=== PATIENT | male | born 1975 | race Caucasian/White ===

== ENCOUNTER 2016-09-03 19:23 | Emergency (ER) | payer BC, OTHER ==
[2016-09-03 19:58] VITALS: BP 158/82; PULSE 87; RESP 18; TEMP 99.7
[2016-09-03] MEDS ORDERED: ORPHENADRINE 30 MG/ML 2 ML VIAL IM STA (20:18)
[2016-09-03] MEDS ORDERED: HYDROmorphone 1 MG/ML 1 ML SYRINGE IM STA (20:18)
--- NOTE | 2016-09-03 20:20 | ED ---
Lower Extremity Injury HPI - General Chief Complaint: Extremity Injury, Lower Stated Complaint: leg pain Time Seen by Provider: 09/03/16 20:02 Source: patient, RN notes reviewed Mode of arrival: ambulatory Limitations: no limitations - History of Present Illness Initial Comments: 41-year-old male present emergency Department chief complaint bilateral leg pain. Patient states she's been doing more work than he usually would. Patient states he has a long history of bilateral knee pain, back problems. Patient states his films pain in the hamstring region, knees. Patient states been getting [facility]. Patient denies any trauma. 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 Patient states that he's felt that exacerbated his pain. Patient states his pain medication is not helping at this time. Patient denies any bowel bladder incontinence or retention. - Related Data Home Medications Medication Instructions Recorded Confirmed Beclomethasone Dipropionate [Qvar 2 puff INHALATION BID 07/15/14 09/03/16 80 mcg/puff] amLODIPine BESYLATE [Norvasc] 5 mg PO QAM 07/15/14 09/03/16 HYDROcodone/APAP 7.5-325MG [[place] 1 tab PO Q4H PRN 07/15/15 09/03/16 7.5-325] Ibuprofen [Motrin] 800 mg PO BID 09/03/16 09/03/16 Previous Rx's Medication Instructions Recorded Cyclobenzaprine [Flexeril] 10 mg PO TID PRN #15 tab 09/03/16 methylPREDNISolone [Medrol Dose 4 mg PO DIRECTED #1 pack 09/03/16 Pack] Allergies Allergy/AdvReac Type Severity Reaction Status Date / Time No Known Allergies Allergy Verified 01/07/16 20:29 Review of Systems ROS Statement: Those systems with pertinent positive or pertinent negative responses have been documented in the HPI. ROS Other: All systems not noted in ROS Statement are negative. Past Medical History Past Medical History: Asthma, Hypertension, Sleep Apnea/CPAP/BIPAP Additional Past Medical History / Comment(s): "Spirocytosis", chronic back pain, History of Any Multi-Drug Resistant Organisms: None Reported Additional Past Surgical History / Comment(s): Splenectomy AT AGE 2, SX R/T ABSCESS ON LT THIGH Past Anesthesia/Blood Transfusion Reactions: No Reported Reaction Past Psychological History: No Psychological Hx Reported Smoking Status: Current every day smoker Past Alcohol Use History: None Reported Additional Past Alcohol Use History / Comment(s): TRYING TO QUIT SMOKING Past Drug Use History: Marijuana Additional Drug Use History / Comment(s): USES 3-4 TIMES WEEKLY, INSTRUCTED NOT TO USE 24 HRS PRIOR TO SURGERY General Exam Limitations: no limitations General appearance: alert, in no apparent distress, obese Neck exam: Present: normal inspection, full ROM. Absent: tenderness, meningismus, lymphadenopathy Respiratory exam: Present: normal lung sounds bilaterally. Absent: respiratory distress, wheezes, rales, rhonchi, stridor Cardiovascular Exam: Present: regular rate, normal rhythm, normal heart sounds. Absent: systolic murmur, diastolic murmur, rubs, gallop, clicks GI/Abdominal exam: Present: soft, normal bowel sounds. Absent: distended, tenderness, guarding, rebound, rigid Extremities exam: Present: normal inspection, full ROM, normal capillary refill , other (Full strength of lower extremities neurovascular intact there is no Tenderness). Absent: tenderness, pedal edema, joint swelling, calf tenderness Back exam: Present: full ROM. Absent: tenderness, paraspinal tenderness, vertebral tenderness Neurological exam: Present: alert, oriented X3, CN II-XII intact Course Vital Signs 09/03/16 19:54 Temperature 99.7 F H Pulse Rate 87 Respiratory 18 Rate Blood Pressure 158/82 O2 Sat by Pulse 96 Oximetry Medical Decision Making - Medical Decision Making 41-year-old male presented for leg pain. Patient has chronic leg pain, knee pain. Patient also has symptoms symptoms of lumbar radiculopathy. Patient has chronic back problems. Patient placed on steroids, muscle relaxers at this time. Return parameters were discussed. Disposition Clinical Impression: Lumbar radicular pain, Leg pain Disposition: HOME SELF-CARE Condition: Stable Instructions: Lumbar Radiculopathy (ED), Leg Pain (ED) Additional Instructions: Please return to the Emergency Department if symptoms worsen or any other concerns. Prescriptions: Cyclobenzaprine [Flexeril] 10 mg PO TID PRN #15 tab PRN Reason: Muscle Spasm methylPREDNISolone [Medrol Dose Pack] 4 mg PO DIRECTED #1 pack Referrals: David Paniagua MD [Primary Care Provider] - 1-2 days Time of Disposition: 20:20
== END 2016-09-03 20:55 | disposition home or self-care (01) ==
LOC: EC 19:23
DX: M54.16 Radiculopathy, lumbar region (principal); M79.604 Pain in right leg; M79.605 Pain in left leg; J45.909 Unspecified asthma, uncomplicated; I10 Essential (primary) hypertension; F17.200 Nicotine dependence, unspecified, uncomplicated; Z79.51 Long term (current) use of inhaled steroids; Z79.1 Long term (current) use of non-steroidal anti-inflammatories (NSAID); Z79.899 Other long term (current) drug therapy
CPT/HCPCS: 99282; 96372 ×2; J2360; J1170

== ENCOUNTER → 2016-11-24 | Outpatient (CLI) | payer BC ==
[2016-11-24 09:31] LABS: Basophils # (A) 0.1 k/uL (0-0.2); Basophils % (A) 1 %; CH 32.7; CHCM 36.8; Eosinophils # (A) 0.4 k/uL (0-0.7); Eosinophils % (A) 4 %; HCT 46.6 % (39.0-53.0); HGB 16.4 gm/dL (13.0-17.5); Hyperchromasia Slight; Luc # (Auto) 0.24; Luc % (Auto) 2; Lymphocytes # (A) 2.4 k/uL (1.0-4.8); Lymphocytes % (A) 21 %; MCH 31.6 pg (25.0-35.0); MCHC 35.3 g/dL (31.0-37.0); MCV 89.5 fL (80.0-100.0); Mean Platelet Volume 8.2; Monocytes % (A) 8 %; Neutrophils # (A) 7.5 k/uL (1.3-7.7); Neutrophils % (A) 64 %; Poikilocytosis Slight; RBC 5.21 m/uL (4.30-5.90); RDW 14.1 % (11.5-15.5); WBC 11.7 k/uL (3.8-10.6); WBC (Perox) 11.62
[2016-11-24 09:35] LABS: ALT 67 U/L (21-72); AST 40 U/L (17-59); Alkaline Phosphatase 79 U/L (38-126); Anion Gap 7 mmol/L; Blood Urea Nitrogen 17 mg/dL (9-20); Calcium 9.7 mg/dL (8.4-10.2); Carbon Dioxide 29 mmol/L (22-30); Chloride 102 mmol/L (98-107); Cholesterol 143 mg/dL (<200); Glucose 94 mg/dL (74-99); HDL Cholesterol 45 mg/dL (40-60); Non-African American GFR(MDRD) >60 (>60 ml/min/1.73 sqM); Potassium 5.2 mmol/L (3.5-5.1); Sodium 138 mmol/L (137-145); Total Bilirubin 0.6 mg/dL (0.2-1.3); Total Protein 7.6 g/dL (6.3-8.2)
== END ==
LOC: LABWHC1 08:38
PROVIDERS: ATTEND Internal Medicine
DX: I10 Essential (primary) hypertension (principal); J45.909 Unspecified asthma, uncomplicated; R53.83 Other fatigue; Z13.6 Encounter for screening for cardiovascular disorders
CPT/HCPCS: 36415; 80053; 80061; 84443; 85025

== ENCOUNTER → 2017-05-07 | Outpatient (CLI) | payer BC ==
[2017-05-07 14:50] LABS: HCT 45.3 % (39.0-53.0); MCH 31.6 pg (25.0-35.0); MCHC 35.3 g/dL (31.0-37.0); MCV 89.5 fL (80.0-100.0); Mean Platelet Volume 8.2; Platelet Count 362 k/uL (150-450); RBC 5.06 m/uL (4.30-5.90); RDW 14.7 % (11.5-15.5); WBC 12.5 k/uL (3.8-10.6)
== END | disposition home or self-care (01) ==
LOC: LABPAT 14:10
PROVIDERS: ATTEND Otolaryngology
DX: Z01.818 Encounter for other preprocedural examination (principal); Z01.812 Encounter for preprocedural laboratory examination
CPT/HCPCS: 36415; 84132; 85027; 93005

== ENCOUNTER → 2017-05-10 | Day surgery (SDC) | payer BC ==
[2017-05-06 10:02] VITALS: BMI 51.7
[~2017-05-10] MED LIST: ACETAMINOPHEN IV (For NPO) 1,000 MG in EMPTY BAG 1 BAG IVPB ONE; DEXAMETHASONE SOD PHOSPHATE 10 MG/ML 1 ML VIAL IV ONE; HYDROmorphone (PF) 1 MG/ML ONE; HYDROmorphone 0.5 MG/0.5 ML SYRINGE IVP PRN; LACTATED RINGERS 1,000 ML IV SCH; LIDOCAINE 1% 20 ML VIAL (10MG/ML) FOR IV START INTRADERMA ONE; LIDOCAINE 1% INJ 10MG/ML (20 ML MDV) ONE; MIDAZOLAM 2 MG/2 ML VIAL IV ONE; MIDAZOLAM 2 MG/2 ML VIAL ONE; MORPHINE SULFATE 4 MG/ML SYRINGE IV PRN; ONDANSETRON 4 MG/2 ML VIAL IVP ONE; PHENYLEPHRINE-0.9% NACL SYG 1 MG/10 ML SYRINGE ONE; PROPOFOL 10 MG/ML 20 ML VIAL IV ONE; Pre Op ABX Message 1 EACH MISC MISCELLANE ONE; SUCCINYLCHOLINE CHLORIDE VIAL 200 MG/10 ML VIAL IV ONE; fentaNYL (PF) 50 MCG/ML 2 ML AMP ONE
--- NOTE | 2017-05-10 04:26 | HP ---
HISTORY AND PHYSICAL CHIEF COMPLAINT: Chronic laryngitis. HISTORY OF PRESENT ILLNESS: The patient is a 42-year-old male who was seen in my office complaining of having an intermittent raspy hoarse voice which has been going on for anywhere from 2 months to as long as a year. The patient denies any difficulty swallowing or any pain with swallowing. He also denies any referred otalgia or pain in either ear. He smokes approximately 1-1/2 to 2 packs of cigarettes per day and was advised to quit for obvious health reasons. At the time that the patient was seen in my office, clinical examination, which included an indirect laryngoscopy and eventually a videostroboscopy was performed and this revealed evidence of bilateral lesions on the true vocal cords. Because of this, patient's history of heavy smoking and concern about possible malignancy, it was recommended that he undergo a suspension microlaryngoscopy with biopsy and possible CO2 laser of these lesions under general anesthesia. PAST MEDICAL HISTORY: Past medical history reveals he has no allergies to medications. He uses a CPAP machine because he has been diagnosed with sleep apnea. MEDICATIONS: Current medications include: 1. Lisinopril. 2. Lasix. 3. Phentermine. 4. Maurepas. REVIEW OF SYSTEMS: Review of systems reveals cardiovascular system is positive for hypertension. The respiratory system is positive for sleep apnea. Musculoskeletal system is positive for osteoarthritis. The remainder of the review of systems is essentially unremarkable. PHYSICAL EXAMINATION: This patient is a 42-year-old male who is alert and cooperative. HEENT EXAMINATION: Patient is normocephalic. Tympanic membranes are normal. Middle ear spaces are free of any fluid or infection. Pupils are equal, round, and reactive to light and accommodation. Extraocular movements are within normal limits. Intranasal examination reveals moderate to severe septal deviation with compensatory hypertrophy of the inferior turbinates bilaterally. Examination of oropharynx and larynx are as described above in the history of present illness and will not be repeated here. Palpation of the neck, cranial nerves 2 through 12 and the remainder of the head and neck exam are within normal limits. CHEST/CARDIOVASCULAR: Both lung weber are clear to percussion and auscultation. The patient is in regular sinus rhythm. S1, S2 are present without any murmurs, S3s or S4s. Peripheral pulses are bilaterally symmetrical and within normal limits. ABDOMEN: There is no evidence of any masses, megaly, or tenderness. The abdomen is soft. Skin is unremarkable. Musculoskeletal and neurological are all within normal limits. RECTAL EXAM: The rectal exam is deferred at this time because the patient has this done on a regular basis at his family physician's office. The remainder of the physical exam is essentially unremarkable. 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 PLAN: The patient is scheduled to undergo a suspension microlaryngoscopy with biopsy of bilateral true vocal cord lesions and possible CO2 laser of the larynx under general anesthesia in a.m. ATTENTION RNS IN THE PRE-SURGICAL AREA: I have not ordered any pre-surgical prophylactic antibiotics for this patient. If the pharmacy department sends any pre- surgical prophylactic antibiotics to the pre-surgical area for this patient, that order should be cancelled and the medication should be returned to the pharmacy department. Please make sure that the patient's account is credited appropriately. The only medication that I have ordered for this patient to receive is 1000 mg of Ofirmev IV to be given once an intravenous line has been established. I have discussed the risks, benefits and alternative therapies for the above-mentioned procedure and for both sedation/analgesia as well as necessary blood product administration, if indicated, as they pertain to this patient. The patient has indicated his or her understanding and acceptance of the risks and procedures discussed. MMODL / IJN: [id number] /
--- NOTE | 2017-05-10 04:29 | HP ---
HISTORY AND PHYSICAL ADDENDUM: Patient's previous surgeries include a splenectomy and left hamstring surgery. LUCILA / KIN: [id number] /
[2017-05-10 15:22] VITALS: TEMP 97.2
[2017-05-10 16:13] VITALS: PULSE 76; RESP 16
[2017-05-10 16:36] VITALS: BP 133/77
--- NOTE | 2017-05-13 22:24 | OP ---
OPERATIVE REPORT DATE OF SURGERY: 05/10/2017 PREOPERATIVE DIAGNOSES: Chronic laryngitis with bilateral laryngeal lesions. POSTOPERATIVE DIAGNOSES: Chronic laryngitis with bilateral laryngeal lesions. Pathology pending. ANESTHESIA: General. OPERATIVE PROCEDURE: Suspension microlaryngoscopy with biopsy of bilateral laryngeal lesions and CO2 laser of the right true vocal cord lesion. SURGEON: Dr. Qureshi. COMPLICATIONS: None. DESCRIPTION OF THE PROCEDURE: The patient was placed on operating table in supine position and after uneventful induction and endotracheal intubation, satisfactory general anesthesia was obtained. Next the patient was draped in usual customary fashion. Following this, the laryngoscope was introduced into the patient's oropharynx and the entire hypopharynx including the right and left piriform sinuses, base of tongue and vallecular were inspected as well as the tip of the epiglottis. Next, the tip of the laryngoscope was positioned at the laryngeal introitus. The Lewy apparatus was attached to the handle of the laryngoscope and the laryngoscope was suspended on the patient's chest. Next, using the Zeiss operating microscope and under magnified visualization, once the 2 lesions on the anterior portion of the right and left true vocal cord. Both of these lesions were biopsied and were sent to Pathology in formalin marked right and left respectively. Next, using the CO2 laser in the appropriate setting, approximately 5-7 cortez, the remaining portions of the right lesion was vaporized using the CO2 laser. The patient was given 10 mg of Decadron intraoperatively to reduce any laryngeal edema. At this point, the procedure was terminated. There were no intraoperative complications. Patient tolerated procedure well and was returned to the recovery room in satisfactory condition. MMODL / IJN: [id number] /
== END | disposition home or self-care (01) ==
LOC: OR 11:27
PROVIDERS: ATTEND Otolaryngology
DX: J38.1 Polyp of vocal cord and larynx (principal); J37.0 Chronic laryngitis; F17.210 Nicotine dependence, cigarettes, uncomplicated; I10 Essential (primary) hypertension; M19.90 Unspecified osteoarthritis, unspecified site; J44.9 Chronic obstructive pulmonary disease, unspecified; G47.33 Obstructive sleep apnea (adult) (pediatric); Z99.89 Dependence on other enabling machines and devices; E66.01 Morbid (severe) obesity due to excess calories; Z68.43 Body mass index [BMI] 50.0-59.9, adult; D58.0 Hereditary spherocytosis; Z79.891 Long term (current) use of opiate analgesic; Z79.899 Other long term (current) drug therapy
CPT/HCPCS: 88305; 31536; J2250; J0330; J1100; J2405; J2001; J3010; J1170; J0131; J2370; J2704

== ENCOUNTER 2017-06-11 10:51 | Emergency (ER) | payer BC ==
[2017-06-11] MEDS ORDERED: RX INFO: IV CONTRAST WAS GIVEN 1 EACH MISC MISCELLANE PRN (11:26)
[2017-06-11] MEDS ORDERED: MORPHINE SULFATE 4 MG/ML SYRINGE IVP ONE (11:28)
[2017-06-11] MEDS ORDERED: ONDANSETRON 4 MG/2 ML VIAL IVP STA (11:28)
[2017-06-11] MEDS ORDERED: KETOROLAC 30 MG/ML 1 ML VIAL IVP STA (11:28)
--- NOTE | 2017-06-11 11:31 | ED ---
Abdominal Pain HPI - General Chief Complaint: Abdominal Pain Stated Complaint: Stomach pain Time Seen by Provider: 06/11/17 10:59 Source: patient, RN notes reviewed, old records reviewed Mode of arrival: ambulatory Limitations: no limitations - History of Present Illness Initial Comments: This patient is a 42-year-old male presents emergency Department chief complaint of left lower quadrant abdominal pain for the past few days. He reports he has history of constipation using MiraLAX. He reports his bowel movement past 2 days. Patient states he's had a history of splenectomy. He reports he's had no fever or chills. He reports that he has bilateral lower quadrant pains. Patient states that he's had no urinary symptoms. Patient reports that he is on Baggs for chronic pain. He reports that he was at this contributed to his constipation symptoms.Patient denies any recent fever, chills , shortness of breath, chest pain, back pain, abdominal pain, nausea vomiting, numbness or tingling, dysuria or hematuria, diarrhea, headaches or visual changes, or any other current symptoms - Related Data Home Medications Medication Instructions Recorded Confirmed Albuterol Nebulized [Ventolin 2.5 mg INHALATION RT-QID PRN 05/06/17 06/11/17 Nebulized] Furosemide [Lasix] 40 mg PO DAILY 05/06/17 06/11/17 HYDROcodone/APAP 10-325MG [[place] 1 tab PO Q6HR PRN 05/06/17 06/11/17 10-325] Lisinopril [Zestril] 20 mg PO BID 05/06/17 06/11/17 Phentermine HCl [Adipex-P] 37.5 mg PO QAM 05/06/17 06/11/17 Polyethylene Glycol 3350 [Miralax] 17 gm PO DAILY 06/11/17 06/11/17 Previous Rx's Medication Instructions Recorded Bisacodyl [Dulcolax] 10 mg PO ONCE #30 tablet. 06/11/17 Ciprofloxacin HCl [Cipro] 500 mg PO Q12HR 10 Days tab 06/11/17 metroNIDAZOLE [Flagyl] 500 mg PO TID #30 tab 06/11/17 Allergies Allergy/AdvReac Type Severity Reaction Status Date / Time No Known Allergies Allergy Verified 06/11/17 11:28 Review of Systems ROS Statement: Those systems with pertinent positive or pertinent negative responses have been documented in the HPI. ROS Other: All systems not noted in ROS Statement are negative. Past Medical History Past Medical History: Asthma, Hypertension, Sleep Apnea/CPAP/BIPAP Additional Past Medical History / Comment(s): SPHEROCYTOSIS BLOOD DISORDER ( SPLEEN REMOVED AGE 2.).,BACK AND KNEE PAIN. , C-PAP MACHINE., CONSTIPATION., RASPY VOICE-VOCAL CORD LESIONS. History of Any Multi-Drug Resistant Organisms: None Reported Additional Past Surgical History / Comment(s): Spleenectomy AGE 2, Injury left thigh with surgery and another surgery d/t abscess . Past Anesthesia/Blood Transfusion Reactions: No Reported Reaction Past Psychological History: No Psychological Hx Reported Smoking Status: Heavy tobacco smoker Past Alcohol Use History: None Reported Past Drug Use History: Marijuana - Past Family History Mother Family Medical History: No Reported History General Exam - General Exam Comments Initial Comments: This is a 42-year-old male. No distress. Limitations: no limitations General appearance: alert, in no apparent distress Head exam: Present: atraumatic, normocephalic, normal inspection Eye exam: Present: normal appearance, PERRL, EOMI. Absent: scleral icterus, conjunctival injection, periorbital swelling ENT exam: Present: normal exam, mucous membranes moist Neck exam: Present: normal inspection. Absent: tenderness, meningismus, lymphadenopathy Respiratory exam: Present: normal lung sounds bilaterally. Absent: respiratory distress, wheezes, rales, rhonchi, stridor Cardiovascular Exam: Present: regular rate, normal rhythm, normal heart sounds. Absent: systolic murmur, diastolic murmur, rubs, gallop, clicks GI/Abdominal exam: Present: soft, tenderness (Left lower quadrant tenderness.), normal bowel sounds, other (Evidence of scar from splenectomy.). Absent: distended, guarding, rebound, rigid Extremities exam: Present: normal inspection, full ROM, normal capillary refill. Absent: tenderness, pedal edema, joint swelling, calf tenderness Back exam: Present: normal inspection Neurological exam: Present: alert, oriented X3, CN II-XII intact Psychiatric exam: Present: normal affect, normal mood Course Vital Signs 06/11/17 06/11/17 06/11/17 10:56 12:00 13:45 Temperature 97.9 F Pulse Rate 85 80 88 Respiratory 18 16 18 Rate Blood Pressure 127/62 131/75 125/69 O2 Sat by Pulse 97 96 96 Oximetry Medical Decision Making - Medical Decision Making This patient is a 42-year-old male with chief complaint of left lower quadrant abdominal pain for the past 2 days. He has history of chronic constipation. On chronic pain medicine. He has been taking MiraLAX to help with producing a stools. At this time patient does have severe tenderness over the left lower quadrant. He does have mildly elevated blood cell count 13,000. CT on pelvis with contrast was ordered. Patient has evidence of diverticulitis. He'll be discharged with Cipro and Flagyl and stool softeners. Sent home with a magnesium citrate. Discussed follow-up with primary care provider. Discussed return parameters. All questions were answered and return parameters were discussed. - Lab Data Result diagrams: 06/11/17 11:39 06/11/17 11:39 Lab Results 06/11/17 06/11/17 06/11/17 Range/Units 11:39 11:39 12:45 WBC 13.8 H (3.8-10.6) k/uL RBC 4.84 (4.30-5.90) m/uL Hgb 15.3 (13.0-17.5) gm/dL Hct 42.3 (39.0-53.0) % MCV 87.3 (80.0-100.0) fL MCH 31.6 (25.0-35.0) pg MCHC 36.2 (31.0-37.0) g/dL RDW 14.0 (11.5-15.5) % Plt Count 419 (150-450) k/uL Neutrophils % 71 % Lymphocytes % 16 % Monocytes % 6 % Eosinophils % 5 % Basophils % 1 % Neutrophils # 9.8 H (1.3-7.7) k/uL Lymphocytes # 2.2 (1.0-4.8) k/uL Monocytes # 0.9 (0-1.0) k/uL Eosinophils # 0.7 (0-0.7) k/uL Basophils # 0.1 (0-0.2) k/uL Hyperchromasia Moderate Poikilocytosis Slight Sodium 138 (137-145) mmol/L Potassium 4.4 (3.5-5.1) mmol/L Chloride 100 (98-107) mmol/L Carbon Dioxide 29 (22-30) mmol/L Anion Gap 9 mmol/L BUN 13 (9-20) mg/dL Creatinine 0.60 L (0.66-1.25) mg/dL Est GFR (MDRD) Af Amer >60 (>60 ml/min/1.73 sqM) Est GFR (MDRD) Non-Af >60 (>60 ml/min/1.73 sqM) Glucose 87 (74-99) mg/dL Calcium 9.8 (8.4-10.2) mg/dL Total Bilirubin 0.8 (0.2-1.3) mg/dL AST 32 (17-59) U/L ALT 38 (21-72) U/L Alkaline Phosphatase 77 (38-126) U/L Total Protein 7.1 (6.3-8.2) g/dL Albumin 4.1 (3.5-5.0) g/dL Amylase 40 (30-110) U/L Lipase 67 (23-300) U/L Urine Color Yellow Urine Appearance Clear (Clear) Urine pH 7.5 (5.0-8.0) Ur Specific Hope 1.016 (1.001-1.035) Urine Protein Negative (Negative) Urine Glucose (UA) Negative (Negative) Urine Ketones Negative (Negative) Urine Blood Negative (Negative) Urine Nitrite Negative (Negative) Urine Bilirubin Negative (Negative) Urine Urobilinogen <2.0 (<2.0) mg/dL Ur Leukocyte Esterase Negative (Negative) - Radiology Data Radiology results: report reviewed Acute uncomplicated sigmoid diverticulitis. No evidence of pericolonic abscess. Hepatomegaly and 6 mm headache lesion is too small to accurately characterize. Simple renal cysts. Disposition Clinical Impression: Diverticulitis Disposition: HOME SELF-CARE Condition: Good Instructions: Diverticulitis (ED), Diverticulitis Diet (ED) Additional Instructions: Patient advised to take the antibiotics and stool softeners as prescribed. Follow-up with primary care provider. Return to the emergency department if any alarming signs or symptoms occur. Prescriptions: Bisacodyl [Dulcolax] 10 mg PO ONCE #30 tablet. Ciprofloxacin HCl [Cipro] 500 mg PO Q12HR 10 Days tab metroNIDAZOLE [Flagyl] 500 mg PO TID #30 tab Referrals: David Paniagua MD [Primary Care Provider] - 1-2 days Time of Disposition: 13:56
[2017-06-11 11:58] LABS: Basophils # (A) 0.1 k/uL (0-0.2); Basophils % (A) 1 %; Eosinophils # (A) 0.7 k/uL (0-0.7); Eosinophils % (A) 5 %; HCT 42.3 % (39.0-53.0); HGB 15.3 gm/dL (13.0-17.5); Hyperchromasia Moderate; Lymphocytes # (A) 2.2 k/uL (1.0-4.8); Lymphocytes % (A) 16 %; MCH 31.6 pg (25.0-35.0); MCHC 36.2 g/dL (31.0-37.0); MCV 87.3 fL (80.0-100.0); Monocytes # (A) 0.9 k/uL (0-1.0); Monocytes % (A) 6 %; Neutrophils # (A) 9.8 k/uL (1.3-7.7); Neutrophils % (A) 71 %; Platelet Count 419 k/uL (150-450); Poikilocytosis Slight; RBC 4.84 m/uL (4.30-5.90); WBC 13.8 k/uL (3.8-10.6)
[2017-06-11 12:04] LABS: ALT 38 U/L (21-72); AST 32 U/L (17-59); Albumin 4.1 g/dL (3.5-5.0); Alkaline Phosphatase 77 U/L (38-126); Amylase 40 U/L (30-110); Anion Gap 9 mmol/L; Blood Urea Nitrogen 13 mg/dL (9-20); Calcium 9.8 mg/dL (8.4-10.2); Carbon Dioxide 29 mmol/L (22-30); Chloride 100 mmol/L (98-107); Glucose 87 mg/dL (74-99); Lipase 67 U/L (23-300); Potassium 4.4 mmol/L (3.5-5.1); Sodium 138 mmol/L (137-145); Total Bilirubin 0.8 mg/dL (0.2-1.3); Total Protein 7.1 g/dL (6.3-8.2)
[2017-06-11] MEDS ORDERED: MORPHINE SULFATE 4 MG/ML SYRINGE IVP STA (13:11)
[2017-06-11 13:28] LABS: Appearance,Urine Clear (Clear); Bilirubin,Urine Negative (Negative); Blood,Urine Negative (Negative); Color,Urine Yellow; Glucose,Urine (UA) Negative (Negative); Ketones,Urine Negative (Negative); Leukocyte Esterase,Urine Negative (Negative); Nitrite,Urine Negative (Negative); PH, Urine 7.5 (5.0-8.0); Protein,Urine Negative (Negative); Specific Gravity,Urine 1.016 (1.001-1.035); Urobilinogen,Urine <2.0 mg/dL (<2.0)
--- NOTE | 2017-06-11 13:31 | CT ---
EXAMINATION TYPE: CT abdomen pelvis w con DATE OF EXAM: 06/11/2017 COMPARISON: NONE HISTORY: Stomach pains CT DLP: 4313 mGycm Automated exposure control for dose reduction was used. TECHNIQUE: Helical acquisition of images was performed from the lung bases through the pelvis. CONTRAST: Performed without Oral Contrast and with IV Contrast, patient injected with 100 mL of Omnipaque 300. FINDINGS: LUNG BASES: No significant abnormality is appreciated. LIVER/GB: There is mild hepatomegaly with enlargement of the left hepatic lobe. 6 mm nonspecific righ t hepatic lobe lesion is seen within segment 8 on series 3 image 16 that is too small to accurately c haracterize. No evidence of radiopaque ovoid or cartilage. PANCREAS: No significant abnormality is seen. SPLEEN: Spleen is surgically absent. ADRENALS: No significant abnormality is seen. KIDNEYS: 1.2 cm right midpole renal cyst and 1.9 cm right lower pole renal cyst are present. No evide nce of hydronephrosis or nephrolithiasis bilaterally. FREE AIR: No free air is visualized. RETROPERITONEAL ADENOPATHY: None visualized REPRODUCTIVE ORGANS: Prostate gland is heterogenous containing central zone calcifications. Small fat filled inguinal hernias are noted. URINARY BLADDER: Urinary bladder is decompressed and incompletely evaluated PELVIC ADENOPATHY: None visualized. OSSEOUS STRUCTURES: No significant abnormality is seen. BOWEL: Mild pericolonic fat stranding is seen surrounding sigmoid diverticula with adjacent fascial plane thickening. No evidence of focal fluid collection or free air. No proximal obstruction. Other d escending colonic diverticula are seen without pericolonic fat stranding. OTHER: Abdominal aorta is of normal course and caliber. IMPRESSION: 1. ACUTE UNCOMPLICATED SIGMOID DIVERTICULITIS. NO EVIDENCE OF PERICOLONIC ABSCESS. 2. HEPATOMEGALY AND 6 MM HEPATIC LESION THAT IS TOO SMALL TO ACCURATELY CHARACTERIZE. 3. SIMPLE RENAL CYSTS.
[2017-06-11 13:46] VITALS: RESP 18
[2017-06-11] MEDS ORDERED: MAGNESIUM CITRATE 296 ML BOTTLE PO ONE (13:53)
[2017-06-11 14:17] VITALS: BP 124/58; PULSE 77; TEMP 97.6
[2017-06-11] MEDS ORDERED: metroNIDAZOLE 500 MG TAB PO STA (14:22)
[2017-06-11] MEDS ORDERED: CIPROFLOXACIN HCL 500 MG TAB PO STA (14:22)
== END 2017-06-11 14:34 | disposition home or self-care (01) ==
LOC: EC 10:51
DX: K57.92 Diverticulitis of intestine, part unspecified, without perforation or abscess without bleeding (principal); I10 Essential (primary) hypertension; G47.30 Sleep apnea, unspecified; F17.200 Nicotine dependence, unspecified, uncomplicated; Z87.19 Personal history of other diseases of the digestive system; Z90.81 Acquired absence of spleen; Z99.89 Dependence on other enabling machines and devices; Z79.899 Other long term (current) drug therapy
CPT/HCPCS: 36415; 80053; 82150; 83690; 85025; 81003; 74177; 99285; 96374; 96375 ×3; J2270; J2405; J1885; Q9967

== ENCOUNTER → 2017-06-14 | Day surgery (SDC) | payer BC ==
[2017-06-12 09:50] VITALS: BMI 51.0
[~2017-06-14] MED LIST changes: +ALBUTEROL INHALER 60 PUFF/8 GM INHALER INHALATION ONE; +DEXAMETHASONE SOD PHOS (MDV) 100 MG/10 ML VIAL ONE; -HYDROmorphone (PF) 1 MG/ML ONE; -HYDROmorphone 0.5 MG/0.5 ML SYRINGE IVP PRN; -MIDAZOLAM 2 MG/2 ML VIAL IV ONE; +MIDAZOLAM 2 MG/2 ML VIAL IV PRN; -PHENYLEPHRINE-0.9% NACL SYG 1 MG/10 ML SYRINGE ONE; +SCOPOLAMINE 1.5MG/72HR PATCH TRANSDERM ONE; +SUCCINYLCHOLINE CHLORIDE 100 MG/5 ML SYR IV ONE; -SUCCINYLCHOLINE CHLORIDE VIAL 200 MG/10 ML VIAL IV ONE
--- NOTE | 2017-06-14 02:50 | HP ---
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 HISTORY OF PRESENT ILLNESS: This patient is a 42-year-old male who recently underwent a suspension microlaryngoscopy with bilateral biopsy of true vocal cord lesions under general anesthesia. Both biopsies were returned as negative and consistent with vocal cord polyps/nodules. Initially, the lesion on the right core was removed and it was decided to wait at least 1 month to remove the 2nd lesion because of concern of the possible formation of a laryngeal web. The patient is scheduled for a suspension microlaryngoscopy with CO2 laser vaporization of the remaining laryngeal polyp/nodule on the left true vocal cord under general anesthesia. PAST MEDICAL HISTORY: Reveals the patient has no known allergies to medications. He was recently diagnosed with diverticulitis and is currently on oral antibiotics for this disorder. MEDICATIONS: His normal medications include: Lisinopril, Lasix, phentermine. [place], albuterol. REVIEW OF SYSTEMS: Cardiovascular is positive for hypertension. RESPIRATORY: Positive for sleep apnea. Gastrointestinal is negative. MUSCULOSKELETAL: Positive for osteoarthritis. Gastrointestinal is positive for possible diverticulitis. The remainder review of systems unremarkable. PREVIOUS SURGERIES: Include a suspension microlaryngoscopy with biopsy of the right and left true vocal cord and CO2 laser of the right true vocal cord. SOCIAL HISTORY: The patient smokes between 1/2 to 1 pack of cigarettes per day and has been advised to quit for obvious health reasons. Additional previous surgeries include a splenectomy and left hamstring surgery. Remainder of the review of systems unremarkable. PHYSICAL EXAMINATION: The patient is a 42-year-old male who was alert and cooperative. HEENT examination patient is normocephalic. Tympanic membranes are normal. Middle ear spaces are free of any fluid or infection. Pupils equal, round, and reactive to light and accommodation. Extraocular movements are within normal limits. Intranasal examination reveals moderate to severe septal deviation with compensatory hypertrophy of the inferior turbinates and a moderate amount of mucus on the mucous membranes and draining down the posterior pharynx. Examination of the oropharynx is unremarkable. Examination of larynx is as noted above with the presence of a polyp/nodule on the left true vocal cord. Palpation of the neck, cranial nerves 2 through 12 and the remainder of the head and neck exam are within normal limits. Chest/cardiovascular: Both lung weber are clear to percussion and auscultation. The patient is in regular sinus rhythm. S1, S2 are present without evidence of any murmurs. Peripheral pulses are bilaterally symmetrical and within normal limits. ABDOMEN: There is no evidence of any masses, megaly, or tenderness. ABDOMEN: Soft. Skin is unremarkable. Musculoskeletal and neurological within normal limits. Rectal examination is deferred at this time because the patient has this done on a regular basis at his family physician's office. The remainder of physical exam is unremarkable. ASSESSMENT: Chronic laryngitis with lesion of the left true vocal cord. PLAN: The patient is scheduled to undergo a suspension microlaryngoscopy with CO2 laser of lesion of the left true vocal cord under general anesthesia in the a.m. Attention RNs in the pre-surgical area: I have not ordered any pre-surgical prophylactic antibiotics for this patient. If the Pharmacy Department sends any pre- surgical prophylactic antibiotics to the pre-surgical area for this patient, that medication should be cancelled and returned to the pharmacy department and please make sure that the patient's account is credited appropriately. The only medications that I have ordered for this patient to receive is 1000 mg of Ofirmev IV which is to be given once an intravenous line has been established. I have discussed the risks, benefits and alternative therapies for the above-mentioned procedure and for both sedation/analgesia as well as necessary blood product administration, if indicated, as they pertain to this patient. The patient has indicated his or her understanding and acceptance of the risks and procedures discussed. MMODL / IJN: [id number] /
[2017-06-14 11:41] VITALS: TEMP 98.5
[2017-06-14 12:44] VITALS: RESP 18
[2017-06-14 13:13] VITALS: BP 122/62
[2017-06-14 13:15] VITALS: PULSE 75
--- NOTE | 2017-06-16 16:39 | OP ---
OPERATIVE REPORT DATE OF SURGERY: 06/14/2017 PREOPERATIVE DIAGNOSIS: Left true vocal cord polyp. POSTOPERATIVE DIAGNOSIS: Left true vocal cord polyp. ANESTHESIA: General. OPERATIVE PROCEDURE: Suspension microlaryngoscopy with CO2 laser of a left true vocal cord polyp. SURGEON: Dr. Qureshi. COMPLICATIONS: None. ESTIMATED BLOOD LOSS: Zero. PROCEDURE: The patient is placed operating table supine position and after uneventful induction and endotracheal intubation, satisfactory general anesthesia was obtained. Next the patient was draped in usual customary fashion. Following which, the laryngoscope was introduced into the patient's oropharynx and the entire hypopharynx including the left and right piriform sinus, base of tongue, vallecular, and the tip of the epiglottis were inspected and found to be free of any suspicious lesions. Next, the tip of the laryngoscope was introduced into the laryngeal introitus. Following this, the Lewy apparatus was attached to the handle of the laryngoscope and the laryngoscope was suspended on the patient's chest. Next, using the Zeiss operating microscope and under direct visualization, the larynx and true vocal cords were visualized with the polyp on the left true vocal cord visualized. Next, using the CO2 laser on approximately a 7 watt setting and using a laser wand, the vocal cord polyp was completely vaporize in the usual and customary fashion. Further inspection of the larynx did not reveal any other laryngeal lesions. The patient was given 10 mg of Decadron intravenously during the surgery to reduce any postoperative edema. At this point, the procedure was terminated. There were no intraoperative complications. The patient tolerated procedure well and was returned to recovery room in satisfactory condition. MMODL / IJN: [id number] /
== END | disposition home or self-care (01) ==
LOC: OR 08:23
PROVIDERS: ATTEND Otolaryngology
DX: J38.2 Nodules of vocal cords (principal); F17.210 Nicotine dependence, cigarettes, uncomplicated; I10 Essential (primary) hypertension; K57.92 Diverticulitis of intestine, part unspecified, without perforation or abscess without bleeding; Z79.2 Long term (current) use of antibiotics; G47.30 Sleep apnea, unspecified; M19.90 Unspecified osteoarthritis, unspecified site; Z79.891 Long term (current) use of opiate analgesic; Z79.899 Other long term (current) drug therapy
CPT/HCPCS: 31599; J2250; J1100 ×2; J2405; J2001; J3010; J0131; J0330; J2704

== ENCOUNTER 2017-09-02 12:31 | Day surgery (SDC) | payer BC ==
[2017-08-29 09:53] VITALS: BMI 52.0
[~2017-09-02 12:31] MED LIST changes: -ACETAMINOPHEN IV (For NPO) 1,000 MG in EMPTY BAG 1 BAG IVPB ONE; -ALBUTEROL INHALER 60 PUFF/8 GM INHALER INHALATION ONE; -DEXAMETHASONE SOD PHOS (MDV) 100 MG/10 ML VIAL ONE; -DEXAMETHASONE SOD PHOSPHATE 10 MG/ML 1 ML VIAL IV ONE; -LIDOCAINE 1% 20 ML VIAL (10MG/ML) FOR IV START INTRADERMA ONE; -LIDOCAINE 1% INJ 10MG/ML (20 ML MDV) ONE; -MIDAZOLAM 2 MG/2 ML VIAL IV PRN; -MIDAZOLAM 2 MG/2 ML VIAL ONE; -MORPHINE SULFATE 4 MG/ML SYRINGE IV PRN; -ONDANSETRON 4 MG/2 ML VIAL IVP ONE; -PROPOFOL 10 MG/ML 20 ML VIAL IV ONE; -Pre Op ABX Message 1 EACH MISC MISCELLANE ONE; -SCOPOLAMINE 1.5MG/72HR PATCH TRANSDERM ONE; -SUCCINYLCHOLINE CHLORIDE 100 MG/5 ML SYR IV ONE; -fentaNYL (PF) 50 MCG/ML 2 ML AMP ONE
[2017-09-02 13:32] VITALS: RESP 16; TEMP 98.5
[2017-09-02] MEDS ORDERED: LIDOCAINE 1% 20 ML VIAL (10MG/ML) FOR IV START INTRADERMA ONE (13:48)
[2017-09-02] MEDS ORDERED: MIDAZOLAM 2 MG/2 ML VIAL IV ONE (13:53)
[2017-09-02] MEDS ORDERED: PROPOFOL 10 MG/ML 20 ML VIAL IV ONE (15:36)
[2017-09-02] MEDS ORDERED: MIDAZOLAM 2 MG/2 ML VIAL ONE (15:36)
[2017-09-02 16:34] VITALS: BP 135/84; PULSE 73
--- NOTE | 2017-09-03 00:05 | P.PCN ---
Date of Procedure: 09/02/17 Procedure(s) Performed: Procedure: 1. Esophagogastroduodenoscopy and biopsy. 2. Total colonoscopy. Preoperative diagnosis: Epigastric pain and change in bowel habits. Postoperative diagnosis: 1. Small sliding hiatal hernia with no obvious esophagitis or complicated reflux disease. 2. Mild antral gastritis. 3. Sigmoid diverticulosis with no evidence of acute diverticulitis or strictures. 4. Low-grade internal hemorrhoids not bleeding at the time of this exam. Preparation: HalfLytely prep. Sedation: Was provided by anesthesia. Brief clinical history: The patient is a 42-year-old male who is scheduled for this evaluation because of epigastric abdominal pain and nausea of around 1 year duration and chronic reflux symptoms as well as issues with constipation. This evaluation is to assess for peptic ulcer disease, complicated reflux disease and rule out colonic pathology. Procedure: With the patient on his left lateral decubitus position and after informed consent and adequate sedation, I passed the Olympus-GIF 160 video upper endoscope through the cricopharyngeus down the esophagus. GE junction was around 42-43 cm from the incisors and there was a small sliding hiatal hernia but no obvious esophagitis or complicated flex disease. The endoscope was then passed into the stomach which was insufflated with air and inspected in detail including the retroflex view of the cardia. There was some mottling and erythema in the antrum but no ulcers or erosions pyloric channel, duodenal bulb, post bulbar area and descending duodenum appeared within normal limits. Because of his symptoms, I obtained biopsies from the duodenum, antrum and esophagus then the endoscope was withdrawn and I proceeded to do colonoscopy. Perianal area did not show any fissures or fistulas. There were no masses felt on digital rectal examination. The Olympus CFQ 160L video colonoscope was then inserted in the rectum in the usual fashion and advanced to the cecum. There were several diverticular orifices seen scattered in the sigmoid but I saw no evidence of acute diverticulitis or strictures. No polyps or tumors were seen or any other obvious pathology. I retroflexed the endoscope in the rectum before the endoscope was withdrawn. The patient tolerated the procedure well. Plan: The patient was reassured. Discussed dietary measures and local care for hemorrhoids. Will await biopsy results. He will follow up with you as planned and I will see him in follow-up in few weeks and make additional recommendations based on his course and biopsy results. I will keep you updated on his progress.
== END 2017-09-02 16:44 | disposition home or self-care (01) ==
LOC: ORWHC2ENDO 12:31
DX: K59.00 Constipation, unspecified (principal); K44.9 Diaphragmatic hernia without obstruction or gangrene; K57.30 Diverticulosis of large intestine without perforation or abscess without bleeding; K64.8 Other hemorrhoids; K29.50 Unspecified chronic gastritis without bleeding; K20.9 Esophagitis, unspecified; I10 Essential (primary) hypertension; G47.33 Obstructive sleep apnea (adult) (pediatric); Z99.89 Dependence on other enabling machines and devices; R16.1 Splenomegaly, not elsewhere classified; F17.210 Nicotine dependence, cigarettes, uncomplicated; J45.909 Unspecified asthma, uncomplicated; Z79.891 Long term (current) use of opiate analgesic; Z79.899 Other long term (current) drug therapy
CPT/HCPCS: 88305; 45378; 43239; J2250; J2704

== ENCOUNTER → 2018-02-11 | Outpatient (CLI) | payer BC ==
[2018-02-11 18:44] LABS: T4, Free (Free Thyroxine) 1.2 ng/dL (0.80-1.80)
[2018-02-11 20:35] LABS: Iron Saturation 20.87 (15.00-50.00)
[2018-02-11 21:19] LABS: Folate, Serum 10.7 ng/mL
[2018-02-13 07:11] LABS: Vitamin B1 74 ug/L (38-122)
== END ==
LOC: LABWHC1 13:21
PROVIDERS: ATTEND Psychiatry & Neurology Pain Medicine
DX: R53.83 Other fatigue (principal)
CPT/HCPCS: 36415; 82607; 82728; 82746; 83540; 83550; 84207; 84425; 84439; 84443; 84466; 84481; 84591

== ENCOUNTER → 2018-05-17 | Outpatient (CLI) | payer BC ==
[2018-05-17 09:44] LABS: Basophils # (A) 0.1 k/uL (0-0.2); Basophils % (A) 1 %; Eosinophils # (A) 0.4 k/uL (0-0.7); Eosinophils % (A) 4 %; HCT 49.3 % (39.0-53.0); HGB 16.8 gm/dL (13.0-17.5); Lymphocytes # (A) 2.3 k/uL (1.0-4.8); Lymphocytes % (A) 23 %; MCH 31.6 pg (25.0-35.0); MCHC 34.1 g/dL (31.0-37.0); MCV 92.5 fL (80.0-100.0); Mean Platelet Volume 8.1; Monocytes # (A) 0.6 k/uL (0-1.0); Monocytes % (A) 6 %; Neutrophils # (A) 6.3 k/uL (1.3-7.7); Neutrophils % (A) 63 %; Platelet Count 326 k/uL (150-450); RBC 5.33 m/uL (4.30-5.90); RDW 14.7 % (11.5-15.5)
[2018-05-19 09:45] LABS: Albumin 4.3 g/dL (3.80-4.90); Albumin/Globulin Ratio 1.59 (1.20-2.10); Anion Gap 5.7 mmol/L (4.00-12.00); Calcium 9.4 mg/dL (8.7-10.3); Carbon Dioxide 26.3 mmol/L (21.6-31.8); Globulin 2.7 g/dL (1.6-3.3); LDL Cholesterol,Calculated 86.8 mg/dL (0.0-131.0); Potassium 5.1 mmol/L (3.5-5.5); Total Bilirubin 0.7 mg/dL (0.3-1.2); VLDL Calculation 11.2 mg/dL (5.00-40.00)
== END | disposition home or self-care (01) ==
LOC: LABWHC1 08:58
PROVIDERS: ATTEND Internal Medicine
DX: I10 Essential (primary) hypertension (principal); J45.909 Unspecified asthma, uncomplicated
CPT/HCPCS: 36415; 80053; 80061; 84443; 85025

== ENCOUNTER 2018-06-09 11:35 | Emergency (ER) | payer BC ==
[2018-06-09 11:45] VITALS: RESP 18
[2018-06-09] MEDS ORDERED: LIDOCAINE 1% INJ 10MG/ML (20 ML MDV) SQ ONE (12:04)
[2018-06-09] MEDS ORDERED: DIPH,PERTUS(ACELL)TETVAC-LF 0.5 ML VIAL IM ONE (12:34)
--- NOTE | 2018-06-09 12:37 | ED ---
Wound/Laceration HPI - General Chief Complaint: Wound/Laceration Stated Complaint: LEFT THUMB LAC Time Seen by Provider: 06/09/18 11:59 Source: patient, RN notes reviewed Mode of arrival: ambulatory Limitations: no limitations - History of Present Illness Initial Comments: 43-year-old male presents emergency Department with chief complaint of laceration to his left thumb patient is unsure when his last tetanus was. Patient states he had a clean knife states that he went to cardiac that or states he slipped stabbing his thumb. He has full range of motion. He states it does feel slightly numb. Patient offers no other complaints. - Related Data Home Medications Medication Instructions Recorded Confirmed Albuterol Nebulized [Ventolin 2.5 mg INHALATION RT-QID PRN 05/06/17 08/29/17 Nebulized] Furosemide [Lasix] 40 mg PO DAILY 05/06/17 08/29/17 HYDROcodone/APAP 10-325MG [[place] 1 tab PO Q6HR PRN 05/06/17 08/29/17 10-325] Lisinopril [Zestril] 20 mg PO BID 05/06/17 08/29/17 Phentermine HCl [Adipex-P] 37.5 mg PO QAM 05/06/17 08/29/17 Polyethylene Glycol 3350 [Miralax] 17 gm PO DAILY 06/11/17 08/29/17 Allergies Allergy/AdvReac Type Severity Reaction Status Date / Time No Known Allergies Allergy Verified 06/09/18 12:34 Review of Systems ROS Statement: Those systems with pertinent positive or pertinent negative responses have been documented in the HPI. ROS Other: All systems not noted in ROS Statement are negative. Past Medical History Past Medical History: Asthma, Blood Disorder, Hypertension, Sleep Apnea/CPAP/ BIPAP Additional Past Medical History / Comment(s): hx of diverticulitis, SPHEROCYTOSIS BLOOD DISORDER (SPLEEN REMOVED AGE 2.), BACK AND KNEE PAIN. DDD, hx of vocal chord lesions History of Any Multi-Drug Resistant Organisms: None Reported Additional Past Surgical History / Comment(s): Spleenectomy AGE 2, Injury left thigh with surgery and another surgery d/t abscess. VOCAL CHORD LESIONS REMOVED Past Anesthesia/Blood Transfusion Reactions: Previous Problems w/ Anesthesia Additional Past Anesthesia/Blood Transfusion Reaction / Comment(s): MOM STATES "HE GETS VERY MEAN" POST OP Past Psychological History: No Psychological Hx Reported Smoking Status: Heavy tobacco smoker - Past Family History Mother Family Medical History: No Reported History General Exam Limitations: no limitations General appearance: alert, in no apparent distress Head exam: Present: atraumatic, normocephalic, normal inspection Respiratory exam: Present: normal lung sounds bilaterally. Absent: respiratory distress, wheezes, rales, rhonchi, stridor Cardiovascular Exam: Present: regular rate, normal rhythm, normal heart sounds. Absent: systolic murmur, diastolic murmur, rubs, gallop, clicks Extremities exam: Present: other (Left thumb there V-shaped laceration 2 cm full range of motion neurovascular intact no active bleeding) Course Vital Signs 06/09/18 11:43 Temperature 97.4 F L Pulse Rate 65 Respiratory 18 Rate Blood Pressure 107/72 O2 Sat by Pulse 99 Oximetry Procedures - Laceration Laceration #1 Consent Obtained: verbal consent Indication: laceration Site: hand (Left hand first digit) Size (cm): 2 Description: flap Anesthetic Used: lidocaine 1%, without epi Anesthesia Technique: local infiltration Amount (mls): 3 Pre-repair: wound explored, irrigated extensively, deep structures intact Type of Sutures: nylon Size of Sutures: 4-0 Number of Sutures: 3 Patient Tolerated Procedure: well, no complications Medical Decision Making - Medical Decision Making 43-year-old male presented for left thumb laceration. This was thoroughly cleaned, sutured. Patient will return in 7 days for suture removal recheck in 2 days and return parameters were discussed. Disposition Clinical Impression: Laceration of left thumb Disposition: HOME SELF-CARE Condition: Stable Instructions (If sedation given, give patient instructions): Finger Laceration (ED), Care For Your Stitches (ED) Additional Instructions: Please return to the Emergency Department if symptoms worsen or any other concerns. Have sutures removed in 10 days. Is patient prescribed a controlled substance at d/c from ED?: No Referrals: David Paniagua MD [Primary Care Provider] - 1-2 days Time of Disposition: 12:37
[2018-06-09 13:26] VITALS: BP 138/69; PULSE 61; TEMP 98
== END 2018-06-09 13:24 | disposition home or self-care (01) ==
LOC: EC 11:35
DX: S61.012A Laceration without foreign body of left thumb without damage to nail, initial encounter (principal); J45.909 Unspecified asthma, uncomplicated; I10 Essential (primary) hypertension; G47.30 Sleep apnea, unspecified; F17.200 Nicotine dependence, unspecified, uncomplicated; Z79.899 Other long term (current) drug therapy; Z99.89 Dependence on other enabling machines and devices; Z86.2 Personal history of diseases of the blood and blood-forming organs and certain disorders involving the immune mechanism; Z90.81 Acquired absence of spleen; Z23 Encounter for immunization; W26.0XXA Contact with knife, initial encounter; Y93.G1 Activity, food preparation and clean up
CPT/HCPCS: 12001; 90471; 90715; 99282

== ENCOUNTER → 2018-07-07 | Outpatient (CLI) | payer BC ==
--- NOTE | 2018-07-08 04:00 | US ---
EXAMINATION TYPE: US kidneys/renal and bladder DATE OF EXAM: 07/07/2018 COMPARISON: Ultrasound 08/10/2014 CLINICAL HISTORY: 43-year-old male N28.1 Cyst of right kidney. Difficult and limited exam due to dieudonne ent body habitus TECHNIQUE: Multiple sonographic images of the kidneys and bladder are obtained. FINDINGS: EXAM MEASUREMENTS: Right Kidney: 11.6 x 7.7 x 6.2 cm Left Kidney: 12.3 x 6.9 x 6.7 cm Right Kidney: No hydronephrosis or masses seen. Cystic area visualized mid/lower pole measuring 2.0 x 1.9 x 1.6 cm as seen on 2014 ultrasound Left Kidney: Limited exam due to patient body habitus and overlying bowel gas. No hydronephrosis visu alized. No cystic or solid areas seen on visualized portions Bladder: wnl Bilateral Jets seen: yes IMPRESSION: 1. No hydronephrosis. 2. 2.0 cm simple cyst lower pole right kidney. 3. Limited detailed evaluation of the left kidney as stated above.
== END ==
LOC: RADUSWWP 15:21
PROVIDERS: ATTEND Internal Medicine
DX: N28.1 Cyst of kidney, acquired (principal)
CPT/HCPCS: 76770

== ENCOUNTER 2018-07-12 19:00 | Inpatient (IN) | payer BC ==
[2018-07-12] MEDS ORDERED: SODIUM CHLORIDE 0.9% 1,000 ML IV STA (19:23)
[2018-07-12] MEDS ORDERED: CLINDAMYCIN 600 MG in DEXTROSE 5% IN WATER 50 ML IVPB STA ×2 (19:23)
[2018-07-12 20:07] LABS: Basophils # (A) 0.1 k/uL (0-0.2); Basophils % (A) 1 %; Eosinophils # (A) 0.7 k/uL (0-0.7); Eosinophils % (A) 5 %; HCT 50.3 % (39.0-53.0); HGB 16.9 gm/dL (13.0-17.5); Lymphocytes # (A) 2.8 k/uL (1.0-4.8); Lymphocytes % (A) 21 %; MCH 30.4 pg (25.0-35.0); MCHC 33.6 g/dL (31.0-37.0); MCV 90.6 fL (80.0-100.0); Mean Platelet Volume 7.6; Monocytes # (A) 0.7 k/uL (0-1.0); Monocytes % (A) 5 %; Neutrophils # (A) 8.9 k/uL (1.3-7.7); Neutrophils % (A) 67 %; Platelet Count 346 k/uL (150-450); RBC 5.55 m/uL (4.30-5.90); RDW 14.6 % (11.5-15.5); WBC 13.4 k/uL (3.8-10.6)
--- NOTE | 2018-07-12 20:21 | CT ---
EXAMINATION TYPE: CT abdomen pelvis w con DATE OF EXAM: 07/12/2018 COMPARISON: CT abdomen and pelvis June 11, 2017. HISTORY: Boil to umbilicus. Abdominal pain not further specified per order. CT DLP: 2497.3 mGycm, Automated Exposure Control for Dose Reduction was Utilized. CONTRAST: CT scan of the abdomen and pelvis is performed without oral but with with IV Contrast, patient inject ed with 100 mL of Isovue 300. FINDINGS: LUNG BASES: Redemonstration of elevated right hemidiaphragm.. LIVER/GB: Persistent heterogeneous hypodense liver suggesting diffuse fatty infiltration. Prominent l eft hepatic lobe redemonstrated.. PANCREAS: No significant abnormality is seen. SPLEEN: Spleen not visualized presumed Surgically absent. ADRENALS: No significant abnormality is seen. KIDNEYS: Simple appearing 2.6 cm cyst medially right kidney mid to lower pole level series 301 image 37. Additional simple appearing small cyst suspected scattered throughout the right kidney. BOWEL: Evaluation of bowel suboptimal due to lack of enteric contrast. No suspicious small or large b owel dilatation is seen. Some distal colonic diverticula redemonstrated without CT evidence for acute diverticulitis. PROSTATE/SEMINAL VESICLES: Central calcifications are present. LYMPH NODES: No greater than 1cm abdominal or pelvic lymph nodes are appreciated. OSSEOUS STRUCTURES: Some multilevel facet arthropathy in the lower lumbar spine is present. OTHER: Small fat-containing left inguinal hernia. IMPRESSION: No significant new or acute finding is seen to account for patient's clinical symptoms. Interval resolution of left sided acute sigmoid diverticulitis.
[2018-07-12 20:22] LABS: ALT 49 U/L (21-72); AST 33 U/L (17-59); Albumin 4.2 g/dL (3.5-5.0); Alkaline Phosphatase 76 U/L (38-126); Anion Gap 8 mmol/L; Blood Urea Nitrogen 17 mg/dL (9-20); Calcium 10.1 mg/dL (8.4-10.2); Carbon Dioxide 29 mmol/L (22-30); Chloride 102 mmol/L (98-107); Glucose 100 mg/dL (74-99); Lipase 163 U/L (23-300); Potassium 4.5 mmol/L (3.5-5.1); Sodium 139 mmol/L (137-145); Total Bilirubin 0.8 mg/dL (0.2-1.3); Total Protein 7.4 g/dL (6.3-8.2)
--- NOTE | 2018-07-12 20:41 | ED ---
General Adult HPI - General Chief complaint: Skin/Abscess/Foreign Body Stated complaint: abscess in navel Time Seen by Provider: 07/12/18 19:08 Source: patient, RN notes reviewed, old records reviewed Mode of arrival: ambulatory Limitations: no limitations - History of Present Illness Initial comments: 43-year-old male patient past medical history of severe cytosis, asplenic, COPD presents to ED for evaluation of reported umbilical abscess. Patient reports that he has been followed by his primary care physician Dr. Paniagua for approximately 3 this problem. Patient was that he had a boil in his umbilicus, states that he is treated with Keflex. Patient reports that it has decreased in size and has improved. Patient presents to ER today because he has had increased drainage. Patient denies any fevers or chills at home. Patient denies any nausea vomiting diarrhea, abdominal pain. Systemic: Pt denies fatigue, myalgia, fever/chills, rash. Pt denies weakness, night sweats, weight loss. Neuro: Pt denies headache, visual disturbances, syncope or pre-syncope. HEENT: Pt denies ocular discharge or irritation, otalgia, rhinorrhea, pharyngitis or notable lymphadenopathy. Cardiopulmonary: Pt denies chest pain, SOB, heart palpitations, dyspnea on exertion. Abdominal/GI: Pt denies abdominal pain, n/v/d. : Pt denies dysuria, burning w/ urination, frequency/urgency. Denies new onset urinary or bowel incontinence. MSK: Pt denies myalgia, loss of strength or function in extremities. Neuro: Pt denies new onset weakness, paresthesias. - Related Data Home Medications Medication Instructions Recorded Confirmed Albuterol Nebulized [Ventolin 2.5 mg INHALATION RT-QID PRN 05/06/17 06/09/18 Nebulized] Furosemide [Lasix] 40 mg PO DAILY 05/06/17 06/09/18 HYDROcodone/APAP 10-325MG [Wever 1 tab PO Q6HR PRN 05/06/17 06/09/18 10-325] Lisinopril [Zestril] 20 mg PO BID 05/06/17 06/09/18 Phentermine HCl [Adipex-P] 37.5 mg PO QAM 05/06/17 06/09/18 Cephalexin [Keflex] 500 mg PO TID 06/09/18 06/09/18 Topiramate [Topamax] 50 mg PO BID 06/09/18 06/09/18 Allergies Allergy/AdvReac Type Severity Reaction Status Date / Time No Known Allergies Allergy Verified 07/12/18 19:07 Review of Systems ROS Statement: Those systems with pertinent positive or pertinent negative responses have been documented in the HPI. ROS Other: All systems not noted in ROS Statement are negative. 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 DDD, hx of vocal chord lesions History of Any Multi-Drug Resistant Organisms: None Reported Additional Past Surgical History / Comment(s): Spleenectomy AGE 2, Injury left thigh with surgery and another surgery d/t abscess. VOCAL CHORD LESIONS REMOVED Past Anesthesia/Blood Transfusion Reactions: Previous Problems w/ Anesthesia Additional Past Anesthesia/Blood Transfusion Reaction / Comment(s): MOM STATES "HE GETS VERY MEAN" POST OP Past Psychological History: No Psychological Hx Reported Smoking Status: Current every day smoker Past Alcohol Use History: None Reported Past Drug Use History: Marijuana - Past Family History Mother Family Medical History: No Reported History General Exam - General Exam Comments Initial Comments: Constitutional: NAD, AOX3, Pt has pleasant affect. HEENT: NC/AT, trachea midline, neck supple, no lymphadenopathy. Posterior pharynx non erythematous, without exudates. External ears appear normal, without discharge. Mucous membranes moist. Eyes PERRLA, EOM intact. There is no scleral icterus. No pallor noted. Cardiopulmonary: RRR, no murmurs, rubs or gallops, no JVD noted. Lungs CTAB in anterior and posterior weber. No peripheral edema. Abdominal exam: Abdomen soft and non-distended. Abdomen non-tender to palpation in all 4 quadrants. Bowel sounds active in LLQ. No hepatosplenomegaly. No ecchymosis. Mild amount of erythema and drainage noted within the umbilicus, no areas of fluctuance. Neuro: CN II-XII grossly intact. No nuchal rigidity. MSK: No posterior calf tenderness bilaterally, homans sign negative bilaterally. Posterior tibialis and radial pulse +2 bilaterally. Sensation intact in upper and lower extremities. Full active ROM in upper and lower extremities, 5/5 stregnth. Limitations: no limitations Course Vital Signs 07/12/18 07/12/18 19:06 20:48 Temperature 98.8 F 98.8 F Pulse Rate 62 78 Respiratory 18 18 Rate Blood Pressure 121/61 118/68 O2 Sat by Pulse 99 99 Oximetry Medical Decision Making - Medical Decision Making 43-year-old male patient past medical history of severe cytosis, asplenic, COPD presents to ED for evaluation of reported umbilical abscess. Patient reports that he has been followed by his primary care physician Dr. Paniagua for approximately 3 this problem. Patient was that he had a boil in his umbilicus, states that he is treated with Keflex. Patient reports that it has decreased in size and has improved. Patient presents to ER today because he has had increased drainage. Patient denies any fevers or chills at home. Patient denies any nausea vomiting diarrhea, abdominal pain. Patient doesn't stable, afebrile. Physical exam displayed: Mild amount of erythema and drainage noted within the umbilicus, no areas of fluctuance. Laboratory investigations revealed mildly leukocytosis of 13.4. CMP non-impressive. CMP does not display any acute process. He to be admitted for failed outpatient treatment of abscess. Patient started on clindamycin. Patient to be admitted to Dr. Paniagua. case discussed with Dr. Edwards. - Lab Data Result diagrams: 07/12/18 19:46 07/12/18 19:46 Lab Results 07/12/18 07/12/18 07/12/18 Range/Units 19:46 19:46 19:46 WBC 13.4 H (3.8-10.6) k/uL RBC 5.55 (4.30-5.90) m/uL Hgb 16.9 (13.0-17.5) gm/dL Hct 50.3 (39.0-53.0) % MCV 90.6 (80.0-100.0) fL MCH 30.4 (25.0-35.0) pg MCHC 33.6 (31.0-37.0) g/dL RDW 14.6 (11.5-15.5) % Plt Count 346 (150-450) k/uL Neutrophils % 67 % Lymphocytes % 21 % Monocytes % 5 % Eosinophils % 5 % Basophils % 1 % Neutrophils # 8.9 H (1.3-7.7) k/uL Lymphocytes # 2.8 (1.0-4.8) k/uL Monocytes # 0.7 (0-1.0) k/uL Eosinophils # 0.7 (0-0.7) k/uL Basophils # 0.1 (0-0.2) k/uL Sodium 139 (137-145) mmol/L Potassium 4.5 (3.5-5.1) mmol/L Chloride 102 (98-107) mmol/L Carbon Dioxide 29 (22-30) mmol/L Anion Gap 8 mmol/L BUN 17 (9-20) mg/dL Creatinine 0.72 (0.66-1.25) mg/dL Est GFR (CKD-EPI)AfAm >90 (>60 ml/min/1.73 sqM) Est GFR (CKD-EPI)NonAf >90 (>60 ml/min/1.73 sqM) Glucose 100 H (74-99) mg/dL Plasma Lactic Acid Raymond 1.0 (0.7-2.0) mmol/L Calcium 10.1 (8.4-10.2) mg/dL Total Bilirubin 0.8 (0.2-1.3) mg/dL AST 33 (17-59) U/L ALT 49 (21-72) U/L Alkaline Phosphatase 76 (38-126) U/L Total Protein 7.4 (6.3-8.2) g/dL Albumin 4.2 (3.5-5.0) g/dL Lipase 163 (23-300) U/L Disposition Clinical Impression: Abscess Disposition: ADMITTED IP TO THIS HOSP Condition: Fair Is patient prescribed a controlled substance at d/c from ED?: No Referrals: David Paniagua MD [Primary Care Provider] - 1-2 days
[2018-07-12] MEDS ORDERED: NALOXONE 0.4 MG/ML 1 ML VIAL IV PRN (21:24)
[2018-07-12] MEDS ORDERED: ACETAMINOPHEN TAB 325 MG TAB PO PRN (21:24)
[2018-07-12] MEDS: SODIUM CHLORIDE 0.9% 1,000 ML IV SCH (21:38)
[2018-07-12 22:14] VITALS: BMI 50.7
[2018-07-12] MEDS ORDERED: ALBUTEROL NEBULIZED 2.5 MG/3 ML INHALATION PRN (22:54)
[2018-07-12] MEDS ORDERED: ZOLPIDEM 5 MG TAB PO PRN (22:56)
[2018-07-13] MEDS: CLINDAMYCIN 600 MG in DEXTROSE 5% IN WATER 50 ML IVPB SCH ×4 (04:34→12:04)
[2018-07-13 06:29] LABS: Anion Gap 6 mmol/L; Blood Urea Nitrogen 17 mg/dL (9-20); Calcium 9.3 mg/dL (8.4-10.2); Carbon Dioxide 31 mmol/L (22-30); Chloride 103 mmol/L (98-107); Glucose 93 mg/dL (74-99); Potassium 4.6 mmol/L (3.5-5.1); Sodium 140 mmol/L (137-145)
[2018-07-13 06:33] LABS: Basophils # (A) 0.1 k/uL (0-0.2); Basophils % (A) 1 %; Eosinophils # (A) 0.6 k/uL (0-0.7); Eosinophils % (A) 4 %; HCT 48.3 % (39.0-53.0); HGB 16.2 gm/dL (13.0-17.5); Lymphocytes # (A) 2.7 k/uL (1.0-4.8); Lymphocytes % (A) 21 %; MCH 30.3 pg (25.0-35.0); MCHC 33.5 g/dL (31.0-37.0); MCV 90.4 fL (80.0-100.0); Monocytes % (A) 8 %; Neutrophils # (A) 8.3 k/uL (1.3-7.7); Neutrophils % (A) 64 %; Platelet Count 329 k/uL (150-450); RBC 5.34 m/uL (4.30-5.90); RDW 14.6 % (11.5-15.5); WBC 12.9 k/uL (3.8-10.6)
[2018-07-13] MEDS: NON-FORMULARY DRUG (Phentermine Hcl [Adipex-P] 37.5 MG) PO SCH (10:26)
[2018-07-13] MEDS: NICOTINE 21MG/24HR PATCH TRANSDERM SCH (10:27)
[2018-07-13] MEDS: LISINOPRIL 20 MG TAB PO SCH ×2 (10:27→21:00)
[2018-07-13] MEDS: FUROSEMIDE 40 MG TAB PO SCH (10:27)
[2018-07-13] MEDS: HYDROcodone/APAP 10-325MG 1 EACH TAB PO PRN ×2 (10:28→21:00)
--- NOTE | 2018-07-13 10:32 | P.HPIM ---
History of Present Illness H&P Date: 07/13/18 This is a 43-year-old male patient who presented to the ER with complaints of nonhealing umbilical abscess. Patient reports that he is had 2 rounds of antibiotic Keflex and reports that the site did improve within 3 days ago state became increasingly red painful and draining. Patient reports that over the past 3 days there has been increased drainage. Patient has known past medical history of asthma, hypertension, sleep apnea, diverticulitis, splenectomy and nicotine dependence. Abdomen and pelvis CT completed showing no significant new or acute findings seen to account for patient's clinical symptoms. Interval resolution of left-sided acute sigmoid diverticulitis. Patient's white blood cell count elevated at 13.4 and admission. Lactic acid normal at 1.0. Patient has been afebrile. At this time patient started on clindamycin. Wound and blood cultures have been ordered. This time patient denies chest pain or shortness of breath. Patient denies nausea vomiting or diarrhea. Patient denies any urinary burning or frequency Review of Systems please refer to HPI otherwise unremarkable Past Medical History Past Medical History: Asthma, Blood Disorder, Hypertension, Sleep Apnea/CPAP/BIPAP Additional Past Medical History / Comment(s): hx of diverticulitis, SPHEROCYTOSIS BLOOD DISORDER (SPLEEN REMOVED AGE 2.), BACK AND KNEE PAIN. DDD, History of Any Multi-Drug Resistant Organisms: None Reported Additional Past Surgical History / Comment(s): Spleenectomy AGE 2, Injury left thigh with surgery and another surgery d/t abscess. VOCAL CHORD LESIONS REMOVED Past Anesthesia/Blood Transfusion Reactions: Previous Problems w/ Anesthesia Additional Past Anesthesia/Blood Transfusion Reaction / Comment(s): MOM STATES "HE GETS VERY MEAN" POST OP Past Psychological History: No Psychological Hx Reported Smoking Status: Current every day smoker Past Alcohol Use History: None Reported Additional Past Alcohol Use History / Comment(s): SMOKES 1-2 PPD, SMOKING SINCE 18 YRS OLD Past Drug Use History: Marijuana Additional Drug Use History / Comment(s): INSTRUCTED NOT TO USE 24 HRS PRIOR TO SURGERY - Past Family History Mother Family Medical History: No Reported History Medications and Allergies Home Medications Medication Instructions Recorded Confirmed Type Albuterol Nebulized [Ventolin 2.5 mg INHALATION RT-QID PRN 05/06/17 07/12/18 History Nebulized] Furosemide [Lasix] 40 mg PO DAILY 05/06/17 07/12/18 History HYDROcodone/APAP 10-325MG [[place] 1 tab PO TID PRN 05/06/17 07/12/18 History 10-325] Lisinopril [Zestril] 20 mg PO BID 05/06/17 07/12/18 History Phentermine HCl [Adipex-P] 37.5 mg PO QAM 05/06/17 07/12/18 History Nicotine 21Mg/24Hr Patch [Habitrol 1 patch TRANSDERM DAILY 07/12/18 07/12/18 History 21Mg/24Hr Patch] Allergies Allergy/AdvReac Type Severity Reaction Status Date / Time No Known Allergies Allergy Verified 07/12/18 21:45 Physical Exam Vitals: Vital Signs Temp Pulse Pulse Resp BP BP Pulse Ox 07/13/18 04:26 97.7 F 56 L 19 107/68 92 L 07/12/18 22:30 98.0 F 95 18 129/88 94 L 07/12/18 20:48 98.8 F 78 18 118/68 99 07/12/18 19:06 98.8 F 62 18 121/61 99 Intake and Output 07/12/18 07/13/18 07/13/18 22:59 06:59 14:59 Intake Total 60 Balance 60 Intake: Intake, IV Titration 60 Amount Sodium Chloride 0.9% 1, 60 000 ml @ 60 mls/hr IV . [id number] [facility] Rx#:[id number] Other: Voiding Method Toilet # Voids 1 Weight 146.964 kg Head normocephalic Neck supple Lungs clear to auscultation bilaterally no wheezing or crackles Heart regular rate and rhythm S1-S2, no rub or gallop Abdomen is soft nontender nondistended positive bowel sounds no hepatosplenomegaly. Slight redness noted to umbilicus area Extremities no edema Neuro alert and orientated to 3 Results CBC & Chem 7: 07/13/18 05:40 07/13/18 05:40 Labs: Abnormal Lab Results - Last 24 Hours (Table) 07/12/18 07/12/18 07/13/18 Range/Units 19:46 19:46 05:40 WBC 13.4 H 12.9 H (3.8-10.6) k/uL Neutrophils # 8.9 H 8.3 H (1.3-7.7) k/uL Carbon Dioxide (22-30) mmol/L Glucose 100 H (74-99) mg/dL 07/13/18 Range/Units 05:40 WBC (3.8-10.6) k/uL Neutrophils # (1.3-7.7) k/uL Carbon Dioxide 31 H (22-30) mmol/L Glucose (74-99) mg/dL Thrombosis Risk Factor Assmnt - Choose All That Apply Any of the Below Risk Factors Present?: Yes Each Factor Represents 1 point: Age 41-60 years, Obesity (BMI >25) Other Risk Factors: No Other congenital or acquired thrombophilia - If yes, enter type in comment: No Thrombosis Risk Factor Assessment Total Risk Factor Score: 2 Thrombosis Risk Factor Assessment Level: Low Risk Assessment and Plan Assessment: 1. Umbilicus abscess. Abdominal and pelvis CT completed showing no significant new or acute finding seen to account for patient's clinical symptoms. Interval resolution of left-sided acute sigmoid diverticulitis. Patient's white blood cell count elevated at 13.2 on admit. Patient started on clindamycin. Blood and wound cultures ordered 2. History of asthma. No exacerbation at this time 3. History of essential hypertension 4. History of nicotine dependence. Patient educated greater than 3 minutes on smoking cessation. Nicotine patch ordered 5. Marijuana use 6. Splenectomy at age 2 7. History of previous abscesses 8. History of diverticulitis DVT prophylaxis Lovenox. GI prophylaxis Protonix Time with Patient: Greater than 30 (Greater than 60% of the total time spent in counseling and coordination of care. I performed an examination of the patient and discussed their management with the Nurse Practitioner. I have reviewed the Nurse Practitioner's notes and agree with the documented findings and plan of care)
[2018-07-13] MEDS: SODIUM CHLORIDE 0.9% 1,000 ML IV SCH ×2 (16:15→21:52)
[2018-07-13] MEDS ORDERED: VANCOMYCIN IV PER PHARMACY 1 EACH MISC MISCELLANE PRN (17:08)
[2018-07-13] MEDS: VANCOMYCIN 2,000 MG in SODIUM CHLORIDE 0.9% 500 ML 500 ML IVPB SCH (18:24)
--- NOTE | 2018-07-13 20:46 | CONS ---
CONSULTATION DATE OF SERVICE: 07/13/2018. REASON FOR CONSULTATION: Recurrent abdominal/periumbilical abscess. HISTORY OF PRESENT ILLNESS: The patient is a 43-year-old male who apparently has recurrent abscesses to the periumbilical area for the last few weeks. The patient has been treated in outpatient setting with oral Keflex. Did have some initial improvement but not complete resolution. Over the last 3 days the patient noted the periumbilical area becoming more swollen, red and painful painful. Pain described to more of a dull aching, 2 to 3 out of 10 with no radiation. The patient did have some chills but denies high-grade fever. With concern for worsening redness that was spreading around his abdominal area, the patient did present to the [facility] ER where the patient was evaluated by the ER physician. The patient did have a CT of the abdomen and pelvis which did not show any acute changes. The patient has been started on clindamycin and admitted to the hospital. Infectious Disease was consulted for further recommendation regarding antibiotic therapy. REVIEW OF SYSTEMS: Positive points have been mentioned in HPI. Rest of systems are negative. PAST MEDICAL HISTORY: Asthma, hypertension, sleep apnea, history of diverticulitis, chronic back pain. PAST SURGICAL HISTORY: Splenectomy at age of 2, left thigh and abscess drainage and local cord drainage. SOCIAL HISTORY: The patient currently is an everyday smoker. Denies any drinking or drug use. FAMILY HISTORY: No pertinent findings noticed. ALLERGIES: No known drug allergies. MEDICATIONS: The patient is currently on Tylenol, [place], Ventolin, clindamycin, Lovenox, Lasix, Zestril, Narcan, nicotine patch, Protonix, and Ambien. PHYSICAL EXAMINATION: Blood pressure is 120/75 with a pulse of 83, temperature 98.1, he is 93% on room air. GENERAL DESCRIPTION: A middle-aged male lying in bed in no distress. No tachypnea or accessory muscle of respiration use. HEENT: Shows no pallor or scleral icterus. Oral mucosa is dry. No pharyngeal erythema or thrush. NECK: Trachea central. No thyromegaly. LUNGS: Unlabored breathing. Clear to auscultation anteriorly. No wheeze or crackle. HEART: S1, S2. Regular rate and rhythm. ABDOMEN: Soft. Minimal tenderness in the paraumbilical area. No fluctuation, induration or any foul-smelling drainage. EXTREMITIES: No edema of feet. SKIN: No rash or mass palpable. NEUROLOGIC: The patient is awake, alert, oriented. Mood and affect normal. LABS: Hemoglobin 16.2, white count 12.9 with a BUN of 17, creatinine 0.78. Abdominal cultures currently pending. DIAGNOSTIC IMPRESSION AND PLAN: Patient with recurrent periumbilical abscess and has been treated outpatient setting with course of oral Keflex with now complete resolution. Question of possible community- associated MRSA. He did have a CT abdomen and pelvis that has been reported negative for any abscess that may need to be drained. PLAN: 1. Discontinue the clindamycin. 2. Start the patient on vancomycin, pharmacy to dose, target of 15 while watching his kidney function and monitor closely. 3. We will review the CT with the radiologist tomorrow. 4. We will follow up on his clinical condition as well as culture and adjust the medication further if needed. Thank you for this consultation. Will follow this patient along with you. MMODL / IJN: [id number] /
[2018-07-14] MEDS: VANCOMYCIN 2,000 MG in SODIUM CHLORIDE 0.9% 500 ML 500 ML IVPB SCH ×3 (02:30→17:19)
[2018-07-14] MEDS ORDERED: ONDANSETRON 4 MG/2 ML VIAL IVP PRN (08:14)
[2018-07-14 08:24] LABS: Basophils # (A) 0.1 k/uL (0-0.2); Basophils % (A) 1 %; Eosinophils # (A) 0.6 k/uL (0-0.7); Eosinophils % (A) 6 %; HCT 47.9 % (39.0-53.0); HGB 16.3 gm/dL (13.0-17.5); Lymphocytes # (A) 2.7 k/uL (1.0-4.8); Lymphocytes % (A) 27 %; MCHC 34.1 g/dL (31.0-37.0); MCV 90.7 fL (80.0-100.0); Mean Platelet Volume 8.5; Monocytes # (A) 0.7 k/uL (0-1.0); Monocytes % (A) 6 %; Neutrophils # (A) 5.9 k/uL (1.3-7.7); Neutrophils % (A) 58 %; Platelet Count 348 k/uL (150-450); Poikilocytosis Slight; RBC 5.28 m/uL (4.30-5.90); RDW 15.1 % (11.5-15.5); WBC 10.2 k/uL (3.8-10.6)
[2018-07-14 08:43] LABS: ALT 35 U/L (21-72); AST 23 U/L (17-59); Albumin 3.6 g/dL (3.5-5.0); Alkaline Phosphatase 61 U/L (38-126); Anion Gap 7 mmol/L; Blood Urea Nitrogen 17 mg/dL (9-20); Calcium 9.3 mg/dL (8.4-10.2); Carbon Dioxide 30 mmol/L (22-30); Chloride 103 mmol/L (98-107); Glucose 109 mg/dL (74-99); Sodium 140 mmol/L (137-145); Total Bilirubin 0.6 mg/dL (0.2-1.3); Total Protein 6.5 g/dL (6.3-8.2)
[2018-07-14] MEDS: ENOXAPARIN 40 MG/0.4 ML SYRINGE SQ SCH (08:45)
[2018-07-14] MEDS: PANTOPRAZOLE 40 MG TABLET PO SCH (08:45)
[2018-07-14] MEDS: FUROSEMIDE 40 MG TAB PO SCH (08:45)
[2018-07-14] MEDS: LISINOPRIL 20 MG TAB PO SCH ×2 (08:45→21:29)
[2018-07-14] MEDS: NON-FORMULARY DRUG (Phentermine Hcl [Adipex-P] 37.5 MG) PO SCH (08:46)
[2018-07-14] MEDS: NICOTINE 21MG/24HR PATCH TRANSDERM SCH (08:46)
--- NOTE | 2018-07-14 11:14 | P.PN ---
Subjective Progress Note Date: 07/14/18 This is a 43-year-old male patient who presented to the ER with complaints of nonhealing umbilical abscess. Patient reports that he is had 2 rounds of antibiotic Keflex and reports that the site did improve within 3 days ago state became increasingly red painful and draining. Patient reports that over the past 3 days there has been increased drainage. Patient has known past medical history of asthma, hypertension, sleep apnea, diverticulitis, splenectomy and nicotine dependence. Abdomen and pelvis CT completed showing no significant new or acute findings seen to account for patient's clinical symptoms. Interval resolution of left-sided acute sigmoid diverticulitis. Patient's white blood cell count elevated at 13.4 and admission. Lactic acid normal at 1.0. Patient has been afebrile. At this time patient started on clindamycin. Wound and blood cultures have been ordered. This time patient denies chest pain or shortness of breath. Patient denies nausea vomiting or diarrhea. Patient denies any urinary burning or frequency On 07/14/2018 patient is alert and oriented 3. Patient was evaluated by infectious disease. Due to possible MRSA infection and packs have been switched to vancomycin. At this time patient denies chest pain or shortness breath. Patient denies nausea vomiting or diarrhea. Denies any urinary burning or frequency. Objective - Vital Signs Vital signs: Vital Signs Temp 97.5 F L 07/14/18 05:59 Pulse 64 07/14/18 05:59 Resp 18 07/14/18 05:59 BP 113/78 07/14/18 05:59 Pulse Ox 96 07/14/18 05:59 Intake & Output 07/13/18 07/14/18 07/14/18 18:59 06:59 18:59 Intake Total 360 1540 Balance 360 1540 Intake: Intake, IV Titration 1040 Amount Sodium Chloride 0.9% 1, 540 000 ml @ 60 mls/hr IV . [id number] [facility] Rx#:[id number] Vancomycin 2,000 mg In 500 Sodium Chloride 0.9% 500 ml 500 ml @ 167 mls/hr IVPB Q8H [facility] Rx#: [id number] Oral 360 500 Other: Voiding Method Toilet Toilet Toilet # Voids 4 1 # Bowel Movements 1 - Exam Head normocephalic Neck supple Lungs clear to auscultation bilaterally no wheezing or crackles Heart regular rate and rhythm S1-S2, no rub or gallop Abdomen is soft nontender nondistended positive bowel sounds no hepatosplenomegaly. Slight redness noted to umbilicus area. Redness noted to abdomen around the umbilicus Extremities no edema Neuro alert and orientated to 3 Results - Labs CBC & Chem 7: 07/14/18 07:43 07/14/18 07:43 Labs: Abnormal Lab Results - Last 24 Hours (Table) 07/14/18 Range/Units 07:43 Glucose 109 H (74-99) mg/dL Microbiology - Last 24 Hours (Table) 07/12/18 19:46 Blood Culture - Preliminary Blood No Growth after 24 hours 07/12/18 19:46 Gram Stain - Preliminary Abdomen Wound Culture - Preliminary Assessment and Plan Assessment: 1. Umbilicus abscess with failed outpatient treatment. Abdominal and pelvis CT completed showing no significant new or acute finding seen to account for patient's clinical symptoms. Interval resolution of left-sided acute sigmoid diverticulitis. Patient's white blood cell count elevated at 13.2 on admit. Infectious disease antibiotics have been switched to vancomycin 2. History of asthma. No exacerbation at this time 3. History of essential hypertension 4. History of nicotine dependence. Patient educated greater than 3 minutes on smoking cessation. Nicotine patch ordered 5. Marijuana use 6. Splenectomy at age 2 7. History of previous abscesses 8. History of diverticulitis DVT prophylaxis Lovenox. GI prophylaxis Protonix I performed an examination of the patient and discussed their management with the Nurse Practitioner. I have reviewed the Nurse Practitioner's notes and agree with the documented findings and plan of care
[2018-07-14] MEDS: SODIUM CHLORIDE 0.9% 1,000 ML IV SCH (23:18)
--- NOTE | 2018-07-15 00:28 | PN ---
PROGRESS NOTE DATE OF SERVICE: 07/14/2018. REASON FOR FOLLOWUP: Abdominal wall cellulitis. INTERVAL HISTORY: The patient is currently afebrile. The abdominal wall swelling and redness has improved. The patient denies having any chest pain, shortness of breath or cough. No abdominal pain or diarrhea. PHYSICAL EXAMINATION: Blood pressure 133/71 with a pulse of 94, temperature 98.3. He is 96% on room air. General description is a middle-aged male lying in bed in no distress. Respiratory system: Unlabored breathing. Clear to auscultation anteriorly. Heart S1, S2. Regular rate and rhythm. Abdomen soft, no tenderness. The upper abdomen periumbilical area swelling and redness decreased. No drainage. LABS: Hemoglobin 16.8, white count 10.2 with a BUN of 17, creatinine 0.74. Cultures currently pending. DIAGNOSTIC IMPRESSION AND PLAN: Patient with recurrent drainage cellulitis. Unfortunately, has cut off that portion to see if there was evidence of cellulitis and abscess. Cultures are currently pending. The patient responded to vancomycin as white count normalized. We are waiting for the culture to finalize to determine his discharge antibiotics. Continue supportive care. MMODL / IJN: [id number] /
[2018-07-15] MEDS: VANCOMYCIN 2,000 MG in SODIUM CHLORIDE 0.9% 500 ML 500 ML IVPB SCH (02:25)
[2018-07-15] MEDS: ENOXAPARIN 40 MG/0.4 ML SYRINGE SQ SCH (08:11)
[2018-07-15] MEDS: FUROSEMIDE 40 MG TAB PO SCH (08:12)
[2018-07-15] MEDS: LISINOPRIL 20 MG TAB PO SCH (08:12)
[2018-07-15] MEDS: PANTOPRAZOLE 40 MG TABLET PO SCH (08:12)
[2018-07-15] MEDS: NICOTINE 21MG/24HR PATCH TRANSDERM SCH (08:12)
[2018-07-15] MEDS: NON-FORMULARY DRUG (Phentermine Hcl [Adipex-P] 37.5 MG) PO SCH (08:12)
[2018-07-15] MEDS ORDERED: VANCOMYCIN TROUGH DUE 1 EACH MISC MISCELLANE ONE (09:00)
[2018-07-15 09:10] LABS: Basophils # (A) 0.1 k/uL (0-0.2); Basophils % (A) 1 %; Eosinophils # (A) 0.6 k/uL (0-0.7); Eosinophils % (A) 5 %; HCT 46.6 % (39.0-53.0); HGB 15.3 gm/dL (13.0-17.5); Lymphocytes # (A) 2.5 k/uL (1.0-4.8); Lymphocytes % (A) 23 %; MCH 29.4 pg (25.0-35.0); MCHC 32.8 g/dL (31.0-37.0); MCV 89.7 fL (80.0-100.0); Mean Platelet Volume 8.3; Monocytes # (A) 0.9 k/uL (0-1.0); Monocytes % (A) 9 %; Neutrophils # (A) 6.4 k/uL (1.3-7.7); Neutrophils % (A) 61 %; Platelet Count 318 k/uL (150-450); RBC 5.19 m/uL (4.30-5.90); RDW 14.5 % (11.5-15.5); WBC 10.6 k/uL (3.8-10.6)
[2018-07-15 09:17] LABS: ALT 34 U/L (21-72); AST 28 U/L (17-59); Albumin 3.6 g/dL (3.5-5.0); Alkaline Phosphatase 61 U/L (38-126); Anion Gap 5 mmol/L; Blood Urea Nitrogen 16 mg/dL (9-20); Calcium 9.2 mg/dL (8.4-10.2); Carbon Dioxide 29 mmol/L (22-30); Chloride 105 mmol/L (98-107); Glucose 87 mg/dL (74-99); Potassium 5.1 mmol/L (3.5-5.1); Sodium 139 mmol/L (137-145); Total Bilirubin 0.6 mg/dL (0.2-1.3); Total Protein 6.4 g/dL (6.3-8.2)
[2018-07-15 12:38] VITALS: BP 132/67; PULSE 83; RESP 20; TEMP 97.3
--- NOTE | 2018-07-15 13:12 | P.DS ---
Providers Date of admission: 07/12/18 21:14 Expected date of discharge: 07/15/18 Attending physician: David Paniagua Consults: 07/13/18 12:24 Consult Physician Routine Consulting Provider: Rai Carcamo Consult Reason/Comments: abdominal cellulits Do you want consulting provider notified?: Yes Primary care physician: David Paniagua [facility] Course: discharge diagnosis 1. Umbilicus abscess. Abdominal and pelvis CT completed showing no significant new or acute finding seen to account for patient's clinical symptoms. Interval resolution of left-sided acute sigmoid diverticulitis. Patient's white blood cell count elevated at 13.2 on admit. . Blood culture negative. Wound culture reviewed by Dr. Carcamo. Patient will be discharged home on doxycycline for 10 more days. Patient will follow-up with infectious disease in one week 2. History of asthma. No exacerbation at this time 3. History of essential hypertension 4. History of nicotine dependence. Patient educated greater than 3 minutes on smoking cessation. Nicotine patch ordered 5. Marijuana use 6. Splenectomy at age 2 7. History of previous abscesses 8. History of diverticulitis Hospital course This is a 43-year-old male patient who presented to the ER with complaints of nonhealing umbilical abscess. Patient reports that he is had 2 rounds of antibiotic Keflex and reports that the site did improve within 3 days ago state became increasingly red painful and draining. Patient reports that over the past 3 days there has been increased drainage. Patient has known past medical history of asthma, hypertension, sleep apnea, diverticulitis, splenectomy and nicotine dependence. Abdomen and pelvis CT completed showing no significant new or acute findings seen to account for patient's clinical symptoms. Interval resolution of left-sided acute sigmoid diverticulitis. Patient's white blood cell count elevated at 13.4 and admission. Lactic acid normal at 1.0. Patient has been afebrile. At this time patient started on clindamycin. Wound and blood cultures have been ordered. This time patient denies chest pain or shortness of breath. Patient denies nausea vomiting or diarrhea. Patient denies any urinary burning or frequency On 07/14/2018 patient is alert and oriented 3. Patient was evaluated by infectious disease. Due to possible MRSA infection and packs have been switched to vancomycin. At this time patient denies chest pain or shortness breath. Patient denies nausea vomiting or diarrhea. Denies any urinary burning or frequency. 07/15/2018 patient is alert and oriented 3. Patient feels ready and very eager to go home. Did discuss case with infectious disease Dr. Carcamo. Patient has been cleared for discharge. Patient will be discharged on doxycycline for 10 more days. Patient to follow-up with Dr. Looney 1 week. At this time patient denies chest pain or shortness breath. Patient denies nausea vomiting or diarrhea. Patient denies any urinary burning or frequency I performed an examination of the patient and discussed their management with the Nurse Practitioner. I have reviewed the Nurse Practitioner's notes and agree with the documented findings and plan of care Patient Condition at Discharge: Stable Plan - Discharge Summary Discharge Rx Participant: No New Discharge Prescriptions: New Doxycycline Hyclate 100 mg PO BID #20 tab Continue Phentermine HCl [Adipex-P] 37.5 mg PO QAM Lisinopril [Zestril] 20 mg PO BID HYDROcodone/APAP 10-325MG [[place] 10-325] 1 tab PO TID PRN PRN Reason: Pain Furosemide [Lasix] 40 mg PO DAILY Albuterol Nebulized [Ventolin Nebulized] 2.5 mg INHALATION RT-QID PRN PRN Reason: Shortness Of Breath Nicotine 21Mg/24Hr Patch [Habitrol] 1 patch TRANSDERM DAILY Discharge Medication List Albuterol Nebulized [Ventolin Nebulized] 2.5 mg INHALATION RT-QID PRN 05/06/17 [History] Furosemide [Lasix] 40 mg PO DAILY 05/06/17 [History] HYDROcodone/APAP 10-325MG [[place] 10-325] 1 tab PO TID PRN 05/06/17 [History] Lisinopril [Zestril] 20 mg PO BID 05/06/17 [History] Phentermine HCl [Adipex-P] 37.5 mg PO QAM 05/06/17 [History] Nicotine 21Mg/24Hr Patch [Habitrol] 1 patch TRANSDERM DAILY 07/12/18 [History] Doxycycline Hyclate 100 mg PO BID #20 tab 07/15/18 [Rx] Follow up Appointment(s)/Referral(s): David Paniagua MD [Primary Care Provider] - 07/22/18 4:00 pm Rai Carcamo MD [STAFF PHYSICIAN] - 07/22/18 2:15 pm Activity/Diet/Wound Care/Special Instructions: Activity as tolerated. Diet regular Discharge Disposition: HOME SELF-CARE
[2018-07-15] MEDS ORDERED: VANCOMYCIN 2,000 MG in SODIUM CHLORIDE 0.9% 500 ML 500 ML IVPB SCH (15:00)
--- NOTE | 2018-07-15 15:17 | PN ---
PROGRESS NOTE DATE OF SERVICE: 07/15/2018 REASON FOR FOLLOWUP: Abdominal wall cellulitis. INTERVAL HISTORY: The patient is currently afebrile. Patient is breathing comfortably. Abdominal wall pain, tenderness is improved, with no further drainage. Denies having any chest pain, shortness of breath or cough. No diarrhea, insisting on going home. PHYSICAL EXAMINATION: Blood pressure is 132/67 with a pulse of 83, temperature 97.3, he is 98% on room air. General description is a middle-aged male, lying in bed in no distress. RESPIRATORY SYSTEM: Unlabored breathing, clear to auscultation anteriorly. HEART S1, S2. Regular rate and rhythm. ABDOMEN: Soft, no tenderness. Abdominal wall swelling has improved. LABS: Hemoglobin is 15.8, white count of 10.3, BUN of 16, creatinine 0.68. The abdominal culture has been negative so far. DIAGNOSTIC IMPRESSION AND PLAN: Patient with abdominal wall cellulitis, failing outpatient with oral Keflex and Cipro. Patient did show overall clinical improvement. The culture remains to be negative. Will switch antibiotic therapy to doxycycline b.i.d. for about 10 days and close outpatient followup. Prescription sent to the pharmacy. MMODL / IJN: [id number] /
== END 2018-07-15 13:30 | disposition home or self-care (01) | DRG 603 ==
LOC: EC 19:00 → 3NMEDONC 21:14
PROVIDERS: ADMIT Internal Medicine; ATTEND Internal Medicine
DX: L02.216 Cutaneous abscess of umbilicus (principal); L03.311 Cellulitis of abdominal wall; Z71.6 Tobacco abuse counseling; F17.210 Nicotine dependence, cigarettes, uncomplicated; G47.30 Sleep apnea, unspecified; Z99.89 Dependence on other enabling machines and devices; I10 Essential (primary) hypertension; J44.9 Chronic obstructive pulmonary disease, unspecified; Z79.899 Other long term (current) drug therapy; Z90.81 Acquired absence of spleen; M54.9 Dorsalgia, unspecified; G89.29 Other chronic pain
CPT/HCPCS: 36415; 74177; 80048; 80053; 80202; 83605; 83690; 85025; 87040; 87070; 87205; 96365; 99285

== ENCOUNTER 2018-08-28 17:40 | Inpatient (IN) | payer BC ==
[2018-08-28] MEDS ORDERED: LIDOCAINE 1% INJ 10MG/ML (20 ML MDV) SQ ONE (18:08)
--- NOTE | 2018-08-28 18:12 | ED ---
General Adult HPI <Kendrick Irizarry - Last Filed: 08/28/18 19:52> - General Source: patient, RN notes reviewed Mode of arrival: wheelchair Limitations: no limitations <Neftali Reveles - Last Filed: 08/28/18 20:02> - General Chief complaint: Extremity Injury, Lower Stated complaint: Poss DVT Time Seen by Provider: 08/28/18 18:02 - History of Present Illness Initial comments: 43-year-old male with a past medical history of asthma, spherocytosis, hypertension, splenectomy presents to the emergency department for a chief complaint of redness of the left leg 3 days. Patient states he had a bump in the distal medial left thigh and now it is red and swollen. Patient states that he saw his neurologist today who was concerned about a blood clot and wanted him to present to the emergency department. Patient denies having blood clots in the past. Patient denies fevers or chills. Patient states he stopped antibiotics about 1 week ago for a complication due to abscess of the umbilicus. States this bump and redness started about 3 days ago Patient has no other complaints at this time including shortness of breath, chest pain, abdominal pain, nausea or vomiting, headache, or visual changes. (Neftali Reveles) - Related Data Home Medications Medication Instructions Recorded Confirmed Albuterol Nebulized [Ventolin 2.5 mg INHALATION RT-BID 05/06/17 08/28/18 Nebulized] Furosemide [Lasix] 40 mg PO DAILY 05/06/17 08/28/18 HYDROcodone/APAP 10-325MG [[place] 1 tab PO TID PRN 05/06/17 08/28/18 10-325] Lisinopril [Zestril] 20 mg PO BID 05/06/17 08/28/18 Phentermine HCl [Adipex-P] 37.5 mg PO ONCE 05/06/17 08/28/18 Dextroamphetamine/Amphetamine 20 mg PO DAILY 08/28/18 08/28/18 [Adderall Xr] Allergies Allergy/AdvReac Type Severity Reaction Status Date / Time No Known Allergies Allergy Verified 08/28/18 18:05 Review of Systems ROS Other: All systems not noted in ROS Statement are negative. <Kendrick Irizarry - Last Filed: 08/28/18 19:52> ROS Other: All systems not noted in ROS Statement are negative. <Neftali Reveles P - Last Filed: 08/28/18 20:02> ROS Statement: Those systems with pertinent positive or pertinent negative responses have been documented in the HPI. 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 DDD, History of Any Multi-Drug Resistant Organisms: None Reported Additional Past Surgical History / Comment(s): Spleenectomy AGE 2, Injury left thigh with surgery and another surgery d/t abscess. VOCAL CHORD LESIONS REMOVED Past Anesthesia/Blood Transfusion Reactions: Previous Problems w/ Anesthesia Additional Past Anesthesia/Blood Transfusion Reaction / Comment(s): MOM STATES "HE GETS VERY MEAN" POST OP Past Psychological History: No Psychological Hx Reported Smoking Status: Current every day smoker Past Alcohol Use History: None Reported Past Drug Use History: Marijuana - Past Family History Mother Family Medical History: No Reported History <Neftali Reveles P - Last Filed: 08/28/18 20:02> General Exam Limitations: no limitations General appearance: alert, in no apparent distress Head exam: Present: atraumatic, normocephalic, normal inspection Eye exam: Present: normal appearance, PERRL, EOMI. Absent: scleral icterus, conjunctival injection, periorbital swelling ENT exam: Present: normal exam, mucous membranes moist Neck exam: Present: normal inspection, full ROM. Absent: tenderness, meningismus, lymphadenopathy Respiratory exam: Present: normal lung sounds bilaterally. Absent: respiratory distress, wheezes, rales, rhonchi, stridor Cardiovascular Exam: Present: regular rate, normal rhythm, normal heart sounds. Absent: systolic murmur, diastolic murmur, rubs, gallop, clicks Extremities exam: Present: full ROM (Full range of motion of the left lower extremity), normal capillary refill (Capillary refill less than 2 seconds in the left lower extremity), other (Patient has 10 cm x 10 cm area of erythema noted of the distal medial left thigh with a 3 cm x 2 cm induration, no fluctuance. ) Neurological exam: Present: alert, oriented X3, CN II-XII intact Psychiatric exam: Present: normal affect, normal mood <Neftali Reveles - Last Filed: 08/28/18 20:02> Course Vital Signs 08/28/18 17:49 Temperature 98.6 F Pulse Rate 64 Respiratory 20 Rate Blood Pressure 143/77 O2 Sat by Pulse 96 Oximetry Medical Decision Making - Lab Data Result diagrams: 08/28/18 18:38 08/28/18 18:38 <Kendrick Irizarry - Last Filed: 08/28/18 19:52> - Lab Data Result diagrams: 08/28/18 18:38 08/28/18 18:38 <Neftali Reveles - Last Filed: 08/28/18 20:02> - Medical Decision Making Case was discussed with practitioner Abdirizak. Case was also discussed with Dr. Paniagua, who will admit his patient. Secondary to history of splenectomy patient will be covered with IV antibiotics, Zinacef and vancomycin. (Kendrick Irizarry) 43-year-old male presents to the emergency department for left lower extremity erythema and pain. This has been ongoing for about 3 days. Patient is asplenic. CBC does show a white count of 14.6. CMP unremarkable. Doppler of the left lower extremity shows no evidence of DVT. Ultrasound shows no discrete solid or cystic mass identified. No fluid visualized in the area of concern. This is likely a cellulitis. Patient was recently admitted for an abscess of the umbilicus that failed treatment. Patient will be started on Zinacef and vancomycin for current about 10 cm x 10cm cellulitis of the left lower medial thigh. Patient will be admitted for further management and ID consult. (Neftali Reveles) - Lab Data Lab Results 08/28/18 08/28/18 08/28/18 Range/Units 18:38 18:38 18:38 WBC 14.6 H (3.8-10.6) k/uL RBC 5.14 (4.30-5.90) m/uL Hgb 16.2 (13.0-17.5) gm/dL Hct 46.2 (39.0-53.0) % MCV 90.0 (80.0-100.0) fL MCH 31.5 (25.0-35.0) pg MCHC 35.0 (31.0-37.0) g/dL RDW 14.5 (11.5-15.5) % Plt Count 338 (150-450) k/uL Neutrophils % 67 % Lymphocytes % 20 % Monocytes % 7 % Eosinophils % 3 % Basophils % 1 % Neutrophils # 9.8 H (1.3-7.7) k/uL Lymphocytes # 2.9 (1.0-4.8) k/uL Monocytes # 1.0 (0-1.0) k/uL Eosinophils # 0.5 (0-0.7) k/uL Basophils # 0.1 (0-0.2) k/uL PT (9.0-12.0) sec INR (<1.2) APTT (22.0-30.0) sec Sodium 138 (137-145) mmol/L Potassium 4.7 (3.5-5.1) mmol/L Chloride 101 (98-107) mmol/L Carbon Dioxide 29 (22-30) mmol/L Anion Gap 8 mmol/L BUN 20 (9-20) mg/dL Creatinine 0.74 (0.66-1.25) mg/dL Est GFR (CKD-EPI)AfAm >90 (>60 ml/min/1.73 sqM) Est GFR (CKD-EPI)NonAf >90 (>60 ml/min/1.73 sqM) Glucose 88 (74-99) mg/dL Plasma Lactic Acid Raymond 0.9 (0.7-2.0) mmol/L Calcium 10.0 (8.4-10.2) mg/dL Total Bilirubin 0.6 (0.2-1.3) mg/dL AST 37 (17-59) U/L ALT 43 (21-72) U/L Alkaline Phosphatase 69 (38-126) U/L Total Protein 7.7 (6.3-8.2) g/dL Albumin 4.5 (3.5-5.0) g/dL 08/28/18 Range/Units 18:38 WBC (3.8-10.6) k/uL RBC (4.30-5.90) m/uL Hgb (13.0-17.5) gm/dL Hct (39.0-53.0) % MCV (80.0-100.0) fL MCH (25.0-35.0) pg MCHC (31.0-37.0) g/dL RDW (11.5-15.5) % Plt Count (150-450) k/uL Neutrophils % % Lymphocytes % % Monocytes % % Eosinophils % % Basophils % % Neutrophils # (1.3-7.7) k/uL Lymphocytes # (1.0-4.8) k/uL Monocytes # (0-1.0) k/uL Eosinophils # (0-0.7) k/uL Basophils # (0-0.2) k/uL PT 10.5 (9.0-12.0) sec INR 1.0 (<1.2) APTT 24.9 (22.0-30.0) sec Sodium (137-145) mmol/L Potassium (3.5-5.1) mmol/L Chloride (98-107) mmol/L Carbon Dioxide (22-30) mmol/L Anion Gap mmol/L BUN (9-20) mg/dL Creatinine (0.66-1.25) mg/dL Est GFR (CKD-EPI)AfAm (>60 ml/min/1.73 sqM) Est GFR (CKD-EPI)NonAf (>60 ml/min/1.73 sqM) Glucose (74-99) mg/dL Plasma Lactic Acid Raymond (0.7-2.0) mmol/L Calcium (8.4-10.2) mg/dL Total Bilirubin (0.2-1.3) mg/dL AST (17-59) U/L ALT (21-72) U/L Alkaline Phosphatase (38-126) U/L Total Protein (6.3-8.2) g/dL Albumin (3.5-5.0) g/dL Disposition <Kendrick Irizarry - Last Filed: 08/28/18 19:52> Is patient prescribed a controlled substance at d/c from ED?: No Time of Disposition: 20:02 <Neftali Reveles - Last Filed: 08/28/18 20:02> Clinical Impression: Cellulitis, H/O splenectomy Disposition: ADMITTED IP TO THIS HOSP Condition: Fair Referrals: David Paniagua MD [Primary Care Provider] - 1-2 days
[2018-08-28 18:49] LABS: Basophils # (A) 0.1 k/uL (0-0.2); Basophils % (A) 1 %; Eosinophils # (A) 0.5 k/uL (0-0.7); Eosinophils % (A) 3 %; HCT 46.2 % (39.0-53.0); HGB 16.2 gm/dL (13.0-17.5); Lymphocytes # (A) 2.9 k/uL (1.0-4.8); Lymphocytes % (A) 20 %; MCH 31.5 pg (25.0-35.0); Mean Platelet Volume 7.9; Monocytes % (A) 7 %; Neutrophils # (A) 9.8 k/uL (1.3-7.7); Neutrophils % (A) 67 %; Platelet Count 338 k/uL (150-450); RBC 5.14 m/uL (4.30-5.90); RDW 14.5 % (11.5-15.5); WBC 14.6 k/uL (3.8-10.6)
[2018-08-28 18:58] LABS: ALT 43 U/L (21-72); AST 37 U/L (17-59); Albumin 4.5 g/dL (3.5-5.0); Alkaline Phosphatase 69 U/L (38-126); Anion Gap 8 mmol/L; Blood Urea Nitrogen 20 mg/dL (9-20); Carbon Dioxide 29 mmol/L (22-30); Chloride 101 mmol/L (98-107); Glucose 88 mg/dL (74-99); Potassium 4.7 mmol/L (3.5-5.1); Sodium 138 mmol/L (137-145); Total Bilirubin 0.6 mg/dL (0.2-1.3); Total Protein 7.7 g/dL (6.3-8.2)
[2018-08-28 19:00] LABS: Partial Thromboplastin Time 24.9 sec (22.0-30.0); Prothrombin Time 10.5 sec (9.0-12.0)
--- NOTE | 2018-08-28 19:21 | US ---
EXAMINATION TYPE: US venous doppler duplex LE LT DATE OF EXAM: 08/28/2018 7:07 PM COMPARISON: NONE CLINICAL HISTORY: Pain. Left leg edema and redness thigh area. SIDE PERFORMED: Left TECHNIQUE: The lower extremity deep venous system is examined utilizing real time linear array sonog barry with graded compression, doppler sonography and color-flow sonography. VESSELS IMAGED: External Iliac Vein (EIV) Common Femoral Vein Deep Femoral Vein Greater Saphenous Vein * Femoral Vein Popliteal Vein Small Saphenous Vein * Proximal Calf Veins (* superficial vessels) Left Leg: Negative for DVT No evidence of DVT left leg. IMPRESSION: No evidence of deep venous thrombosis in the left leg.
--- NOTE | 2018-08-28 19:22 | US ---
EXAMINATION TYPE: US extremity nonvasc mass LT DATE OF EXAM: 08/28/2018 COMPARISON: NONE CLINICAL HISTORY: pain, erythema, inuration. Left thigh redness and edema. No fluid visualized in area of concern. IMPRESSION: No discrete solid or cystic mass identified.
[2018-08-28] MEDS: SODIUM CHLORIDE 0.9% 500 ML 500 ML IV SCH ×2 (19:41→19:46)
[2018-08-28] MEDS ORDERED: MORPHINE SULFATE 4 MG/ML SYRINGE IVP STA (19:59)
[2018-08-28] MEDS ORDERED: ONDANSETRON 4 MG/2 ML VIAL IVP PRN (20:03)
[2018-08-28] MEDS ORDERED: ACETAMINOPHEN TAB 325 MG TAB PO PRN (20:03)
[2018-08-28] MEDS ORDERED: NALOXONE 0.4 MG/ML 1 ML VIAL IV PRN (20:03)
[2018-08-28] MEDS ORDERED: VANCOMYCIN IV PER PHARMACY 1 EACH MISC MISCELLANE PRN (20:05)
[2018-08-28] MEDS ORDERED: VANCOMYCIN 2,250 MG in SODIUM CHLORIDE 0.9% 500 ML 500 ML IVPB STA (20:18)
[2018-08-28] MEDS: SODIUM CHLORIDE 0.9% 1,000 ML IV SCH (20:27)
[2018-08-28] MEDS: CEFUROXIME 750 MG in SODIUM CHLORIDE 0.9% 50 ML IVPB SCH (22:23)
[2018-08-28 22:53] VITALS: BMI 52.0
[2018-08-29] MEDS: MORPHINE SULFATE 4 MG/ML SYRINGE IV PRN ×5 (00:06→21:01)
[2018-08-29] MEDS: CEFUROXIME 750 MG in SODIUM CHLORIDE 0.9% 50 ML IVPB SCH ×2 (04:59→12:43)
[2018-08-29] MEDS: SODIUM CHLORIDE 0.9% 1,000 ML IV SCH ×2 (05:44→16:04)
[2018-08-29] MEDS: VANCOMYCIN 2,250 MG in SODIUM CHLORIDE 0.9% 500 ML 500 ML IVPB SCH ×2 (08:14→21:59)
[2018-08-29] MEDS: FUROSEMIDE 40 MG TAB PO SCH (09:27)
[2018-08-29 09:53] LABS: Basophils # (A) 0.1 k/uL (0-0.2); Basophils % (A) 1 %; Eosinophils # (A) 0.5 k/uL (0-0.7); Eosinophils % (A) 4 %; Lymphocytes # (A) 2.8 k/uL (1.0-4.8); Lymphocytes % (A) 24 %; MCH 31.2 pg (25.0-35.0); MCHC 34.1 g/dL (31.0-37.0); MCV 91.5 fL (80.0-100.0); Mean Platelet Volume 8.3; Monocytes # (A) 0.7 k/uL (0-1.0); Monocytes % (A) 6 %; Neutrophils # (A) 7.7 k/uL (1.3-7.7); Neutrophils % (A) 64 %; Platelet Count 361 k/uL (150-450); RBC 5.14 m/uL (4.30-5.90); RDW 14.6 % (11.5-15.5)
[2018-08-29 09:58] LABS: ALT 40 U/L (21-72); AST 39 U/L (17-59); Albumin 4.1 g/dL (3.5-5.0); Alkaline Phosphatase 62 U/L (38-126); Anion Gap 6 mmol/L; Blood Urea Nitrogen 17 mg/dL (9-20); Calcium 9.4 mg/dL (8.4-10.2); Carbon Dioxide 32 mmol/L (22-30); Chloride 101 mmol/L (98-107); Glucose 103 mg/dL (74-99); Potassium 5.2 mmol/L (3.5-5.1); Sodium 139 mmol/L (137-145); Total Bilirubin 0.9 mg/dL (0.2-1.3); Total Protein 7.3 g/dL (6.3-8.2)
--- NOTE | 2018-08-29 11:11 | P.HPIM ---
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 Patient presents to the emergency room with complaints of a 3 day history of redness on the medial aspect of the right knee at that goes into the upper leg. There is a firm hard area. Is warm and tender to touch. No drainage. The patient denies any injury to the leg. 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 He d enies any feveror chills or sweats. Denies any nausea or vomiting. Denies any chest pain or shortnessof breath. Denies any burning with urination. White count 14.6. Venous Doppler of the left leg negative for DVT. Ultrasound the leg was negative for mass. Started on vancomycin and Zinacef in the ER. Blood cultures are pending. Consult for infectious disease placed. Review of Systems please refer to HPI otherwise unremarkable Past Medical History Past Medical History: Asthma, Blood Disorder, Hypertension, Sleep Apnea/CP AP/BIPAP Additional Past Medical History / Comment(s): hx of diverticulitis, SPHEROCYTOSIS BLOOD DISORDER (SPLEEN REMOVED AGE 2.), BACK AND KNEE PAIN. DDD History of Any Multi-Drug Resistant Organisms: None Reported Additional Past Surgical History / Comment(s): Spleenectomy AGE 2, Injury left thigh with surgery and another surgery d/t abscess with I&D appox 2000. VOCAL CHORD LESIONS REMOVED Past Anesthesia/Blood Transfusion Reactions: Previous Problems w/ Anesthesia Additional Past Anesthesia/Blood Transfusion Reaction / Comment(s): MOM STATES "HE GETS VERY MEAN" POST OP Past Psychological History: No Psychological Hx Reported Smoking Status: Current every day smoker Past Alcohol Use History: None Reported Additional Past Alcohol Use History / Comment(s): SMOKES 1-2 PPD, SMOKING SINCE 18 YRS OLD Past Drug Use History: Marijuana - Past Family History Mother Family Medical History: Hypertension, Seizure Disorder Medications and Allergies Home Medications Medication Instructions Recorded Confirmed Type Albuterol Nebulized [Ventolin 2.5 mg INHALATION RT-BID 05/06/17 08/28/18 History Nebulized] Furosemide [Lasix] 40 mg PO DAILY 05/06/17 08/28/18 History HYDROcodone/APAP 10-325MG [[place] 1 tab PO TID PRN 05/06/17 08/28/18 History 10-325] Lisinopril [Zestril] 20 mg PO BID 05/06/17 08/28/18 History Phentermine HCl [Adipex-P] 37.5 mg PO ONCE 05/06/17 08/28/18 History Dextroamphetamine/Amphetamine 20 mg PO DAILY 08/28/18 08/28/18 History [Adderall Xr] Allergies Allergy/AdvReac Type Severity Reaction Status Date / Time No Known Allergies Allergy Verified 08/28/18 18:05 Physical Exam Vitals: Vital Signs Temp Pulse Pulse Resp BP BP Pulse Ox 08/29/18 08:00 20 08/29/18 05:15 97.8 F 67 20 115/83 95 08/29/18 00:00 68 20 08/28/18 21:45 97.8 F 68 20 117/68 95 08/28/18 20:39 98.3 F 66 18 135/70 97 08/28/18 17:49 98.6 F 64 20 143/77 96 Intake and Output 08/28/18 08/29/18 08/29/18 22:59 06:59 14:59 Intake Total 100 Balance 100 Intake: Oral 100 Other: Voiding Method Toilet Toilet # Voids 2 # Bowel Movements 0 Weight 150.593 kg Head normocephalic Neck supple Lungs clear to auscultation bilaterally no wheezing or crackles Heart regular rate and rhythm S1-S2, no rub or gallop Abdomen is soft nontender nondistended positive bowel sounds no hepatosplenomeg babar Extremities no edema. Medial aspect of the left knee redness firm area warm and tender to touch. No drainage Neuro alert and orientated to 3 Results CBC & Chem 7: 08/29/18 08:44 08/29/18 08:44 Labs: Abnormal Lab Results - Last 24 Hours (Table) 08/28/18 08/29/18 08/29/18 Range/Units 18:38 08:44 08:44 WBC 14.6 H 12.0 H (3.8-10.6) k/uL Neutrophils # 9.8 H (1.3-7.7) k/uL Potassium 5.2 H (3.5-5.1) mmol/L Carbon Dioxide 32 H (22-30) mmol/L Glucose 103 H (74-99) mg/dL Thrombosis Risk Factor Assmnt - Choose All That Apply Any of the Below Risk Factors Present?: Yes Each Factor Represents 1 point: Age 41-60 years, Obesity (BMI >25), Swollen legs (current) Other Risk Factors: No Thrombosis Risk Factor Assessment Total Risk Factor Score: 3 Thrombosis Risk Factor Assessment Level: Moderate Risk Assessment and Plan Assessment: 1. Left lower leg cellulitis: Ultrasound was negative for mass.Dopplers are negative for DVT. Patient currently on Zinacef and vancomycin. Consult placed for infectious disease. Blood cultures are pending.continue IV fluid hydration 2.hyperkalemia: Potassium 5.2 should be corrected with patient's Lasix.repeat potassium level in a.m. 3. essential hypertension: Blood pressures are stable. We'll resume his lisinopril this afternoon. Hold for systolic blood pressure less than 120. May need to discontinue lisinopril if potassium continues to increase 4. Asthma stable continue with nebulizer treatments 5. ADHD resume Adderall 6. Spherocytosis blood disorders status post splenectomy at age 2 7. Nicotine dependence: Discussed smoking cessation for greater than 3 minutes. Patient refusing nicotine patch at this time. GI prophylaxis Pepcid and DVT prophylaxis Lovenox Time with Patient: Greater than 30 (Greater than 50% of the total time spent in counseling and coordination of care.I performed an examination of the patient and discussed their management with the physician Supervisor [employer]. I have reviewed the Physician Supervisor [employer]'s notes and agree with the documented findings and plan of care)
[2018-08-29] MEDS: HYDROcodone/APAP 10-325MG 1 EACH TAB PO PRN (13:41)
[2018-08-29] MEDS: ALBUTEROL NEBULIZED 2.5 MG/3 ML INHALATION SCH (20:39)
[2018-08-29] MEDS: LISINOPRIL 20 MG TAB PO SCH (21:01)
--- NOTE | 2018-08-29 22:07 | P.CONS ---
History of Present Illness - Reason for Consult Consult date: 08/29/18 Left leg cellulitis Requesting physician: David Paniagua - Chief Complaint Left leg pain swelling redness for 3 days - History of Present Illness Patient is a 43 year male with a past medical history significant for recurrent abdominal wall swelling redness for the patient was recently admitted to this facility, patient did okay however started having a problem with the left medial leg and some of the knee area with the patient started having swelling and redness subsequently did increased in size and become more swollen and red and painful pain described to be throbbing almost 7-8 out of 10 and no radiation patient denies any skin breakdown or any drainage and denies having any high-grade fever or chills. The patient was seen by his neurologist yesterday and it was up to go to the ER to rule out DVT the patient did have lower extremity Dopplers were negative for DVT the patient did not have any fever on presentation however did have elevated white count of 14,000 subsequently did have ultrasound of the area which was negative for any solid or cystic lesion patient had been treated with vancomycin and cefuroxime infectious disease was consulted for further recommendation regarding antibiotic therapy Review of Systems CONSTITUTIONAL: Positive for weakness. Denies high-grade Fever EYES: No complaint. ENT:No complaint. RESPIRATORY: No complaint. CARDIOVASCULAR: No complaint. GENITOURINARY: No complaint. GASTROINTESTINAL: No complaint. MUSCULOSKELETAL: As per history of present illness. INTEGUMENTARY: As per history of present illness. PSYCHOLOGICAL: No complaint. ENDOCRINE: No complaint. NEUROLOGIC: No complaint. 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 DDD History of Any Multi-Drug Resistant Organisms: None Reported Additional Past Surgical History / Comment(s): Spleenectomy AGE 2, Injury left thigh with surgery and another surgery d/t abscess with I&D appox 2000. VOCAL CHORD LESIONS REMOVED Past Anesthesia/Blood Transfusion Reactions: Previous Problems w/ Anesthesia Additional Past Anesthesia/Blood Transfusion Reaction / Comm: MOM STATES "HE GETS VERY MEAN" POST OP Past Psychological History: No Psychological Hx Reported Smoking Status: Current every day smoker Past Alcohol Use History: None Reported Additional Past Alcohol Use History / Comment(s): SMOKES 1-2 PPD, SMOKING SINCE 18 YRS OLD Past Drug Use History: Marijuana - Past Family History Mother Family Medical History: Hypertension, Seizure Disorder Medications and Allergies Home Medications Medication Instructions Recorded Confirmed Type Albuterol Nebulized [Ventolin 2.5 mg INHALATION RT-BID 05/06/17 08/28/18 History Nebulized] Furosemide [Lasix] 40 mg PO DAILY 05/06/17 08/28/18 History HYDROcodone/APAP 10-325MG [[place] 1 tab PO TID PRN 05/06/17 08/28/18 History 10-325] Lisinopril [Zestril] 20 mg PO BID 05/06/17 08/28/18 History Phentermine HCl [Adipex-P] 37.5 mg PO ONCE 05/06/17 08/28/18 History Dextroamphetamine/Amphetamine 20 mg PO DAILY 08/28/18 08/28/18 History [Adderall Xr] Allergies Allergy/AdvReac Type Severity Reaction Status Date / Time No Known Allergies Allergy Verified 08/28/18 18:05 Physical Exam Vitals: Vital Signs Temp Pulse Pulse Resp BP BP Pulse Ox 08/29/18 08:00 20 08/29/18 05:15 97.8 F 67 20 115/83 95 08/29/18 00:00 68 20 08/28/18 21:45 97.8 F 68 20 117/68 95 08/28/18 20:39 98.3 F 66 18 135/70 97 08/28/18 17:49 98.6 F 64 20 143/77 96 Intake and Output 08/28/18 08/29/18 08/29/18 22:59 06:59 14:59 Intake Total 100 Balance 100 Intake: Oral 100 Other: Voiding Method Toilet Toilet # Voids 2 # Bowel Movements 0 Weight 150.593 kg GENERAL DESCRIPTION: Middle-aged male lying in bed, no distress. No tachypnea or accessory muscle of respiration use. HEENT: Shows Pallor , no scleral icterus. Oral mucous membrane is dry. No pharyngeal erythema or thrush NECK: Trachea central, no thyromegaly. LUNGS: Unlabored breathing. Clear to auscultation anteriorly. No wheeze or crackle. HEART: S1, S2, regular rate and rhythm. No loud murmur ABDOMEN: Soft, no tenderness , guarding or rigidity, no organomegaly EXTREMITIES: Left medial lower thigh just above the knee area with swelling and redness some induration but no fluctuation or drainage. SKIN: No rash, no masses palpable. NEUROLOGICAL: The patient is awake, alert, oriented x3, mood and affect normal. Results CBC & Chem 7: 08/29/18 08:44 08/29/18 08:44 Labs: Abnormal Lab Results - Last 24 Hours (Table) 08/28/18 08/29/18 08/29/18 Range/Units 18:38 08:44 08:44 WBC 14.6 H 12.0 H (3.8-10.6) k/uL Neutrophils # 9.8 H (1.3-7.7) k/uL Potassium 5.2 H (3.5-5.1) mmol/L Carbon Dioxide 32 H (22-30) mmol/L Glucose 103 H (74-99) mg/dL Assessment and Plan Assessment: 1-patient presented to hospital with acute pain swelling redness of the left lower medial thigh area and this patient did have elevated white count and the area is indurated however ultrasound was negative for any fluid collection likely representing cellulitis and possibly secondary to staphylococcal infection (1) Cellulitis Current Visit: Yes Status: Acute Code(s): L03.90 - CELLULITIS, UNSPECIFIED SNOMED Code(s): 350159187 Plan: 1-vancomycin pharmacy to dose target trough of 15 or worsening his Vanco trough and the clinical course closely 2-discontinue the cefuroxime 3-warm compression to the left lower medial thigh area and if the area opened up to send Fluid for the Culture We will follow-up on clinical condition and cultures to further adjust medication if needed Thank you for this consultation will follow this patient along with you Time with Patient: Greater than 30
[2018-08-30] MEDS: MORPHINE SULFATE 4 MG/ML SYRINGE IV PRN ×4 (02:23→21:43)
[2018-08-30 07:43] LABS: Basophils # (A) 0.1 k/uL (0-0.2); Basophils % (A) 1 %; Eosinophils # (A) 0.7 k/uL (0-0.7); Eosinophils % (A) 6 %; HCT 46.4 % (39.0-53.0); HGB 16.1 gm/dL (13.0-17.5); Lymphocytes # (A) 3.1 k/uL (1.0-4.8); Lymphocytes % (A) 28 %; MCH 31.4 pg (25.0-35.0); MCHC 34.6 g/dL (31.0-37.0); MCV 90.7 fL (80.0-100.0); Mean Platelet Volume 8.5; Monocytes # (A) 0.8 k/uL (0-1.0); Monocytes % (A) 7 %; Neutrophils # (A) 6.3 k/uL (1.3-7.7); Neutrophils % (A) 56 %; Platelet Count 354 k/uL (150-450); RBC 5.12 m/uL (4.30-5.90); RDW 14.6 % (11.5-15.5); WBC 11.2 k/uL (3.8-10.6)
[2018-08-30] MEDS: FAMOTIDINE 20 MG TAB PO SCH (07:44)
[2018-08-30] MEDS: VANCOMYCIN 2,250 MG in SODIUM CHLORIDE 0.9% 500 ML 500 ML IVPB SCH ×2 (07:44→21:29)
[2018-08-30] MEDS: LISINOPRIL 20 MG TAB PO SCH ×2 (07:44→21:29)
[2018-08-30] MEDS: ENOXAPARIN 40 MG/0.4 ML SYRINGE SQ SCH (07:44)
[2018-08-30] MEDS: FUROSEMIDE 40 MG TAB PO SCH (07:44)
[2018-08-30] MEDS: ALBUTEROL NEBULIZED 2.5 MG/3 ML INHALATION SCH ×2 (07:46→21:00)
[2018-08-30 07:49] LABS: ALT 47 U/L (21-72); AST 37 U/L (17-59); Alkaline Phosphatase 68 U/L (38-126); Anion Gap 4 mmol/L; Blood Urea Nitrogen 17 mg/dL (9-20); Calcium 9.4 mg/dL (8.4-10.2); Carbon Dioxide 34 mmol/L (22-30); Chloride 100 mmol/L (98-107); Glucose 98 mg/dL (74-99); Potassium 4.8 mmol/L (3.5-5.1); Sodium 138 mmol/L (137-145); Total Bilirubin 0.6 mg/dL (0.2-1.3); Total Protein 6.9 g/dL (6.3-8.2)
[2018-08-30] MEDS: HYDROcodone/APAP 10-325MG 1 EACH TAB PO PRN (11:53)
[2018-08-30] MEDS: SODIUM CHLORIDE 0.9% 1,000 ML IV SCH (11:54)
--- NOTE | 2018-08-30 17:01 | P.PN ---
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 Patient presents to the emergency room with complaints of a 3 day history of redness on the medial aspect of the right knee at that goes into the upper leg. There is a firm hard area. Is warm and tender to touch. No drainage. The patient denies any injury to the leg. 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 He denies any feveror chills or sweats. Denies any nausea or vomiting. Denies any chest pain or shortnessof breath. Denies any burning with urination. White count 14.6. Venous Doppler of the left leg negative for DVT. Ultrasound the leg was negative for mass. Started on vancomycin and Zinacef in the ER. Blood cultures are pending. Consult for infectious disease placed. On 08/30/2018 patient was seen and examined on the medical floor he is alert and oriented 3 in no apparent distress, he is complaining of left side pain and tenderness erythema and swelling with induration, otherwise he denies any complaints there is no fever or chills no headache or dizziness no chest pain no shortness of breath no cough no nausea or vomiting no abdominal pain no diarrhea and no urinary symptoms Objective - Vital Signs Vital signs: Vital Signs Temp 98.3 F 08/30/18 13:58 Pulse 81 08/30/18 13:58 Resp 18 08/30/18 13:58 BP 116/71 08/30/18 13:58 Pulse Ox 94 L 08/30/18 13:58 Intake & Output 08/29/18 08/30/18 08/30/18 18:59 06:59 18:59 Intake Total 1100 540 Balance 1100 540 Intake: Oral 1100 540 Other: Voiding Method Toilet # Voids 2 1 2 - Exam In general patient is alert and oriented 3 in no apparent distressHead normocephalic Head normocephalic and atraumatic Neck supple no JVD no goiter Lungs clear to auscultation bilaterally no wheezing or crackles Heart regular rate and rhythm S1-S2, no rub or gallop Abdomen is soft nontender nondistended positive bowel sounds no he patosplenomegaly Extremities no edema. Medial aspect of the left knee redness firm area warm and tender to touch. No drainage, erythema is worsening with significant erythema outside the lines drawn yesterday Neuro no gross focal neurological deficit - Labs CBC & Chem 7: 08/30/18 06:49 08/30/18 06:49 Labs: Abnormal Lab Results - Last 24 Hours (Table) 08/30/18 08/30/18 Range/Units 06:49 06:49 WBC 11.2 H (3.8-10.6) k/uL Carbon Dioxide 34 H (22-30) mmol/L Microbiology - Last 24 Hours (Table) 08/28/18 18:38 Blood Culture - Preliminary Blood No Growth after 24 hours Assessment and Plan Plan: 1. Left lower leg cellulitis: Ultrasound was negative for mass.Dopplers are negative for DVT. Patient currently on Zinacef and vancomycin. Consult placed for infectious disease. Blood cultures are pending.continue IV fluid hydration 2.hyperkalemia: Potassium 5.2 should be corrected with patient's Lasix.repeat potassium level in a.m. 3. essential hypertension: Blood pressures are stable. We'll resume his lisinopril this afternoon. Hold for systolic blood pressure less than 120. May need to discontinue lisinopril if potassium continues to increase 4. Asthma stable continue with nebulizer treatments 5. ADHD resume Adderall 6. Spherocytosis blood disorders status post splenectomy at age 2 7. Nicotine dependence: Discussed smoking cessation for greater than 3 minutes. Patient refusing nicotine patch at this time. GI prophylaxis Pepcid and DVT prophylaxis Lovenox Condition is still worsening despite aggressive antibiotic management Infectious disease following Will continue was current care at this time Blood culture so far negative May consider surgical consultation and drainage for culture if not improving
--- NOTE | 2018-08-30 20:49 | PN ---
PROGRESS NOTE DATE OF SERVICE: 08/30/2018. REASON FOR FOLLOWUP: Left medial thigh cellulitis. INTERVAL HISTORY: The patient is currently afebrile. The left medial thigh area of redness has decreased. Still having complaining of pain today almost 8 to 9/10. Denies any chest pain, shortness of breath, cough, abdominal pain and no diarrhea. PHYSICAL EXAMINATION: Blood pressure 116/71 with a pulse of 81, temperature 98.3. He is 94% on room air. General description is a middle aged male up in the chair in no distress. Respiratory system: Unlabored breathing. Clear to auscultation anteriorly. Heart S1, S2. Regular rate and rhythm. Abdomen soft. No tenderness. Left medial thigh area of redness has decreased, still has an area of induration. No open wound drainage. LABS: Hemoglobin 16.8, white count 11.2 with a BUN of 17, creatinine 0.71. Blood culture has been negative. DIAGNOSTIC IMPRESSION AND PLAN: Patient with left lower medial thigh area of cellulitis with the area of induration. Patient advised to apply warm compression and continue the patient on vancomycin, which she has responded. If the area opens up and starts to drain, we will obtain cultures to narrow down antibiotics. Follow his clinical course closely. Continue supportive care. MMODL / IJN: [id number] /
[2018-08-31] MEDS: MORPHINE SULFATE 4 MG/ML SYRINGE IV PRN ×6 (02:25→20:58)
[2018-08-31] MEDS: FAMOTIDINE 20 MG TAB PO SCH (07:39)
[2018-08-31] MEDS: HYDROcodone/APAP 10-325MG 1 EACH TAB PO PRN (07:39)
[2018-08-31] MEDS: FUROSEMIDE 40 MG TAB PO SCH (07:39)
[2018-08-31] MEDS: ENOXAPARIN 40 MG/0.4 ML SYRINGE SQ SCH (07:39)
[2018-08-31] MEDS: LISINOPRIL 20 MG TAB PO SCH ×2 (07:42→21:00)
[2018-08-31] MEDS: ALBUTEROL NEBULIZED 2.5 MG/3 ML INHALATION SCH ×2 (07:44→21:27)
[2018-08-31] MEDS: SODIUM CHLORIDE 0.9% 1,000 ML IV SCH (07:44)
[2018-08-31 07:52] LABS: Basophils # (A) 0.2 k/uL (0-0.2); Basophils % (A) 1 %; Eosinophils # (A) 0.8 k/uL (0-0.7); Eosinophils % (A) 7 %; HCT 49.7 % (39.0-53.0); Lymphocytes # (A) 2.8 k/uL (1.0-4.8); Lymphocytes % (A) 25 %; MCH 31.3 pg (25.0-35.0); MCHC 34.2 g/dL (31.0-37.0); MCV 91.3 fL (80.0-100.0); Mean Platelet Volume 8.1; Monocytes # (A) 0.7 k/uL (0-1.0); Monocytes % (A) 7 %; Neutrophils # (A) 6.5 k/uL (1.3-7.7); Neutrophils % (A) 58 %; Platelet Count 340 k/uL (150-450); Poikilocytosis Slight; RBC 5.44 m/uL (4.30-5.90); RDW 15.4 % (11.5-15.5); WBC 11.2 k/uL (3.8-10.6)
[2018-08-31] MEDS ORDERED: VANCOMYCIN TROUGH DUE 1 EACH MISC MISCELLANE ONE (08:00)
[2018-08-31 08:04] LABS: ALT 46 U/L (21-72); AST 40 U/L (17-59); Albumin 4.2 g/dL (3.5-5.0); Alkaline Phosphatase 70 U/L (38-126); Anion Gap 7 mmol/L; Blood Urea Nitrogen 18 mg/dL (9-20); Calcium 9.7 mg/dL (8.4-10.2); Carbon Dioxide 33 mmol/L (22-30); Chloride 99 mmol/L (98-107); Glucose 120 mg/dL (74-99); Sodium 139 mmol/L (137-145); Total Bilirubin 0.7 mg/dL (0.2-1.3); Total Protein 7.5 g/dL (6.3-8.2)
[2018-08-31] MEDS: VANCOMYCIN 2,250 MG in SODIUM CHLORIDE 0.9% 500 ML 500 ML IVPB SCH ×2 (09:17→21:02)
--- NOTE | 2018-08-31 22:29 | P.PN ---
Subjective Progress Note Date: 08/31/18 (Patient is seen for Dr. 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 Patient presents to the emergency room with complaints of a 3 day history of redness on the medial aspect of the right knee at that goes into the upper leg. There is a firm hard area. Is warm and tender to touch. No drainage. The patient denies any injury to the leg. 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 Venous Doppler of the left leg negative for DVT. Ultrasound the leg was negative for mass. Patient is currently being treated with IV vancomycin On today's evaluation that is 08/31/2018 the patient denies having any fever or chills the left lower medial thigh area redness is slightly decreased area of induration is about the same no drainage patient pain has slightly decreased intensity of about 7 out of 10, the patient currently denies having any chest pain shortness of breath or cough no abdominal pain no diarrhea, patient nils athing is baseline and blood pressure is controlled Objective - Vital Signs Vital signs: Vital Signs Temp 97.6 F 08/31/18 07:06 Pulse 72 08/31/18 07:56 Resp 18 08/31/18 07:06 BP 113/66 08/31/18 07:06 Pulse Ox 96 08/31/18 07:06 Intake & Output 08/30/18 08/31/18 08/31/18 18:59 06:59 18:59 Intake Total 540 1320 Balance 540 1320 Intake: Intake, IV Titration 1320 Amount Sodium Chloride 0.9% 1, 320 000 ml @ 50 mls/hr IV . Q20H ALEKSANDRA Rx#:[id number] Vancomycin 2,250 mg In 1000 Sodium Chloride 0.9% 500 ml 500 ml @ 167 mls/hr IVPB Q12HR ALEKSANDRA Rx#: [id number] Oral 540 Other: Voiding Method Toilet Toilet # Voids 2 1 1 - Exam GENERAL DESCRIPTION:[ Patient is awake and alert in no distress] HEENT: [Oral mucosa is dry and no pharyngeal erythema] EYES : [No pallor or scleral icterus] RESPIRATORY SYSTEM: [Unlabored breathing clear to auscultation] CARDIA VASCULAR SYSTEM: [S1-S2 regular rate and rhythm no murmur] GI: [Abdominal soft there's no tenderness no organomegaly] EXTREMITIES: [Left lower medial thigh area and redness is slightly decreased still area is indurated no fluctuation was noticed] - Labs CBC & Chem 7: 08/31/18 07:20 08/31/18 07:20 Labs: Abnormal Lab Results - Last 24 Hours (Table) 08/31/18 08/31/18 Range/Units 07:20 07:20 WBC 11.2 H (3.8-10.6) k/uL Eosinophils # 0.8 H (0-0.7) k/uL Carbon Dioxide 33 H (22-30) mmol/L Creatinine 0.64 L (0.66-1.25) mg/dL Glucose 120 H (74-99) mg/dL Microbiology - Last 24 Hours (Table) 08/28/18 18:38 Blood Culture - Preliminary Blood No Growth after 48 hours Assessment and Plan Plan: 1. Left lower leg cellulitis: Ultrasound was negative for mass.Dopplers are negative for DVT. Patient currently on IV vancomycin. White count trough is slightly on the low side at 13 the culture has been negative as well the redness has slightly decreased however the area still indurated advised to continue with warm compression, 2.hyperkalemia: Resolved the patient potassium is normal 3. essential hypertension: Blood pressures are stable. We'll continue with lisinopril 4. Asthma stable continue with nebulizer treatments 5. ADHD resume Adderall 6. Spherocytosis blood disorders status post splenectomy at age 2 7. Nicotine dependence: smoking cessation has been discussed with the patient. Patient refusing nicotine patch at this time. GI prophylaxis Pepcid and DVT prophylaxis Lovenox Time with Patient: Less than 30
[2018-09-01] MEDS: MORPHINE SULFATE 4 MG/ML SYRINGE IV PRN ×4 (00:25→13:23)
[2018-09-01] MEDS: HYDROcodone/APAP 10-325MG 1 EACH TAB PO PRN ×2 (03:27→11:01)
[2018-09-01] MEDS: SODIUM CHLORIDE 0.9% 1,000 ML IV SCH (03:29)
[2018-09-01 08:46] VITALS: RESP 16
[2018-09-01] MEDS: VANCOMYCIN 2,250 MG in SODIUM CHLORIDE 0.9% 500 ML 500 ML IVPB SCH (08:46)
[2018-09-01] MEDS: FAMOTIDINE 20 MG TAB PO SCH (08:46)
[2018-09-01] MEDS: LISINOPRIL 20 MG TAB PO SCH (08:46)
[2018-09-01] MEDS: FUROSEMIDE 40 MG TAB PO SCH (08:46)
[2018-09-01] MEDS: ENOXAPARIN 40 MG/0.4 ML SYRINGE SQ SCH (08:46)
[2018-09-01] MEDS: ALBUTEROL NEBULIZED 2.5 MG/3 ML INHALATION SCH (09:37)
[2018-09-01 10:43] LABS: Basophils # (A) 0.2 k/uL (0-0.2); Basophils % (A) 1 %; Eosinophils # (A) 0.9 k/uL (0-0.7); Eosinophils % (A) 8 %; HCT 48.6 % (39.0-53.0); HGB 16.6 gm/dL (13.0-17.5); Lymphocytes # (A) 2.9 k/uL (1.0-4.8); Lymphocytes % (A) 25 %; MCHC 34.1 g/dL (31.0-37.0); MCV 91.1 fL (80.0-100.0); Mean Platelet Volume 9.1; Monocytes % (A) 8 %; Neutrophils # (A) 6.7 k/uL (1.3-7.7); Neutrophils % (A) 56 %; Platelet Count 351 k/uL (150-450); Poikilocytosis Slight; RBC 5.33 m/uL (4.30-5.90); RDW 15.3 % (11.5-15.5)
[2018-09-01 10:56] LABS: ALT 51 U/L (21-72); AST 39 U/L (17-59); Albumin 4.2 g/dL (3.5-5.0); Alkaline Phosphatase 69 U/L (38-126); Anion Gap 6 mmol/L; Blood Urea Nitrogen 16 mg/dL (9-20); Calcium 9.5 mg/dL (8.4-10.2); Carbon Dioxide 33 mmol/L (22-30); Chloride 100 mmol/L (98-107); Glucose 74 mg/dL (74-99); Potassium 5.1 mmol/L (3.5-5.1); Sodium 139 mmol/L (137-145); Total Bilirubin 0.6 mg/dL (0.2-1.3); Total Protein 7.3 g/dL (6.3-8.2)
--- NOTE | 2018-09-01 10:56 | P.PN ---
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 Patient presents to the emergency room with complaints of a 3 day history of redness on the medial aspect of the right knee at that goes into the upper leg. There is a firm hard area. Is warm and tender to touch. No drainage. The patient denies any injury to the leg. 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 He denies any feveror chills or sweats. Denies any nausea or vomiting. Denies any chest pain or shortnessof breath. Denies any burning with urination. White count 14.6. Venous Doppler of the left leg negative for DVT. Ultrasound the leg was negative for mass. Started on vancomycin and Zinacef in the ER. Blood cultures are pending. Consult for infectious disease placed. On 08/30/2018 patient was seen and examined on the medical floor he is alert and oriented 3 in no apparent distress, he is complaining of left side pain and tenderness erythema and swelling with induration, otherwise he denies any complaints there is no fever or chills no headache or dizziness no chest pain no shortness of breath no cough no nausea or vomiting no abdominal pain no diarrhea and no urinary symptoms On today's evaluation that is 08/31/2018 the patient denies having any fever or chills the left lower medial thigh area redness is slightly decreased area of induration is about the same no drainage patient pain has slightly decreased intensity of about 7 out of 10, the patient currently denies having any chest pain shortness of breath or cough no abdominal pain no diarrhea, patient breathing is baseline and blood pressure is controlled 09/01/2018 patient was seen by Dr. Carcamo for coverage yesterday. Patient remains on IV vancomycin. Still complaining of some pain on that left knee and evidence of cellulitis. There is still a firm area that it has become slightly softer. White count is elevated at 12. Blood cultures remain negative. No other new complaints. Objective - Vital Signs Vital signs: Vital Signs Temp 97.8 F 09/01/18 07:00 Pulse 84 05/13/19 09:50 Resp 16 09/01/18 07:00 BP 116/73 09/01/18 07:00 Pulse Ox 95 09/01/18 07:00 Intake & Output 08/31/18 09/01/18 09/01/18 18:59 06:59 18:59 Intake Total 540 Balance 540 Intake: Oral 540 Other: Voiding Method Toilet Toilet # Voids 2 3 - Exam Head normocephalic Neck supple Lungs clear to auscultation bilaterally no wheezing or crackles Heart regular rate and rhythm S1-S2, no rub or gallop Abdomen is soft nontender nondistended positive bowel sounds no hepatosplenomegaly Extremities no edema. Medial aspect of the left knee redness firm area warm and tender to touch. Some decrease in the redness and decrease in the indurated area. No drainage Neuro alert and orientated to 3 - Labs CBC & Chem 7: 09/01/18 07:23 08/31/18 07:20 Labs: Abnormal Lab Results - Last 24 Hours (Table) 09/01/18 Range/Units 07:23 WBC 12.0 H (3.8-10.6) k/uL Eosinophils # 0.9 H (0-0.7) k/uL Microbiology - Last 24 Hours (Table) 08/28/18 18:38 Blood Culture - Preliminary Blood No Growth after 72 hours Assessment and Plan Assessment: 1. Left lower leg cellulitis: Ultrasound was negative for mass.Dopplers are negative for DVT. Currently on IV vancomycin. Followed closely by infectious disease. White count elevated at 12. Awaiting further recommendations per infectious disease. Keep warm compress to the area. Redness is slightly decreased decreased however there is still indurated area 2.hyperkalemia: Resolved 3. essential hypertension: Blood pressures are stable. We'll resume his lisinopril this afternoon. Hold for systolic blood pressure less than 120. May need to discontinue lisinopril if potassium continues to increase 4. Asthma stable continue with nebulizer treatments 5. ADHD resume Adderall 6. Spherocytosis blood disorders status post splenectomy at age 2 7. Nicotine dependence: Discussed smoking cessation for greater than 3 minutes. Patient refusing nicotine patch at this time. GI prophylaxis Pepcid and DVT prophylaxis Lovenox I performed an examination of the patient and discussed their management with the physician Ground Surveillance Systems Operator. I have reviewed the Physician Ground Surveillance Systems Operator's notes and agree with the documented findings and plan of care
--- NOTE | 2018-09-01 14:28 | PN ---
PROGRESS NOTE DATE OF SERVICE: 09/01/2018 REASON FOR FOLLOWUP: Left medial lower thigh cellulitis. INTERVAL HISTORY: The patient is currently afebrile, has been breathing comfortably. The left medial thigh swelling, redness slightly decreased. The area of induration but no fluctuation or drainage. Overall, feeling slightly better. Denies having any chest pain, shortness of breath or cough. No abdominal pain, no diarrhea. PHYSICAL EXAMINATION: Blood pressure 116/73 with a pulse of 80, temperature is 97.8, he is 95% on room air. General description is a middle aged male up in the room in no distress. RESPIRATORY system: Unlabored breathing clear to auscultation anteriorly heart S1, S2. Regular rate and rhythm left lower medial thigh area and slightly decreased small area of induration or fluctuation. LABS: Hemoglobin was 15.3 white a white count of 12, with a BUN of 16, creatinine 0.64. Blood culture has been negative. DIAGNOSTIC IMPRESSION AND PLAN: Patient with acute left mid thigh cellulitis and a question of possible abscess culture has been negative ultrasound was negative for any fluid collection. Overall improvement on vancomycin, transition to a short course of oral Bactrim DS and a close outpatient followup. Clinical discussed with the nurse practitioner for the primary team. MMODL / IJN: [id number] /
--- NOTE | 2018-09-01 15:12 | P.DS ---
Providers Date of admission: 08/28/18 19:52 Expected date of discharge: 09/01/18 Attending physician: David Paniagua Consults: 08/28/18 20:03 Consult Physician Stat Consulting Provider: Rai Carcamo Consult Reason/Comments: cellulitis, h/o splenectomy Do you want consulting provider notified?: Yes Primary care physician: David Paniagua Hospital Course: Discharge diagnosis 1. Left lower leg cellulitis: Treated with IV vancomycin will be switched to Bactrim at discharge. Patient will be discharged on oral Bactrim for 7 days per infectious disease. And follow-up with infectious disease and the wound care center Ultrasound was negative for mass.Dopplers are negative for DVT. Followed closely by infectious disease. White count elevated at 12. Awaiting further recommendations per infectious disease. Keep warm compress to the area. Redness is slightly decreased decreased however there is still indurated area 2.hyperkalemia: Resolved 3. essential hypertension: Blood pressures are stable. We'll resume his lisinopril this afternoon. Hold for systolic blood pressure less than 120. May need to discontinue lisinopril if potassium continues to increase 4. Asthma stable continue with nebulizer treatments 5. ADHD resume Adderall 6. Spherocytosis blood disorders status post splenectomy at age 2 7. Nicotine dependence: Discussed smoking cessation for greater than 3 minutes. Patient refusing nicotine patch at this time. 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 Patient presents to the emergency room with complaints of a 3 day history of redness on the medial aspect of the right knee at that goes into the upper leg. There is a firm hard area. Is warm and tender to touch. No drainage. The patient denies any injury to the leg. 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 He denies any feveror chills or sweats. Denies any nausea or vomiting. Denies any chest pain or shortnessof breath. Denies any burning with urination. White count 14.6. Venous Doppler of the left leg negative for DVT. Ultrasound the leg was negative for mass. Started on vancomycin and Zinacef in the ER. Blood cultures are pending. Consult for infectious disease placed. On 08/30/2018 patient was seen and examined on the medical floor he is alert and oriented 3 in no apparent distress, he is complaining of left side pain and tenderness erythema and swelling with induration, otherwise he denies any complaints there is no fever or chills no headache or dizziness no chest pain no shortness of breath no cough no nausea or vomiting no abdominal pain no diarrhea and no urinary symptoms On today's evaluation that is 08/31/2018 the patient denies having any fever or chills the left lower medial thigh area redness is slightly decreased area of induration is about the same no drainage patient pain has slightly decreased intensity of about 7 out of 10, the patient currently denies having any chest pain shortness of breath or cough no abdominal pain no diarrhea, patient breathing is baseline and blood pressure is controlled 09/01/2018 patient was seen by Dr. Carcamo for coverage yesterday. Patient remains on IV vancomycin. Still complaining of some pain on that left knee and evidence of cellulitis. There is still a firm area that it has become slightly softer. White count is elevated at 12. Blood cultures remain negative. No other new complaints. Patient was seen evaluated by infectious disease. They have recommended Bactrim for discharge. Patient will continue Bactrim for 7 days and follow-up with Dr. Carcamo wound care clinic. Patient is medical stable for discharge. And his been cleared by infectious disease for discharge. Check BMP in 3 days to monitor potassium level closely due to him being on both Bactrim and lisinopril. Potassium at discharge is 5.1. Patient has been educated on a low potassium diet. I performed an examination of the patient and discussed their management with the physician Tube Filler. I have reviewed the Physician Tube Filler's notes and agree with the documented findings and plan of care Patient Condition at Discharge: Stable Plan - Discharge Summary New Discharge Prescriptions: New Sulfamethox-Tmp 800-160Mg [Bactrim DS 800-160 mg] 1 tab PO Q12HR #14 tab Continue Phentermine HCl [Adipex-P] 37.5 mg PO ONCE Lisinopril [Zestril] 20 mg PO BID HYDROcodone/APAP 10-325MG [Blackburn 10-325] 1 tab PO TID PRN PRN Reason: Pain Furosemide [Lasix] 40 mg PO DAILY Albuterol Nebulized [Ventolin Nebulized] 2.5 mg INHALATION RT-BID Dextroamphetamine/Amphetamine [Adderall Xr] 20 mg PO DAILY Discharge Medication List Albuterol Nebulized [Ventolin Nebulized] 2.5 mg INHALATION RT-BID 05/06/17 [History] Furosemide [Lasix] 40 mg PO DAILY 05/06/17 [History] HYDROcodone/APAP 10-325MG [Blackburn 10-325] 1 tab PO TID PRN 05/06/17 [History] Lisinopril [Zestril] 20 mg PO BID 05/06/17 [History] Phentermine HCl [Adipex-P] 37.5 mg PO ONCE 05/06/17 [History] Dextroamphetamine/Amphetamine [Adderall Xr] 20 mg PO DAILY 08/28/18 [History] Sulfamethox-Tmp 800-160Mg [Bactrim DS 800-160 mg] 1 tab PO Q12HR #14 tab 09/01/18 [Rx] Follow up Appointment(s)/Referral(s): Rai Carcamo MD [STAFF PHYSICIAN] - 1 Week David Paniagua MD [Primary Care Provider] - 3 Days Ambulatory/Diagnostic Orders: Basic Metabolic Panel [LAB.AMB] Time Frame: 3 Days, Location: None Selected Activity/Diet/Wound Care/Special Instructions: Diet: cardiac, low potassium Activity: as tolerated Discharge Disposition: HOME SELF-CARE
[2018-09-01 15:19] VITALS: BP 119/78; PULSE 75; TEMP 97.9
[2018-09-02] MEDS ORDERED: VANCOMYCIN TROUGH DUE 1 EACH MISC MISCELLANE ONE (08:00)
== END 2018-09-01 16:20 | disposition home or self-care (01) | DRG 603 ==
LOC: EC 17:40 → 4MS4W 19:52 → 4SSUR 08-29 18:16
PROVIDERS: ADMIT Internal Medicine; ATTEND Internal Medicine
DX: L03.116 Cellulitis of left lower limb (principal); Z71.6 Tobacco abuse counseling; F17.210 Nicotine dependence, cigarettes, uncomplicated; E87.5 Hyperkalemia; F90.9 Attention-deficit hyperactivity disorder, unspecified type; G47.30 Sleep apnea, unspecified; Z99.89 Dependence on other enabling machines and devices; I10 Essential (primary) hypertension; J45.909 Unspecified asthma, uncomplicated; Z79.899 Other long term (current) drug therapy; Z82.0 Family history of epilepsy and other diseases of the nervous system; Z82.49 Family history of ischemic heart disease and other diseases of the circulatory system; Z90.81 Acquired absence of spleen; D58.0 Hereditary spherocytosis
CPT/HCPCS: 36415; 80053; 80202; 83605; 85025; 85610; 85730; 87040; 94640; 94760; 96365; 96375; 99284

== ENCOUNTER 2018-09-02 06:19 | Inpatient (IN) | payer BC ==
[2018-09-02] MEDS ORDERED: ACETAMINOPHEN TAB 500 MG TAB PO STA (07:18)
[2018-09-02] MEDS ORDERED: IBUPROFEN IV 600 MG in SODIUM CHLORIDE 0.9% 250 ML IV STA (07:18)
[2018-09-02] MEDS ORDERED: HYDROmorphone 1 MG/ML 1 ML SYRINGE IVP STA (07:19)
[2018-09-02] MEDS ORDERED: ONDANSETRON 4 MG/2 ML VIAL IVP STA (07:19)
[2018-09-02 07:24] LABS: ALT 57 U/L (21-72); AST 50 U/L (17-59); Albumin 4.2 g/dL (3.5-5.0); Alkaline Phosphatase 77 U/L (38-126); Anion Gap 7 mmol/L; Blood Urea Nitrogen 19 mg/dL (9-20); Calcium 9.7 mg/dL (8.4-10.2); Carbon Dioxide 30 mmol/L (22-30); Chloride 98 mmol/L (98-107); Glucose 107 mg/dL (74-99); Potassium 5.1 mmol/L (3.5-5.1); Sodium 135 mmol/L (137-145); Total Protein 7.2 g/dL (6.3-8.2)
[2018-09-02 07:25] LABS: Partial Thromboplastin Time 22.3 sec (22.0-30.0); Prothrombin Time 10.4 sec (9.0-12.0)
--- NOTE | 2018-09-02 07:29 | ED ---
General Adult HPI - General Chief complaint: Skin/Abscess/Foreign Body Stated complaint: cellulitis, revisit Time Seen by Provider: 09/02/18 06:50 Source: patient, family, RN notes reviewed Mode of arrival: ambulatory Limitations: no limitations - History of Present Illness Initial comments: This 43-year-old male who presents emergency Department complaining of his cellulitis getting worse per patient states she was discharged from the hospital yesterday. Patient states the redness that was outlined while he was in the hospital has gotten worse and now is extending to be on the line. Patient also states his whole body has an erythematous rash since yesterday. Patient states he feels very warm but not itchy. Patient states he also feels achy particularly in his lower back. Patient states he hasn't been out of bed much he thinks it just is achiness from lying around. Patient denies any abdominal pain. Patient denies any known fever. Patient denies any chest pain difficulty breathing shortness breath per patient denies lightheadedness dizziness or near syncopal episode. - Related Data Home Medications Medication Instructions Recorded Confirmed Albuterol Nebulized [Ventolin 2.5 mg INHALATION RT-BID 05/06/17 09/02/18 Nebulized] Furosemide [Lasix] 40 mg PO DAILY 05/06/17 09/02/18 HYDROcodone/APAP 10-325MG [[place] 1 tab PO TID PRN 05/06/17 09/02/18 10-325] Lisinopril [Zestril] 20 mg PO BID 05/06/17 09/02/18 Dextroamphetamine/Amphetamine 20 mg PO DAILY 08/28/18 09/02/18 [Adderall Xr] Previous Rx's Medication Instructions Recorded Sulfamethox-Tmp 800-160Mg [Bactrim 1 tab PO Q12HR #14 tab 09/01/18 DS 800-160 mg] Allergies Allergy/AdvReac Type Severity Reaction Status Date / Time No Known Allergies Allergy Verified 09/02/18 07:06 Review of Systems ROS Statement: Those systems with pertinent positive or pertinent negative responses have been documented in the HPI. ROS Other: All systems not noted in ROS Statement are negative. 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 DDD History of Any Multi-Drug Resistant Organisms: None Reported Additional Past Surgical History / Comment(s): Spleenectomy AGE 2, Injury left thigh with surgery and another surgery d/t abscess with I&D appox 2000. VOCAL CHORD LESIONS REMOVED Past Anesthesia/Blood Transfusion Reactions: Previous Problems w/ Anesthesia Additional Past Anesthesia/Blood Transfusion Reaction / Comment(s): MOM STATES "HE GETS VERY MEAN" POST OP Past Psychological History: No Psychological Hx Reported Smoking Status: Current every day smoker Past Alcohol Use History: None Reported Past Drug Use History: Marijuana - Past Family History Mother Family Medical History: Hypertension, Seizure Disorder General Exam - General Exam Comments Initial Comments: GENERAL: Patient is well-developed and well-nourished. Patient is nontoxic and well- hydrated and is in no acute distress. ENT: Neck is soft and supple. No significant lymphadenopathy is noted. Oropharynx is clear. Moist mucous membranes. Neck has full range of motion without eliciting any pain. There is no thyroid enlargement and no masses were felt. EYES: The sclera were anicteric and conjunctiva were pink and moist. Extraocular movements were intact and pupils were equal round and reactive to light. Eyelid s were unremarkable. PULMONARY: Unlabored respirations. Good breath sounds bilaterally. No audible rales rhonchi or wheezing was noted. CARDIOVASCULAR: There is a regular rate and rhythm without any murmurs gallops or rubs. Femoral pulses are equal bilaterally ABDOMEN: Soft and nontender with normal bowel sounds. No palpable organomegaly was noted. There is no palpable pulsatile mass. SKIN: She has a diffuse erythematous confluent rash on his face arms and legs and chest and back. Patient also has an area of cellulitis on the inner left thigh with a fluctuant area in the middle that is consistent with an abscess NEUROLOGICAL: Patient is alert and oriented x3. Cranial nerves II through XII are grossly intact. Motor and sensory are also intact. Normal speech, volume and content. Symmetrical smile. Cerebellar exam grossly intact. MUSCULOSKELETAL: Normal extremities with adequate strength and full range of motion. No lower extremity swelling or edema. No calf tenderness. LYMPHATICS: No significant lymphadenopathy is noted PSYCHIATRIC: Normal psychiatric evaluation. Normal interpersonal interactions appears functionally intact in deals appropriately with others. No signs of depression. No signs of anxiety. No delusions. No hallucinations. Limitations: no limitations Course Vital Signs 09/02/18 09/02/18 09/02/18 06:27 07:46 08:00 Temperature 98.8 F 99.4 F Pulse Rate 71 146 H 146 H Respiratory 20 20 18 Rate Blood Pressure 102/52 98/81 98/81 O2 Sat by Pulse 98 89 L 95 Oximetry 09/02/18 09/02/18 09/02/18 08:30 08:38 08:53 Temperature Pulse Rate 146 H 132 H Respiratory 18 Rate Blood Pressure 99/57 O2 Sat by Pulse 95 95 98 Oximetry 09/02/18 09/02/18 09/02/18 09:00 09:30 10:00 Temperature Pulse Rate 142 H 144 H 130 H Respiratory 20 Rate Blood Pressure 102/36 92/70 94/67 O2 Sat by Pulse 96 97 100 Oximetry Medical Decision Making - Medical Decision Making EKG shows a supraventricular tachycardia 146 bpm QRS is 92 QT interval 340 QTC is 529. Patient's EKG shows no ST segment elevation. Patient EKG could be atrial flutter. Second EKG was done showed a rate of 127 bpm did show atrial flutter with a variable AV block QRS is 86 QT interval 334 QTC is 485. I started the patient a Cardizem drip. I did not give many bolus because of his low blood pressure [address] Paniagua he agreed to admit the patient admitted the patient wrote admitting orders. I started the patient on heparin. - Lab Data Result diagrams: 09/02/18 07:02 09/02/18 07:02 Lab Results 09/02/18 09/02/18 09/02/18 Range/Units 07:02 07:02 07:02 WBC 15.2 H (3.8-10.6) k/uL RBC 5.42 (4.30-5.90) m/uL Hgb 16.4 (13.0-17.5) gm/dL Hct 48.8 (39.0-53.0) % MCV 90.0 (80.0-100.0) fL MCH 30.3 (25.0-35.0) pg MCHC 33.7 (31.0-37.0) g/dL RDW 14.1 (11.5-15.5) % Plt Count 349 (150-450) k/uL Neutrophils % 88 % Lymphocytes % 4 % Monocytes % 4 % Eosinophils % 4 % Basophils % 0 % Neutrophils # 13.4 H (1.3-7.7) k/uL Lymphocytes # 0.5 L (1.0-4.8) k/uL Monocytes # 0.6 (0-1.0) k/uL Eosinophils # 0.6 (0-0.7) k/uL Basophils # 0.0 (0-0.2) k/uL Manual Slide Review Performed Large Platelets Present RBC Morphology Normal PT (9.0-12.0) sec INR (<1.2) APTT (22.0-30.0) sec Sodium 135 L (137-145) mmol/L Potassium 5.1 (3.5-5.1) mmol/L Chloride 98 (98-107) mmol/L Carbon Dioxide 30 (22-30) mmol/L Anion Gap 7 mmol/L BUN 19 (9-20) mg/dL Creatinine 0.70 (0.66-1.25) mg/dL Est GFR (CKD-EPI)AfAm >90 (>60 ml/min/1.73 sqM) Est GFR (CKD-EPI)NonAf >90 (>60 ml/min/1.73 sqM) Glucose 107 H (74-99) mg/dL Plasma Lactic Acid Raymond 1.5 (0.7-2.0) mmol/L Calcium 9.7 (8.4-10.2) mg/dL Total Bilirubin 1.0 (0.2-1.3) mg/dL AST 50 (17-59) U/L ALT 57 (21-72) U/L Alkaline Phosphatase 77 (38-126) U/L Total Protein 7.2 (6.3-8.2) g/dL Albumin 4.2 (3.5-5.0) g/dL 09/02/18 Range/Units 07:02 WBC (3.8-10.6) k/uL RBC (4.30-5.90) m/uL Hgb (13.0-17.5) gm/dL Hct (39.0-53.0) % MCV (80.0-100.0) fL MCH (25.0-35.0) pg MCHC (31.0-37.0) g/dL RDW (11.5-15.5) % Plt Count (150-450) k/uL Neutrophils % % Lymphocytes % % Monocytes % % Eosinophils % % Basophils % % Neutrophils # (1.3-7.7) k/uL Lymphocytes # (1.0-4.8) k/uL Monocytes # (0-1.0) k/uL Eosinophils # (0-0.7) k/uL Basophils # (0-0.2) k/uL Manual Slide Review Large Platelets RBC Morphology PT 10.4 (9.0-12.0) sec INR 1.0 (<1.2) APTT 22.3 (22.0-30.0) sec Sodium (137-145) mmol/L Potassium (3.5-5.1) mmol/L Chloride (98-107) mmol/L Carbon Dioxide (22-30) mmol/L Anion Gap mmol/L BUN (9-20) mg/dL Creatinine (0.66-1.25) mg/dL Est GFR (CKD-EPI)AfAm (>60 ml/min/1.73 sqM) Est GFR (CKD-EPI)NonAf (>60 ml/min/1.73 sqM) Glucose (74-99) mg/dL Plasma Lactic Acid Raymond (0.7-2.0) mmol/L Calcium (8.4-10.2) mg/dL Total Bilirubin (0.2-1.3) mg/dL AST (17-59) U/L ALT (21-72) U/L Alkaline Phosphatase (38-126) U/L Total Protein (6.3-8.2) g/dL Albumin (3.5-5.0) g/dL Critical Care Time Critical Care Time: Yes Total Critical Care Time: 35 Disposition Clinical Impression: New onset atrial flutter, Allergic reaction, Abscess or cellulitis of thigh Disposition: ADMITTED IP TO THIS HOSP Referrals: David Paniagua MD [Primary Care Provider] - 1-2 days Time of Disposition: 10:30
[2018-09-02 07:30] LABS: Basophils % (A) 0 %; Eosinophils # (A) 0.6 k/uL (0-0.7); Eosinophils % (A) 4 %; HCT 48.8 % (39.0-53.0); HGB 16.4 gm/dL (13.0-17.5); Lymphocytes # (A) 0.5 k/uL (1.0-4.8); Lymphocytes % (A) 4 %; MCH 30.3 pg (25.0-35.0); MCHC 33.7 g/dL (31.0-37.0); Mean Platelet Volume 8.2; Monocytes # (A) 0.6 k/uL (0-1.0); Monocytes % (A) 4 %; Neutrophils # (A) 13.4 k/uL (1.3-7.7); Neutrophils % (A) 88 %; Platelet Count 349 k/uL (150-450); RBC 5.42 m/uL (4.30-5.90); RDW 14.1 % (11.5-15.5); WBC 15.2 k/uL (3.8-10.6)
[2018-09-02] MEDS: SODIUM CHLORIDE 0.9% 500 ML 500 ML IV SCH (07:33)
[2018-09-02] MEDS ORDERED: CEFUROXIME 1,500 MG in SODIUM CHLORIDE 0.9% 100 ML IVPB STA (07:34)
[2018-09-02] MEDS ORDERED: SODIUM CHLORIDE 0.9% 1,000 ML IV ONE ×2 (07:56→09:21)
[2018-09-02 08:15] LABS: Large Platelets Present
[2018-09-02] MEDS ORDERED: VANCOMYCIN IV PER PHARMACY 1 EACH MISC MISCELLANE PRN (08:23)
[2018-09-02] MEDS ORDERED: VANCOMYCIN 2,250 MG in SODIUM CHLORIDE 0.9% 500 ML 500 ML IVPB STA (08:31)
[2018-09-02] MEDS ORDERED: diphenhydrAMINE 50 MG/ML 1 ML VIAL IVP STA (09:42)
[2018-09-02] MEDS ORDERED: methylPREDNISolone SOD SUCCI 125 MG/2 ML VIAL IV STA (09:43)
[2018-09-02] MEDS ORDERED: HEPARIN SODIUM,PORCINE 5,000 UNIT/ML 1 ML VIAL IV ONE (10:30)
[2018-09-02] MEDS ORDERED: NITROGLYCERIN SL TABS 0.4 MG TAB SUBLINGUAL PRN (10:34)
[2018-09-02] MEDS: HEPARIN SOD,PORK IN 0.45% NACL 25,000 UNIT in 0.45% NACL 1 250ML.BAG IV SCH (10:55)
[2018-09-02] MEDS: DILTIAZEM 125 MG in SODIUM CHLORIDE 0.9% 100 ML IV SCH (10:59)
[2018-09-02] MEDS ORDERED: HYDROmorphone 0.5 MG/0.5 ML SYRINGE IVP STA (11:08)
[2018-09-02 11:53] VITALS: BMI 52.4
[2018-09-02] MEDS ORDERED: INFLUENZA VACCINE (6 MOS+) 60 MCG/0.5 ML SYRINGE IM ONE (11:55)
[2018-09-02] MEDS ORDERED: PNEUMOCOCCAL VACC-PNEUMOVAX 23 25 MCG/0.5 ML VIAL IM ONE (11:55)
[2018-09-02] MEDS ORDERED: methylPREDNISolone SOD SUCCI 125 MG/2 ML VIAL IV SCH (12:00)
[2018-09-02] MEDS ORDERED: ALBUTEROL NEBULIZED 2.5 MG/3 ML INHALATION PRN (13:16)
--- NOTE | 2018-09-02 13:22 | P.HPIM ---
History of Present Illness H&P Date: 09/02/18 Chief Complaint: Not feeling right This is a 43-year-old male who was discharged yesterday from [facility] after being treated for left thigh cellulitis. He was discharged home with Bactrim. Patient took one couple last night. Patient then developed a red blotchy rash throughout his body. The rash is itchy. He also reported just not feeling right. He was having some nausea, shortness of breath and dizziness. He came into the ER for further evaluation and treatment. He was found to have been new onset of atrial flutter heart rate 127 noted on EKG. The initial EKG had also shown SVT. He was started on a Cardizem drip and IV heparin in the ER. Cardiology has been placed on consults. Patient's white count has increased to 15.2 he remains afebrile. The left thigh cellulitis still present and did go past the blacked marked area little higher on the medial aspect of the upper thigh. Patient denies any chest pain, heart palpitations, vomiting, Bowel movement changes or urinary symptoms. Denies fever, chills or sweats. Denies any previous history history of cardiac arrhythmias. And no significant family history of cardiac arrhythmias. Patient started on IV Solu-Medrol and IV Benadryl for the ALLERGIC reaction to the Bactrim. Started on IV antibiotics for cellulitis of the left thigh. ID on consult Review of Systems Please refer to HPI otherwise unremarkable Past Medical History Past Medical History: Asthma, Blood Disorder, COPD, Hypertension, Pneumonia, Sle ep Apnea/CPAP/BIPAP Additional Past Medical History / Comment(s): Pt recently admitted to [facility] on 08/28/18 with L lower leg cellulitis and hyperkalemia. 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 History of Any Multi-Drug Resistant Organisms: None Reported Additional Past Surgical History / Comment(s): Splenectomy AGE 2, ;eft thigh injury with surgery and another surgery d/t abscess with I&D appox 2000, vocal cord lesions removed, 2014 BMA/Bx, Past Anesthesia/Blood Transfusion Reactions: Previous Problems w/ Anesthesia Additional Past Anesthesia/Blood Transfusion Reaction / Comment(s): Pt states he woke up aggressive one time. Smoking Status: Current every day smoker - Past Family History Mother Family Medical History: Hypertension, Seizure Disorder Father Additional Family Medical History / Comment(s): Father from a heroin overdose. Medications and Allergies Home Medications Medication Instructions Recorded Confirmed Type Albuterol Nebulized [Ventolin 2.5 mg INHALATION RT-BID 05/06/17 09/02/18 History Nebulized] Furosemide [Lasix] 40 mg PO DAILY 05/06/17 09/02/18 History HYDROcodone/APAP 10-325MG [[place] 1 tab PO TID PRN 05/06/17 09/02/18 History 10-325] Lisinopril [Zestril] 20 mg PO BID 05/06/17 09/02/18 History Dextroamphetamine/Amphetamine 20 mg PO DAILY 08/28/18 09/02/18 History [Adderall Xr] Sulfamethox-Tmp 800-160Mg [Bactrim 1 tab PO Q12HR #14 tab 09/01/18 09/02/18 Rx DS 800-160 mg] Allergies Allergy/AdvReac Type Severity Reaction Status Date / Time No Known Allergies Allergy Verified 09/02/18 07:06 Physical Exam Vitals: Vital Signs Temp Pulse Resp BP Pulse Ox 09/02/18 12:00 118 H 94/63 96 09/02/18 11:40 121 H 94/69 95 09/02/18 11:20 120 H 106/64 09/02/18 11:00 126 H 17 102/56 98 09/02/18 10:30 125 H 17 105/74 99 09/02/18 10:00 130 H 20 94/67 100 09/02/18 09:30 144 H 92/70 97 09/02/18 09:00 142 H 102/36 96 09/02/18 08:53 132 H 18 98 09/02/18 08:38 95 09/02/18 08:30 146 H 99/57 95 09/02/18 08:00 146 H 18 98/81 95 09/02/18 07:46 99.4 F 146 H 20 98/81 89 L 09/02/18 06:27 98.8 F 71 20 102/52 98 Intake and Output 09/01/18 09/02/18 09/02/18 22:59 06:59 14:59 Other: Weight 151.953 kg Head normocephalic Neck supple Lungs clear to auscultation bilaterally no wheezing or crackles Heart regular rate and rhythm S1-S2, no rub or gallop Abdomen is soft nontender nondistended positive bowel sounds no hepatosplen omegaly Extremities no edema. Left medial thigh near the knee cellulitis. Red and warm to touch. The indurated area is softer. There are cellulitis changes that have passed the black marking. In the upper area of the thigh Neuro alert and orientated to 3 Skin: Macular rash throughout the body Results CBC & Chem 7: 09/02/18 07:02 09/02/18 07:02 Labs: Abnormal Lab Results - Last 24 Hours (Table) 09/02/18 09/02/18 Range/Units 07:02 07:02 WBC 15.2 H (3.8-10.6) k/uL Neutrophils # 13.4 H (1.3-7.7) k/uL Lymphocytes # 0.5 L (1.0-4.8) k/uL Sodium 135 L (137-145) mmol/L Glucose 107 H (74-99) mg/dL Thrombosis Risk Factor Assmnt - Choose All That Apply Any of the Below Risk Factors Present?: Yes Each Factor Represents 1 point: Abnormal pulmonary function (COPD), Age 41-60 years, Obesity (BMI >25) Other Risk Factors: No Other congenital or acquired thrombophilia - If yes, enter type in comment: No Thrombosis Risk Factor Assessment Total Risk Factor Score: 3 Thrombosis Risk Factor Assessment Level: Moderate Risk Assessment and Plan Assessment: 1. New onset of atrial flutter with rapid ventricular response: Patient started on Cardizem drip and IV heparin. cardiology on consult. Check TSH 2. Supraventricular tachycardia noted on EKG. Cardiology consulted. Patient started on Cardizem drip 3. ALLERGIC reaction to Bactrim: Patient has a macular rash that covers his whole body. Started on IV Solu-Medrol and IV Benadryl. Consult infectious disease 4. Left thigh cellulitis: Patient ALLERGIC reaction to Bactrim. Bactrim d iscontinued. Patient currently on Zinacef and vancomycin. Consult infectious disease 5. Intermittent hyperkalemia previous admission. Continue to monitor potassium level 6. History of Essential hypertension 7. Hypotension: Possibly related to the Cardizem. We'll hold lisinopril. Continue to monitor. 8. History of asthma: Stable. We'll change nebulizer treatments to as needed for shortness of breath 9. Spherocytosis blood disorder status post splenectomy at age 2 10. Nicotine dependence: Discussed smoking cessation for greater than 3 minutes. Patient declines nicotine patch at this time GI prophylaxis Pepcid and DVT prophylaxis IV heparin Time with Patient: Greater than 30 (Greater than 50% of the total time spent in counseling and coordination of care.I performed an examination of the patient and discussed their management with the physician Log Loader Helper. I have reviewed the Physician Log Loader Helper's notes and agree with the documented findings and plan of care)
--- NOTE | 2018-09-02 14:25 | CONS ---
CONSULTATION Mr. Diallo is a 43-year-old male who presented to the emergency room with symptoms of discomfort in the left leg, related to the cellulitis. He was just discharged from the hospital with the same symptoms, went home, came back, not feeling well. In the emergency room, was noted to be in atrial flutter with variable block. The patient does not feel the palpitation and denies any prior history of cardiac disease. He has a history of chronic dyspnea on exertion related to his chronic tobacco use. He has no clear PND, orthopnea, or peripheral edema. He was started on Bactrim and after he took the medication, he had rash all over his body and that is why he came back to the hospital. The atrial flutter was not documented in the past. I do not have any EKG from his prior admission. Patient has no prior cardiac history. Has no history of chest discomfort. He has not had any syncopal episode. His coronary risk factors are remarkable for smoking about 1-1/2 pack a day, hypertension. He is nondiabetic. MEDICATION: Her medications at home include Zestril 20 mg twice a day, Lasix 40 mg daily, Adderall, Ventolin and Bactrim and hydrocodone. REVIEW OF SYSTEMS: RESPIRATORY SYSTEM: He had dyspnea on exertion, history of chronic obstructive lung disease. GI SYSTEM: No recent GI bleeding. No peptic ulcer disease/ SYSTEM: No dysuria or hematuria. NERVOUS SYSTEM: No history of stroke or seizure. PHYSICAL EXAMINATION: [id number]-kals-old male, alert, oriented, in no apparent distress. Blood pressure 126/90 with a heart rate of 104 on admission, he was in the 150s. HEAD: Normocephalic. EYES: Sclerae nonicteric. NECK: Good upstroke, no bruit. LUNGS: With decreased air exchange bilaterally, no wheezes. HEART: Irregular, regular. S1, S2. No S3 with systolic murmur no diastolic murmur. No rub. ABDOMEN: Soft, obese, nontender. Positive bowel sounds. EXTREMITIES: Erythema noted on the left leg at the knee area, indurated with erythema. He had his skin. He has redness that generalized. LAB DATA: Revealed the white blood cell of 15.2, BUN and creatinine 19 and 0.7. His EKG revealed atrial flutter with variable AV block. Initial EKG was rate 146 and appears 2-[address]-T wave changes. IMPRESSION: 1. Atrial flutter of unknown duration. Appears to be recent. 2. Cellulitis in the left leg. 3. History of chronic tobacco use and chronic obstructive lung disease. 4. allergic reaction to SULFA. RECOMMENDATION: From the cardiac standpoint, the patient has been started on IV heparin and IV Cardizem. I will add to his regimen a beta cora. An echocardiogram with Doppler will be obtained. I will check her thyroid function test. If he remains in atrial flutter after anticoagulation, he may require cardioversion. The patient has a CHADS- VASC score of 1 in regard to his hypertension. Thank you for this consult. Will follow with you. LUCILA / KIN: [id number] / LIOR
[2018-09-02] MEDS: METOPROLOL TARTRATE 25 MG TAB PO SCH ×2 (14:52→20:12)
[2018-09-02] MEDS: HYDROcodone/APAP 10-325MG 1 EACH TAB PO PRN (14:52)
[2018-09-02] MEDS ORDERED: CEFUROXIME 1,500 MG in SODIUM CHLORIDE 0.9% 100 ML IVPB SCH (16:00)
[2018-09-02] MEDS: methylPREDNISolone SOD SUCCI 125 MG/2 ML VIAL IV SCH ×2 (16:23→20:12)
[2018-09-02] MEDS: MORPHINE SULFATE 2 MG/ML SYRINGE IVP PRN (19:08)
[2018-09-02] MEDS ORDERED: ALBUTEROL NEBULIZED 2.5 MG/3 ML INHALATION SCH (20:00)
[2018-09-02] MEDS ORDERED: VANCOMYCIN 2,250 MG in SODIUM CHLORIDE 0.9% 500 ML 500 ML IVPB SCH (21:00)
[2018-09-02] MEDS: diphenhydrAMINE 50 MG/ML 1 ML VIAL IVP PRN (21:23)
[2018-09-03] MEDS ORDERED: methylPREDNISolone SOD SUCCI 125 MG/2 ML VIAL ONE (03:43)
[2018-09-03] MEDS ORDERED: MORPHINE SULFATE 2 MG/ML SYRINGE ONE (03:43)
--- NOTE | 2018-09-03 04:09 | CONS ---
CONSULTATION DATE OF SERVICE: 09/02/2018 REASON FOR CONSULTATION: Left lower medial thigh cellulitis. HISTORY OF PRESENT ILLNESS: The patient is a 43-year-old male who was recently admitted to this hospital and was treated for left lower medial thigh cellulitis. The patient did have ultrasound that was negative for any fluid collection. He was on IV vancomycin after stabilization, was discharged home on oral Bactrim DS. The patient who took 1 Bactrim DS last night and went to sleep. This morning, when he woke up, he did not feel right. The patient did say that he was simply having a rash and was feeling itchy and was hurting all over. Denies having any chest pain or shortness of breath or cough. No nausea, vomiting, or abdominal pain. The patient is complaining of pain to the left medial thigh area to be dull aching to sharp almost 8/10, and no radiation. Did not have any open wound or any drainage. With these symptoms, the patient has been evaluated by the ER physician. The patient subsequently has been admitted hospital. The patient on presentation to hospital was afebrile. The patient did have mildly elevated white count. However, he did. He is status post splenectomy. The patient did have cardiac exam that has been negative. He was started on cefuroxime and vancomycin in addition to Solu-Medrol. Infectious Disease was consulted for further recommendation regarding antibiotic therapy. REVIEW OF SYSTEMS: Positive points have been mentioned in HPI. Rest of the systems negative. PAST MEDICAL HISTORY: Asthma, hypertension, sleep apnea, diverticulitis, chronic back pain. PAST SURGICAL HISTORY: Splenectomy, history of left thigh abscess status post drainage. SOCIAL HISTORY: Patient is currently a smoker. He denies drinking or drugs use. FAMILY HISTORY: No pertinent findings noticed. ALLERGIES: No known drug allergies. MEDICATION: Currently include the patient is on vancomycin 2500 mg VQ 12, he is on Nitrostat, Lopressor, Solu-Medrol, Lasix, diltiazem, cefuroxime, [place]. PHYSICAL EXAMINATION: Blood pressure is 127/74 with a pulse of 108, temperature 98.1. He is 95% on room air. General description is a middle-aged male lying in bed in no distress. No tachypnea or accessory muscle respiration use. HEENT: Shows no pallor or scleral icterus. Oral mucosa membranes dry. NECK: Trachea central. No thyromegaly. LUNGS unlabored breathing, clear to auscultation anteriorly. Heart S1, S2. Regular rate and rhythm. Abdomen soft. No tenderness. EXTREMITIES: No edema of the feet. Examination left main thigh area did have an area of swelling, redness, slight induration, but no fluctuation or any drainage. SKIN EXAMINATION: No rash or mass palpable. NEUROLOGICAL patient is awake, alert, oriented x3. Mood and affect normal. LABS: Hemoglobin 16.4, white count 15.2 with a BUN of 19, creatinine 0.70. Electrolytes have been normal. Liver enzymes are normal. Troponin has been negative. Blood culture obtained currently pending. DIAGNOSTIC IMPRESSION AND PLAN: Patient admitted to the hospital with left lower extremity cellulitis in this patient who was discharged from the hospital yesterday after initial clinical improvement on vancomycin. The patient was insisting on going home that is way he was discharged on oral Bactrim DS now coming with generalized body aches and symptoms and concern for possible worsening cellulitis. PLAN: 1. Discontinue the vancomycin and the cephalexin. 2. Start patient on daptomycin 4 mg/kg daily. 3. Obtain ultrasound of the area to make sure that has not formed into an abscess that can be drained. 4. Lino the area of redness. 5. We will follow her clinical condition and culture to further adjust medication if needed. Thank you for this consultation. Will follow this patient along with you. MMODL / IJN: [id number] /
[2018-09-03] MEDS: methylPREDNISolone SOD SUCCI 125 MG/2 ML VIAL IV SCH ×4 (05:12→20:51)
[2018-09-03] MEDS: HEPARIN SOD,PORK IN 0.45% NACL 25,000 UNIT in 0.45% NACL 1 250ML.BAG IV SCH ×2 (07:03→09:06)
[2018-09-03 07:20] LABS: Basophils % (A) 0 %; Eosinophils % (A) 0 %; HCT 43.4 % (39.0-53.0); HGB 14.6 gm/dL (13.0-17.5); Lymphocytes # (A) 0.6 k/uL (1.0-4.8); Lymphocytes % (A) 3 %; MCHC 33.6 g/dL (31.0-37.0); MCV 89.5 fL (80.0-100.0); Mean Platelet Volume 8.5; Monocytes # (A) 0.3 k/uL (0-1.0); Monocytes % (A) 2 %; Neutrophils # (A) 20.4 k/uL (1.3-7.7); Neutrophils % (A) 95 %; Platelet Count 327 k/uL (150-450); RBC 4.84 m/uL (4.30-5.90); RDW 14.4 % (11.5-15.5); WBC 21.4 k/uL (3.8-10.6)
[2018-09-03 07:30] LABS: ALT 75 U/L (21-72); AST 56 U/L (17-59); Albumin 3.8 g/dL (3.5-5.0); Alkaline Phosphatase 72 U/L (38-126); Anion Gap 4 mmol/L; Blood Urea Nitrogen 16 mg/dL (9-20); Calcium 9.6 mg/dL (8.4-10.2); Carbon Dioxide 28 mmol/L (22-30); Chloride 106 mmol/L (98-107); Cholesterol 161 mg/dL (<200); Glucose 156 mg/dL (74-99); HDL Cholesterol 59 mg/dL (40-60); LDL Cholesterol,Calculated 90 mg/dL (0-99); Potassium 4.9 mmol/L (3.5-5.1); Sodium 138 mmol/L (137-145); Total Bilirubin 0.7 mg/dL (0.2-1.3); Total Protein 6.7 g/dL (6.3-8.2); Triglycerides 61 mg/dL (<150)
[2018-09-03] MEDS: NON-FORMULARY DRUG (Dextroamphetamine/Amphetamine [Adderall Xr] 20 MG) PO SCH (09:00)
[2018-09-03] MEDS: FUROSEMIDE 40 MG TAB PO SCH (09:00)
[2018-09-03] MEDS: FAMOTIDINE 20 MG TAB PO SCH (09:00)
[2018-09-03] MEDS ORDERED: ASPIRIN 325 MG TAB PO SCH (09:00)
[2018-09-03] MEDS: METOPROLOL TARTRATE 25 MG TAB PO SCH ×2 (09:00→20:50)
[2018-09-03] MEDS: HYDROcodone/APAP 10-325MG 1 EACH TAB PO PRN ×2 (09:01→20:49)
[2018-09-03] MEDS: DILTIAZEM 125 MG in SODIUM CHLORIDE 0.9% 100 ML IV SCH (09:03)
[2018-09-03] MEDS: MORPHINE SULFATE 2 MG/ML SYRINGE IVP PRN ×2 (10:38→17:39)
--- NOTE | 2018-09-03 10:45 | P.PN ---
Subjective Progress Note Date: 09/03/18 This is a 43-year-old male who was discharged yesterday from [facility] after being treated for left thigh cellulitis. He was discharged home with Bactrim. Patient took one couple last night. Patient then developed a red blotchy rash throughout his body. The rash is itchy. He also reported just not feeling right. He was having some nausea, shortness of breath and dizziness. He came into the ER for further evaluation and treatment. He was found to have been new onset of atrial flutter heart rate 127 noted on EKG. The initial EKG had also shown SVT. He was started on a Cardizem drip and IV heparin in the ER. Cardiology has been placed on consults. Patient's white count has increased to 15.2 he remains afebrile. The left thigh cellulitis still present and did go past the blacked marked area little higher on the medial aspect of the upper thigh. Patient denies any chest pain, heart palpitations, vomiting, Bowel movement changes or urinary symptoms. Denies fever, chills or sweats. Denies any previous history history of cardiac arrhythmias. And no significant family history of cardiac arrhythmias. Patient started on IV Solu-Medrol and IV Benadryl for the ALLERGIC reaction to the Bactrim. Started on IV antibiotics for cellulitis of the left thigh. ID on consult On 09/03/2017 patient is alert and oriented 3 with comfortably in bed. Infectious disease and cardiology services are following. Patient remains on IV heparin and Cardizem drip for atrial flutter. Patient's antibiotics switched to daptomycin. Blood cell increasing 21.4. At this time patient denies chest pain or shortness breath. Patient denies nausea vomiting or diarrhea. Patient denie s any urinary burning or frequency Objective - Vital Signs Vital signs: Vital Signs Temp 97.6 F 09/03/18 04:00 Pulse 70 09/03/18 04:00 Resp 20 09/03/18 04:00 BP 117/60 09/03/18 04:00 Pulse Ox 96 09/03/18 04:00 Intake & Output 09/02/18 09/03/18 09/03/18 18:59 06:59 18:59 Intake Total 414.493 425.507 560.333 Balance 414.493 425.507 560.333 Weight 157.4 kg Intake: Intake, IV Titration 174.493 175.507 360.333 Amount Cefuroxime 1,500 mg In 100 Sodium Chloride 0.9% 100 ml @ 200 mls/hr IVPB Q8HR ALEKSANDRA Rx#:[id number] Diltiazem 125 mg In 110.333 Sodium Chloride 0.9% 100 ml @ 5 MG/HR 5 mls/hr IV .Q24H ALEKSANDRA Rx#:[id number] Heparin Sod,Pork in 0.45% 74.493 175.507 250 NaCl 25,000 unit In 0.45 % NaCl 1 250ml.bag @ 6.58 UNITS/KG/HR 9.999 mls/hr IV .Q24H ALEKSANDRA Rx#: [id number] Oral 240 250 200 Other: # Voids 1 2 1 - Exam Head normocephalic Neck supple Lungs clear to auscultation bilaterally no wheezing or crackles Heart regular rate and rhythm S1-S2, no rub or gallop Abdomen is soft nontender nondistended positive bowel sounds no hepatosplenomegaly Extremities no edema. Left medial thigh near the knee cellulitis. Red and warm to touch. The indurated area is softer. There are cellulitis changes that have passed the black marking. In the upper area of the thigh Neuro alert and orientated to 3 Skin: Macular rash throughout the body, slightly improved - Labs CBC & Chem 7: 09/03/18 06:35 09/03/18 06:35 Labs: Abnormal Lab Results - Last 24 Hours (Table) 09/03/18 09/03/18 09/03/18 Range/Units 00:58 06:35 06:35 WBC 21.4 H (3.8-10.6) k/uL Neutrophils # 20.4 H (1.3-7.7) k/uL Lymphocytes # 0.6 L (1.0-4.8) k/uL APTT 37.4 H (22.0-30.0) sec Creatinine 0.53 L (0.66-1.25) mg/dL Glucose 156 H (74-99) mg/dL ALT 75 H (21-72) U/L 09/03/18 Range/Units 06:35 WBC (3.8-10.6) k/uL Neutrophils # (1.3-7.7) k/uL Lymphocytes # (1.0-4.8) k/uL APTT 31.1 H (22.0-30.0) sec Creatinine (0.66-1.25) mg/dL Glucose (74-99) mg/dL ALT (21-72) U/L Microbiology - Last 24 Hours (Table) 09/02/18 07:02 Blood Culture - Preliminary Blood No Growth after 24 hours Assessment and Plan Assessment: 1. New onset of atrial flutter with rapid ventricular response: Patient started on Cardizem drip and IV heparin. cardiology on consult. TSH level 0.829. Per cardiology patient may require anticoagulation patient remains in atrial flutter and may require cardioversion. 2. Supraventricular tachycardia noted on EKG. Cardiology consulted. Patient started on Cardizem drip. Beta cora has been added per cardiology. 3. ALLERGIC reaction to Bactrim: Patient has a macular rash that covers his whole body. Started on IV Solu-Medrol and IV Benadryl. Consult infectious disease 4. Left thigh cellulitis: Patient ALLERGIC reaction to Bactrim. Bactrim discontinued. Infectious disease following. Patient has been switched to daptomycin. 5. Intermittent hyperkalemia previous admission. Continue to monitor potassium level 6. History of Essential hypertension 7. Hypotension: Possibly related to the Cardizem. We'll hold lisinopril. Continue to monitor. Per cardiology beta cora has been added lisinopril remains on hold 8. History of asthma: Stable. We'll change nebulizer treatments to as needed for shortness of breath 9. Spherocytosis blood disorder status post splenectomy at age 2 10. Nicotine dependence: Discussed smoking cessation for greater than 3 minutes. Patient declines nicotine patch at this time DVT prophylaxis heparin. GI prophylaxis Pepcid I performed an examination of the patient and discussed their management with the Nurse Practitioner. I have reviewed the Nurse Practitioner's notes and agree with the documented findings and plan of care
--- NOTE | 2018-09-03 12:07 | ECHOF ---
Referral Reason:Flutter MEASUREMENTS -------- HEIGHT: 170.2 cm WEIGHT: 152.0 kg BP: 126/98 RVIDd: 2.9 cm (< 3.3) IVSd: 1.1 cm (0.6 - 1.1) LVIDd: 5.4 cm (3.9 - 5.3) LVPWd: 1.3 cm (0.6 - 1.1) IVSs: 1.5 cm LVIDs: 3.8 cm LVPWs: 1.8 cm Ao Diam: 3.7 cm (2.0 - 3.7) AV Cusp: 1.6 cm (1.5 - 2.6) LA Diam: 4.1 cm (2.7 - 3.8) MV EXCURSION: 19.913 mm (> 18.000) MV EF SLOPE: 134 mm/s (70 - 150) EPSS: 0.5 cm MV E Ron: 0.95 m/s MV DecT: 115 ms MV A Ron: 0.65 m/s MV E/A Ratio: 1.47 RAP: 5.00 mmHg RVSP: 20.73 mmHg FINDINGS -------- Undetermined rhythm. Morbid Obesity LV size, wall thickness and systolic function are normal, with an EF greater than 55%. The left bernadette tricular size is normal. The right ventricle is normal in size. The left atrial size is normal. The right atrial size is normal. 5.0mg OF Lumason UTLIZED: 2 OR MORE WALL SEGMENTS NOT VISUALIZED. There is mild aortic valve sclerosis. There is no evidence of aortic regurgitation. Mild mitral annular calcification present. Mild mitral regurgitation is present. Mild tricuspid regurgitation present. Right ventricular systolic pressure is normal at < 35 mmHg. The pulmonic valve was not well visualized. The aortic root size is normal. Echo free space represents a pericardial fat pad. CONCLUSIONS -------- 1. Undetermined rhythm. 2. Morbid Obesity 3. LV size, wall thickness and systolic function are normal, with an EF greater than 55%. 4. The left ventricular size is normal. 5. The right ventricle is normal in size. 6. The left atrial size is normal. 7. The right atrial size is normal. 8. 5.0mg OF Lumason UTLIZED: 2 OR MORE WALL SEGMENTS NOT VISUALIZED. 9. There is mild aortic valve sclerosis. 10. Mild mitral annular calcification present. 11. Mild mitral regurgitation is present. 12. Mild tricuspid regurgitation present. 13. Right ventricular systolic pressure is normal at < 35 mmHg. 14. The pulmonic valve was not well visualized. 15. The aortic root size is normal. 16. Echo free space represents a pericardial fat pad. ARTIFICIAL STONE SETTER: Leanne Randle RDCS
--- NOTE | 2018-09-03 13:05 | P.PN ---
Subjective Progress Note Date: 09/03/18 This is a 43-year-old gentleman who presented to the emergency room with symptoms of left leg discomfort related to cellulitis. He was just recently discharged from the hospital, went home, came back generally not feeling well. He was noted to be in atrial flutter on every admission here. He denies feeling any symptoms of palpitations, he has chronic dyspnea related to chronic tobacco use. Patient also was recently started on Bactrim and after he took the medication developed a rash over his entire body. There is no prior documentation of atrial flutter, no EKG was performed on his prior admissions. Patient is a nondiabetic, he has hypertension, and is a smoker. EKG on presentation here did show atrial flutter, atypical. His blood pressure this morning is 130/60 with a heart rate in the 70s to 90s, 94% on room air. White blood cell count 21.4, hemoglobin 14.6, platelet count 327. Sodium 138, potassium 4.9, BUN 16 and creatinine 0.5. Patient was seen and examined today, overall he feels well. He will be scheduled tomorrow to undergo a JOHNATHAN with elective cardioversion. The risks and benefits were explained to the patient in detail and he is willing to proceed. Objective - Vital Signs Vital signs: Vital Signs Temp 96.1 F L 09/03/18 08:00 Pulse 97 09/03/18 08:00 Resp 20 09/03/18 04:00 BP 131/66 09/03/18 08:00 Pulse Ox 94 L 09/03/18 08:00 Intake & Output 09/02/18 09/03/18 09/03/18 18:59 06:59 18:59 Intake Total 414.493 425.507 660.333 Balance 414.493 425.507 660.333 Weight 157.4 kg Intake: Intake, IV Titration 174.493 175.507 360.333 Amount Cefuroxime 1,500 mg In 100 Sodium Chloride 0.9% 100 ml @ 200 mls/hr IVPB Q8HR ALEKSANDRA Rx#:[id number] Diltiazem 125 mg In 110.333 Sodium Chloride 0.9% 100 ml @ 5 MG/HR 5 mls/hr IV .Q24H ALEKSANDRA Rx#:[id number] Heparin Sod,Pork in 0.45% 74.493 175.507 250 NaCl 25,000 unit In 0.45 % NaCl 1 250ml.bag @ 6.58 UNITS/KG/HR 9.999 mls/hr IV .Q24H ALEKSANDRA Rx#: [id number] Oral 240 250 300 Other: # Voids 1 2 1 - Exam PHYSICAL EXAMINATION: GENERAL: 43-year-old gentleman in no acute distress at the time of my examination HEENT: Head is atraumatic, normocephalic. Pupils equal, round. Sclera anicteric. Conjunctiva are clear. Mucous membranes of the mouth are moist. Neck is supple. There is no elevated jugular venous pressure. No carotid bruit is heard. HEART EXAMINATION: Heart S1 and S2 irregularly irregular systolic murmur is heard CHEST EXAMINATION: Lungs reveal decreased air exchange throughout with some fine expiratory wheezing noted. ABDOMEN: Soft, nontender. Bowel sounds are heard. No organomegaly noted. EXTREMITIES: One plus peripheral pulses with evidence of erythema noted on the left leg at the knee area, generalized redness.. NEUROLOGIC patient is awake, alert and oriented 3 . . - Labs CBC & Chem 7: 09/03/18 06:35 09/03/18 06:35 Labs: Abnormal Lab Results - Last 24 Hours (Table) 09/03/18 09/03/18 09/03/18 Range/Units 00:58 06:35 06:35 WBC 21.4 H (3.8-10.6) k/uL Neutrophils # 20.4 H (1.3-7.7) k/uL Lymphocytes # 0.6 L (1.0-4.8) k/uL APTT 37.4 H (22.0-30.0) sec Creatinine 0.53 L (0.66-1.25) mg/dL Glucose 156 H (74-99) mg/dL ALT 75 H (21-72) U/L 09/03/18 Range/Units 06:35 WBC (3.8-10.6) k/uL Neutrophils # (1.3-7.7) k/uL Lymphocytes # (1.0-4.8) k/uL APTT 31.1 H (22.0-30.0) sec Creatinine (0.66-1.25) mg/dL Glucose (74-99) mg/dL ALT (21-72) U/L Microbiology - Last 24 Hours (Table) 09/02/18 07:02 Blood Culture - Preliminary Blood No Growth after 24 hours Assessment and Plan Plan: Assessment and plan #1 atrial flutter, atypical #2 cellulitis of the left leg #3 history of chronic tobacco use and chronic COPD #4 recent ALLERGIC reaction to sulfa Plan We will discontinue the IV Cardizem today and start the patient on oral Cardizem. We will also start the patient on Xarelto today discontinuing the heparin. He will be scheduled tomorrow to undergo a JOHNATHAN and cardioversion, the risks and the benefits were explained to the patient in detail and he is willing to proceed. This will be performed tomorrow by Dr. Bee. Further recommendations to follow. DNP note has been reviewed, I agree with a documented findings and plan of care. Patient was seen and examined.
[2018-09-03 17:13] LABS: Glucose,Whole Blood 233 mg/dL (75-99)
[2018-09-03] MEDS: INSULIN ASPART (NovoLOG) 100 UNIT/ML VIAL SQ SCH ×2 (17:27→21:06)
[2018-09-03] MEDS: DILTIAZEM CD 120 MG CAP.ER.24H PO SCH (17:27)
[2018-09-03] MEDS: SODIUM CHLORIDE 0.9% 1,000 ML IV SCH (17:28)
[2018-09-03] MEDS ORDERED: RIVAROXABAN 20 MG TAB PO SCH (17:30)
[2018-09-03] MEDS: diphenhydrAMINE 50 MG/ML 1 ML VIAL IVP PRN (20:50)
[2018-09-03 21:57] LABS: Glucose,Whole Blood 174 mg/dL (75-99)
[2018-09-03] MEDS ORDERED: ZOLPIDEM 10 MG TAB PO PRN (23:14)
--- NOTE | 2018-09-03 23:50 | PN ---
PROGRESS NOTE DATE OF SERVICE: 09/03/2018 REASON FOR FOLLOWUP: Left lower medial thigh cellulitis. INTERVAL HISTORY: The patient is currently afebrile. Overall swelling and redness to the left knee and thigh area has slowly decreased. The patient denies having any chest pain or cough. No abdominal pain or diarrhea. PHYSICAL EXAMINATION: Blood pressure 116/62 with a pulse of 80, temperature 96.1. He is 94% on room air. General description is a middle-aged male up in the room in no distress. RESPIRATORY SYSTEM: Unlabored breathing. Clear to auscultation anteriorly. HEART: S1, S2. Regular rate and rhythm. ABDOMEN: Soft. No tenderness. LEFT MEDIAL THIGH: Area of the redness has slightly decreased. LABS: Hemoglobin is 14.6, white count 21.4, BUN of 16, creatinine 0.53. DIAGNOSTIC IMPRESSION AND PLAN: Patient with left medial thigh area of cellulitis that has slightly decreased. Continue with daptomycin. The patient did have elevated white count, more likely steroid effect. That will be monitored closely. Continue with supportive care. MMODL / IJN: [id number] /
[2018-09-04] MEDS: methylPREDNISolone SOD SUCCI 125 MG/2 ML VIAL IV SCH ×2 (04:31→12:07)
[2018-09-04 06:07] LABS: Glucose,Whole Blood 140 mg/dL (75-99)
[2018-09-04] MEDS: INSULIN ASPART (NovoLOG) 100 UNIT/ML VIAL SQ SCH ×2 (06:07→12:10)
[2018-09-04 06:17] LABS: Basophils % (A) 0 %; Eosinophils # (A) 0.1 k/uL (0-0.7); Eosinophils % (A) 0 %; HCT 43.3 % (39.0-53.0); HGB 14.6 gm/dL (13.0-17.5); Lymphocytes # (A) 0.7 k/uL (1.0-4.8); Lymphocytes % (A) 3 %; MCH 30.4 pg (25.0-35.0); MCHC 33.8 g/dL (31.0-37.0); MCV 89.9 fL (80.0-100.0); Mean Platelet Volume 8.6; Monocytes # (A) 0.7 k/uL (0-1.0); Monocytes % (A) 2 %; Neutrophils # (A) 27.1 k/uL (1.3-7.7); Neutrophils % (A) 95 %; Platelet Count 319 k/uL (150-450); Poikilocytosis Slight; RBC 4.82 m/uL (4.30-5.90); RDW 14.9 % (11.5-15.5); WBC 28.7 k/uL (3.8-10.6)
[2018-09-04 06:23] LABS: ALT 61 U/L (21-72); AST 36 U/L (17-59); Albumin 3.8 g/dL (3.5-5.0); Alkaline Phosphatase 62 U/L (38-126); Anion Gap 6 mmol/L; Blood Urea Nitrogen 19 mg/dL (9-20); Calcium 9.7 mg/dL (8.4-10.2); Carbon Dioxide 29 mmol/L (22-30); Chloride 104 mmol/L (98-107); Glucose 122 mg/dL (74-99); Potassium 4.8 mmol/L (3.5-5.1); Sodium 139 mmol/L (137-145); Total Bilirubin 0.5 mg/dL (0.2-1.3); Total Protein 6.8 g/dL (6.3-8.2)
[2018-09-04] MEDS: SODIUM CHLORIDE 0.9% 1,000 ML IV SCH ×2 (08:47→09:37)
[2018-09-04] MEDS ORDERED: PROPOFOL 10 MG/ML 20 ML VIAL IV ONE (08:50)
[2018-09-04] MEDS ORDERED: SODIUM CHLORIDE 0.9% 1,000 ML IV SCH (09:30)
[2018-09-04 09:40] VITALS: TEMP 98
--- NOTE | 2018-09-04 09:49 | ECHOT ---
TRANSESOPHAGEAL ECHOCARDIOGRAM INDICATION: Evaluation left atrial appendage. PROCEDURE: After explaining the procedure to the patient, its risks and the complications, his blood pressure, heart rate, O2 saturation was monitored. The throat was sprayed with Cetacaine. He received sedation per anesthesia department. The probe was introduced into the esophagus without difficulty. Images were obtained. Following that, the probe was removed. There was no immediate complication. FINDINGS: Left atrial size is mildly dilated. Left ventricular size and systolic function normal. The aortic valve, mitral valve and tricuspid valve are normal. No pericardial effusion was noted. Contrast bubble study revealed no evidence of shunting across the interatrial septum. Descending thoracic aorta appears to be normal. Doppler pulse wave and color Doppler obtained revealed mild mitral and tricuspid regurgitation. There was no evidence of shunting by color Doppler study. Mild aortic regurgitation was noted. CONCLUSION: 1. Mildly dilated left atrium within normal appearance of left atrial appendage. 2. Normal left ventricular size and systolic function. 3. Mild mitral and tricuspid regurgitation and aortic regurgitation. 4. Normal appearance of the descending thoracic aorta. 5. No shunting across the interatrial septum. MMODL / IJN: [id number] /
--- NOTE | 2018-09-04 11:19 | PN ---
PROGRESS NOTE Mr. Diallo is a 43-year-old male who presented with evidence of worsening pain in the left leg at the site of his cellulitis. He was noted to be in atrial flutter of unknown duration. He is feeling better today. His discomfort is better. He is denying any chest pain. He denies any dizziness or palpitation. He continues to be in atrial flutter with controlled ventricular response. He denies any nausea or vomiting. He continues to be anticoagulated. PHYSICAL EXAMINATION: Blood pressure 120/70 with the heart rate in the 80s. LUNGS: Clear. HEART: Irregular, irregular. S1, S2. No S3 with no rub or gallop. ABDOMEN: Soft, obese, nontender. EXTREMITIES: Erythema on the left leg has improved compared with yesterday. IMPRESSION: 1. Atrial flutter, persistent. 2. Cellulitis. 3. History of chronic tobacco use. 4. Obesity. RECOMMENDATION: I would recommend proceeding with JOHNATHAN guided cardioversion to restore sinus mechanism. The rationale behind the procedure as well as the risks and the complications were discussed with the patient who is in full understanding and agreement. If he remains stable, I would expect he should be able to be discharged home soon from the cardiac standpoint. MMODL / IJN: [id number] /
[2018-09-04 11:25] LABS: Glucose,Whole Blood 213 mg/dL (75-99)
[2018-09-04 11:39] VITALS: RESP 16
[2018-09-04] MEDS ORDERED: diphenhydrAMINE 25 MG CAP PO PRN (11:50)
--- NOTE | 2018-09-04 12:04 | CE ---
CARDIAC ELECTROPHYSIOLOGY REPORT INDICATION: Atrial flutter. PROCEDURE: After explaining the procedure to the patient, its risks and the complications, after obtaining sedated state per Anesthesia Department, performing transesophageal echocardiogram, a biphasic synchronized 200 joule cardioversion was performed with presybeterian of normal sinus rhythm. There was no immediate complication. LUCILA / LAURA: [id number] /
[2018-09-04] MEDS: DILTIAZEM CD 120 MG CAP.ER.24H PO SCH (12:06)
[2018-09-04] MEDS: METOPROLOL TARTRATE 25 MG TAB PO SCH (12:06)
[2018-09-04] MEDS: NON-FORMULARY DRUG (Dextroamphetamine/Amphetamine [Adderall Xr] 20 MG) PO SCH (12:06)
[2018-09-04] MEDS: FAMOTIDINE 20 MG TAB PO SCH (12:07)
[2018-09-04] MEDS: FUROSEMIDE 40 MG TAB PO SCH (12:07)
[2018-09-04 12:14] VITALS: BP 133/74; PULSE 97
--- NOTE | 2018-09-04 13:51 | P.DS ---
Providers Date of admission: 09/02/18 10:34 Expected date of discharge: 09/04/18 Attending physician: David Paniagua Consults: 09/02/18 10:34 Consult Physician Urgent Consulting Provider: [facility] Consult Reason/Comments: New-onset a flutter Do you want consulting provider notified?: Yes 09/02/18 12:40 Consult Physician Routine Consulting Provider: Rai Carcamo Consult Reason/Comments: thigh cellulitis, allergic rxn to bactrim Do you want consulting provider notified?: Yes Primary care physician: [facility] Course: Discharge diagnosis 1. New onset of atrial flutter with rapid ventricular response: Patient underwent JOHNATHAN and cardioversion during this admission. Converted back to normal sinus rhythm. Cardiology is recommending Xarelto for anticoagulation and have placed him on Cardizem and metoprolol during this admission. TSH level 0.829. 2. Supraventricular tachycardia noted on EKG. patient seen by cardiology patient placed on Cardizem and beta cora 3. ALLERGIC reaction to Bactrim: Patient has a macular rash that covers his whole body. Improved with IV Solu-Medrol and Benadryl. Evaluated by infectious disease. We'll continue with Benadryl as needed and a Medrol Dosepak at discharge 4. Left thigh cellulitis: Patient ALLERGIC reaction to Bactrim. Bactrim discontinued. Infectious disease following. Patient has been switched to daptomycin during hospitalization. Dr. Carcamo is recommending doxycycline 100 mg twice a day for 10 days at time of discharge and to follow up with infectious disease in 1 week 5. Intermittent hyperkalemia previous admission. Continue to monitor potassium level 6. History of Essential hypertension 7. Hypotension: Possibly related to the IV Cardizem. Now improved. Blood pr essures are stable and within normal range. Blood pressure at discharge 133/74. Systolic Blood pressure has been ranging in the 120s to 130s. We'll continue to monitor patient off of the lisinopril since Cardizem and metoprolol have been added. We'll have him follow-up in the office for blood pressure checks 8. History of asthma: Stable. We'll change nebulizer treatments to as needed for shortness of breath 9. Spherocytosis blood disorder status post splenectomy at age 2 10. Nicotine dependence: Discussed smoking cessation for greater than 3 minutes. Patient declines nicotine patch at this time 11. Hyperglycemia secondary to steroids. Hospital course This is a 43-year-old male who was discharged yesterday from [facility] after being treated for left thigh cellulitis. He was discharged home with Bactrim. Patient took one couple last night. Patient then developed a red blotchy rash throughout his body. The rash is itchy. He also reported just not feeling right. He was having some nausea, shortness of breath and dizziness. He came into the ER for further evaluation and treatment. He was found to have been new onset of atrial flutter heart rate 127 noted on EKG. The initial EKG had also shown SVT. He was started on a Cardizem drip and IV heparin in the ER. Cardiology has been placed on consults. Patient's white count has increased to 15.2 he remains afebrile. The left thigh cellulitis still present and did go past the blacked marked area little higher on the medial aspect of the upper thigh. Patient denies any chest pain, heart palpitations, vomiting, Bowel movement changes or urinary symptoms. Denies fever, chills or sweats. Denies any previous history history of cardiac arrhythmias. And no significant family history of cardiac arrhythmias. Patient started on IV Solu-Medrol and IV Benadryl for the ALLERGIC reaction to the Bactrim. Started on IV antibiotics for cellulitis of the left thigh. ID on consult On 09/03/2018 patient is alert and oriented 3 with comfortably in bed. Infectious disease and cardiology services are following. Patient remains on IV heparin and Cardizem drip for atrial flutter. Patient's antibiotics switched to daptomycin. Blood cell increasing 21.4. At this time patient denies chest pain or shortness breath. Patient denies nausea vomiting or diarrhea. Patient denies any urinary burning or frequency 09/04/2018 patient was found to have new onset of atrial flutter on admission. Initially placed on IV Cardizem and IV heparin. Underwent cardioversion with Dr. Wick. And his converted to normal sinus rhythm. Cardiology is recommending Xarelto for anticoagulation and also placed him on Cardizem and metoprolol. Patient is tolerating these medications well. His left thigh cell ulitis is improved greatly. Dr. Carcamo is recommending doxycycline for 10 more days. Patient's rash from his ALLERGIC reaction to the Bactrim has almost resolved. He'll complete a Medrol Dosepak and continue use the Benadryl as needed. During this admission the lisinopril was discontinued initially due to hypotension patient also has had some issues with hyperkalemia on his last admission. Recommend to follow-up on blood pressures in the office. Lisinopril may need to be restarted at that point. Otherwise blood pressures have now been stable. No further episodes of hypotension. Cardizem and metoprolol were added during this admission. Patient will follow up with Dr. Paniagua, Dr. Bee and infectious disease in 1 week I performed an examination of the patient and discussed their management with the physician Safe Technician. I have reviewed the Physician Safe Technician's notes and agree with the documented findings and plan of care Patient Condition at Discharge: Stable Plan - Discharge Summary Discharge Rx Participant: No New Discharge Prescriptions: New diphenhydrAMINE [Benadryl] 25 mg PO Q8HR PRN #15 cap PRN Reason: Allergy Symptoms Diltiazem Cd [Cardizem CD] 120 mg PO DAILY #30 cap.er.24h Metoprolol Tartrate [Lopressor] 25 mg PO BID #60 tab methylPREDNISolone Dose Pack [Medrol Dose Pack] 4 mg PO DIRECTED #21 package Doxycycline [Vibramycin] 100 mg PO BID #20 cap Rivaroxaban [Xarelto] 20 mg PO W/SUPPER #30 tab Continue HYDROcodone/APAP 10-325MG [[place] 10-325] 1 tab PO TID PRN PRN Reason: Pain Furosemide [Lasix] 40 mg PO DAILY Albuterol Nebulized [Ventolin Nebulized] 2.5 mg INHALATION RT-BID Dextroamphetamine/Amphetamine [Adderall Xr] 20 mg PO DAILY Discontinued Lisinopril [Zestril] 20 mg PO BID Sulfamethox-Tmp 800-160Mg [Bactrim DS 800-160 mg] 1 tab PO Q12HR #14 tab Discharge Medication List Albuterol Nebulized [Ventolin Nebulized] 2.5 mg INHALATION RT-BID 05/06/17 [History] Furosemide [Lasix] 40 mg PO DAILY 05/06/17 [History] HYDROcodone/APAP 10-325MG [[place] 10-325] 1 tab PO TID PRN 05/06/17 [History] Dextroamphetamine/Amphetamine [Adderall Xr] 20 mg PO DAILY 08/28/18 [History] Diltiazem Cd [Cardizem CD] 120 mg PO DAILY #30 cap.er.24h 09/04/18 [Rx] Doxycycline [Vibramycin] 100 mg PO BID #20 cap 09/04/18 [Rx] Metoprolol Tartrate [Lopressor] 25 mg PO BID #60 tab 09/04/18 [Rx] Rivaroxaban [Xarelto] 20 mg PO W/SUPPER #30 tab 09/04/18 [Rx] diphenhydrAMINE [Benadryl] 25 mg PO Q8HR PRN #15 cap 09/04/18 [Rx] methylPREDNISolone Dose Pack [Medrol Dose Pack] 4 mg PO DIRECTED #21 package 09/04/18 [Rx] Follow up Appointment(s)/Referral(s): David Paniagua MD [Primary Care Provider] - 1 Week Rai Carcamo MD [STAFF PHYSICIAN] - 1 Week Scott Bee MD [STAFF PHYSICIAN] - 1 Week Activity/Diet/Wound Care/Special Instructions: Diet: cardiac Activity: as tolerated Discharge Disposition: HOME SELF-CARE
--- NOTE | 2018-09-04 14:16 | PN ---
PROGRESS NOTE DATE OF SERVICE: 09/04/2018 REASON FOR FOLLOWUP: Left medial thigh cellulitis. INTERVAL HISTORY: The patient is currently afebrile. The patient is feeling much better and says he wants to get out of here. Pain has decreased to about 4/10. Patient denies having any chest pain or shortness of breath or cough. No abdominal pain, no diarrhea. PHYSICAL EXAMINATION: Blood pressure is 133/74 with a pulse of 97, temperature is 98. He is 96% on room air. General description is a middle-aged male, up in the room in no distress. RESPIRATORY SYSTEM: Unlabored breathing, clear to auscultation anteriorly. HEART: S1, S2. Regular rate and rhythm. ABDOMEN: Soft, no tenderness. EXTREMITIES: Left medial thigh swelling and induration has improved. LABS: Hemoglobin is 14.1, hematocrit 28.7, BUN of 19, creatinine 0.58. DIAGNOSTIC IMPRESSION AND PLAN: Patient with left medial thigh cellulitis that responded very well to the IV daptomycin that will be switched over to doxycycline 100 mg twice a day for about a week with close outpatient followup. Questions were answered. MMODL / IJN: [id number] /
== END 2018-09-04 15:05 | disposition home or self-care (01) | DRG 309 ==
LOC: EC 06:19 → 3SCARD 10:34
PROVIDERS: ADMIT Internal Medicine; ATTEND Internal Medicine
PROC: B24BZZ4 Ultrasonography of Heart with Aorta, Transesophageal (ICD-10-PCS; 2018-09-04)
PROC: 5A2204Z Restoration of Cardiac Rhythm, Single (ICD-10-PCS; principal; 2018-09-04 08:30)
DX: I48.4 Atypical atrial flutter (principal); L03.116 Cellulitis of left lower limb; Z68.43 Body mass index [BMI] 50.0-59.9, adult; I47.1 Supraventricular tachycardia; I95.9 Hypotension, unspecified; I44.30 Unspecified atrioventricular block; I10 Essential (primary) hypertension; G47.33 Obstructive sleep apnea (adult) (pediatric); F17.210 Nicotine dependence, cigarettes, uncomplicated; E66.9 Obesity, unspecified; J44.9 Chronic obstructive pulmonary disease, unspecified; T38.0X5A Adverse effect of glucocorticoids and synthetic analogues, initial encounter; D58.0 Hereditary spherocytosis; G43.909 Migraine, unspecified, not intractable, without status migrainosus; G89.29 Other chronic pain; R06.09 Other forms of dyspnea; R73.9 Hyperglycemia, unspecified; L27.0 Generalized skin eruption due to drugs and medicaments taken internally; T37.0X5A Adverse effect of sulfonamides, initial encounter; J45.909 Unspecified asthma, uncomplicated; K57.90 Diverticulosis of intestine, part unspecified, without perforation or abscess without bleeding; M17.0 Bilateral primary osteoarthritis of knee; M47.9 Spondylosis, unspecified; Z79.899 Other long term (current) drug therapy; Z90.81 Acquired absence of spleen; Z87.01 Personal history of pneumonia (recurrent); Z71.6 Tobacco abuse counseling; Z82.0 Family history of epilepsy and other diseases of the nervous system; Z82.49 Family history of ischemic heart disease and other diseases of the circulatory system
CPT/HCPCS: 36415; 80053; 80061; 83605; 84443; 84484; 85025; 85610; 85730; 87040; 90686; 90732; 92960; 93005; 93306; 93312; 93320; 93325; 96365; 96366; 96367; 96368; 96375; 96376; 99284

== ENCOUNTER 2018-11-29 18:28 | Emergency (ER) | payer BC ==
[2018-11-29 18:51] VITALS: BP 117/65; PULSE 78; RESP 16; TEMP 98.5
--- NOTE | 2018-11-29 19:17 | ED ---
General Adult HPI - General Source: patient, RN notes reviewed Mode of arrival: ambulatory Limitations: no limitations <Neftali Reveles - Last Filed: 11/29/18 20:07> <Russell May - Last Filed: 12/03/18 06:57> - General Chief complaint: Skin/Abscess/Foreign Body Stated complaint: Quijano on belly button Time Seen by Provider: 11/29/18 18:54 - History of Present Illness Initial comments: 43-year-old male with a past medical history of asthma, spherocytosis, asplenic, COPD, hypertension presents to the emergency department for a chief complaint of umbilical abscess. Patient states he has had this on and off for several months. Patient states this occurred again . States it is draining. States that he is here only for oral antibiotics. States he would call Dr. Carcamo who he follows up with for this instead of come to the emergency department but it is Saturday so he cannot. States he has not had any fevers or chills at home. Denies nausea vomiting. Denies abdominal pain. Patient has no other complaints at this time including shortness of breath, chest pain, abdominal pain, nausea or vomiting, headache, or visual changes. (Neftali Reveles) - Related Data Home Medications Medication Instructions Recorded Confirmed Albuterol Nebulized [Ventolin 2.5 mg INHALATION RT-BID 05/06/17 09/02/18 Nebulized] Furosemide [Lasix] 40 mg PO DAILY 05/06/17 09/02/18 HYDROcodone/APAP 10-325MG [[place] 1 tab PO TID PRN 05/06/17 09/02/18 10-325] Dextroamphetamine/Amphetamine 20 mg PO DAILY 08/28/18 09/02/18 [Adderall Xr] Previous Rx's Medication Instructions Recorded Diltiazem Cd [Cardizem CD] 120 mg PO DAILY #30 cap.er.24h 09/04/18 Doxycycline [Vibramycin] 100 mg PO BID #20 cap 09/04/18 Metoprolol Tartrate [Lopressor] 25 mg PO BID #60 tab 09/04/18 Rivaroxaban [Xarelto] 20 mg PO W/SUPPER #30 tab 09/04/18 diphenhydrAMINE [Benadryl] 25 mg PO Q8HR PRN #15 cap 09/04/18 methylPREDNISolone Dose Pack 4 mg PO DIRECTED #21 package 09/04/18 [Medrol Dose Pack] Doxycycline Hyclate 100 mg PO BID #28 tab 11/29/18 Allergies Allergy/AdvReac Type Severity Reaction Status Date / Time No Known Allergies Allergy Verified 11/29/18 18:48 Review of Systems ROS Other: All systems not noted in ROS Statement are negative. <Neftali Reveles - Last Filed: 11/29/18 20:07> ROS Other: All systems not noted in ROS Statement are negative. <Russell May - Last Filed: 12/03/18 06:57> ROS Statement: Those systems with pertinent positive or pertinent negative responses have been documented in the HPI. Past Medical History Past Medical History: Asthma, Blood Disorder, COPD, Hypertension, Pneumonia, Sleep Apnea/CPAP/BIPAP Additional Past Medical History / Comment(s): Pt recently admitted to [facility] on 08/28/18 with L lower leg cellulitis and hyperkalemia. 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 History of Any Multi-Drug Resistant Organisms: None Reported Additional Past Surgical History / Comment(s): Splenectomy AGE 2, ;eft thigh injury with surgery and another surgery d/t abscess with I&D appox 2000, vocal cord lesions removed, 2014 BMA/Bx, Past Anesthesia/Blood Transfusion Reactions: Previous Problems w/ Anesthesia Additional Past Anesthesia/Blood Transfusion Reaction / Comment(s): Pt states he woke up aggressive one time. Past Psychological History: ADD/ADHD Smoking Status: Current every day smoker Past Alcohol Use History: None Reported Past Drug Use History: None Reported - Past Family History Mother Family Medical History: Hypertension, Seizure Disorder Father Additional Family Medical History / Comment(s): Father from a heroin overdose. <Neftali Reveles - Last Filed: 11/29/18 20:07> General Exam Limitations: no limitations General appearance: alert, in no apparent distress Head exam: Present: atraumatic, normocephalic, normal inspection Eye exam: Present: normal appearance, PERRL, EOMI. Absent: scleral icterus, conjunctival injection, periorbital swelling ENT exam: Present: normal exam, mucous membranes moist Neck exam: Present: normal inspection, full ROM. Absent: tenderness, meningismus, lymphadenopathy Respiratory exam: Present: normal lung sounds bilaterally. Absent: respiratory distress, wheezes, rales, rhonchi, stridor Cardiovascular Exam: Present: regular rate, normal rhythm, normal heart sounds. Absent: systolic murmur, diastolic murmur, rubs, gallop, clicks GI/Abdominal exam: Present: soft, normal bowel sounds, other (Minimal purulent drainage noted from umbilical area. No abscess palpated around the area. No intra-abdominal abscess palpated. No pain with palpation. No surrounding erythema suggestive of cellulitis.). Absent: distended, tenderness (No tenderness of the abdomen), guarding, rebound, rigid Neurological exam: Present: alert Psychiatric exam: Present: normal affect, normal mood <Neftali Reveles - Last Filed: 11/29/18 20:07> Course Vital Signs 11/29/18 18:48 Temperature 98.5 F Pulse Rate 78 Respiratory 16 Rate Blood Pressure 117/65 O2 Sat by Pulse 96 Oximetry Medical Decision Making <Neftali Reveles - Last Filed: 11/29/18 20:07> <Russell May - Last Filed: 12/03/18 06:57> - Medical Decision Making 43-year-old male presents to the emergency department for a chief complaint of umbilical abscess. States that he has had this several times before. States he was admitted once was discharged home on oral antibiotics. On exam patient has minimal purulent drainage noted from the umbilicus with a small superficial draining abscess. No deeper or intra-abdominal abscess palpated. No significant erythema. Previous computed tomography scan was reviewed which showed an umbilical abscess. Vitals are stable and patient is afebrile at home and in the emergency department. Patient adamantly requests oral outpatient antibiotics. She was evaluated by myself as well as Dr. may. I did discuss in depth with patient as well as did Dr. May the risks of having infection with asplenia. Patient is aware of all the risks including but not limited to worsening infection, sepsis, intraabdominal extension. I did recommend admi ssion for IV antibiotics and further monitoring which he refuses. He states that he will call his doctor on Saturday and does agree to return if he has worsening symptoms. Culture pending, patient has previously been discharged home on doxycycline for this. Doxycycline will be started at this time. (Neftali Reveles) I saw this patient in conjunction with the physician hair assistant. I performed independent history and physical exam. Agree with case management.. I did review with the patient that there is risk of mild infection becoming life- threatening very quickly in patient post splenectomy. The patient does still declined admission. States he will follow-up. Return parameters discussed (Russell May) Disposition Is patient prescribed a controlled substance at d/c from ED?: No Time of Disposition: 20:07 <Neftali Reveles - Last Filed: 11/29/18 20:07> <Russell May - Last Filed: 12/03/18 06:57> Clinical Impression: Abscess, umbilical Disposition: HOME SELF-CARE Condition: Good Instructions (If sedation given, give patient instructions): Abscess (ED) Additional Instructions: Please take antibiotics as directed. Please follow-up with Dr. Carcamo first thing Saturday morning. If you're having any worsening symptoms, any fevers, any abdominal pain return immediately to the nearest emergency department. Prescriptions: Doxycycline Hyclate 100 mg PO BID #28 tab Referrals: David Paniagua MD [Primary Care Provider] - 1-2 days
[2018-11-29] MEDS ORDERED: DOXYCYCLINE 100 MG CAP PO STA (20:00)
== END 2018-11-29 20:23 | disposition home or self-care (01) ==
LOC: EC 18:28
DX: L02.216 Cutaneous abscess of umbilicus (principal); J44.9 Chronic obstructive pulmonary disease, unspecified; I10 Essential (primary) hypertension; F90.9 Attention-deficit hyperactivity disorder, unspecified type; G47.33 Obstructive sleep apnea (adult) (pediatric); F17.200 Nicotine dependence, unspecified, uncomplicated; Z79.899 Other long term (current) drug therapy; Z99.89 Dependence on other enabling machines and devices; Z98.890 Other specified postprocedural states; Z53.29 Procedure and treatment not carried out because of patient's decision for other reasons
CPT/HCPCS: 87070; 87205; 99283

== ENCOUNTER 2018-12-19 05:08 | Emergency (ER) | payer BC ==
[2018-12-19] MEDS ORDERED: IPRATROPIUM-ALBUTEROL 3 ML NEB INHALATION STA (05:39)
[2018-12-19 05:45] VITALS: RESP 18
[2018-12-19] MEDS ORDERED: SODIUM CHLORIDE 0.9% 500 ML 500 ML IV STA (06:06)
--- NOTE | 2018-12-19 06:22 | ED ---
General Adult HPI - General Chief complaint: Shortness of Breath Stated complaint: ZOHRA Time Seen by Provider: 12/19/18 05:38 Source: patient, family, RN notes reviewed Mode of arrival: ambulatory Limitations: no limitations - History of Present Illness Initial comments: 43-year-old male with a past medical history of hereditary serous cytosis with splenectomy, anemia, diverticulitis, migraines, DDD, cellulitis, atrial fibrillation presents to the emergency department for shortness of breath. Patient states he woke up about 3 hours ago and felt some shortness of breath. Patient does state he has history of asthma and this feels similar. Patient denies any chest pain or chest tightness. Denies cough or fever. Denies any upper respiratory symptoms. Patient does admit that he ate marijuana brownies last night and smoked a vape pen, both of which he usually doesn't do. States he has had shortness of breath from anxiety with marijuana brownies before. States this could just be his anxiety as since he has arrived in the emergency department symptoms have completely resolved. States he did not want to come by his mother stated he should be evaluated. Patient has no other complaints at this time including chest pain, abdominal pain, nausea or vomiting, headache, or visual changes. - Related Data Home Medications Medication Instructions Recorded Confirmed Furosemide [Lasix] 40 mg PO DAILY 05/06/17 12/19/18 HYDROcodone/APAP 10-325MG [[place] 1 tab PO TID PRN 05/06/17 12/19/18 10-325] Dextroamphetamine/Amphetamine 20 mg PO DAILY 08/28/18 12/19/18 [Adderall Xr] diphenhydrAMINE [Benadryl] 25 mg PO HS 12/19/18 12/19/18 Previous Rx's Medication Instructions Recorded Diltiazem Cd [Cardizem CD] 120 mg PO DAILY #30 cap.er.24h 09/04/18 Metoprolol Tartrate [Lopressor] 25 mg PO BID #60 tab 09/04/18 Rivaroxaban [Xarelto] 20 mg PO W/SUPPER #30 tab 09/04/18 Allergies Allergy/AdvReac Type Severity Reaction Status Date / Time sulfamethoxazole AdvReac ATRIAL Verified 12/19/18 06:52 [From Bactrim] FLUTTER trimethoprim [From Bactrim] AdvReac ATRIAL Verified 12/19/18 06:52 FLUTTER Review of Systems ROS Statement: Those systems with pertinent positive or pertinent negative responses have been documented in the HPI. ROS Other: All systems not noted in ROS Statement are negative. Past Medical History Past Medical History: Asthma, Blood Disorder, COPD, Hypertension, Pneumonia, Sleep Apnea/CPAP/BIPAP Additional Past Medical History / Comment(s): Pt recently admitted to [facility] on 08/28/18 with L lower leg cellulitis and hyperkalemia. 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 History of Any Multi-Drug Resistant Organisms: None Reported Additional Past Surgical History / Comment(s): Splenectomy AGE 2, ;eft thigh injury with surgery and another surgery d/t abscess with I&D appox 2000, vocal cord lesions removed, 2014 BMA/Bx, Past Anesthesia/Blood Transfusion Reactions: Previous Problems w/ Anesthesia Additional Past Anesthesia/Blood Transfusion Reaction / Comment(s): Pt states he woke up aggressive one time. Past Psychological History: ADD/ADHD Smoking Status: Current every day smoker Past Alcohol Use History: None Reported Past Drug Use History: None Reported - Past Family History Mother Family Medical History: Hypertension, Seizure Disorder Father Additional Family Medical History / Comment(s): Father from a heroin overdose. General Exam Limitations: no limitations General appearance: alert, in no apparent distress Head exam: Present: atraumatic, normocephalic, normal inspection Eye exam: Present: normal appearance, PERRL, EOMI. Absent: scleral icterus, conjunctival injection, periorbital swelling ENT exam: Present: normal exam, mucous membranes moist Neck exam: Present: normal inspection, full ROM. Absent: tenderness, meningismus, lymphadenopathy Respiratory exam: Present: normal lung sounds bilaterally. Absent: respiratory distress, wheezes, rales, rhonchi, stridor Cardiovascular Exam: Present: regular rate, normal rhythm, normal heart sounds. Absent: systolic murmur, diastolic murmur, rubs, gallop, clicks GI/Abdominal exam: Present: soft, normal bowel sounds. Absent: distended, tenderness, guarding, rebound, rigid Neurological exam: Present: alert, oriented X3 Psychiatric exam: Present: normal affect, normal mood Course Vital Signs 12/19/18 12/19/18 12/19/18 05:12 05:44 06:07 Temperature 98.1 F Pulse Rate 73 66 66 Respiratory 20 18 18 Rate Blood Pressure 141/75 140/75 108/59 O2 Sat by Pulse 98 96 96 Oximetry 12/19/18 12/19/18 12/19/18 06:13 06:21 07:20 Temperature Pulse Rate 75 76 70 Respiratory 18 18 18 Rate Blood Pressure 130/97 O2 Sat by Pulse 96 Oximetry EKG Findings - EKG Comments: EKG Findings:: EKG shows a normal sinus rhythm, ventricular rate 67, WI interval 166, QTC 414 Procedures - Smoking Cessation Time Spent Discussing Smoking Cessation w/Patient (Minutes): 3 Patient Acknowledges Need for Cessation: Yes Medical Decision Making - Medical Decision Making 43-year-old male with a past medical history of hereditary spherocyte ptosis wi th splenectomy, anemia, diverticulitis, cellulitis, atrial fibrillation presents for a 2. shortness of breath. States he woke up about 3 hours ago and felt some shortness of breath. States he does have history of asthma, denies any cough or fever. Denies any upper respiratory symptoms whatsoever. Patient does admit that he ate marijuana brownies last night and smoked of feet pending. States he has had shortness of breath from marijuana brownies before. States that since he has been in the ear his symptoms have resolved. Vitals are stable. Patient 98% on room air. Lungs are clear to auscultation bilaterally. No wheezing or crackles. CBC shows mild ptosis of 13.7 which appears chronic in this patient. CMP is unremarkable. Possible slight dehydration, patient given fluids. Chest x-ray shows no acute cardiopulmonary findings. Patient stating all symptoms have resolved at this time, requesting discharge. The symptoms were likely secondary to anxiety from eating marijuana brownies given occurrence prior to this as well as resolution of symptoms and clear lungs. Vitals were repeated, patient is 97% on room air. I did discuss with patient that he needs to return immediately if he starts to develop cough, upper respiratory symptoms, or any fevers whatsoever. He does agree to this. He'll follow up with primary care otherwise. Case was discussed with attending physician Dr Garcia. - Lab Data Result diagrams: 12/19/18 05:55 12/19/18 05:55 Lab Results 12/19/18 12/19/18 12/19/18 Range/Units 05:55 05:55 05:55 WBC 13.7 H (3.8-10.6) k/uL RBC 5.04 (4.30-5.90) m/uL Hgb 16.3 (13.0-17.5) gm/dL Hct 46.5 (39.0-53.0) % MCV 92.3 (80.0-100.0) fL MCH 32.3 (25.0-35.0) pg MCHC 35.0 (31.0-37.0) g/dL RDW 16.0 H (11.5-15.5) % Plt Count 357 (150-450) k/uL Neutrophils % 73 % Lymphocytes % 13 % Monocytes % 7 % Eosinophils % 4 % Basophils % 1 % Neutrophils # 10.0 H (1.3-7.7) k/uL Lymphocytes # 1.8 (1.0-4.8) k/uL Monocytes # 1.0 (0-1.0) k/uL Eosinophils # 0.5 (0-0.7) k/uL Basophils # 0.2 (0-0.2) k/uL Hyperchromasia Slight Poikilocytosis Slight Anisocytosis Slight PT 10.8 (9.0-12.0) sec INR 1.0 (<1.2) APTT 27.8 (22.0-30.0) sec Sodium 139 (137-145) mmol/L Potassium 4.3 (3.5-5.1) mmol/L Chloride 101 (98-107) mmol/L Carbon Dioxide 30 (22-30) mmol/L Anion Gap 8 mmol/L BUN 23 H (9-20) mg/dL Creatinine 0.87 (0.66-1.25) mg/dL Est GFR (CKD-EPI)AfAm >90 (>60 ml/min/1.73 sqM) Est GFR (CKD-EPI)NonAf >90 (>60 ml/min/1.73 sqM) Glucose 97 (74-99) mg/dL Calcium 9.6 (8.4-10.2) mg/dL Total Bilirubin 0.7 (0.2-1.3) mg/dL AST 34 (17-59) U/L ALT 41 (21-72) U/L Alkaline Phosphatase 75 (38-126) U/L Troponin I (0.000-0.034) ng/mL Total Protein 7.5 (6.3-8.2) g/dL Albumin 4.3 (3.5-5.0) g/dL 12/19/18 Range/Units 05:55 WBC (3.8-10.6) k/uL RBC (4.30-5.90) m/uL Hgb (13.0-17.5) gm/dL Hct (39.0-53.0) % MCV (80.0-100.0) fL MCH (25.0-35.0) pg MCHC (31.0-37.0) g/dL RDW (11.5-15.5) % Plt Count (150-450) k/uL Neutrophils % % Lymphocytes % % Monocytes % % Eosinophils % % Basophils % % Neutrophils # (1.3-7.7) k/uL Lymphocytes # (1.0-4.8) k/uL Monocytes # (0-1.0) k/uL Eosinophils # (0-0.7) k/uL Basophils # (0-0.2) k/uL Hyperchromasia Poikilocytosis Anisocytosis PT (9.0-12.0) sec INR (<1.2) APTT (22.0-30.0) sec Sodium (137-145) mmol/L Potassium (3.5-5.1) mmol/L Chloride (98-107) mmol/L Carbon Dioxide (22-30) mmol/L Anion Gap mmol/L BUN (9-20) mg/dL Creatinine (0.66-1.25) mg/dL Est GFR (CKD-EPI)AfAm (>60 ml/min/1.73 sqM) Est GFR (CKD-EPI)NonAf (>60 ml/min/1.73 sqM) Glucose (74-99) mg/dL Calcium (8.4-10.2) mg/dL Total Bilirubin (0.2-1.3) mg/dL AST (17-59) U/L ALT (21-72) U/L Alkaline Phosphatase (38-126) U/L Troponin I <0.012 (0.000-0.034) ng/mL Total Protein (6.3-8.2) g/dL Albumin (3.5-5.0) g/dL Disposition Clinical Impression: H/O shortness of breath, Anxiety Disposition: HOME SELF-CARE Condition: Good Instructions (If sedation given, give patient instructions): Asthma (ED) Additional Instructions: Please follow up with primary care in 1-2 days. Please return to the emergency department if you have any worsening symptoms such as cough, upper respiratory symptoms, fever, or recurrent shortness of breath. Is patient prescribed a controlled substance at d/c from ED?: No Referrals: David Paniagua MD [Primary Care Provider] - 1-2 days Time of Disposition: 07:27
[2018-12-19 06:29] LABS: Anisocytosis Slight; Basophils # (A) 0.2 k/uL (0-0.2); Basophils % (A) 1 %; Eosinophils # (A) 0.5 k/uL (0-0.7); Eosinophils % (A) 4 %; HCT 46.5 % (39.0-53.0); HGB 16.3 gm/dL (13.0-17.5); Hyperchromasia Slight; Lymphocytes # (A) 1.8 k/uL (1.0-4.8); Lymphocytes % (A) 13 %; MCH 32.3 pg (25.0-35.0); MCV 92.3 fL (80.0-100.0); Mean Platelet Volume 8.4; Monocytes % (A) 7 %; Neutrophils % (A) 73 %; Platelet Count 357 k/uL (150-450); Poikilocytosis Slight; RBC 5.04 m/uL (4.30-5.90); WBC 13.7 k/uL (3.8-10.6)
[2018-12-19 06:34] LABS: ALT 41 U/L (21-72); AST 34 U/L (17-59); African American GFR (CKD) >90 (>60 ml/min/1.73 sqM); Albumin 4.3 g/dL (3.5-5.0); Alkaline Phosphatase 75 U/L (38-126); Anion Gap 8 mmol/L; Blood Urea Nitrogen 23 mg/dL (9-20); Calcium 9.6 mg/dL (8.4-10.2); Carbon Dioxide 30 mmol/L (22-30); Chloride 101 mmol/L (98-107); Glucose 97 mg/dL (74-99); Potassium 4.3 mmol/L (3.5-5.1); Sodium 139 mmol/L (137-145); Total Bilirubin 0.7 mg/dL (0.2-1.3); Total Protein 7.5 g/dL (6.3-8.2)
[2018-12-19 06:35] LABS: Partial Thromboplastin Time 27.8 sec (22.0-30.0); Prothrombin Time 10.8 sec (9.0-12.0)
--- NOTE | 2018-12-19 06:59 | XR ---
EXAM: XR Chest, 2 Views CLINICAL HISTORY: ITS.REASON XR Reason: difficulty breathing TECHNIQUE: Frontal and lateral views of the chest. COMPARISON: 07/15/14 FINDINGS: Borderline enlargement of the cardiac silhouette. No overt edema, consolidation or other acute cardiopulmonary findings. IMPRESSION: No acute cardiopulmonary findings.
[2018-12-19 07:21] VITALS: BP 130/97; PULSE 70
[2018-12-19 07:51] VITALS: TEMP 98.3
== END 2018-12-19 07:48 | disposition home or self-care (01) ==
LOC: EC 05:08
DX: F41.9 Anxiety disorder, unspecified (principal); R06.02 Shortness of breath; D64.9 Anemia, unspecified; I48.91 Unspecified atrial fibrillation; F12.929 Cannabis use, unspecified with intoxication, unspecified; F17.200 Nicotine dependence, unspecified, uncomplicated; H02.409 Unspecified ptosis of unspecified eyelid; J45.909 Unspecified asthma, uncomplicated; F90.9 Attention-deficit hyperactivity disorder, unspecified type; G47.33 Obstructive sleep apnea (adult) (pediatric); Z79.899 Other long term (current) drug therapy; Z88.2 Allergy status to sulfonamides; Z99.89 Dependence on other enabling machines and devices; Z90.81 Acquired absence of spleen; Z87.2 Personal history of diseases of the skin and subcutaneous tissue; Z87.19 Personal history of other diseases of the digestive system; Z71.6 Tobacco abuse counseling
CPT/HCPCS: 36415; 71046; 80053; 84484; 85025; 85610; 85730; 93005; 94640; 99285

== ENCOUNTER → 2018-12-27 | Outpatient (CLI) | payer BC ==
[2018-12-27 08:45] LABS: Anisocytosis Slight; Basophils # (A) 0.1 k/uL (0-0.2); Basophils % (A) 1 %; Eosinophils # (A) 0.5 k/uL (0-0.7); Eosinophils % (A) 4 %; HCT 44.8 % (39.0-53.0); HGB 16.1 gm/dL (13.0-17.5); Hyperchromasia Slight; Lymphocytes # (A) 2.3 k/uL (1.0-4.8); Lymphocytes % (A) 21 %; MCH 32.8 pg (25.0-35.0); MCHC 35.8 g/dL (31.0-37.0); MCV 91.7 fL (80.0-100.0); Mean Platelet Volume 8.1; Monocytes # (A) 0.8 k/uL (0-1.0); Monocytes % (A) 7 %; Neutrophils % (A) 64 %; Platelet Count 337 k/uL (150-450); Poikilocytosis Slight; RBC 4.89 m/uL (4.30-5.90); RDW 16.1 % (11.5-15.5); WBC 11.1 k/uL (3.8-10.6)
[2018-12-27 16:16] LABS: Albumin 4.3 g/dL (3.80-4.90); Albumin/Globulin Ratio 1.87 (1.60-3.17); Anion Gap 5.6 mmol/L (4.00-12.00); BUN/Creat Ratio 21.25 Ratio (12.00-20.00); Calcium 9.6 mg/dL (8.7-10.3); Carbon Dioxide 28.4 mmol/L (21.6-31.8); Chol/HDL Ratio 2.98; Globulin 2.3 g/dL (1.6-3.3); LDL Cholesterol,Calculated 80.2 mg/dL (0.0-131.0); Potassium 4.7 mmol/L (3.5-5.5); Total Bilirubin 0.6 mg/dL (0.3-1.2); Total Protein 6.6 g/dL (6.2-8.2); VLDL Calculation 12.8 mg/dL (5.00-40.00)
[2018-12-27 21:04] LABS: Hemoglobin A1C 5.2 % (4.0-6.0)
== END | disposition home or self-care (01) ==
LOC: LABWHC1 08:16
PROVIDERS: ATTEND Internal Medicine
DX: R73.09 Other abnormal glucose (principal); I10 Essential (primary) hypertension; R53.83 Other fatigue; Z13.6 Encounter for screening for cardiovascular disorders
CPT/HCPCS: 36415; 80053; 80061; 83036; 84443; 85025

== ENCOUNTER → 2019-03-28 | Outpatient (CLI) | payer BC ==
[2019-03-28 09:17] LABS: Basophils # (A) 0.1 k/uL (0-0.2); Basophils % (A) 1 %; Eosinophils # (A) 0.7 k/uL (0-0.7); Eosinophils % (A) 6 %; HCT 46.6 % (39.0-53.0); HGB 16.8 gm/dL (13.0-17.5); Hyperchromasia Slight; Lymphocytes # (A) 2.3 k/uL (1.0-4.8); Lymphocytes % (A) 21 %; MCH 32.9 pg (25.0-35.0); MCHC 36.1 g/dL (31.0-37.0); MCV 91.2 fL (80.0-100.0); Mean Platelet Volume 9.4; Monocytes # (A) 0.9 k/uL (0-1.0); Monocytes % (A) 8 %; Neutrophils % (A) 63 %; Platelet Count 327 k/uL (150-450); Poikilocytosis Slight; RBC 5.11 m/uL (4.30-5.90); RDW 13.9 % (11.5-15.5); WBC 11.1 k/uL (3.8-10.6)
[2019-03-28 17:03] LABS: African American GFR (CKD) 124.2 (60.0-200.0); Albumin 4.5 g/dL (3.80-4.90); Albumin/Globulin Ratio 1.88 (1.60-3.17); Anion Gap 5.5 mmol/L (4.00-12.00); BUN/Creat Ratio 17.5 Ratio (12.00-20.00); Calcium 9.5 mg/dL (8.7-10.3); Carbon Dioxide 32.5 mmol/L (21.6-31.8); Chol/HDL Ratio 2.75; Globulin 2.4 g/dL (1.6-3.3); LDL Cholesterol,Calculated 75.2 mg/dL (0.0-131.0); Non-African American GFR(CKD) 107.1 (60.0-200.0); Potassium 5.1 mmol/L (3.5-5.5); Total Bilirubin 0.6 mg/dL (0.2-1.2); Total Protein 6.9 g/dL (6.2-8.2); VLDL Calculation 13.8 mg/dL (5.00-40.00)
[2019-03-28 20:16] LABS: Hemoglobin A1C 5.3 % (4.0-6.0)
== END | disposition home or self-care (01) ==
LOC: LABWHC1 08:15
PROVIDERS: ATTEND Internal Medicine
DX: Z13.6 Encounter for screening for cardiovascular disorders (principal); I10 Essential (primary) hypertension; R53.83 Other fatigue; R73.09 Other abnormal glucose
CPT/HCPCS: 36415; 80053; 80061; 83036; 84443; 85025

== ENCOUNTER 2019-04-14 04:51 | Emergency (ER) | payer BC ==
[2019-04-14 04:59] VITALS: BP 132/67; PULSE 63; RESP 18; TEMP 98
[2019-04-14] MEDS ORDERED: LEVOFLOXACIN 750MG-D5W PMX 750 MG in DEXTROSE/WATER 1 150ML.BAG IVPB STA (05:33)
--- NOTE | 2019-04-14 05:37 | ED ---
General Adult HPI - General Chief complaint: Upper Respiratory Infection Stated complaint: Sore Throat Time Seen by Provider: 04/14/19 05:18 Source: patient Mode of arrival: ambulatory Limitations: no limitations - History of Present Illness Initial comments: patient is a 44-year-old man with history of being asplenic. He states that he was exposed to family member who had respiratory infection. He states that over the course the past evening he has begun to have sinus congestion, frontal sinus pressure, and a bit of cough with some occasional yellow or green sputum. Patient states he is not having chest congestion, no chest pain, no dyspnea. -: hour(s) Location: head Quality: dull Consistency: constant Improves with: none Worsens with: none Associated Symptoms: cough Treatments Prior to Arrival: none - Related Data Home Medications Medication Instructions Recorded Confirmed Furosemide [Lasix] 40 mg PO DAILY 05/06/17 12/19/18 HYDROcodone/APAP 10-325MG [[place] 1 tab PO TID PRN 05/06/17 12/19/18 10-325] Dextroamphetamine/Amphetamine 20 mg PO DAILY 08/28/18 12/19/18 [Adderall Xr] diphenhydrAMINE [Benadryl] 25 mg PO HS 12/19/18 12/19/18 Previous Rx's Medication Instructions Recorded Diltiazem Cd [Cardizem CD] 120 mg PO DAILY #30 cap.er.24h 09/04/18 Metoprolol Tartrate [Lopressor] 25 mg PO BID #60 tab 09/04/18 Rivaroxaban [Xarelto] 20 mg PO W/SUPPER #30 tab 09/04/18 Levofloxacin 750 mg PO DAILY #7 tablet 04/14/19 Allergies Allergy/AdvReac Type Severity Reaction Status Date / Time sulfamethoxazole AdvReac ATRIAL Verified 04/14/19 04:59 [From Bactrim] FLUTTER trimethoprim [From Bactrim] AdvReac ATRIAL Verified 04/14/19 04:59 FLUTTER Review of Systems ROS Statement: Those systems with pertinent positive or pertinent negative responses have been documented in the HPI. ROS Other: All systems not noted in ROS Statement are negative. Constitutional: Denies: fever, chills, weakness Eyes: Denies: eye pain, eye discharge, vision change ENT: Reports: congestion. Denies: throat pain Respiratory: Reports: cough. Denies: dyspnea, wheezes, hemoptysis Cardiovascular: Denies: chest pain, palpitations, dyspnea on exertion, orthopnea, edema, syncope Gastrointestinal: Denies: abdominal pain, vomiting, diarrhea Genitourinary: Denies: dysuria Musculoskeletal: Denies: back pain Skin: Denies: rash Neurological: Reports: as per HPI, headache. Denies: weakness, numbness, parest hesias Past Medical History Past Medical History: Asthma, Blood Disorder, COPD, Hypertension, Pneumonia, Sleep Apnea/CPAP/BIPAP Additional Past Medical History / Comment(s): Pt recently admitted to [facility] on 08/28/18 with L lower leg cellulitis and hyperkalemia. 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 History of Any Multi-Drug Resistant Organisms: None Reported Additional Past Surgical History / Comment(s): Splenectomy AGE 2, ;eft thigh injury with surgery and another surgery d/t abscess with I&D appox 2000, vocal cord lesions removed, 2014 BMA/Bx, Past Anesthesia/Blood Transfusion Reactions: Previous Problems w/ Anesthesia Additional Past Anesthesia/Blood Transfusion Reaction / Comment(s): Pt states he woke up aggressive one time. Past Psychological History: ADD/ADHD Smoking Status: Current every day smoker Past Alcohol Use History: None Reported Past Drug Use History: Marijuana - Past Family History Mother Family Medical History: Hypertension, Seizure Disorder Father Additional Family Medical History / Comment(s): Father from a heroin overdose. General Exam Limitations: no limitations General appearance: alert, in no apparent distress Head exam: Present: atraumatic, normocephalic Eye exam: Present: normal appearance, PERRL, EOMI. Absent: scleral icterus, conjunctival injection ENT exam: Present: normal oropharynx Respiratory exam: Present: normal lung sounds bilaterally. Absent: respiratory distress, wheezes, rales, rhonchi, stridor Cardiovascular Exam: Present: regular rate, normal rhythm, normal heart sounds. Absent: systolic murmur, diastolic murmur, rubs, gallop GI/Abdominal exam: Present: soft. Absent: distended, tenderness Neurological exam: Present: alert Skin exam: Present: warm, dry, intact, normal color. Absent: rash Course Vital Signs 04/14/19 04:55 Temperature 98.0 F Pulse Rate 63 Respiratory 18 Rate Blood Pressure 132/67 O2 Sat by Pulse 96 Oximetry EKG Findings - EKG Results: EKG: interpreted by PASHA, sinus rhythm (rate 62 bpm), normal axis, normal QRS, normal ST/T, no acute changes Medical Decision Making - Medical Decision Making shouldn't is a 44-year-old man who is asplenic. He is having symptoms of early sinusitis/upper respiratory infection. Discussed admission to rule out fulminant respiratory infection. Patient states with the holiday is not stay. He does accept the course of outpatient antibiotics and will return immediately if he feels any worse at all. - Lab Data Result diagrams: 04/14/19 05:50 04/14/19 05:50 Lab Results 04/14/19 04/14/19 04/14/19 Range/Units 05:50 05:50 05:50 WBC 11.2 H (3.8-10.6) k/uL RBC 5.17 (4.30-5.90) m/uL Hgb 16.8 (13.0-17.5) gm/dL Hct 46.1 (39.0-53.0) % MCV 89.3 (80.0-100.0) fL MCH 32.6 (25.0-35.0) pg MCHC 36.5 (31.0-37.0) g/dL RDW 13.8 (11.5-15.5) % Plt Count 323 (150-450) k/uL Neutrophils % 69 % Lymphocytes % 16 % Monocytes % 7 % Eosinophils % 5 % Basophils % 1 % Neutrophils # 7.8 H (1.3-7.7) k/uL Lymphocytes # 1.8 (1.0-4.8) k/uL Monocytes # 0.8 (0-1.0) k/uL Eosinophils # 0.6 (0-0.7) k/uL Basophils # 0.1 (0-0.2) k/uL Hyperchromasia Slight Poikilocytosis Slight Sodium 138 (137-145) mmol/L Potassium 4.4 (3.5-5.1) mmol/L Chloride 103 (98-107) mmol/L Carbon Dioxide 28 (22-30) mmol/L Anion Gap 7 mmol/L BUN 15 (9-20) mg/dL Creatinine 0.58 L (0.66-1.25) mg/dL Est GFR (CKD-EPI)AfAm >90 (>60 ml/min/1.73 sqM) Est GFR (CKD-EPI)NonAf >90 (>60 ml/min/1.73 sqM) Glucose 123 H (74-99) mg/dL Plasma Lactic Acid Raymond 1.1 (0.7-2.0) mmol/L Calcium 9.9 (8.4-10.2) mg/dL Total Bilirubin 0.7 (0.2-1.3) mg/dL AST 39 (17-59) U/L ALT 31 (4-49) U/L Alkaline Phosphatase 76 (38-126) U/L Total Protein 7.5 (6.3-8.2) g/dL Albumin 4.4 (3.5-5.0) g/dL Disposition Clinical Impression: Sinusitis Disposition: Left Against Medical Advice Condition: Fair Instructions (If sedation given, give patient instructions): Sinusitis (ED) Prescriptions: Levofloxacin 750 mg PO DAILY #7 tablet Is patient prescribed a controlled substance at d/c from ED?: No Referrals: David Paniagua MD [Primary Care Provider] - 1-2 days
[2019-04-14 06:02] LABS: Basophils # (A) 0.1 k/uL (0-0.2); Basophils % (A) 1 %; Eosinophils # (A) 0.6 k/uL (0-0.7); Eosinophils % (A) 5 %; HCT 46.1 % (39.0-53.0); HGB 16.8 gm/dL (13.0-17.5); Hyperchromasia Slight; Lymphocytes # (A) 1.8 k/uL (1.0-4.8); Lymphocytes % (A) 16 %; MCH 32.6 pg (25.0-35.0); MCHC 36.5 g/dL (31.0-37.0); MCV 89.3 fL (80.0-100.0); Mean Platelet Volume 8.7; Monocytes # (A) 0.8 k/uL (0-1.0); Monocytes % (A) 7 %; Neutrophils # (A) 7.8 k/uL (1.3-7.7); Neutrophils % (A) 69 %; Platelet Count 323 k/uL (150-450); Poikilocytosis Slight; RBC 5.17 m/uL (4.30-5.90); RDW 13.8 % (11.5-15.5); WBC 11.2 k/uL (3.8-10.6)
[2019-04-14 06:10] LABS: ALT 31 U/L (4-49); AST 39 U/L (17-59); African American GFR (CKD) >90 (>60 ml/min/1.73 sqM); Albumin 4.4 g/dL (3.5-5.0); Alkaline Phosphatase 76 U/L (38-126); Anion Gap 7 mmol/L; Blood Urea Nitrogen 15 mg/dL (9-20); Calcium 9.9 mg/dL (8.4-10.2); Carbon Dioxide 28 mmol/L (22-30); Chloride 103 mmol/L (98-107); Glucose 123 mg/dL (74-99); Non-African American GFR(CKD) >90 (>60 ml/min/1.73 sqM); Potassium 4.4 mmol/L (3.5-5.1); Sodium 138 mmol/L (137-145); Total Bilirubin 0.7 mg/dL (0.2-1.3); Total Protein 7.5 g/dL (6.3-8.2)
--- NOTE | 2019-04-14 06:12 | XR ---
EXAMINATION TYPE: XR chest 2V DATE OF EXAM: 04/14/2019 COMPARISON: Chest x-ray December 19, 2018. HISTORY: Cough. TECHNIQUE: Frontal and lateral views of the chest are obtained. FINDINGS: There is no focal air space opacity, pleural effusion, or pneumothorax seen. The cardiac s ilhouette size is stable and mildly enlarged. The osseous structures are intact. IMPRESSION: Mild cardiomegaly without new suspicious focal acute infiltrate..
== END 2019-04-14 07:26 | disposition left against medical advice (07) ==
LOC: EC 04:51
DX: J32.9 Chronic sinusitis, unspecified (principal); I10 Essential (primary) hypertension; F90.9 Attention-deficit hyperactivity disorder, unspecified type; G47.33 Obstructive sleep apnea (adult) (pediatric); F17.200 Nicotine dependence, unspecified, uncomplicated; Z79.899 Other long term (current) drug therapy; Z88.1 Allergy status to other antibiotic agents; Z88.2 Allergy status to sulfonamides
CPT/HCPCS: 36415; 93005; 80053; 83605; 85025; 87040; 71046; 99284; 96365; J1956

== ENCOUNTER 2019-04-16 11:03 | Emergency (ER) | payer BC ==
[2019-04-16 11:40] VITALS: TEMP 98.6
--- NOTE | 2019-04-16 12:46 | ED ---
General Adult HPI - General Chief complaint: Recheck/Abnormal Lab/Rx Stated complaint: Infected Belly Button Time Seen by Provider: 04/16/19 12:25 Source: patient Mode of arrival: ambulatory Limitations: no limitations - History of Present Illness Initial comments: Dictation was produced using [employer] dictation software. please excuse any grammatical, word or spelling errors. Chief Complaint: 44-year-old male past medical history of asplenia from spherocytosis presents with abdominal pain and draining wound to his belly button History of Present Illness: Patient is a 44-year-old male. He has past medical history of asplenia presents today with concerns of abdominal wound. Patient states that on [place] he had a red draining wound to his belly button. Patient states it drained a little bit of what he describes as purulent fluid. Patient has history of asplenia and has had several bouts of severe cellulitis. Patient reports that he is not on antibiotic prophylaxis at this time for his lack of spleen function. Patient states that he does have abdominal pain as well. Complains of redness to his anterior abdomen area. Denies any constitutional symptoms. No nausea vomiting diarrhea. The ROS documented in this emergency department record has been reviewed and confirmed by me. Those systems with pertinent positive or negative responses have been documented in the HPI. All other systems are other negative and/or noncontributory. PHYSICAL EXAM: General Impression: Alert and oriented x3, not in acute distress HEENT: Normocephalic atraumatic, extra-ocular movements intact, pupils equal and reactive to light bilaterally, mucous membranes moist. Cardiovascular: Heart regular rate and rhythm, S1&S2 audible, no murmurs, rubs or gallops Chest: Lungs clear to auscultation bilaterally, no rhonchi, no wheeze, no rales Abdomen: Bowel sounds present, abdomen soft, non-tender, non-distended, no organomegaly Musculoskeletal: Pulses present and equal in all extremities, no peripheral edema Motor: no focal deficits noted Neurological: CN II-XII grossly intact, no focal motor or sensory deficits noted Skin: Mild erythema to the inferior umbilicus. No drainage. No induration. Psych: Normal affect and mood ED course: 44-year-old male presents with concern of infected abdominal wall. Upon arrival are within acceptable limits. Patient's well-appearing. Chart review shows that patient was here 2 days ago diagnosed with sinusitis. He then left AGAINST MEDICAL ADVICE because he wanted to be home for the holidays. Patient states that his sinus issues have been about stable. Here today concerned about an infection in his abdominal wall. There is erythema however no induration. Umbilicus was probed using a Q-tip without any drainage. There is concerned that perhaps patient's expressing a rash secondary to recent antibiotic consumption.Abdomen evaluation obtained. No leukocytosis. White count is 9.5. Metabolic panel is negative. Urinalysis cusp is case with Dr. Carcamo of infectious disease who recommends CT abdomen and pelvis be obtained patient has elevated white count. She has a normal white count however. He is well-appearing and observed in emergency department for several hours with no changes in presentation. At this point patient's erythema on the abdomen although very benign-appearing maybe secondary to soft tissue infection however was more likely is patient might be having a drug-induced rash. Nonetheless patient will be given prescription for clindamycin. Strict return precautions were discussed. Patient is sent that he should return to emergency Department with any even slight worsening of his symptoms. He understands that he is high risk for severe progressive infection given his history of asplenia. He is otherwise told to follow-up with primary care physician upon discharge. - Related Data Home Medications Medication Instructions Recorded Confirmed Furosemide [Lasix] 40 mg PO DAILY 05/06/17 04/16/19 HYDROcodone/APAP 10-325MG [[place] 1 tab PO TID PRN 05/06/17 04/16/19 10-325] Beclomethasone Dip 80 Mcg/Puff 2 puff INHALATION RT-BID 04/16/19 04/16/19 [Qvar 80 mcg] Dextroamphetamine/Amphetamine 10 mg PO TID 04/16/19 04/16/19 [Adderall] Levofloxacin [Levaquin] 750 mg PO DAILY 04/16/19 04/16/19 Previous Rx's Medication Instructions Recorded Diltiazem Cd [Cardizem CD] 120 mg PO DAILY #30 cap.er.24h 09/04/18 Metoprolol Tartrate [Lopressor] 25 mg PO BID #60 tab 09/04/18 Rivaroxaban [Xarelto] 20 mg PO W/SUPPER #30 tab 09/04/18 Clindamycin HCl 450 mg PO QID 5 Days #30 cap 04/16/19 Allergies Allergy/AdvReac Type Severity Reaction Status Date / Time sulfamethoxazole AdvReac ATRIAL Verified 04/16/19 13:09 [From Bactrim] FLUTTER/rash trimethoprim [From Bactrim] AdvReac ATRIAL Verified 04/16/19 13:09 FLUTTER/rash Review of Systems ROS Statement: Those systems with pertinent positive or pertinent negative responses have been documented in the HPI. ROS Other: All systems not noted in ROS Statement are negative. Past Medical History Past Medical History: Asthma, Blood Disorder, COPD, Hypertension, Pneumonia, Sleep Apnea/CPAP/BIPAP Additional Past Medical History / Comment(s): Pt recently admitted to [facility] on 08/28/18 with L lower leg cellulitis and hyperkalemia. Other Hx: Splenectomy age 2 yrs, hereditary spherocytosis blood disorder, erythrocytosis, anemia, KADI with Cpap, diverticulitis, migraines, back and bilateral knee pain/DDD, b ilateral lower leg edema at times. History of Any Multi-Drug Resistant Organisms: None Reported Additional Past Surgical History / Comment(s): Splenectomy AGE 2, ;eft thigh injury with surgery and another surgery d/t abscess with I&D appox 2000, vocal cord lesions removed, 2014 BMA/Bx, Past Anesthesia/Blood Transfusion Reactions: Previous Problems w/ Anesthesia Additional Past Anesthesia/Blood Transfusion Reaction / Comment(s): Pt states he woke up aggressive one time. Past Psychological History: ADD/ADHD Smoking Status: Current every day smoker Past Alcohol Use History: None Reported Past Drug Use History: Marijuana - Past Family History Mother Family Medical History: Hypertension, Seizure Disorder Father Additional Family Medical History / Comment(s): Father from a heroin overdose. General Exam Limitations: no limitations Course Vital Signs 04/16/19 11:37 Temperature 98.6 F Pulse Rate 71 Respiratory 19 Rate Blood Pressure 120/69 O2 Sat by Pulse 95 Oximetry Medical Decision Making - Lab Data Result diagrams: 04/16/19 13:31 04/16/19 13:31 Lab Results 04/16/19 04/16/19 Range/Units 13:31 13:31 WBC 9.5 (3.8-10.6) k/uL RBC 5.25 (4.30-5.90) m/uL Hgb 16.8 (13.0-17.5) gm/dL Hct 47.1 (39.0-53.0) % MCV 89.6 (80.0-100.0) fL MCH 32.0 (25.0-35.0) pg MCHC 35.7 (31.0-37.0) g/dL RDW 13.9 (11.5-15.5) % Plt Count 322 (150-450) k/uL Neutrophils % 58 % Lymphocytes % 23 % Monocytes % 11 % Eosinophils % 5 % Basophils % 1 % Neutrophils # 5.5 (1.3-7.7) k/uL Lymphocytes # 2.1 (1.0-4.8) k/uL Monocytes # 1.0 (0-1.0) k/uL Eosinophils # 0.5 (0-0.7) k/uL Basophils # 0.1 (0-0.2) k/uL Hyperchromasia Slight Poikilocytosis Slight Sodium 139 (137-145) mmol/L Potassium 4.4 (3.5-5.1) mmol/L Chloride 102 (98-107) mmol/L Carbon Dioxide 27 (22-30) mmol/L Anion Gap 10 mmol/L BUN 15 (9-20) mg/dL Creatinine 0.66 (0.66-1.25) mg/dL Est GFR (CKD-EPI)AfAm >90 (>60 ml/min/1.73 sqM) Est GFR (CKD-EPI)NonAf >90 (>60 ml/min/1.73 sqM) Glucose 135 H (74-99) mg/dL Calcium 9.4 (8.4-10.2) mg/dL Disposition Clinical Impression: Rash Disposition: HOME SELF-CARE Condition: Good Instructions (If sedation given, give patient instructions): Acute Rash (ED) Prescriptions: Clindamycin HCl 450 mg PO QID 5 Days #30 cap Is patient prescribed a controlled substance at d/c from ED?: No Referrals: David Paniagua MD [Primary Care Provider] - 1-2 days Rai Carcamo MD [STAFF PHYSICIAN] - 1-2 days Time of Disposition: 14:06
[2019-04-16 13:49] LABS: Basophils # (A) 0.1 k/uL (0-0.2); Basophils % (A) 1 %; Eosinophils # (A) 0.5 k/uL (0-0.7); Eosinophils % (A) 5 %; HCT 47.1 % (39.0-53.0); HGB 16.8 gm/dL (13.0-17.5); Hyperchromasia Slight; Lymphocytes # (A) 2.1 k/uL (1.0-4.8); Lymphocytes % (A) 23 %; MCHC 35.7 g/dL (31.0-37.0); MCV 89.6 fL (80.0-100.0); Mean Platelet Volume 9.2; Monocytes % (A) 11 %; Neutrophils # (A) 5.5 k/uL (1.3-7.7); Neutrophils % (A) 58 %; Platelet Count 322 k/uL (150-450); Poikilocytosis Slight; RBC 5.25 m/uL (4.30-5.90); RDW 13.9 % (11.5-15.5); WBC 9.5 k/uL (3.8-10.6)
[2019-04-16 13:54] LABS: African American GFR (CKD) >90 (>60 ml/min/1.73 sqM); Anion Gap 10 mmol/L; Blood Urea Nitrogen 15 mg/dL (9-20); Calcium 9.4 mg/dL (8.4-10.2); Carbon Dioxide 27 mmol/L (22-30); Chloride 102 mmol/L (98-107); Glucose 135 mg/dL (74-99); Non-African American GFR(CKD) >90 (>60 ml/min/1.73 sqM); Potassium 4.4 mmol/L (3.5-5.1); Sodium 139 mmol/L (137-145)
[2019-04-16 14:29] VITALS: BP 125/74; PULSE 74; RESP 18
== END 2019-04-16 14:27 | disposition home or self-care (01) ==
LOC: EC 11:03
DX: R21 Rash and other nonspecific skin eruption (principal); R10.9 Unspecified abdominal pain; F90.9 Attention-deficit hyperactivity disorder, unspecified type; G47.33 Obstructive sleep apnea (adult) (pediatric); I10 Essential (primary) hypertension; F17.200 Nicotine dependence, unspecified, uncomplicated; Z79.899 Other long term (current) drug therapy; Z88.1 Allergy status to other antibiotic agents; Z88.2 Allergy status to sulfonamides; Z99.89 Dependence on other enabling machines and devices
CPT/HCPCS: 36415; 80048; 85025; 99283

== ENCOUNTER 2019-04-18 02:51 | Emergency (ER) | payer BC ==
[2019-04-18 02:58] VITALS: RESP 18; TEMP 98.1
--- NOTE | 2019-04-18 03:39 | XR ---
EXAMINATION TYPE: XR chest 2V DATE OF EXAM: 04/18/2019 COMPARISON: 08/13/2018 HISTORY: Fever TECHNIQUE: 2 views FINDINGS: Heart and mediastinum are normal. Lungs are clear. Diaphragm is normal. Bony thorax is inta ct. IMPRESSION: No active cardiopulmonary disease. No change.
[2019-04-18 03:43] LABS: Basophils # (A) 0.1 k/uL (0-0.2); Basophils % (A) 1 %; Eosinophils # (A) 0.6 k/uL (0-0.7); Eosinophils % (A) 5 %; HCT 44.8 % (39.0-53.0); HGB 16.2 gm/dL (13.0-17.5); Hyperchromasia Slight; Lymphocytes # (A) 2.8 k/uL (1.0-4.8); Lymphocytes % (A) 22 %; MCH 32.2 pg (25.0-35.0); MCHC 36.2 g/dL (31.0-37.0); Mean Platelet Volume 9.1; Monocytes % (A) 8 %; Neutrophils # (A) 7.7 k/uL (1.3-7.7); Neutrophils % (A) 61 %; Platelet Count 324 k/uL (150-450); Poikilocytosis Slight; RBC 5.03 m/uL (4.30-5.90); RDW 13.7 % (11.5-15.5); WBC 12.6 k/uL (3.8-10.6)
[2019-04-18] MEDS: SODIUM CHLORIDE 0.9% 500 ML 500 ML IV SCH ×2 (03:44→03:45)
[2019-04-18 03:47] LABS: Partial Thromboplastin Time 27.7 sec (22.0-30.0); Prothrombin Time 10.7 sec (9.0-12.0)
--- NOTE | 2019-04-18 04:07 | ED ---
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 Patient reports that he has had a bleeding sore on his umbilicus she has been causing him discomfort for the last 3 days. Patient was seen on 04/14 for sinusitis-like symptoms, was discharged AGAINST MEDICAL ADVICE of Micki. Patient seen on 04/16. She complaint discharge from umbilicus, was discharged clindamycin. Return precautions were discussed that time which included worsening of drainage which has occurred causing patient to present. Denies any fevers or chills, patient does report some abdominal discomfort. Systemic: Pt denies fatigue, fever/chills, rash. Pt denies weakness, night sweats, weight loss. Neuro: Pt denies headache, visual disturbances, syncope or pre-syncope. HEENT: Pt denies ocular discharge or irritation, otalgia, rhinorrhea, pharyngitis or notable lymphadenopathy. Cardiopulmonary: Pt denies chest pain, SOB, heart palpitations, dyspnea on exertion. Abdominal/GI: Pt denies n/v/d. : Pt denies dysuria, burning w/ urination, frequency/urgency. Denies new onset urinary or bowel incontinence. MSK: Pt denies myalgia, loss of strength or function in extremities. Neuro: Pt denies new onset weakness, paresthesias. (Santiago Salinas) - Related Data Home Medications Medication Instructions Recorded Confirmed Furosemide [Lasix] 40 mg PO DAILY 05/06/17 04/16/19 HYDROcodone/APAP 10-325MG [[place] 1 tab PO TID PRN 05/06/17 04/16/19 10-325] Beclomethasone Dip 80 Mcg/Puff 2 puff INHALATION RT-BID 04/16/19 04/16/19 [Qvar 80 mcg] Dextroamphetamine/Amphetamine 10 mg PO TID 04/16/19 04/16/19 [Adderall] Levofloxacin [Levaquin] 750 mg PO DAILY 04/16/19 04/16/19 Previous Rx's Medication Instructions Recorded Diltiazem Cd [Cardizem CD] 120 mg PO DAILY #30 cap.er.24h 09/04/18 Metoprolol Tartrate [Lopressor] 25 mg PO BID #60 tab 09/04/18 Rivaroxaban [Xarelto] 20 mg PO W/SUPPER #30 tab 09/04/18 Clindamycin HCl 450 mg PO QID 5 Days #30 cap 04/16/19 Allergies Allergy/AdvReac Type Severity Reaction Status Date / Time sulfamethoxazole AdvReac ATRIAL Verified 04/16/19 13:09 [From Bactrim] FLUTTER/rash trimethoprim [From Bactrim] AdvReac ATRIAL Verified 04/16/19 13:09 FLUTTER/rash Review of Systems ROS Other: All systems not noted in ROS Statement are negative. <Santiago Salinas - Last Filed: 04/18/19 04:05> ROS Other: All systems not noted in ROS Statement are negative. <Prema Garcia - Last Filed: 05/04/19 07:06> ROS Statement: Those systems with pertinent positive or pertinent negative responses have been documented in the HPI. Past Medical History Past Medical History: Asthma, Blood Disorder, COPD, Hypertension, Pneumonia, Sleep Apnea/CPAP/BIPAP Additional Past Medical History / Comment(s): Pt recently admitted to [facility] on 08/28/18 with L lower leg cellulitis and hyperkalemia. 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 History of Any Multi-Drug Resistant Organisms: None Reported Additional Past Surgical History / Comment(s): Splenectomy AGE 2, ;eft thigh injury with surgery and another surgery d/t abscess with I&D appox 2000, vocal cord lesions removed, 2014 BMA/Bx, Past Anesthesia/Blood Transfusion Reactions: Previous Problems w/ Anesthesia Additional Past Anesthesia/Blood Transfusion Reaction / Comment(s): Pt states he woke up aggressive one time. Past Psychological History: ADD/ADHD Smoking Status: Current every day smoker Past Alcohol Use History: None Reported Past Drug Use History: Marijuana - Past Family History Mother Family Medical History: Hypertension, Seizure Disorder Father Additional Family Medical History / Comment(s): Father from a heroin overdose. <Santiago Salinas - Last Filed: 04/18/19 04:05> General Exam Limitations: no limitations <Santiago Salinas - Last Filed: 04/18/19 04:05> - General Exam Comments Initial Comments: Constitutional: NAD, AOX3, Pt has pleasant affect. HEENT: NC/AT, trachea midline, neck supple, no lymphadenopathy. Posterior pharynx non erythematous, without exudates. External ears appear normal, without discharge. Mucous membranes moist. Eyes PERRLA, EOM intact. There is no scleral icterus. No pallor noted. Cardiopulmonary: RRR, no murmurs, rubs or gallops, no JVD noted. Lungs CTAB in anterior and posterior weber. No peripheral edema. Abdominal exam: Abdomen soft and non-distended. Drainage noted from umbilicus, mild amount of erythema periumbilical, periumbilical region tender to palpation. Bowel sounds active in LLQ. No hepatosplenomegaly. No ecchymosis Neuro: CN II-XII grossly intact. No nuchal rigidity. No raccon eyes, no sanford sign, no hemotympanum. No cervical spinal tenderness. MSK: No posterior calf tenderness bilaterally, homans sign negative bilaterally. Posterior tibialis and radial pulse +2 bilaterally. Sensation intact in upper and lower extremities. Full active ROM in upper and lower extremities, 5/5 stregnth. (Santiago Salinas) Course Vital Signs 04/18/19 04/18/19 02:54 05:12 Temperature 98.1 F Pulse Rate 65 68 Respiratory 18 18 Rate Blood Pressure 149/91 149/96 O2 Sat by Pulse 98 98 Oximetry Medical Decision Making - Lab Data Result diagrams: 04/18/19 03:17 - EKG Data -: EKG Interpreted by Me (and Dr. Garcia) <Santiago Salinas - Last Filed: 04/18/19 04:05> - Lab Data Result diagrams: 04/18/19 03:17 04/18/19 03:17 <Prema Garcia P - Last Filed: 05/04/19 07:06> - Medical Decision Making 44-year-old patient presented to ED for chief complaint discharge from umbilicus. Patient will signs are stable, afebrile. Physical exam didn't display umbilical drainage, mild erythema periumbilical, tenderness to palpation in this region. Patient signed out to attending physician Dr. Garcia pending laboratory investigations and imaging. (Santiago Salinas) - Lab Data Lab Results 04/18/19 04/18/19 04/18/19 Range/Units 03:17 03:17 03:17 WBC 12.6 H (3.8-10.6) k/uL RBC 5.03 (4.30-5.90) m/uL Hgb 16.2 (13.0-17.5) gm/dL Hct 44.8 (39.0-53.0) % MCV 89.0 (80.0-100.0) fL MCH 32.2 (25.0-35.0) pg MCHC 36.2 (31.0-37.0) g/dL RDW 13.7 (11.5-15.5) % Plt Count 324 (150-450) k/uL Neutrophils % 61 % Lymphocytes % 22 % Monocytes % 8 % Eosinophils % 5 % Basophils % 1 % Neutrophils # 7.7 (1.3-7.7) k/uL Lymphocytes # 2.8 (1.0-4.8) k/uL Monocytes # 1.0 (0-1.0) k/uL Eosinophils # 0.6 (0-0.7) k/uL Basophils # 0.1 (0-0.2) k/uL Hyperchromasia Slight Poikilocytosis Slight PT (9.0-12.0) sec INR (<1.2) APTT (22.0-30.0) sec Sodium 138 (137-145) mmol/L Potassium 4.4 (3.5-5.1) mmol/L Chloride 102 (98-107) mmol/L Carbon Dioxide 29 (22-30) mmol/L Anion Gap 7 mmol/L BUN 16 (9-20) mg/dL Creatinine 0.63 L (0.66-1.25) mg/dL Est GFR (CKD-EPI)AfAm >90 (>60 ml/min/1.73 sqM) Est GFR (CKD-EPI)NonAf >90 (>60 ml/min/1.73 sqM) Glucose 106 H (74-99) mg/dL Plasma Lactic Acid Raymond 0.7 (0.7-2.0) mmol/L Calcium 9.4 (8.4-10.2) mg/dL Total Bilirubin 0.6 (0.2-1.3) mg/dL AST 36 (17-59) U/L ALT 29 (4-49) U/L Alkaline Phosphatase 75 (38-126) U/L Total Protein 7.0 (6.3-8.2) g/dL Albumin 4.0 (3.5-5.0) g/dL Urine Color Urine Appearance (Clear) Urine pH (5.0-8.0) Ur Specific [place] (1.001-1.035) Urine Protein (Negative) Urine Glucose (UA) (Negative) Urine Ketones (Negative) Urine Blood (Negative) Urine Nitrite (Negative) Urine Bilirubin (Negative) Urine Urobilinogen (<2.0) mg/dL Ur Leukocyte Esterase (Negative) Influenza Type A RNA (Not Detectd) Influenza Type B (PCR) (Not Detectd) 04/18/19 04/18/19 04/18/19 Range/Units 03:17 03:23 03:46 WBC (3.8-10.6) k/uL RBC (4.30-5.90) m/uL Hgb (13.0-17.5) gm/dL Hct (39.0-53.0) % MCV (80.0-100.0) fL MCH (25.0-35.0) pg MCHC (31.0-37.0) g/dL RDW (11.5-15.5) % Plt Count (150-450) k/uL Neutrophils % % Lymphocytes % % Monocytes % % Eosinophils % % Basophils % % Neutrophils # (1.3-7.7) k/uL Lymphocytes # (1.0-4.8) k/uL Monocytes # (0-1.0) k/uL Eosinophils # (0-0.7) k/uL Basophils # (0-0.2) k/uL Hyperchromasia Poikilocytosis PT 10.7 (9.0-12.0) sec INR 1.0 (<1.2) APTT 27.7 (22.0-30.0) sec Sodium (137-145) mmol/L Potassium (3.5-5.1) mmol/L Chloride (98-107) mmol/L Carbon Dioxide (22-30) mmol/L Anion Gap mmol/L BUN (9-20) mg/dL Creatinine (0.66-1.25) mg/dL Est GFR (CKD-EPI)AfAm (>60 ml/min/1.73 sqM) Est GFR (CKD-EPI)NonAf (>60 ml/min/1.73 sqM) Glucose (74-99) mg/dL Plasma Lactic Acid Raymond (0.7-2.0) mmol/L Calcium (8.4-10.2) mg/dL Total Bilirubin (0.2-1.3) mg/dL AST (17-59) U/L ALT (4-49) U/L Alkaline Phosphatase (38-126) U/L Total Protein (6.3-8.2) g/dL Albumin (3.5-5.0) g/dL Urine Color Yellow Urine Appearance Clear (Clear) Urine pH 7.0 (5.0-8.0) Ur Specific [place] 1.019 (1.001-1.035) Urine Protein Negative (Negative) Urine Glucose (UA) Negative (Negative) Urine Ketones Negative (Negative) Urine Blood Negative (Negative) Urine Nitrite Negative (Negative) Urine Bilirubin Negative (Negative) Urine Urobilinogen <2.0 (<2.0) mg/dL Ur Leukocyte Esterase Negative (Negative) Influenza Type A RNA Not Detected (Not Detectd) Influenza Type B (PCR) Not Detected (Not Detectd) - EKG Data EKG Comments: Ventricular rate 69,. Full and 50, QRS 84, QT/QTC 378/45. Normal sinus rhythm, normal EKG, no concern for acute ischemia. (Santiago Salinas) Disposition <Santiago Salinas - Last Filed: 04/18/19 04:05> Is patient prescribed a controlled substance at d/c from ED?: No <Prema Garcia - Last Filed: 05/04/19 07:06> Clinical Impression: Cellulitis Disposition: HOME SELF-CARE Condition: Stable Instructions (If sedation given, give patient instructions): Abscess (ED) Referrals: David Paniagua MD [Primary Care Provider] - 1-2 days
[2019-04-18 04:15] LABS: ALT 29 U/L (4-49); AST 36 U/L (17-59); African American GFR (CKD) >90 (>60 ml/min/1.73 sqM); Alkaline Phosphatase 75 U/L (38-126); Anion Gap 7 mmol/L; Blood Urea Nitrogen 16 mg/dL (9-20); Calcium 9.4 mg/dL (8.4-10.2); Carbon Dioxide 29 mmol/L (22-30); Chloride 102 mmol/L (98-107); Glucose 106 mg/dL (74-99); Non-African American GFR(CKD) >90 (>60 ml/min/1.73 sqM); Potassium 4.4 mmol/L (3.5-5.1); Sodium 138 mmol/L (137-145); Total Bilirubin 0.6 mg/dL (0.2-1.3)
--- NOTE | 2019-04-18 04:28 | CT ---
EXAMINATION TYPE: CT abdomen pelvis w con DATE OF EXAM: 04/18/2019 COMPARISON: 07/12/2018 HISTORY: periumbilical discharge CT DLP: 3222 mGycm Automated exposure control for dose reduction was used. CONTRAST: Performed with IV Contrast, patient injected with 100 mL of Isovue 300. Multiple axial sections were obtained from the diaphragm to the floor the pelvis with intravenous con trast Lung bases are clear of consolidation. There is minimal atelectasis left lung base. There is no pleur al effusion. Heart size is normal. Liver and gallbladder appear normal. Bile ducts are not dilated. Pancreas appears normal. Spleen is a bsent. The bile ducts are not dilated. The stomach is intact. There is significant atrophy of the lef t side abdominal wall muscles. There is no adrenal mass. Kidneys show satisfactory contrast opacification. There is no hydronephrosi s. Ureters are not dilated. There are right-sided renal cortical cysts that measure up to 2.5 cm. The re is no hydronephrosis. Ureters are not dilated. There is no retroperitoneal adenopathy. Bladder dis tends smoothly. There is no inguinal hernia. There are numerous sigmoid diverticula. There is no sign of diverticulitis. There is small umbilical hernia that contains fat. There is some skin thickening at the umbilicus that could relate to localized inflammatory process. The appendix appears normal. Th ere is no evidence of a bowel obstruction. There is no mesenteric edema. There is no ascites. Lumbar vertebra have normal alignment. There is no compression fracture. Bony pelvis is intact. IMPRESSION: Small renal cortical cysts. No acute abnormality within the abdomen pelvis. Muscle atrophy. Skin thickening at the umbilicus unchanged compared to old exam and could relate to inflammatory proc ess. No abscess. Sigmoid diverticulosis without diverticulitis.
[2019-04-18 04:35] LABS: Appearance,Urine Clear (Clear); Bilirubin,Urine Negative (Negative); Blood,Urine Negative (Negative); Color,Urine Yellow; Glucose,Urine (UA) Negative (Negative); Ketones,Urine Negative (Negative); Leukocyte Esterase,Urine Negative (Negative); Nitrite,Urine Negative (Negative); Protein,Urine Negative (Negative); Specific Gravity,Urine 1.019 (1.001-1.035); Urobilinogen,Urine <2.0 mg/dL (<2.0)
[2019-04-18 05:13] VITALS: BP 149/96; PULSE 68
== END 2019-04-18 06:15 | disposition home or self-care (01) ==
LOC: EC 02:51
DX: L03.311 Cellulitis of abdominal wall (principal); J44.9 Chronic obstructive pulmonary disease, unspecified; I10 Essential (primary) hypertension; G47.33 Obstructive sleep apnea (adult) (pediatric); F90.9 Attention-deficit hyperactivity disorder, unspecified type; F17.200 Nicotine dependence, unspecified, uncomplicated; Z88.2 Allergy status to sulfonamides; Z79.51 Long term (current) use of inhaled steroids; Z79.899 Other long term (current) drug therapy; Z98.890 Other specified postprocedural states; Z99.89 Dependence on other enabling machines and devices
CPT/HCPCS: 36415; 93005; 80053; 83605; 85025; 85610; 85730; 81003; 87040; 87070; 87205; 87077; 87186; 87502; 71046; 74177; 99284; 96360; 96361 ×2; Q9967

== ENCOUNTER 2019-07-03 17:02 | Emergency (ER) | payer BC ==
[2019-07-03] MEDS ORDERED: DOXYCYCLINE 100 MG CAP PO STA (17:46)
--- NOTE | 2019-07-03 18:03 | ED ---
General Adult HPI - General Chief complaint: Skin/Abscess/Foreign Body Stated complaint: left leg issues/belly button oozing Time Seen by Provider: 07/03/19 17:18 Source: patient, RN notes reviewed Mode of arrival: ambulatory Limitations: no limitations - History of Present Illness Initial comments: 44-year-old male presents to the emergency department for multiple complaints. Patient presents for lesion to the left tib-fib. States this has been there for a year however it now looks different. States it is somewhat painful when pressure is applied to it or when something hits it. He denies any redness or swelling of the left lower extremity. Patient is also presenting for drainage from the umbilicus. States that he has had drainage for the past 2 days. States this has happened several times before and he usually needs antibiotic and a culture. Patient did have a computed tomography scan recently because of this and there was thickening of the umbilicus however no abscess.Patient has no other complaints at this time including shortness of breath, chest pain, abdominal pain, nausea or vomiting, headache, or visual changes. - Related Data Home Medications Medication Instructions Recorded Confirmed Furosemide [Lasix] 40 mg PO DAILY 05/06/17 04/16/19 HYDROcodone/APAP 10-325MG [[place] 1 tab PO TID PRN 05/06/17 04/16/19 10-325] Beclomethasone Dip 80 Mcg/Puff 2 puff INHALATION RT-BID 04/16/19 04/16/19 [Qvar 80 mcg] Dextroamphetamine/Amphetamine 10 mg PO TID 04/16/19 04/16/19 [Adderall] Levofloxacin [Levaquin] 750 mg PO DAILY 04/16/19 04/16/19 Previous Rx's Medication Instructions Recorded Diltiazem Cd [Cardizem CD] 120 mg PO DAILY #30 cap.er.24h 09/04/18 Metoprolol Tartrate [Lopressor] 25 mg PO BID #60 tab 09/04/18 Rivaroxaban [Xarelto] 20 mg PO W/SUPPER #30 tab 09/04/18 Clindamycin HCl 450 mg PO QID 5 Days #30 cap 04/16/19 Doxycycline [Vibramycin] 100 mg PO BID 10 Days #20 capsule 07/03/19 Allergies Allergy/AdvReac Type Severity Reaction Status Date / Time sulfamethoxazole AdvReac ATRIAL Verified 07/03/19 17:03 [From Bactrim] FLUTTER/rash trimethoprim [From Bactrim] AdvReac ATRIAL Verified 07/03/19 17:03 FLUTTER/rash Review of Systems ROS Statement: Those systems with pertinent positive or pertinent negative responses have been documented in the HPI. ROS Other: All systems not noted in ROS Statement are negative. Past Medical History Past Medical History: Asthma, Blood Disorder, COPD, Hypertension, Pneumonia, Sleep Apnea/CPAP/BIPAP Additional Past Medical History / Comment(s): Pt recently admitted to [facility] on 08/28/18 with L lower leg cellulitis and hyperkalemia. 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 History of Any Multi-Drug Resistant Organisms: None Reported Additional Past Surgical History / Comment(s): Splenectomy AGE 2, ;eft thigh injury with surgery and another surgery d/t abscess with I&D appox 2000, vocal cord lesions removed, 2014 BMA/Bx, Past Anesthesia/Blood Transfusion Reactions: Previous Problems w/ Anesthesia Additional Past Anesthesia/Blood Transfusion Reaction / Comment(s): Pt states he woke up aggressive one time. Past Psychological History: ADD/ADHD Smoking Status: Current every day smoker Past Alcohol Use History: None Reported Past Drug Use History: Marijuana - Past Family History Mother Family Medical History: Hypertension, Seizure Disorder Father Additional Family Medical History / Comment(s): Father from a heroin overdose. General Exam Limitations: no limitations General appearance: alert, in no apparent distress Head exam: Present: atraumatic, normocephalic, normal inspection Eye exam: Present: normal appearance ENT exam: Present: normal exam Neck exam: Present: normal inspection, full ROM. Absent: tenderness, meningismus, lymphadenopathy Respiratory exam: Present: normal lung sounds bilaterally. Absent: respiratory distress, wheezes, rales, rhonchi, stridor Cardiovascular Exam: Present: regular rate, normal rhythm, normal heart sounds. Absent: systolic murmur, diastolic murmur, rubs, gallop, clicks GI/Abdominal exam: Present: soft, normal bowel sounds, other (Patient has remnants of drainage however no current umbilical purulent drainage present.). Absent: distended, tenderness, guarding, rebound, rigid Extremities exam: Present: other (Small 5 mm x 5 mm raised black lesion of the left tib-fib that appears to be a comedone. DP pulse 2+, capillary refill less than 2 seconds in LLE. There is no erythema or edema of the left lower extremity. No evidence for cellulitis. No evidence for abscess.) Course Vital Signs 07/03/19 17:03 Temperature 98.9 F Pulse Rate 80 Respiratory 16 Rate Blood Pressure 160/79 O2 Sat by Pulse 95 Oximetry Medical Decision Making - Medical Decision Making Patient denies any fevers at home. He is afebrile. Abdomen is completely nontender. No active purulent drainage from the umbilicus. I did review previous cultures and patient is sensitive to tetracycline and therefore will be put on doxycycline. I discussed that he needs to return for any fevers or abdominal pain and he is agreeable. He will follow up for infectious disease with his established physician. He also presents for lesion of the left tib- fib. This is a small 5 mm x 5 mm raised lesion that appears to be a comedone. It has been there for a year however starting to change in nature. I did attempt to apply pressure to this area however was uneventful in removing this. Patient will follow-up with Dr. Poole with whom he has already established. He will return for any worsening symptoms. Disposition Clinical Impression: Wound drainage Disposition: HOME SELF-CARE Condition: Good Instructions (If sedation given, give patient instructions): Abscess (ED) Additional Instructions: Please take antibiotic as directed. Follow-up with your infectious disease specialist as soon as possible. Follow up with dermatology for lesion on the left leg. Return to the emergency department for any worsening symptoms. Prescriptions: Doxycycline [Vibramycin] 100 mg PO BID 10 Days #20 capsule Is patient prescribed a controlled substance at d/c from ED?: No Referrals: David Paniagua MD [Primary Care Provider] - 1-2 days Ole Poole MD [STAFF PHYSICIAN] - 1-2 days Time of Disposition: 18:01
[2019-07-03 18:26] VITALS: BP 157/79; PULSE 87; RESP 17; TEMP 98
== END 2019-07-03 18:25 | disposition home or self-care (01) ==
LOC: EC 17:02
DX: L76.82 Other postprocedural complications of skin and subcutaneous tissue (principal); L98.8 Other specified disorders of the skin and subcutaneous tissue; M79.662 Pain in left lower leg; J44.9 Chronic obstructive pulmonary disease, unspecified; I10 Essential (primary) hypertension; G47.33 Obstructive sleep apnea (adult) (pediatric); F90.9 Attention-deficit hyperactivity disorder, unspecified type; F17.200 Nicotine dependence, unspecified, uncomplicated; Z88.2 Allergy status to sulfonamides; Z79.51 Long term (current) use of inhaled steroids; Z79.899 Other long term (current) drug therapy; Z99.89 Dependence on other enabling machines and devices
CPT/HCPCS: 87070; 87077; 87186; 87205; 99283

== ENCOUNTER 2019-09-30 20:12 | Inpatient (IN) | payer BC ==
[2019-09-30] MEDS ORDERED: HYDROcodone/APAP 7.5-325MG 1 EACH TAB PO ONE (20:30)
[2019-09-30] MEDS ORDERED: CLINDAMYCIN 600 MG in DEXTROSE 5% IN WATER 50 ML IVPB STA ×2 (20:51)
--- NOTE | 2019-09-30 21:17 | US ---
EXAMINATION TYPE: US venous doppler duplex LE LT DATE OF EXAM: 09/30/2019 9:10 PM COMPARISON: US 2019 CLINICAL HISTORY: leg swelling. Left leg swelling and pain x 3 days. No hx of DVT. Patient takes Xare lto. SIDE PERFORMED: Left TECHNIQUE: The lower extremity deep venous system is examined utilizing real time linear array sonog barry with graded compression, doppler sonography and color-flow sonography. VESSELS IMAGED: Common Femoral Vein Deep Femoral Vein Greater Saphenous Vein * Femoral Vein Popliteal Vein Small Saphenous Vein * Proximal Calf Veins (* superficial vessels) Left Leg: Limited due to large body habitus and edema. EIV not visualized. No evidence of DVT in vei ns imaged at this time from prox calf veins to EIV. IMPRESSION: No evidence of left leg deep vein thrombosis.
[2019-09-30] MEDS ORDERED: NALOXONE 0.4 MG/ML 1 ML VIAL IV PRN (22:22)
--- NOTE | 2019-09-30 22:22 | ED ---
Extremity Problem HPI - General Chief complaint: Extremity Problem,Nontraumatic Stated complaint: L Leg Pain Time Seen by Provider: 09/30/19 20:24 Source: patient Mode of arrival: ambulatory Limitations: no limitations - History of Present Illness Initial comments: 44yo male with history of asplenia secondary to spherocytosis presenting today for chief complaint of left leg redness and swelling patient states symptoms feel similar to when he had cellulitis in the past. Patient denies fevers chills general malaise. Patient has no additional complaints. Patient states he noticed the redness and tenderness posterior to his knee a few days ago he states is has been spreading slowly, is warm to touch and the leg appears slightly more swollen than the right leg. Patient appears well nontoxic upon arrival. No acute distress. Afebrile. - Related Data Home Medications Medication Instructions Recorded Confirmed Furosemide [Lasix] 40 mg PO DAILY 05/06/17 09/30/19 HYDROcodone/APAP 10-325MG [[place] 1 tab PO TID PRN 05/06/17 09/30/19 10-325] Dextroamphetamine/Amphetamine 10 mg PO TID 04/16/19 09/30/19 [Adderall] Previous Rx's Medication Instructions Recorded Diltiazem Cd [Cardizem CD] 120 mg PO DAILY #30 cap.er.24h 09/04/18 Metoprolol Tartrate [Lopressor] 25 mg PO BID #60 tab 09/04/18 Rivaroxaban [Xarelto] 20 mg PO W/SUPPER #30 tab 09/04/18 Allergies Allergy/AdvReac Type Severity Reaction Status Date / Time sulfamethoxazole AdvReac ATRIAL Verified 09/30/19 22:15 [From Bactrim] FLUTTER/rash trimethoprim [From Bactrim] AdvReac ATRIAL Verified 09/30/19 22:15 FLUTTER/rash Review of Systems ROS Statement: Those systems with pertinent positive or pertinent negative responses have been documented in the HPI. ROS Other: All systems not noted in ROS Statement are negative. Past Medical History Past Medical History: Asthma, Blood Disorder, COPD, Hypertension, Pneumonia, Sleep Apnea/CPAP/BIPAP Additional Past Medical History / Comment(s): Pt recently admitted to [facility] on 08/28/18 with L lower leg cellulitis and hyperkalemia. 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 History of Any Multi-Drug Resistant Organisms: None Reported Additional Past Surgical History / Comment(s): Splenectomy AGE 2, ;eft thigh injury with surgery and another surgery d/t abscess with I&D appox 2000, vocal cord lesions removed, 2014 BMA/Bx, Past Anesthesia/Blood Transfusion Reactions: Previous Problems w/ Anesthesia Additional Past Anesthesia/Blood Transfusion Reaction / Comment(s): Pt states he woke up aggressive one time. Past Psychological History: ADD/ADHD Smoking Status: Current every day smoker Past Alcohol Use History: None Reported Past Drug Use History: Marijuana - Past Family History Mother Family Medical History: Hypertension, Seizure Disorder Father Additional Family Medical History / Comment(s): Father from a heroin overdose. General Exam - General Exam Comments Initial Comments: General: The patient is awake and alert, in no distress Eye: Pupils are equal, round and reactive to light, extra-ocular movements are intact. No nystagmus. There is normal conjunctiva bilaterally. No signs of icterus. Ears, nose, mouth and throat: There are moist mucous membranes and no oral lesions. Neck: The neck is supple, there is no tenderness or JVD. Cardiovascular: There is a regular rate and rhythm. No murmur, rub or gallop is appreciated. Respiratory: Lungs are clear to auscultation, respirations are non-labored, breath sounds are equal. No wheezes, stridor, rales, or rhonchi. Musculoskeletal: Normal ROM, no tenderness. Strength 5/5. Sensation intact. Pulses equal bilaterally 2+. Neurological: A&O x 3. CN II-XII intact grossly, There are no obvious motor or sensory deficits. Coordination appears grossly intact. Speech is normal. Skin: Skin is warm and dry and no rashes. Diffuse redness warmth with poorly demarcated borders of the posterior left mid leg, posterior to knee spreading proximally. Patient has no crepitus or vesicular lesions, no bullae or bruising. NO mid calf pain. No obvious swelling noted. Psychiatric: Cooperative, appropriate mood & affect, normal judgment. Limitations: no limitations Course Vital Signs 09/30/19 20:17 Temperature 98.6 F Pulse Rate 73 Respiratory 17 Rate Blood Pressure 124/64 O2 Sat by Pulse 95 Oximetry Medical Decision Making - Medical Decision Making 44yo asplenic patient presenting today for cc of left leg redness, swelling. US (-) for obvious DVT. Hx and exam most consistent with cellulitis. Patient difficult IV start, delay. Patient is nontoxic however, well appearing. Will be admitted given immune compromised status for dose of IV antibiotics monitoring. Disposition Clinical Impression: Left leg cellulitis Disposition: ADMITTED IP TO THIS HOSP Condition: Stable Is patient prescribed a controlled substance at d/c from ED?: No Referrals: David Paniagua MD [Primary Care Provider] - 1-2 days Time of Disposition: 22:22 Decision to Admit Reason: Admit from EC Decision Date: 09/30/19 Decision Time: 22:22
[2019-09-30 22:47] LABS: Basophils # (A) 0.1 k/uL (0-0.2); Basophils % (A) 1 %; Eosinophils # (A) 0.6 k/uL (0-0.7); Eosinophils % (A) 5 %; HCT 44.5 % (39.0-53.0); HGB 14.9 gm/dL (13.0-17.5); Lymphocytes # (A) 2.8 k/uL (1.0-4.8); Lymphocytes % (A) 22 %; MCHC 33.4 g/dL (31.0-37.0); MCV 92.6 fL (80.0-100.0); Mean Platelet Volume 9.1; Monocytes % (A) 8 %; Neutrophils # (A) 8.1 k/uL (1.3-7.7); Neutrophils % (A) 64 %; Platelet Count 274 k/uL (150-450); RDW 14.3 % (11.5-15.5); WBC 12.7 k/uL (3.8-10.6)
[2019-09-30 22:57] LABS: ALT 34 U/L (4-49); AST 34 U/L (17-59); African American GFR (CKD) >90 (>60 ml/min/1.73 sqM); Albumin 3.8 g/dL (3.5-5.0); Alkaline Phosphatase 66 U/L (38-126); Anion Gap 7 mmol/L; Blood Urea Nitrogen 21 mg/dL (9-20); Calcium 9.2 mg/dL (8.4-10.2); Carbon Dioxide 30 mmol/L (22-30); Chloride 100 mmol/L (98-107); Glucose 123 mg/dL (74-99); Non-African American GFR(CKD) >90 (>60 ml/min/1.73 sqM); Potassium 4.3 mmol/L (3.5-5.1); Sodium 137 mmol/L (137-145); Total Bilirubin 0.3 mg/dL (0.2-1.3); Total Protein 6.8 g/dL (6.3-8.2)
[2019-10-01] MEDS: HYDROmorphone 0.5 MG/0.5 ML SYRINGE IVP PRN ×5 (05:34→23:32)
[2019-10-01] MEDS: DILTIAZEM CD 120 MG CAP.ER.24H PO SCH (09:05)
[2019-10-01] MEDS: Dextroamphetamine/Amphetamine [Adderall] PO SCH ×3 (09:05→20:25)
[2019-10-01] MEDS: FUROSEMIDE 40 MG TAB PO SCH (09:05)
[2019-10-01] MEDS: METOPROLOL TARTRATE 25 MG TAB PO SCH ×2 (09:05→20:19)
[2019-10-01] MEDS: CLINDAMYCIN 600 MG in DEXTROSE 5% IN WATER 50 ML IVPB SCH ×4 (09:05→16:46)
--- NOTE | 2019-10-01 10:17 | P.HPIM ---
History of Present Illness H&P Date: 10/01/19 Chau Diallo, 44-year-old male who presented to [facility] emergency room with a chief complaint of left lower extremity erythema and swelling and tenderness symptoms started 1 week ago and has been worsening, patient was evaluated in the emergency room. Preliminary diagnosis was lower extremity cellulitis. He was started on IV antibiotics and was admitted to medical floor. Patient had previous episodes of lower extremity cellulitis and abdominal wall cellulitis, he also has known history of splenectomy, history of asthma, history of hypertension, severe morbid obesity with obstructive sleep apnea, and history of degenerative disc disease and osteoarthritis with chronic pain. Patient was seen and examined on the medical floor he is alert and oriented 3 in no apparent distress he is complaining of pain and erythema and tenderness and warmth of the left lower extremity mostly behind the knee and the posterior aspect of his left thigh, otherwise he denies any complaints at this time there is no fever or chills no headache or dizziness no chest pain no shortness of breath no cough no nausea or vomiting no abdominal pain no diarrhea, no burning was urination no frequency or urgency no hematuria. Past Medical History Past Medical History: Asthma, Blood Disorder, COPD, Hypertension, Pneumonia, Sleep Apnea/CPAP/BIPAP Additional Past Medical History / Comment(s): Pt recently admitted to [facility] on 08/28/18 with L lower leg cellulitis and hyperkalemia. 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 History of Any Multi-Drug Resistant Organisms: None Reported Additional Past Surgical History / Comment(s): Splenectomy AGE 2, ;eft thigh injury with surgery and another surgery d/t abscess with I&D appox 2000, vocal cord lesions removed, 2014 BMA/Bx, Past Anesthesia/Blood Transfusion Reactions: Previous Problems w/ Anesthesia Additional Past Anesthesia/Blood Transfusion Reaction / Comment(s): Pt states he woke up aggressive one time. Past Psychological History: ADD/ADHD Additional Psychological History / Comment(s): Pt resides with his mother. He has a nebulizer. 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 Smoking Status: Current every day smoker Past Alcohol Use History: None Reported Additional Past Alcohol Use History / Comment(s): SMOKES 1.5PPD, SMOKING SINCE 18 YRS OLD Past Drug Use History: Marijuana Additional Drug Use History / Comment(s): Occasional marijuana use. - Past Family History Mother Family Medical History: Hypertension, Seizure Disorder Father Additional Family Medical History / Comment(s): Father from a heroin overdose. Medications and Allergies Home Medications Medication Instructions Recorded Confirmed Type Furosemide [Lasix] 40 mg PO DAILY 05/06/17 09/30/19 History HYDROcodone/APAP 10-325MG [[place] 1 tab PO TID PRN 05/06/17 09/30/19 History 10-325] Diltiazem Cd [Cardizem CD] 120 mg PO DAILY #30 cap.er.24h 09/04/18 09/30/19 Rx Metoprolol Tartrate [Lopressor] 25 mg PO BID #60 tab 09/04/18 09/30/19 Rx Rivaroxaban [Xarelto] 20 mg PO W/SUPPER #30 tab 09/04/18 09/30/19 Rx Dextroamphetamine/Amphetamine 10 mg PO TID 04/16/19 09/30/19 History [Adderall] Allergies Allergy/AdvReac Type Severity Reaction Status Date / Time sulfamethoxazole AdvReac ATRIAL Verified 09/30/19 22:15 [From Bactrim] FLUTTER/rash trimethoprim [From Bactrim] AdvReac ATRIAL Verified 09/30/19 22:15 FLUTTER/rash Physical Exam Vitals: Vital Signs Temp Pulse Pulse Resp BP BP Pulse Ox 10/01/19 08:10 18 10/01/19 07:00 97.8 F 68 18 144/75 94 L 09/30/19 22:59 97.8 F 75 18 142/67 95 09/30/19 21:20 98.5 F 71 18 132/70 94 L 09/30/19 20:17 98.6 F 73 17 124/64 95 Intake and Output 09/30/19 10/01/19 10/01/19 22:59 06:59 14:59 Other: # Voids 1 Weight 159.211 kg 159.211 kg In general patient is alert and oriented 3 HEENT head normocephalic and atraumatic Neck is supple no JVD no goiter no lymphadenopathy Chest exam reveals a few scattered rhonchi no wheezing Cardiac exam reveals regular heart sounds S1 and S2 no gallops no murmurs Abdomen is soft nontender no organomegaly with normal bowel sounds, abdomen is extremely obese with areas of mild erythema on the lower abdomen Extremity exam reveals minimal edema no cyanosis or clubbing, there is erythema behind the left knee and the posterior aspect of the left thigh with induration and tenderness Neurological examination reveals no gross focal deficit Results CBC & Chem 7: 09/30/19 22:25 09/30/19 22:25 Labs: Abnormal Lab Results - Last 24 Hours (Table) 09/30/19 09/30/19 Range/Units 22:25 22:25 WBC 12.7 H (3.8-10.6) k/uL Neutrophils # 8.1 H (1.3-7.7) k/uL BUN 21 H (9-20) mg/dL Glucose 123 H (74-99) mg/dL Assessment and Plan Plan: 1. Left lower extremity cellulitis patient was started on IV antibiotic in the emergency room Rocephin and Cleocin with continue with the same at this time infectious disease consultation requested blood cultures ordered no open wounds to obtain local cultures. Patient had multiple episodes of lower extremity cellulitis and abdominal wall cellulitis in the past. 2. Underlying history of splenectomy at age 2 for spherocytosis 3. Underlying history of severe morbid obesity 4. Underlying history of asthma medication reordered 5. Underlying history of hypertension At this time medication and labs were reviewed and reordered Blood culture ordered Continue with same antibiotic at this time will follow closely
[2019-10-01] MEDS: ALBUTEROL NEBULIZED 2.5 MG/3 ML INHALATION SCH ×3 (11:07→20:45)
--- NOTE | 2019-10-01 13:25 | US ---
EXAMINATION TYPE: US venous doppler duplex LE LT DATE OF EXAM: 10/01/2019 12:58 PM COMPARISON: US less than 24 hours ago CLINICAL HISTORY: 44-year-old male swelling and redness ,left lower thigh ?SVT. Left leg redness left medial knee SIDE PERFORMED: Left TECHNIQUE: The lower extremity deep venous system is examined utilizing real time linear array sonog barry with graded compression, doppler sonography and color-flow sonography. FINDINGS: VESSELS IMAGED: External Iliac Vein (EIV) Common Femoral Vein Deep Femoral Vein Greater Saphenous Vein * Femoral Vein Popliteal Vein Small Saphenous Vein * Proximal Calf Veins (* superficial vessels) Left Leg: Negative for DVT, and SVT On Site Nurse notes:In area of left medial knee where pt has redness and pain there is a complex area measuring 1.7 x 0.9 x 2.1 cm with a possible possible tract versus focal shadowing IMPRESSION: 1. No sonographic evidence for DVT within the left lower extremity imaged from the groin to the upper calf. No SVT seen. 2. Along the medial aspect of the left knee at the site of redness and pain, a heterogeneous 2.1 cm a fariha is present in the subcutaneous adipose just deep to the skin surface, possible phlegmon. There is either focal shadowing deep to this area versus a tract extending from here to the superficial muscu lar fascia.
[2019-10-01] MEDS: RIVAROXABAN 20 MG TAB PO SCH (16:57)
[2019-10-01] MEDS: MONTELUKAST 10 MG TAB PO SCH (20:20)
[2019-10-01] MEDS: HYDROcodone/APAP 10-325MG 1 EACH TAB PO PRN (21:13)
[2019-10-02] MEDS: CLINDAMYCIN 600 MG in DEXTROSE 5% IN WATER 50 ML IVPB SCH ×6 (00:17→16:13)
[2019-10-02] MEDS: ALBUTEROL NEBULIZED 2.5 MG/3 ML INHALATION SCH ×7 (00:19→23:46)
[2019-10-02] MEDS: HYDROcodone/APAP 10-325MG 1 EACH TAB PO PRN ×3 (05:02→16:13)
--- NOTE | 2019-10-02 07:54 | P.CONS ---
History of Present Illness - Reason for Consult Consult date: 10/01/19 left thigh cellulitis Requesting physician: David Paniagua - Chief Complaint left thigh pain and redness x few days - History of Present Illness Patient is a 44-year-old male presenting to the hospital with chief complaints of left leg redness and swelling there is mostly in the right medial lower thigh area that is been going on for few days with subsequent spreading and worsening he presented to hospital patient denies having any history of any trauma he did have some dull aching pain to the area with intensity of 6-7 out of 10 and no radiation patient had did have a Doppler study which was negative for DVT patient did have not have any fever did have elevated white count 12.7 with a left shift patient has blood culture drawn he has been started on Rocep hin 1 g daily infectious disease was consulted for further management of antibiotic therapy. Review of Systems Positive point has been mentioned in HPI rest of the systems are negative Past Medical History Past Medical History: Asthma, Blood Disorder, COPD, Hypertension, Pneumonia, Sleep Apnea/CPAP/BIPAP Additional Past Medical History / Comment(s): Pt recently admitted to [facility] on 08/28/18 with L lower leg cellulitis and hyperkalemia. 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 History of Any Multi-Drug Resistant Organisms: None Reported Additional Past Surgical History / Comment(s): Splenectomy AGE 2, ;eft thigh injury with surgery and another surgery d/t abscess with I&D appox 2000, vocal cord lesions removed, 2014 BMA/Bx, Past Anesthesia/Blood Transfusion Reactions: Previous Problems w/ Anesthesia Additional Past Anesthesia/Blood Transfusion Reaction / Comm: Pt states he woke up aggressive one time. Past Psychological History: ADD/ADHD Additional Psychological History / Comment(s): Pt resides with his mother. He has a nebulizer. 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 Smoking Status: Current every day smoker Past Alcohol Use History: None Reported Additional Past Alcohol Use History / Comment(s): SMOKES 1.5PPD, SMOKING SINCE 18 YRS OLD Past Drug Use History: Marijuana Additional Drug Use History / Comment(s): Occasional marijuana use. - Past Family History Mother Family Medical History: Hypertension, Seizure Disorder Father Additional Family Medical History / Comment(s): Father from a heroin overdose. Medications and Allergies Home Medications Medication Instructions Recorded Confirmed Type Furosemide [Lasix] 40 mg PO DAILY 05/06/17 09/30/19 History HYDROcodone/APAP 10-325MG [[place] 1 tab PO TID PRN 05/06/17 09/30/19 History 10-325] Diltiazem Cd [Cardizem CD] 120 mg PO DAILY #30 cap.er.24h 09/04/18 09/30/19 Rx Metoprolol Tartrate [Lopressor] 25 mg PO BID #60 tab 09/04/18 09/30/19 Rx Rivaroxaban [Xarelto] 20 mg PO W/SUPPER #30 tab 09/04/18 09/30/19 Rx Dextroamphetamine/Amphetamine 10 mg PO TID 04/16/19 09/30/19 History [Adderall] Allergies Allergy/AdvReac Type Severity Reaction Status Date / Time sulfamethoxazole AdvReac ATRIAL Verified 09/30/19 22:15 [From Bactrim] FLUTTER/rash trimethoprim [From Bactrim] AdvReac ATRIAL Verified 09/30/19 22:15 FLUTTER/rash Physical Exam Vitals: Vital Signs Temp Pulse Pulse Resp BP BP Pulse Ox 10/01/19 08:10 18 10/01/19 07:00 97.8 F 68 18 144/75 94 L 09/30/19 22:59 97.8 F 75 18 142/67 95 09/30/19 21:20 98.5 F 71 18 132/70 94 L 09/30/19 20:17 98.6 F 73 17 124/64 95 Intake and Output 09/30/19 10/01/19 10/01/19 22:59 06:59 14:59 Other: # Voids 1 Weight 159.211 kg 159.211 kg GENERAL DESCRIPTION: Middle-aged male up in the chair, no distress. No tachypnea or accessory muscle of respiration use. HEENT: Shows Pallor , no scleral icterus. Oral mucous membrane is dry. NECK: Trachea central, no thyromegaly. LUNGS: Unlabored breathing. Clear to auscultation anteriorly. No wheeze or crackle. HEART: S1, S2, regular rate and rhythm. ABDOMEN: Soft, no tenderness , guarding or rigidity EXTREMITIES: Left lower medial thigh area he did have an area of swelling redness mild induration and warm and tender to touch SKIN: No rash, no masses palpable. NEUROLOGICAL: The patient is awake, alert, oriented x3, mood and affect normal. Results CBC & Chem 7: 09/30/19 22:25 09/30/19 22:25 Labs: Abnormal Lab Results - Last 24 Hours (Table) 09/30/19 09/30/19 Range/Units 22:25 22:25 WBC 12.7 H (3.8-10.6) k/uL Neutrophils # 8.1 H (1.3-7.7) k/uL BUN 21 H (9-20) mg/dL Glucose 123 H (74-99) mg/dL Assessment and Plan Assessment: 1-patient presented hospital with a left lower medial area swelling redness and pain in this patient noticed to have slight induration to the area with a question of superficial thrombophlebitis versus cellulitis and abscess likely from gram-positive skin ady 2- sulfa allergy (1) Allergy to sulfa drugs Current Visit: Yes Status: Acute Code(s): Z88.2 - ALLERGY STATUS TO SULFONAMIDES STATUS SNOMED Code(s): 13713648 (2) Left leg cellulitis Current Visit: Yes Status: Acute Code(s): L03.116 - CELLULITIS OF LEFT LOWER LIMB SNOMED Code(s): 526963945 Plan: 1-we will obtain ultrasound of this area to make sure no evidence of any superficial thrombophlebitis versus abscess 2-courtney the area of the redness 3-discontinue Rocephin 4-start the patient cefazolin 2 g every 8 hour We will follow on clinical condition and cultures to further adjust medication if needed Thank you for this consultation we will follow the patient along with you Time with Patient: Greater than 30
[2019-10-02] MEDS: DILTIAZEM CD 120 MG CAP.ER.24H PO SCH (08:52)
[2019-10-02] MEDS: FUROSEMIDE 40 MG TAB PO SCH (08:52)
[2019-10-02] MEDS: METOPROLOL TARTRATE 25 MG TAB PO SCH ×2 (08:52→21:50)
[2019-10-02] MEDS: Dextroamphetamine/Amphetamine [Adderall] PO SCH ×3 (08:53→21:47)
[2019-10-02] MEDS: HYDROmorphone 0.5 MG/0.5 ML SYRINGE IVP PRN ×2 (10:39→20:13)
--- NOTE | 2019-10-02 13:46 | P.PN ---
Subjective Progress Note Date: 10/02/19 Chau Diallo, 44-year-old male who presented to [facility] emergency room with a chief complaint of left lower extremity erythema and swelling and tenderness symptoms started 1 week ago and has been worsening, patient was evaluated in the emergency room. Preliminary diagnosis was lower extremity cellulitis. He was started on IV antibiotics and was admitted to medical floor. Patient had previous episodes of lower extremity cellulitis and abdominal wall cellulitis, he also has known history of splenectomy, history of asthma, history of hypertension, severe morbid obesity with obstructive sleep apnea, and history of degenerative disc disease and osteoarthritis with chronic pain. Patient was seen and examined on the medical floor he is alert and oriented 3 in no apparent distress he is complaining of pain and erythema and tenderness and warmth of the left lower extremity mostly behind the knee and the posterior aspect of his left thigh, otherwise he denies any complaints at this time there is no fever or chills no headache or dizziness no chest pain no shortness of breath no cough no nausea or vomiting no abdominal pain no diarrhea, no burning was urination no frequency or urgency no hematuria. On 10/02/2019 patient was seen and examined on the medical floor he is alert and oriented 3 in no apparent distress, he is still having large area of erythema induration and tenderness in the posterior aspect of his left thigh otherwise he denies any complaints there is no fever or chills no headache or dizziness no chest pain no shortness of breath no cough no nausea or vomiting no abdominal pain no diarrhea no burning was urination no frequency or urgency no hematuria Objective - Vital Signs Vital signs: Vital Signs Temp 98.4 F 10/02/19 07:00 Pulse 76 10/02/19 12:00 Resp 19 10/02/19 07:00 BP 134/82 10/02/19 07:00 Pulse Ox 95 10/02/19 07:00 Intake & Output 10/01/19 10/02/19 10/02/19 18:59 06:59 18:59 Intake Total 100 1066 Output Total 6000 Balance -5900 1066 Intake: Intake, IV Titration 100 Amount ceFAZolin 2 gm In Sodium 100 Chloride 0.9% 50 ml @ 100 mls/hr IVPB Q8HR [facility] Rx# :[id number] Oral 1066 Output: Urine 6000 Other: Voiding Method Toilet Urinal # Voids 3 - Exam In general patient is alert and oriented 3 HEENT head normocephalic and atraumatic Neck is supple no JVD no goiter no lymphadenopathy Chest exam reveals a few scattered rhonchi no wheezing Cardiac exam reveals regular heart sounds S1 and S2 no gallops no murmurs Abdomen is soft nontender no organomegaly with normal bowel sounds, abdomen is extremely obese with areas of mild erythema on the lower abdomen Extremity exam reveals minimal edema no cyanosis or clubbing, there is erythema behind the left knee and the posterior aspect of the left thigh with induration and tenderness, with minimal improvement since yesterday Neurological examination reveals no gross focal deficit - Labs CBC & Chem 7: 09/30/19 22:25 09/30/19 22:25 Labs: Microbiology - Last 24 Hours (Table) 09/30/19 22:25 Blood Culture - Preliminary Blood No Growth after 24 hours Assessment and Plan Plan: 1. Left lower extremity cellulitis patient was started on IV antibiotic in the emergency room Rocephin and Cleocin with continue with the same at this time infectious disease consultation requested blood cultures ordered no open wounds to obtain local cultures. Patient had multiple episodes of lower extremity cellulitis and abdominal wall cellulitis in the past. 2. Underlying history of splenectomy at age 2 for spherocytosis 3. Underlying history of severe morbid obesity 4. Underlying history of asthma medication reordered 5. Underlying history of hypertension At this time medication and labs were reviewed and reordered Blood culture ordered Continue with same antibiotic at this time will follow closely
--- NOTE | 2019-10-02 15:07 | PN ---
PROGRESS NOTE DATE OF SERVICE: 10/02/2019 REASON FOR FOLLOWUP: Left lower medial thigh abscess and cellulitis noted. The patient is currently afebrile, has been breathing comfortably. Overall pain and discomfort to the left lower middle thigh area has decreased intensity. Denies having any chest pain, shortness of breath or cough. No abdominal pain, no diarrhea. PHYSICAL EXAMINATION: Blood pressure 134/82 with a pulse of 73, temperature 98.4. He is 95% on room air. General description is a middle-aged male, lying in bed in no distress. RESPIRATORY SYSTEM: Unlabored breathing, clear to auscultation anteriorly. HEART: S1, S2. Regular rate and rhythm. ABDOMEN: Soft, no tenderness. LABS: No new labs have been obtained today. Blood culture negative. He had repeat ultrasound which shows possibility of an abscess at that location. DIAGNOSTIC IMPRESSION AND PLAN: Patient with left lower medial thigh abscess and cellulitis, mostly from a gram- positive skin ady. Clinically responding to cefazolin in view of the underlying abscess seen on . May keep the patient on IV cefazolin for at least another 24 hours before transition to oral antibiotic. Continue supportive care. MMODL / IJN: [id number] /
[2019-10-02] MEDS: RIVAROXABAN 20 MG TAB PO SCH (16:14)
[2019-10-02] MEDS: MONTELUKAST 10 MG TAB PO SCH (21:50)
[2019-10-03] MEDS: CLINDAMYCIN 600 MG in DEXTROSE 5% IN WATER 50 ML IVPB SCH ×4 (00:01→09:36)
[2019-10-03] MEDS: HYDROcodone/APAP 10-325MG 1 EACH TAB PO PRN ×2 (00:41→09:35)
[2019-10-03] MEDS: HYDROmorphone 0.5 MG/0.5 ML SYRINGE IVP PRN ×3 (01:08→12:06)
[2019-10-03 02:49] VITALS: RESP 18
[2019-10-03] MEDS: ALBUTEROL NEBULIZED 2.5 MG/3 ML INHALATION SCH ×3 (03:49→11:59)
[2019-10-03 06:40] LABS: Basophils # (A) 0.1 k/uL (0-0.2); Basophils % (A) 1 %; Eosinophils # (A) 0.6 k/uL (0-0.7); Eosinophils % (A) 4 %; HCT 46.6 % (39.0-53.0); HGB 16.2 gm/dL (13.0-17.5); Lymphocytes # (A) 2.7 k/uL (1.0-4.8); Lymphocytes % (A) 19 %; MCH 32.3 pg (25.0-35.0); MCHC 34.7 g/dL (31.0-37.0); MCV 93.1 fL (80.0-100.0); Monocytes # (A) 0.9 k/uL (0-1.0); Monocytes % (A) 6 %; Neutrophils # (A) 10.1 k/uL (1.3-7.7); Neutrophils % (A) 69 %; Platelet Count 289 k/uL (150-450); RDW 14.2 % (11.5-15.5); WBC 14.7 k/uL (3.8-10.6)
[2019-10-03 07:16] LABS: ALT 30 U/L (4-49); AST 30 U/L (17-59); African American GFR (CKD) >90 (>60 ml/min/1.73 sqM); Albumin 3.8 g/dL (3.5-5.0); Alkaline Phosphatase 66 U/L (38-126); Anion Gap 4 mmol/L; Blood Urea Nitrogen 15 mg/dL (9-20); Calcium 9.4 mg/dL (8.4-10.2); Carbon Dioxide 32 mmol/L (22-30); Chloride 101 mmol/L (98-107); Glucose 138 mg/dL (74-99); Non-African American GFR(CKD) >90 (>60 ml/min/1.73 sqM); Potassium 4.5 mmol/L (3.5-5.1); Sodium 137 mmol/L (137-145); Total Bilirubin 0.7 mg/dL (0.2-1.3); Total Protein 6.9 g/dL (6.3-8.2)
[2019-10-03] MEDS: Dextroamphetamine/Amphetamine [Adderall] PO SCH (07:19)
[2019-10-03] MEDS: FUROSEMIDE 40 MG TAB PO SCH (07:20)
[2019-10-03] MEDS: METOPROLOL TARTRATE 25 MG TAB PO SCH (07:20)
[2019-10-03] MEDS: DILTIAZEM CD 120 MG CAP.ER.24H PO SCH (07:23)
[2019-10-03 07:35] VITALS: BP 128/76; TEMP 98.4
[2019-10-03 09:03] VITALS: PULSE 58
--- NOTE | 2019-10-03 13:58 | PN ---
PROGRESS NOTE DATE OF SERVICE: 10/03/2019 REASON FOR FOLLOW UP: The left lower medial thigh cellulitis and question of abscess. INTERVAL HISTORY: The patient is currently afebrile. The patient is breathing comfortably. Denies any chest pain, shortness of breath or cough. No abdominal pain. Overall pain and discomfort to the left mid thigh has decreased. PHYSICAL EXAMINATION: Blood pressure is 122/76, pulse of 64, temperature 98.4. General description is a middle-aged male up in the chair in no distress. Respiratory system: Unlabored breathing. Clear to auscultation anteriorly. Heart S1, S2. Regular rate and rhythm. Abdomen soft, no tenderness. Left lower mid thigh area swelling and redness has improved. DIAGNOSTIC IMPRESSION AND PLAN: Patient with left lower medial thigh cellulitis and question of abscess. Clinically not behaving as an abscess though seems to have shown clinical improvement on cefazolin. The patient wants to go home. We will switch antibiotic to Keflex 500 mg p.o. q.6 hours for 10 days. Prescription sent to pharmacy. Advised if any worsening in swelling or redness to let us know right away. MMODL / IJN: [id number] /
--- NOTE | 2019-10-03 14:38 | P.DS ---
Providers Date of admission: 10/02/19 13:42 Expected date of discharge: 10/03/19 Attending physician: David Paniagua Consults: 10/01/19 09:51 Consult Physician Routine Consulting Provider: Rai Carcamo Consult Reason/Comments: LOWER EXT. CELLULITIS Do you want consulting provider notified?: Yes Primary care physician: David Paniagua [place] [facility] Course: Diagnosis on discharge: 1. Left lower extremity cellulitis patient was started on IV antibiotic in the emergency room Efren and Larry with continue with the same at this time infectious disease consultation requested blood cultures ordered no open wounds to obtain local cultures. Patient had multiple episodes of lower extremity cellulitis and abdominal wall cellulitis in the past. 2. Underlying history of splenectomy at age 2 for spherocytosis 3. Underlying history of severe morbid obesity 4. Underlying history of asthma medication reordered 5. Underlying history of hypertension Hospital course: Chau Diallo, 44-year-old male who presented to [facility] emergency room with a chief complaint of left lower extremity erythema and swelling and tenderness symptoms started 1 week ago and has been worsening, patient was evaluated in the emergency room. Preliminary diagnosis was lower extremity cellulitis. He was started on IV antibiotics and was admitted to medical floor. Patient had previous episodes of lower extremity cellulitis and abdominal wall cellulitis, he also has known history of splenectomy, history of asthma, history of hypertension, severe morbid obesity with obstructive sleep apnea, and history of degenerative disc disease and osteoarthritis with chronic pain. Patient was seen and examined on the medical floor he is alert and oriented 3 in no apparent distress he is complaining of pain and erythema and tenderness and warmth of the left lower extremity mostly behind the knee and the posterior aspect of his left thigh, otherwise he denies any complaints at this time there is no fever or chills no headache or dizziness no chest pain no shortness of breath no cough no nausea or vomiting no abdominal pain no diarrhea, no burning was urination no frequency or urgency no hematuria. On 10/02/2019 patient was seen and examined on the medical floor he is alert and oriented 3 in no apparent distress, he is still having large area of erythema induration and tenderness in the posterior aspect of his left thigh otherwise he denies any complaints there is no fever or chills no headache or dizziness no chest pain no shortness of breath no cough no nausea or vomiting no abdominal pain no diarrhea no burning was urination no frequency or urgency no hematuria On 10/03/2019 patient was seen and examined on the medical floor he is alert and oriented 3 in no apparent distress there is no fever or chills no headache or dizziness no chest pain no shortness of breath no cough no nausea or vomiting no abdominal pain no diarrhea no burning was urination no frequency or urgency and no hematuria lower extremity erythema and tenderness and induration is receiving patient was evaluated by infectious disease Dr. Carcamo and he was cleared for discharge he was given a prescription for Keflex 500 mg 4 times daily for 10 days patient will be discharged home today Will follow in the office in 2-3 days. Patient Condition at Discharge: Stable Plan - Discharge Summary New Discharge Prescriptions: New Cephalexin [Keflex] 500 mg PO Q6HR #40 cap Montelukast [Singulair] 10 mg PO HS tab Continue HYDROcodone/APAP 10-325MG [[place] 10-325] 1 tab PO TID PRN PRN Reason: Pain Furosemide [Lasix] 40 mg PO DAILY Diltiazem Cd [Cardizem CD] 120 mg PO DAILY #30 cap.er.24h Metoprolol Tartrate [Lopressor] 25 mg PO BID #60 tab Rivaroxaban [Xarelto] 20 mg PO W/SUPPER #30 tab Dextroamphetamine/Amphetamine [Adderall] 10 mg PO TID Discharge Medication List Furosemide [Lasix] 40 mg PO DAILY 05/06/17 [History] HYDROcodone/APAP 10-325MG [[place] 10-325] 1 tab PO TID PRN 05/06/17 [History] Diltiazem Cd [Cardizem CD] 120 mg PO DAILY #30 cap.er.24h 09/04/18 [Rx] Metoprolol Tartrate [Lopressor] 25 mg PO BID #60 tab 09/04/18 [Rx] Rivaroxaban [Xarelto] 20 mg PO W/SUPPER #30 tab 09/04/18 [Rx] Dextroamphetamine/Amphetamine [Adderall] 10 mg PO TID 04/16/19 [History] Cephalexin [Keflex] 500 mg PO Q6HR #40 cap 10/03/19 [Rx] Montelukast [Singulair] 10 mg PO HS tab 10/03/19 [Rx] Follow up Appointment(s)/Referral(s): David Paniagua MD [Primary Care Provider] - 1-2 days Patient Instructions/Handouts: Cellulitis (DC)
== END 2019-10-03 14:37 | disposition home or self-care (01) | DRG 603 ==
LOC: EC 20:12 → 4SSUR 22:51 → OBSVTOIN 10-02 13:42 → 4SSUR 10-02 23:13
PROVIDERS: ADMIT Internal Medicine; ATTEND Internal Medicine
DX: L03.116 Cellulitis of left lower limb (principal); Z68.43 Body mass index [BMI] 50.0-59.9, adult; F17.210 Nicotine dependence, cigarettes, uncomplicated; F90.9 Attention-deficit hyperactivity disorder, unspecified type; I10 Essential (primary) hypertension; J44.9 Chronic obstructive pulmonary disease, unspecified; Z79.01 Long term (current) use of anticoagulants; E66.01 Morbid (severe) obesity due to excess calories; Z79.899 Other long term (current) drug therapy; Z82.0 Family history of epilepsy and other diseases of the nervous system; Z82.49 Family history of ischemic heart disease and other diseases of the circulatory system; Z88.2 Allergy status to sulfonamides; Z90.81 Acquired absence of spleen; G47.33 Obstructive sleep apnea (adult) (pediatric); Z99.81 Dependence on supplemental oxygen; Z87.01 Personal history of pneumonia (recurrent); G43.909 Migraine, unspecified, not intractable, without status migrainosus; M25.562 Pain in left knee; M25.561 Pain in right knee; Z81.3 Family history of other psychoactive substance abuse and dependence; Z11.59 Encounter for screening for other viral diseases
CPT/HCPCS: 36415; 80053; 85025; 87040; 94640; 96365; 96367; 99285

== ENCOUNTER → 2019-11-07 | Outpatient (CLI) | payer BC ==
[2019-11-07 22:56] LABS: African American GFR (CKD) 124.2 (60.0-200.0); Anion Gap 4.8 mmol/L (4.00-12.00); BUN/Creat Ratio 22.5 Ratio (12.00-20.00); Calcium 9.8 mg/dL (8.7-10.3); Carbon Dioxide 31.2 mmol/L (21.6-31.8); Non-African American GFR(CKD) 107.1 (60.0-200.0); Potassium 4.6 mmol/L (3.5-5.5)
== END | disposition home or self-care (01) ==
LOC: LABMAIN 10:41
PROVIDERS: ATTEND Nurse Practitioner Adult Health
DX: I10 Essential (primary) hypertension (principal); R60.0 Localized edema
CPT/HCPCS: 36415; 80048; 83880

== ENCOUNTER 2020-02-17 20:41 | Emergency (ER) | payer BC ==
[2020-02-17 20:46] VITALS: TEMP 98.5
[2020-02-17 21:50] LABS: Basophils # (A) 0.1 k/uL (0-0.2); Basophils % (A) 1 %; Eosinophils # (A) 0.5 k/uL (0-0.7); Eosinophils % (A) 4 %; HCT 50.4 % (39.0-53.0); HGB 16.8 gm/dL (13.0-17.5); Lymphocytes % (A) 21 %; MCHC 33.4 g/dL (31.0-37.0); MCV 95.8 fL (80.0-100.0); Mean Platelet Volume 8.3; Monocytes # (A) 0.7 k/uL (0-1.0); Monocytes % (A) 5 %; Neutrophils # (A) 9.8 k/uL (1.3-7.7); Neutrophils % (A) 68 %; Platelet Count 337 k/uL (150-450); RBC 5.25 m/uL (4.30-5.90); RDW 14.5 % (11.5-15.5); WBC 14.4 k/uL (3.8-10.6)
[2020-02-17 21:54] LABS: Appearance,Urine Clear (Clear); Bilirubin,Urine Negative (Negative); Blood,Urine Negative (Negative); Color,Urine Yellow; Glucose,Urine (UA) Negative (Negative); Ketones,Urine Negative (Negative); Leukocyte Esterase,Urine Negative (Negative); Nitrite,Urine Negative (Negative); Protein,Urine Negative (Negative); Specific Gravity,Urine 1.021 (1.001-1.035); Urobilinogen,Urine <2.0 mg/dL (<2.0)
[2020-02-17 22:00] LABS: ALT 54 U/L (4-49); AST 48 U/L (17-59); African American GFR (CKD) >90 (>60 ml/min/1.73 sqM); Albumin 4.1 g/dL (3.5-5.0); Alkaline Phosphatase 89 U/L (38-126); Anion Gap 6 mmol/L; Blood Urea Nitrogen 19 mg/dL (9-20); Calcium 9.6 mg/dL (8.4-10.2); Carbon Dioxide 30 mmol/L (22-30); Chloride 102 mmol/L (98-107); Glucose 109 mg/dL (74-99); Lipase 126 U/L (23-300); Non-African American GFR(CKD) >90 (>60 ml/min/1.73 sqM); Potassium 4.5 mmol/L (3.5-5.1); Sodium 138 mmol/L (137-145); Total Bilirubin 0.5 mg/dL (0.2-1.3); Total Protein 7.2 g/dL (6.3-8.2)
--- NOTE | 2020-02-17 22:30 | US ---
EXAMINATION TYPE: US scrotum with doppler. Grayscale and color Doppler Duplex imaging performed of t he scrotum. DATE OF EXAM: 02/17/2020 COMPARISON: NONE CLINICAL HISTORY: pain. Pain in bilateral testicles x 5 days. EXAM MEASUREMENTS: TESTICLES: Right Testicle: 3.9 x 2.3 x 2.7 cm Left Testicle: 3.6 x 2.4 x 2.5 cm EPIDIDYMIS HEAD: Right Epididymis: 0.8 x 1.1 x 1.3 cm Left Epididymis: 0.6 x 1.0 x 1.0 cm Doppler performed to assess for testicular vascularity; bilateral color flow and waveforms are seen. Presence of hydroceles: Right measurin.4 x 1.4 x 0.8 cm. Left measurin.1 x 0.8 x 1.1 cm. Presence of varicoceles: Prominent vessels on left side measure 3.2 mm. -Hypoechoic area seen left epididymal head measurin.5 x 0.3 x 0.3 cm. -Left testicle appears to have an increased echogenicity in comparison to right testicle. IMPRESSION: No testicular torsion or mass. Bilateral hydroceles.
--- NOTE | 2020-02-17 23:22 | CT ---
EXAMINATION TYPE: CT abdomen pelvis w con DATE OF EXAM: 02/17/2020 COMPARISON: 04/18/2019 HISTORY: pain CT DLP: 3091.9 mGycm Automated exposure control for dose reduction was used. CONTRAST: Performed with IV Contrast, patient injected with 100 mL of Isovue 300. Lung bases are clear. There is no pleural effusion. Heart size is normal. There is no pericardial eff usion. Liver is intact. Spleen is absent. There is no pancreatic mass. Stomach appears normal. There is no adrenal mass. Kidneys show satisfactory contrast opacification. There is no hydronephrosi s. Delayed images show normal renal excretion. There are right renal cortical cysts measuring up to 2 cm. There is no retroperitoneal adenopathy. Bladder distends smoothly. There is no inguinal hernia. There are a few sigmoid diverticula. There is no sign of diverticulitis. There is no mesenteric edema . There is no ascites or free air. There is no bowel obstruction. Appendix is medial and appears norm al. There is atrophy of the left side abdominal wall musculature. Lumbar vertebra have normal alignment. There is no compression fracture. Posterior elements are intac t. Bony pelvis is intact. Hip joints are intact. IMPRESSION: No acute abnormality of the abdomen pelvis. There is clearing of the minimal skin thickening at the u mbilicus compared to old exam.
[2020-02-17] MEDS ORDERED: SODIUM CHLORIDE 0.9% 500 ML 500 ML IV ONE (23:33)
--- NOTE | 2020-02-18 00:17 | ED ---
General Adult HPI - General Chief complaint: Abdominal Pain Stated complaint: Poss Hernia Time Seen by Provider: 02/17/20 21:09 Source: patient, RN notes reviewed, old records reviewed Mode of arrival: ambulatory Limitations: no limitations - History of Present Illness Initial comments: 45-year-old male patient presents to ED for evaluation of abdominal pain and some testicular discomfort. 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 He reports that when he moves and coughs he feels a pulling in the left lower quadrant region. For stages had some dull aching in his testicles for the last 3 days. He denies any dysuria. Denies any concern for any STI. Denies any fevers. Systemic: Pt denies fatigue, fever/chills, rash. Pt denies weakness, night sweats, weight loss. Neuro: Pt denies headache, visual disturbances, syncope or pre-syncope. HEENT: Pt denies ocular discharge or irritation, otalgia, rhinorrhea, pharyngitis or notable lymphadenopathy. Cardiopulmonary: Pt denies chest pain, SOB, heart palpitations, dyspnea on exertion. Abdominal/GI: Pt denies n/v/d. : Pt denies dysuria, burning w/ urination, frequency/urgency. Denies new onset urinary or bowel incontinence. MSK: Pt denies myalgia, loss of strength or function in extremities. Neuro: Pt denies new onset weakness, paresthesias. - Related Data Home Medications Medication Instructions Recorded Confirmed Furosemide [Lasix] 80 mg PO DAILY 05/06/17 02/17/20 HYDROcodone/APAP 10-325MG [[place] 1 tab PO TID PRN 05/06/17 02/17/20 10-325] Dextroamphetamine/Amphetamine 15 mg PO TID 02/17/20 02/17/20 [Adderall] Previous Rx's Medication Instructions Recorded Diltiazem Cd [Cardizem CD] 120 mg PO DAILY #30 cap.er.24h 09/04/18 Metoprolol Tartrate [Lopressor] 25 mg PO BID #60 tab 09/04/18 Rivaroxaban [Xarelto] 20 mg PO W/SUPPER #30 tab 09/04/18 Allergies Allergy/AdvReac Type Severity Reaction Status Date / Time sulfamethoxazole AdvReac ATRIAL Verified 02/17/20 22:37 [From Bactrim] FLUTTER/rash trimethoprim [From Bactrim] AdvReac ATRIAL Verified 02/17/20 22:37 FLUTTER/rash Review of Systems ROS Statement: Those systems with pertinent positive or pertinent negative responses have been documented in the HPI. ROS Other: All systems not noted in ROS Statement are negative. Past Medical History Past Medical History: Atrial Fibrillation, Atrial Flutter, Asthma, Blood Dis order, COPD, Hypertension, Pneumonia, Sleep Apnea/CPAP/BIPAP Additional Past Medical History / Comment(s): ASPLENIC. Pt recently admitted to [facility] on 08/28/18 with L lower leg cellulitis and hyperkalemia. Other Hx: Splenectomy age 2 yrs, hereditary spherocytosis blood disorder, erythrocytosis, anemia, KADI with Cpap, diverticulitis, migraines, back and bilateral knee pain/ DDD, bilateral lower leg edema at times. History of Any Multi-Drug Resistant Organisms: None Reported Additional Past Surgical History / Comment(s): Splenectomy AGE 2, ;left thigh injury with surgery and another surgery d/t abscess with I&D appox 2000, vocal cord lesions removed, 2014 BMA/Bx, Past Anesthesia/Blood Transfusion Reactions: Previous Problems w/ Anesthesia Additional Past Anesthesia/Blood Transfusion Reaction / Comment(s): Pt states he woke up aggressive one time. Past Psychological History: ADD/ADHD Smoking Status: Current every day smoker Past Alcohol Use History: None Reported Past Drug Use History: Marijuana - Past Family History Mother Family Medical History: Hypertension, Seizure Disorder Father Additional Family Medical History / Comment(s): Father from a heroin overdose. General Exam - General Exam Comments Initial Comments: Constitutional: NAD, AOX3, Pt has pleasant affect. HEENT: NC/AT, trachea midline, neck supple, no lymphadenopathy. Posterior pharynx non erythematous, without exudates. External ears appear normal, without discharge. Mucous membranes moist. Eyes PERRLA, EOM intact. There is no scleral icterus. No pallor noted. Cardiopulmonary: RRR, no murmurs, rubs or gallops, no JVD noted. Lungs CTAB in anterior and posterior weber. No peripheral edema. Abdominal exam: Abdomen soft and non-distended. Abdomen mildly tender to palpation in LLQ. Bowel sounds active in LLQ. No hepatosplenomegaly. No ecchymosis Neuro: CN II-XII grossly intact. No nuchal rigidity. No raccon eyes, no sanford sign, no hemotympanum. No cervical spinal tenderness. MSK: Full active ROM in upper and lower extremities, 5/5 stregnth. : Mild testicular tenderness left-sided. Cremasteric reflex intact. No bleeding that sign. Limitations: no limitations Course Vital Signs 02/17/20 20:43 Temperature 98.5 F Pulse Rate 61 Respiratory 20 Rate Blood Pressure 178/89 O2 Sat by Pulse 99 Oximetry Medical Decision Making - Medical Decision Making 45-year-old male patient presents to ED for evaluation of abdominal pain and some testicular discomfort. 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 He reports that when he moves and coughs he feels a pulling in the left lower quadrant region. For stages had some dull aching in his testicles for the last 3 days. He denies any dysuria. Denies any concern for any STI. Denies any fevers. Pt VSS, afebrile. Physical exam disp layed very minimal discomfort to the left lower quadrant region. Laboratory investigations do displayed mild leukocytosis of 14.4. Scrotal ultrasound displays bilateral hydroceles. CT abdomen and pelvis is negative for acute pathology. Patient was discharged with strict return precautions and close follow-up with his primary care provider tomorrow. This discussed with Dr. Mckeon. - Lab Data Result diagrams: 02/17/20 21:35 02/17/20 21:35 Lab Results 02/17/20 02/17/20 02/17/20 Range/Units 21:35 21:35 21:35 WBC 14.4 H (3.8-10.6) k/uL RBC 5.25 (4.30-5.90) m/uL Hgb 16.8 (13.0-17.5) gm/dL Hct 50.4 (39.0-53.0) % MCV 95.8 (80.0-100.0) fL MCH 32.0 (25.0-35.0) pg MCHC 33.4 (31.0-37.0) g/dL RDW 14.5 (11.5-15.5) % Plt Count 337 (150-450) k/uL Neutrophils % 68 % Lymphocytes % 21 % Monocytes % 5 % Eosinophils % 4 % Basophils % 1 % Neutrophils # 9.8 H (1.3-7.7) k/uL Lymphocytes # 3.0 (1.0-4.8) k/uL Monocytes # 0.7 (0-1.0) k/uL Eosinophils # 0.5 (0-0.7) k/uL Basophils # 0.1 (0-0.2) k/uL Sodium 138 (137-145) mmol/L Potassium 4.5 (3.5-5.1) mmol/L Chloride 102 (98-107) mmol/L Carbon Dioxide 30 (22-30) mmol/L Anion Gap 6 mmol/L BUN 19 (9-20) mg/dL Creatinine 0.69 (0.66-1.25) mg/dL Est GFR (CKD-EPI)AfAm >90 (>60 ml/min/1.73 sqM) Est GFR (CKD-EPI)NonAf >90 (>60 ml/min/1.73 sqM) Glucose 109 H (74-99) mg/dL Plasma Lactic Acid Raymond 1.5 (0.7-2.0) mmol/L Calcium 9.6 (8.4-10.2) mg/dL Total Bilirubin 0.5 (0.2-1.3) mg/dL AST 48 (17-59) U/L ALT 54 H (4-49) U/L Alkaline Phosphatase 89 (38-126) U/L Total Protein 7.2 (6.3-8.2) g/dL Albumin 4.1 (3.5-5.0) g/dL Lipase 126 (23-300) U/L Urine Color Urine Appearance (Clear) Urine pH (5.0-8.0) Ur Specific [place] (1.001-1.035) Urine Protein (Negative) Urine Glucose (UA) (Negative) Urine Ketones (Negative) Urine Blood (Negative) Urine Nitrite (Negative) Urine Bilirubin (Negative) Urine Urobilinogen (<2.0) mg/dL Ur Leukocyte Esterase (Negative) 02/17/20 Range/Units 21:35 WBC (3.8-10.6) k/uL RBC (4.30-5.90) m/uL Hgb (13.0-17.5) gm/dL Hct (39.0-53.0) % MCV (80.0-100.0) fL MCH (25.0-35.0) pg MCHC (31.0-37.0) g/dL RDW (11.5-15.5) % Plt Count (150-450) k/uL Neutrophils % % Lymphocytes % % Monocytes % % Eosinophils % % Basophils % % Neutrophils # (1.3-7.7) k/uL Lymphocytes # (1.0-4.8) k/uL Monocytes # (0-1.0) k/uL Eosinophils # (0-0.7) k/uL Basophils # (0-0.2) k/uL Sodium (137-145) mmol/L Potassium (3.5-5.1) mmol/L Chloride (98-107) mmol/L Carbon Dioxide (22-30) mmol/L Anion Gap mmol/L BUN (9-20) mg/dL Creatinine (0.66-1.25) mg/dL Est GFR (CKD-EPI)AfAm (>60 ml/min/1.73 sqM) Est GFR (CKD-EPI)NonAf (>60 ml/min/1.73 sqM) Glucose (74-99) mg/dL Plasma Lactic Acid Raymond (0.7-2.0) mmol/L Calcium (8.4-10.2) mg/dL Total Bilirubin (0.2-1.3) mg/dL AST (17-59) U/L ALT (4-49) U/L Alkaline Phosphatase (38-126) U/L Total Protein (6.3-8.2) g/dL Albumin (3.5-5.0) g/dL Lipase (23-300) U/L Urine Color Yellow Urine Appearance Clear (Clear) Urine pH 6.0 (5.0-8.0) Ur Specific [place] 1.021 (1.001-1.035) Urine Protein Negative (Negative) Urine Glucose (UA) Negative (Negative) Urine Ketones Negative (Negative) Urine Blood Negative (Negative) Urine Nitrite Negative (Negative) Urine Bilirubin Negative (Negative) Urine Urobilinogen <2.0 (<2.0) mg/dL Ur Leukocyte Esterase Negative (Negative) Disposition Clinical Impression: Hydrocele in adult, Abdominal pain Disposition: HOME SELF-CARE Condition: Stable Instructions (If sedation given, give patient instructions): Hydrocele (ED) Additional Instructions: Follow up with urologist and PCP tomorrow. Return to ED with any worsening symptoms. Is patient prescribed a controlled substance at d/c from ED?: No Referrals: David Paniagua MD [Primary Care Provider] - 1-2 days Ronan Franco MD [STAFF PHYSICIAN] - 1-2 days
[2020-02-18 00:35] VITALS: BP 139/99; PULSE 76; RESP 16
[2020-02-23 14:26] LABS: C. trachomatis,PCR Negative (Neg,Equiv); Chlamydia trachomatis Source Urine
[2020-02-23 14:57] LABS: N. gonorrhoeae,PCR Negative (Neg,Equiv); Neisseria Source Urine
== END 2020-02-18 00:35 | disposition home or self-care (01) ==
LOC: EC 20:41
DX: N43.3 Hydrocele, unspecified (principal); D72.829 Elevated white blood cell count, unspecified; F90.9 Attention-deficit hyperactivity disorder, unspecified type; G47.33 Obstructive sleep apnea (adult) (pediatric); I10 Essential (primary) hypertension; F17.200 Nicotine dependence, unspecified, uncomplicated; Z79.899 Other long term (current) drug therapy; Z88.1 Allergy status to other antibiotic agents; Z88.2 Allergy status to sulfonamides
CPT/HCPCS: 36415; 80053; 83605; 83690; 85025; 81003; 87491; 87591; 93975; 76870; 74177; 99284; Q9967

== ENCOUNTER 2020-06-30 07:52 | Day surgery (SDC) | payer BC ==
[2020-06-23 15:00] VITALS: BMI 55.5
[~2020-06-30 07:52] MED LIST changes: -LACTATED RINGERS 1,000 ML IV SCH; +SODIUM CHLORIDE 0.9% 1,000 ML IV SCH
[2020-06-30 08:12] VITALS: TEMP 97.3
[2020-06-30] MEDS ORDERED: IV FLUID CONTINUATION 500 ML IV ONE ×2 (08:47)
[2020-06-30] MEDS ORDERED: LIDOCAINE 1% INJ 10MG/ML (20 ML MDV) ONE (08:58)
[2020-06-30] MEDS ORDERED: PROPOFOL 10 MG/ML 20 ML VIAL IV ONE (08:58)
[2020-06-30] MEDS ORDERED: SODIUM CHLORIDE 0.9% 1,000 ML IV SCH (09:45)
[2020-06-30] MEDS ORDERED: HYDROcodone/APAP 10-325MG 1 EACH TAB PO PRN (09:45)
--- NOTE | 2020-06-30 10:49 | CE ---
CARDIAC ELECTROPHYSIOLOGY REPORT CARDIOVERSION PROCEDURE: INDICATION: Atrial flutter. PROCEDURE: After explaining the procedure to the patient, its risks and the complications, his blood pressure, heart rate, O2 saturation was monitored. After obtaining sedated state per anesthesia department and performing transesophageal echocardiogram, a synchronized biphasic cardioversion using 200 joules was performed with restoring normal sinus rhythm. There was no immediate complication. LUCILA / KIN: [id number] /
[2020-06-30 11:08] VITALS: BP 123/57; RESP 16
--- NOTE | 2020-06-30 11:13 | ECHOT ---
TRANSESOPHAGEAL ECHOCARDIOGRAM INDICATION: Evaluation of left atrial appendage. PROCEDURE: After explaining the procedure to the patient, its risks and the complications, his blood pressure, heart rate, O2 saturation were monitored. The throat was sprayed with Cetacaine. He received sedation per Anesthesia Department. The probe was introduced in the esophagus without difficulty. Images were obtained. Following that, the probe was removed. There was no immediate complication. FINDINGS: Left atrial size is mildly dilated. Left atrial appendage is normal. Left ventricular size is normal. Ejection fraction of 50% to 55%. The aortic valve, mitral valve and tricuspid valve are normal. The descending thoracic aorta appears to be normal. Contrast bubble study revealed no evidence of shunting across the interatrial septum. There was no pericardial effusion. Doppler pulse wave and color Doppler obtained were obtained and revealed a mild mitral and tricuspid regurgitation with trace aortic regurgitation. There was no shunting by color Doppler study. CONCLUSION: 1. Mildly dilated left atrium with normal appearance left atrial appendage. 2. Normal left ventricular size with a borderline left ventricular systolic function. 3. Mild mitral and tricuspid regurgitation with trace aortic regurgitation. 4. No evidence of shunting across the interatrial septum. MMODL / IJN: [id number] /
[2020-06-30 11:56] VITALS: PULSE 84
[2020-06-30] MEDS ORDERED: NON FORMULARY DRUG (Dextroamphetamine/Amphetamine [Adderall] 15 MG Tablet) PO SCH (16:00)
[2020-06-30] MEDS ORDERED: RIVAROXABAN 20 MG TAB PO SCH (17:30)
[2020-06-30] MEDS ORDERED: METOPROLOL TARTRATE 25 MG TAB PO SCH (21:00)
[2020-07-01] MEDS ORDERED: FUROSEMIDE 80 MG TAB PO SCH (09:00)
[2020-07-01] MEDS ORDERED: DILTIAZEM CD 120 MG CAP.ER.24H PO SCH (09:00)
== END 2020-06-30 12:28 | disposition home or self-care (01) ==
LOC: CATHCVL 07:52
PROVIDERS: ATTEND Internal Medicine Interventional Cardiology
DX: I48.4 Atypical atrial flutter (principal); Z79.01 Long term (current) use of anticoagulants; I10 Essential (primary) hypertension; F17.210 Nicotine dependence, cigarettes, uncomplicated; J44.9 Chronic obstructive pulmonary disease, unspecified; G47.33 Obstructive sleep apnea (adult) (pediatric); Z99.89 Dependence on other enabling machines and devices; D58.0 Hereditary spherocytosis; Z79.899 Other long term (current) drug therapy; Z88.2 Allergy status to sulfonamides
CPT/HCPCS: 93312; 93320; 93325; 92960; J2001; J2704; 93005

== ENCOUNTER 2020-07-20 06:21 | Observation (INO) | payer BC ==
[2020-07-20] MEDS ORDERED: IPRATROPIUM-ALBUTEROL 3 ML NEB INHALATION STA (06:44)
--- NOTE | 2020-07-20 06:54 | ED ---
Extremity Problem HPI - General Chief complaint: Extremity Problem,Nontraumatic Stated complaint: Rt leg pain Time Seen by Provider: 07/20/20 06:33 Source: patient, RN notes reviewed Mode of arrival: ambulatory - History of Present Illness Initial comments: This a 45-year-old male presents emergency Department chief complaint of right leg pain swelling and redness. Patient states that started a few days ago but states overnight it opened up started draining. Patient states he had some similar in his left leg in the past in which she was hospitalized for. Patient denies any fevers chills denies feeling sick. Patient states that he does have some shortness of breath which is chronic for patient. Patient did have a recent cardiac ablation is on anticoagulation. Patient states that he was given prescription for antibiotics but recently just started on. Patient denies any abdominal complaints. Patient states redness extends from his right knee to his right groin region. Patient also noticed that he had a splenectomy when he was a child. - Related Data Home Medications Medication Instructions Recorded Confirmed Furosemide [Lasix] 80 mg PO DAILY 05/06/17 06/30/20 HYDROcodone/APAP 10-325MG [[place] 1 tab PO TID PRN 05/06/17 06/30/20 10-325] Dextroamphetamine/Amphetamine 15 mg PO TID 02/17/20 06/30/20 [Adderall] Previous Rx's Medication Instructions Recorded Diltiazem Cd [Cardizem CD] 120 mg PO DAILY #30 cap.er.24h 09/04/18 Metoprolol Tartrate [Lopressor] 25 mg PO BID #60 tab 09/04/18 Rivaroxaban [Xarelto] 20 mg PO W/SUPPER #30 tab 09/04/18 Allergies Allergy/AdvReac Type Severity Reaction Status Date / Time sulfamethoxazole AdvReac ATRIAL Verified 07/20/20 06:29 [From Bactrim] FLUTTER/rash trimethoprim [From Bactrim] AdvReac ATRIAL Verified 07/20/20 06:29 FLUTTER/rash Review of Systems ROS Statement: Those systems with pertinent positive or pertinent negative responses have been documented in the HPI. ROS Other: All systems not noted in ROS Statement are negative. Past Medical History Past Medical History: Atrial Fibrillation, Atrial Flutter, Asthma, Blood Disorder, COPD, Hypertension, Pneumonia, Sleep Apnea/CPAP/BIPAP Additional Past Medical History / Comment(s): ASPLENIC. Pt recently admitted to [facility] on 08/28/18 with L lower leg cellulitis and hyperkalemia. 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 History of Any Multi-Drug Resistant Organisms: None Reported Additional Past Surgical History / Comment(s): Splenectomy AGE 2, ;left thigh injury with surgery and another surgery d/t abscess with I&D appox 2000, vocal cord lesions removed, 2014 BMA/Bx, CARDIOVERSION Past Anesthesia/Blood Transfusion Reactions: Previous Problems w/ Anesthesia Additional Past Anesthesia/Blood Transfusion Reaction / Comment(s): Pt states he woke up aggressive one time. Past Psychological History: ADD/ADHD Smoking Status: Current every day smoker Past Alcohol Use History: None Reported Past Drug Use History: Marijuana - Past Family History Mother Family Medical History: Hypertension, Seizure Disorder Father Additional Family Medical History / Comment(s): Father from a heroin overdose. General Exam General appearance: alert, in no apparent distress Head exam: Present: atraumatic, normocephalic, normal inspection Eye exam: Present: normal appearance, PERRL, EOMI. Absent: scleral icterus, conjunctival injection, periorbital swelling Neck exam: Present: normal inspection. Absent: tenderness, meningismus, lymphadenopathy Respiratory exam: Present: wheezes. Absent: normal lung sounds bilaterally, respiratory distress, rales, rhonchi, stridor Cardiovascular Exam: Present: regular rate, normal rhythm, normal heart sounds. Absent: systolic murmur, diastolic murmur, rubs, gallop, clicks Extremities exam: Present: other (Right leg there is moderate swelling, there is some drainage noted from the right popliteal region there is a small opening. There is some erythema extending from right popliteal to the right groin moderate tenderness of palpation increased warmth pulses equal bilaterally) Course Vital Signs 07/20/20 07/20/20 07/20/20 06:22 07:20 07:38 Temperature 98.0 F Pulse Rate 72 69 66 Respiratory 19 Rate Blood Pressure 120/72 O2 Sat by Pulse 94 L Oximetry Medical Decision Making - Medical Decision Making Patient's x-ray does not show any gas formation. Labs unremarkable though patient is asplenic and will be admitted for cellulitis. - Lab Data Result diagrams: 07/20/20 06:59 07/20/20 06:59 Lab Results 07/20/20 07/20/20 07/20/20 Range/Units 06:59 06:59 06:59 WBC 9.9 (3.8-10.6) k/uL RBC 5.06 (4.30-5.90) m/uL Hgb 16.4 (13.0-17.5) gm/dL Hct 46.2 (39.0-53.0) % MCV 91.2 (80.0-100.0) fL MCH 32.5 (25.0-35.0) pg MCHC 35.6 (31.0-37.0) g/dL RDW 13.9 (11.5-15.5) % Plt Count 294 (150-450) k/uL MPV 9.0 Neutrophils % 63 % Lymphocytes % 19 % Monocytes % 9 % Eosinophils % 6 % Basophils % 2 % Neutrophils # 6.3 (1.3-7.7) k/uL Lymphocytes # 1.9 (1.0-4.8) k/uL Monocytes # 0.9 (0-1.0) k/uL Eosinophils # 0.6 (0-0.7) k/uL Basophils # 0.2 (0-0.2) k/uL Sodium 139 (137-145) mmol/L Potassium 4.2 (3.5-5.1) mmol/L Chloride 100 (98-107) mmol/L Carbon Dioxide 30 (22-30) mmol/L Anion Gap 9 mmol/L BUN 15 (9-20) mg/dL Creatinine 0.66 (0.66-1.25) mg/dL Est GFR (CKD-EPI)AfAm >90 (>60 ml/min/1.73 sqM) Est GFR (CKD-EPI)NonAf >90 (>60 ml/min/1.73 sqM) Glucose 166 H (74-99) mg/dL Plasma Lactic Acid Raymond 1.8 (0.7-2.0) mmol/L Calcium 9.1 (8.4-10.2) mg/dL Total Bilirubin 0.5 (0.2-1.3) mg/dL AST 40 (17-59) U/L ALT 30 (4-49) U/L Alkaline Phosphatase 83 (38-126) U/L Total Protein 7.1 (6.3-8.2) g/dL Albumin 4.0 (3.5-5.0) g/dL Disposition Clinical Impression: H/O splenectomy, Leukocytosis, Cellulitis of right leg Disposition: ADMITTED IP TO THIS HOSP Condition: Fair Referrals: David Paniagua MD [Primary Care Provider] - 1-2 days
[2020-07-20] MEDS ORDERED: HYDROmorphone 0.5 MG/0.5 ML SYRINGE IVP STA (07:00)
[2020-07-20] MEDS ORDERED: ONDANSETRON 4 MG/2 ML VIAL IVP STA (07:00)
[2020-07-20 07:39] LABS: Basophils # (A) 0.2 k/uL (0-0.2); Basophils % (A) 2 %; Eosinophils # (A) 0.6 k/uL (0-0.7); Eosinophils % (A) 6 %; HCT 46.2 % (39.0-53.0); HGB 16.4 gm/dL (13.0-17.5); Lymphocytes # (A) 1.9 k/uL (1.0-4.8); Lymphocytes % (A) 19 %; MCH 32.5 pg (25.0-35.0); MCHC 35.6 g/dL (31.0-37.0); MCV 91.2 fL (80.0-100.0); Monocytes # (A) 0.9 k/uL (0-1.0); Monocytes % (A) 9 %; Neutrophils # (A) 6.3 k/uL (1.3-7.7); Neutrophils % (A) 63 %; Platelet Count 294 k/uL (150-450); RBC 5.06 m/uL (4.30-5.90); RDW 13.9 % (11.5-15.5); WBC 9.9 k/uL (3.8-10.6)
[2020-07-20 07:46] LABS: ALT 30 U/L (4-49); AST 40 U/L (17-59); African American GFR (CKD) >90 (>60 ml/min/1.73 sqM); Alkaline Phosphatase 83 U/L (38-126); Anion Gap 9 mmol/L; Blood Urea Nitrogen 15 mg/dL (9-20); Calcium 9.1 mg/dL (8.4-10.2); Carbon Dioxide 30 mmol/L (22-30); Chloride 100 mmol/L (98-107); Glucose 166 mg/dL (74-99); Non-African American GFR(CKD) >90 (>60 ml/min/1.73 sqM); Potassium 4.2 mmol/L (3.5-5.1); Sodium 139 mmol/L (137-145); Total Bilirubin 0.5 mg/dL (0.2-1.3); Total Protein 7.1 g/dL (6.3-8.2)
--- NOTE | 2020-07-20 08:30 | XR ---
EXAMINATION TYPE: XR chest 1V DATE OF EXAM: 07/20/2020 COMPARISON: 04/18/2019 INDICATION: Short of breath TECHNIQUE: Single frontal view of the chest is obtained. FINDINGS: The heart size is normal. The pulmonary vasculature is normal. The lungs are clear. IMPRESSION: 1. No acute pulmonary process.
[2020-07-20] MEDS ORDERED: ACETAMINOPHEN TAB 325 MG TAB PO PRN (08:34)
[2020-07-20] MEDS ORDERED: ONDANSETRON 4 MG/2 ML VIAL IVP PRN (08:34)
[2020-07-20] MEDS ORDERED: NALOXONE 0.4 MG/ML 1 ML VIAL IV PRN (08:34)
[2020-07-20] MEDS ORDERED: HYDROmorphone 1 MG/ML 1 ML SYRINGE IVP PRN (08:34)
[2020-07-20] MEDS ORDERED: VANCOMYCIN IV PER PHARMACY 1 EACH MISC MISCELLANE PRN (08:35)
--- NOTE | 2020-07-20 08:35 | XR ---
EXAMINATION TYPE: XR knee limited RT DATE OF EXAM: 07/20/2020 COMPARISON: None HISTORY: Infection TECHNIQUE: 3 view right knee FINDINGS: There is narrowing of the medial compartment joint space. Medial and lateral tibial plateau femoral condylar spurring is present. No joint effusion is evident. No acute fractures or dislocations are evident. No suspicious cortical erosions are evident. IMPRESSION: 1. Mild degenerative changes predominantly within the medial compartment.
[2020-07-20] MEDS: HYDROcodone/APAP 5-325MG 1 EACH TAB PO PRN (08:49)
[2020-07-20] MEDS ORDERED: VANCOMYCIN 2,500 MG in SODIUM CHLORIDE 0.9% 500 ML 500 ML IVPB ONE (09:30)
[2020-07-20] MEDS ORDERED: NON FORMULARY DRUG (Omalizumab 150 MG Vial) SQ SCH (11:45)
[2020-07-20] MEDS: HYDROmorphone 0.5 MG/0.5 ML SYRINGE IVP PRN ×3 (11:52→22:25)
--- NOTE | 2020-07-20 12:26 | P.HPIM ---
History of Present Illness H&P Date: 07/20/20 Chief Complaint: Lower extremity cellulitis This is a 45-year-old male patient who presented to the ER with complaints of nonhealing lower extremity cellulitis. Patient reports he went to [facility]. On Keflex outpatient with minimal improvement. Patient denies any fevers at home. Patient has past medical history of previous episodes of cellulitis, recent cardiac ablation for atrial fibrillation in which he is maintained on anticoagulation, COPD, hypertension, sleep apnea, diverticulitis, nicotine dependence and obesity. X-ray of the knee completed showing mild degenerative changes predominantly within the medial compartment. White blood cell within normal. Patient started on vancomycin. Infectious disease consulted. Blood culture ordered. Elevated blood sugar 166 patient does not appear on any diabetic medication. Will order globin A1c in place patient on sliding scale insulin. At this time patient denies chest pain or shortness breath. Patient denies nausea vomiting or diarrhea. Patient denies any urinary burning or frequency Review of Systems Please refer to HPI otherwise unremarkable Past Medical History Past Medical History: Atrial Fibrillation, Atrial Flutter, Asthma, Blood Disorder, COPD, Hypertension, Pneumonia, Sleep Apnea/CPAP/BIPAP Additional Past Medical History / Comment(s): ASPLENIC. Pt recently admitted to [facility] on 08/28/18 with L lower leg cellulitis and hyperkalemia. Other Hx: Splenectomy age 2 yrs, hereditary spherocytosis blood disorder, erythrocytosis, anemia, KADI with Cpap, diverticulitis, migraines, back and bilateral knee p ain/DDD, bilateral lower leg edema at times. History of Any Multi-Drug Resistant Organisms: None Reported Additional Past Surgical History / Comment(s): Splenectomy AGE 2, ;left thigh injury with surgery and another surgery d/t abscess with I&D appox 2000, vocal cord lesions removed, 2014 BMA/Bx, CARDIOVERSION Past Anesthesia/Blood Transfusion Reactions: Previous Problems w/ Anesthesia Additional Past Anesthesia/Blood Transfusion Reaction / Comment(s): Pt states he woke up aggressive one time. Past Psychological History: ADD/ADHD Smoking Status: Current every day smoker Past Alcohol Use History: None Reported Past Drug Use History: Marijuana - Past Family History Mother Family Medical History: Hypertension, Seizure Disorder Father Additional Family Medical History / Comment(s): Father from a heroin overdose. Medications and Allergies Home Medications Medication Instructions Recorded Confirmed Type Furosemide [Lasix] 80 mg PO DAILY 05/06/17 07/20/20 History HYDROcodone/APAP 10-325MG [[place] 1 tab PO TID PRN 05/06/17 07/20/20 History 10-325] Metoprolol Tartrate [Lopressor] 25 mg PO BID #60 tab 09/04/18 07/20/20 Rx Rivaroxaban [Xarelto] 20 mg PO W/SUPPER #30 tab 09/04/18 07/20/20 Rx Dextroamphetamine/Amphetamine 15 mg PO TID 02/17/20 07/20/20 History [Adderall] Albuterol Nebulized [Ventolin 2.5 mg INHALATION RT-Q6H PRN 07/20/20 07/20/20 History Nebulized] Cephalexin [Keflex] 500 mg PO Q4H 07/20/20 07/20/20 History Diltiazem HCl [Cartia Xt] 120 mg PO DAILY 07/20/20 07/20/20 History Montelukast [Singulair] 10 mg PO HS 07/20/20 07/20/20 History Omalizumab [Xolair] 150 mg SQ Q14D 07/20/20 07/20/20 History Tamsulosin [Flomax] 0.4 mg PO HS 07/20/20 07/20/20 History Allergies Allergy/AdvReac Type Severity Reaction Status Date / Time sulfamethoxazole AdvReac ATRIAL Verified 07/20/20 08:57 [From Bactrim] FLUTTER/rash trimethoprim [From Bactrim] AdvReac ATRIAL Verified 07/20/20 08:57 FLUTTER/rash Physical Exam Vitals: Vital Signs Temp Pulse Resp BP Pulse Ox 07/20/20 08:42 97.9 F 71 18 123/66 96 07/20/20 07:38 66 07/20/20 07:20 69 07/20/20 06:22 98.0 F 72 19 120/72 94 L Intake and Output 07/19/20 07/20/20 07/20/20 22:59 06:59 14:59 Other: Weight 165.516 kg Head normocephalic Neck supple Lungs clear to auscultation bilaterally no wheezing or crackles Heart regular rate and rhythm S1-S2, no rub or gallop Abdomen is soft nontender nondistended positive bowel sounds no hepatosplenomegaly Extremities right lower extremity redness from knee to groin on right leg Neuro alert and orientated to 3 Results CBC & Chem 7: 07/20/20 06:59 07/20/20 06:59 Labs: Abnormal Lab Results - Last 24 Hours (Table) 07/20/20 Range/Units 06:59 Glucose 166 H (74-99) mg/dL Assessment and Plan Plan: 1. Right lower extremity cellulitis. Patient started vancomycin. Blood culture ordered. Infectious disease consulted 2. History of atrial fibrillation/flutter with recent ablation. Patient maintained on xarelto 3. Elevated blood sugar. Will place patient on sliding scale insulin coverage. Hemoglobin A1c ordered 4. History of morbid obesity 5. History of sleep apnea 6. Essential hypertension 7. History of asthma no exacerbation at this time 8. History of diverticulitis 9. Nicotine dependence. Patient educated greater than 3 minutes on smoking cessation. Nicotine patch will be ordered DVT prophylaxis xarelto. GI prophylaxis Protonix Continue vancomycin Infectious disease consult Blood culture ordered Hemoglobin A1c ordered Time with Patient: Greater than 30 (Greater than 60% of the total time spent in counseling and coordination of care)
[2020-07-20] MEDS: NON FORMULARY DRUG (Dextroamphetamine/Amphetamine [Adderall] 15 MG Tablet) PO SCH ×2 (14:31→17:36)
[2020-07-20] MEDS: INSULIN ASPART (NovoLOG) 100 UNIT/ML VIAL SQ SCH ×3 (14:47→21:58)
[2020-07-20 14:48] LABS: Glucose,Whole Blood 100 mg/dL (75-99)
[2020-07-20] MEDS ORDERED: VANCOMYCIN 2,500 MG in SODIUM CHLORIDE 0.9% 500 ML 500 ML IVPB SCH (17:00)
[2020-07-20] MEDS: RIVAROXABAN 20 MG TAB PO SCH (17:21)
[2020-07-20 17:51] LABS: Glucose,Whole Blood 123 mg/dL (75-99)
[2020-07-20 21:52] LABS: Glucose,Whole Blood 110 mg/dL (75-99)
[2020-07-20 22:02] LABS: Hemoglobin A1C 5.6 % (4.0-6.0)
[2020-07-20] MEDS: METOPROLOL TARTRATE 25 MG TAB PO SCH (22:04)
[2020-07-20] MEDS: TAMSULOSIN 0.4 MG CAP.ER.24H PO SCH (22:04)
[2020-07-20] MEDS: MONTELUKAST 10 MG TAB PO SCH (22:04)
[2020-07-20] MEDS: ceFAZolin 3 GM in SODIUM CHLORIDE 0.9% 100 ML IVPB SCH (23:52)
[2020-07-21 07:10] LABS: Glucose,Whole Blood 100 mg/dL (75-99)
[2020-07-21] MEDS: INSULIN ASPART (NovoLOG) 100 UNIT/ML VIAL SQ SCH ×4 (07:31→20:32)
[2020-07-21] MEDS: METOPROLOL TARTRATE 25 MG TAB PO SCH ×2 (08:36→20:31)
[2020-07-21] MEDS: DILTIAZEM CD 120 MG CAP.ER.24H PO SCH (08:36)
[2020-07-21] MEDS: NICOTINE 14MG/24HR PATCH TRANSDERM SCH (08:36)
[2020-07-21] MEDS: ceFAZolin 3 GM in SODIUM CHLORIDE 0.9% 100 ML IVPB SCH ×3 (08:37→23:28)
[2020-07-21] MEDS: NON FORMULARY DRUG (Dextroamphetamine/Amphetamine [Adderall] 15 MG Tablet) PO SCH ×3 (08:52→15:15)
[2020-07-21] MEDS: FUROSEMIDE 80 MG TAB PO SCH (08:52)
--- NOTE | 2020-07-21 09:01 | CONS ---
CONSULTATION DATE OF SERVICE: 07/20/2020. REASON FOR CONSULTATION: Right lower extremity cellulitis. HISTORY OF PRESENT ILLNESS: The patient is a 45-year-old morbidly obese male with past medical history significant for recurrent cellulitis of abdominal wall and lower extremity. The patient os presenting to [facility] ER for evaluation of increasing pain, swelling, redness of right lower extremity just above the popliteal fossa. The patient denies having any history of any trauma. The patient has been complaining of pain to the affected area to be more of a dull aching to sharp with intensity almost 7 to 8 out of 10 and no radiation. Currently no open wound or any drainage. Denies having any chest pain, shortness of breath or cough. No nausea, no vomiting. No abdominal pain. No diarrhea. On presentation to the hospital, he did have chest x-ray followed by x-rays of the knee and no acute abnormality. He was started on vancomycin. He has been admitted to the hospital. Infectious Disease was consulted for further management of antibiotic therapy. REVIEW OF SYSTEMS: Positive points have been mentioned in HPI. Rest of systems are negative. PAST MEDICAL HISTORY: Atrial fibrillation, atrial flutter, asthma, COPD, hypertension, pneumonia. PAST SURGICAL HISTORY: Splenectomy, left thigh injury, vocal cord lesion removal, cardioversion. SOCIAL HISTORY: Current everyday smoker. Does admit to marijuana use. No drinking. FAMILY HISTORY: No pertinent findings noticed. ALLERGIES: Allergies to SULFAMETHOXAZOLE. MEDICATIONS: The patient is currently on vancomycin. He is on Tylenol, [place], Lasix, Dilaudid, NovoLog, Lopressor, Singulair, Narcan, nicotine patch, Zofran, Xarelto and Flomax. PHYSICAL EXAMINATION: Blood pressure 170/72 with a pulse of 100, temperature 98.3. He is 93% on 2 L nasal cannula. General description is a middle-aged male lying in bed in no distress. No tachypnea or accessory muscles of respiration use. HEENT: Examination shows no pallor or scleral icterus. Oral mucous membrane is dry. NECK: Trachea central. No thyromegaly. LUNGS: Unlabored breathing, clear to auscultation with crackles. HEART: S1, S2. Regular rate and rhythm. ABDOMEN: Soft, no tenderness. No guarding or rigidity. EXTREMITIES: No edema of feet. Examination right mid low thigh area did have diffuse swelling and redness, slightly warm to touch. No induration, no drainage. NEUROLOGICAL: Patient is awake, alert, oriented x3. Mood and affect normal. LABS: Hemoglobin 16.4, white count 9.9, BUN of 15, creatinine 0.66. DIAGNOSTIC IMPRESSION AND PLAN: Patient with acute right lower extremity cellulitis in this patient did have diffuse swelling, redness, possible streptococcal disease, clinical suspicion of underlying gram-negative or an MRSA infection. PLAN: 1. Discontinue the vancomycin. 2. Start the patient on cefazolin 3 grams q.8 hours. 3. Lino the area of the redness. 4. We will follow on clinical condition and investigations to adjust the medication further if needed. Thank you for this consultation. Will follow this patient along with you. MMWISAML / IJN: [id number] /
[2020-07-21] MEDS: HYDROmorphone 0.5 MG/0.5 ML SYRINGE IVP PRN ×3 (09:03→23:28)
[2020-07-21 11:05] LABS: Glucose,Whole Blood 116 mg/dL (75-99)
[2020-07-21 11:10] LABS: HCT 47.8 % (39.6-50.0); HGB 15.6 g/dL (13.0-17.0); MCH 31.3 pg (27.0-32.0); MCHC 32.6 g/dL (32.0-37.0); Mean Platelet Volume 11.8 fL (9.5-12.2); Platelet Count 299 X 10*3/uL (140-440); RBC 4.98 X 10*6/uL (4.40-5.60); RDW 13.6 % (11.5-14.5); WBC 12.06 X 10*3/uL (4.50-10.00)
[2020-07-21 11:21] LABS: African American GFR (CKD) 130.2 (60.0-200.0); Albumin 4.1 g/dL (3.80-4.90); Albumin/Globulin Ratio 1.78 (1.60-3.17); BUN/Creat Ratio 14.29 Ratio (12.00-20.00); Calcium 9.3 mg/dL (8.7-10.3); Globulin 2.3 g/dL (1.6-3.3); Non-African American GFR(CKD) 112.4 (60.0-200.0); Total Bilirubin 0.6 mg/dL (0.2-1.2); Total Protein 6.4 g/dL (6.2-8.2)
[2020-07-21 11:45] LABS: Basophils # (A) 0.09 X 10*3/uL (0.00-0.10); Basophils % (A) 0.7 %; Eosinophils % (A) 0.8 %; Lymphocytes # (A) 2.21 X 10*3/uL (0.90-5.00); Lymphocytes % (A) 18.3 %; Monocytes # (A) 1.57 X 10*3/uL (0.20-1.00); Neutrophils # (A) 8.02 X 10*3/uL (1.80-7.70); Neutrophils % (A) 66.6 %
[2020-07-21] MEDS ORDERED: IPRATROPIUM-ALBUTEROL 3 ML NEB INHALATION PRN (13:03)
[2020-07-21 17:02] LABS: Glucose,Whole Blood 115 mg/dL (75-99)
[2020-07-21] MEDS: RIVAROXABAN 20 MG TAB PO SCH (18:11)
--- NOTE | 2020-07-21 18:51 | P.PN ---
Subjective Progress Note Date: 07/21/20 This is a 45-year-old male patient who presented to the ER with complaints of nonhealing lower extremity cellulitis. [facility] On Keflex outpatient with minimal improvement. Patient denies any fevers at home. Patient has past medical history of previous episodes of cellulitis, recent cardiac ablation for atrial fibrillation in which he is maintained on anticoagulation, COPD, hypertension, sleep apnea, diverticulitis, nicotine dependence and obesity. X-ray of the knee completed showing mild degenerative changes predominantly within the medial compartment. White blood cell within normal. Patient started on vancomycin. Infectious disease consulted. Blood culture ordered. Elevated blood sugar 166 patient does not appear on any diabetic medication. Will order globin A1c in place patient on sliding scale insulin. At this time patient denies chest pain or shortness breath. Patient denies nausea vomiting or diarrhea. Patient denies any urinary burning or frequency On 07/21/2020 patient was seen and examined on the medical floor, is alert and oriented 3 in no apparent distress, he has significant erythema and tenderness in the right thigh otherwise he denies any complaints there is no fever or chills no headache or dizziness no chest pain no shortness of breath no cough no nausea or vomiting no abdominal pain no diarrhea no blood in the stools no burn ing with urination no frequency or urgency no hematuria Objective - Vital Signs Vital signs: Vital Signs Temp 99.1 F 07/21/20 04:02 Pulse 82 07/21/20 04:02 Resp 18 07/21/20 04:02 BP 145/80 07/21/20 04:02 Pulse Ox 95 07/21/20 04:02 Intake & Output 07/20/20 07/21/20 07/21/20 18:59 06:59 18:59 Intake Total 700 Balance 700 Weight 165.516 kg Intake: Intake, IV Titration 100 Amount ceFAZolin 3 gm In Sodium 100 Chloride 0.9% 100 ml @ 200 mls/hr IVPB Q8HR [facility] Rx#:[id number] Oral 600 Other: Voiding Method Toilet Urinal # Voids 2 - Exam In general patient is alert and oriented 3 in no distress Head normocephalic and atraumatic Neck supple no JVD no goiter Lungs clear to auscultation bilaterally no wheezing or crackles Heart regular rate and rhythm S1-S2, no rub or gallop Abdomen is soft nontender nondistended positive bowel sounds no hepatosplenomegaly Extremities right lower extremity redness from knee to groin on right leg Neuro no gross focal neurological deficit - Labs CBC & Chem 7: 07/21/20 06:25 07/21/20 06:25 Labs: Abnormal Lab Results - Last 24 Hours (Table) 07/20/20 07/20/20 07/20/20 Range/Units 06:59 14:43 17:31 Glucose 166 H (74-99) mg/dL POC Glucose (mg/dL) 100 H 123 H (75-99) mg/dL 07/20/20 07/21/20 Range/Units 21:51 07:08 Glucose (74-99) mg/dL POC Glucose (mg/dL) 110 H 100 H (75-99) mg/dL Assessment and Plan Plan: 1. Right lower extremity cellulitis. Patient started vancomycin. Blood cult ure ordered. Infectious disease consulted 2. History of atrial fibrillation/flutter with recent ablation. Patient maintained on xarelto 3. Elevated blood sugar. Will place patient on sliding scale insulin coverage. Hemoglobin A1c ordered 4. History of morbid obesity 5. History of sleep apnea 6. Essential hypertension 7. History of asthma no exacerbation at this time 8. History of diverticulitis 9. Nicotine dependence. Patient educated greater than 3 minutes on smoking cessation. Nicotine patch will be ordered DVT prophylaxis xarelto. GI prophylaxis Protonix Continue vancomycin Infectious disease consult Blood culture ordered Hemoglobin A1c ordered
[2020-07-21 20:29] LABS: Glucose,Whole Blood 111 mg/dL (75-99)
[2020-07-21] MEDS: MONTELUKAST 10 MG TAB PO SCH (20:31)
[2020-07-21] MEDS: TAMSULOSIN 0.4 MG CAP.ER.24H PO SCH (20:31)
[2020-07-21] MEDS: HYDROcodone/APAP 5-325MG 1 EACH TAB PO PRN (20:32)
[2020-07-21 21:13] VITALS: RESP 18
--- NOTE | 2020-07-21 23:48 | PN ---
PROGRESS NOTE DATE OF SERVICE: 07/21/2020. REASON FOR FOLLOWUP: Right lower extremity cellulitis. INTERVAL HISTORY: The patient is currently afebrile. Overall pain and discomfort to the right medial lower has slightly decreased. Denies any chest pain, shortness of breath or cough. No abdominal pain. No diarrhea. EXAMINATION: Blood pressure 167/73, pulse 82, temperature 97.3. He is 93% on room air. General description is a middle-aged male lying in bed in no distress. RESPIRATORY SYSTEM: Unlabored breathing. Clear to auscultation anteriorly. Heart S1, S2. Regular rate and rhythm. Abdomen is soft. Right medial thigh area swelling has slightly decreased. DIAGNOSTIC IMPRESSION AND PLAN: Patient with acute right lower extremity cellulitis. Patient to continue with cefazolin 3 g q8 hours, for another 24 hours. The patient wants the area of the redness to be marked and we will re-evaluate the patient tomorrow. Continue supportive care. MMODL / IJN: [id number] /
[2020-07-22 07:50] LABS: Glucose,Whole Blood 92 mg/dL (75-99)
[2020-07-22] MEDS: NON FORMULARY DRUG (Dextroamphetamine/Amphetamine [Adderall] 15 MG Tablet) PO SCH ×2 (08:17→11:23)
[2020-07-22] MEDS: INSULIN ASPART (NovoLOG) 100 UNIT/ML VIAL SQ SCH ×2 (08:17→13:33)
[2020-07-22] MEDS: ceFAZolin 3 GM in SODIUM CHLORIDE 0.9% 100 ML IVPB SCH ×2 (08:22→14:42)
[2020-07-22] MEDS: DILTIAZEM CD 120 MG CAP.ER.24H PO SCH (08:23)
[2020-07-22] MEDS: METOPROLOL TARTRATE 25 MG TAB PO SCH (08:23)
[2020-07-22] MEDS: NICOTINE 14MG/24HR PATCH TRANSDERM SCH (08:23)
[2020-07-22] MEDS: FUROSEMIDE 80 MG TAB PO SCH (08:23)
[2020-07-22] MEDS: HYDROmorphone 0.5 MG/0.5 ML SYRINGE IVP PRN ×2 (10:04→13:44)
[2020-07-22 11:31] LABS: Basophils # (A) 0.07 X 10*3/uL (0.00-0.10); Basophils % (A) 0.6 %; Eosinophils # (A) 0.47 X 10*3/uL (0.04-0.35); Eosinophils % (A) 4.3 %; HCT 47.5 % (39.6-50.0); HGB 15.8 g/dL (13.0-17.0); Lymphocytes # (A) 2.56 X 10*3/uL (0.90-5.00); Lymphocytes % (A) 23.2 %; MCH 31.5 pg (27.0-32.0); MCHC 33.3 g/dL (32.0-37.0); MCV 94.6 fL (80.0-97.0); Mean Platelet Volume 12.4 fL (9.5-12.2); Monocytes # (A) 1.58 X 10*3/uL (0.20-1.00); Monocytes % (A) 14.3 %; Neutrophils # (A) 6.32 X 10*3/uL (1.80-7.70); Neutrophils % (A) 57.2 %; Platelet Count 318 X 10*3/uL (140-440); RBC 5.02 X 10*6/uL (4.40-5.60); RDW 13.3 % (11.5-14.5); WBC 11.04 X 10*3/uL (4.50-10.00)
--- NOTE | 2020-07-22 11:46 | P.DS ---
Providers Date of admission: 07/20/20 11:00 Expected date of discharge: 07/22/20 Attending physician: David Paniagua Consults: 07/20/20 08:34 Consult Physician Urgent Consulting Provider: Rai Carcamo Consult Reason/Comments: Asplenic, right leg cellulitis Do you want consulting provider notified?: Yes Primary care physician: David Paniagua [facility] Course: Discharge diagnosis 1. Right lower extremity cellulitis. Patient started vancomycin. Blood culture ordered. Infectious disease consulted 2. History of atrial fibrillation/flutter with recent ablation. Patient maintained on xarelto 3. Elevated blood sugar. Will place patient on sliding scale insulin coverage. Hemoglobin A1c ordered. Hemoglobin A1c 5.6 4. History of morbid obesity 5. History of sleep apnea 6. Essential hypertension 7. History of asthma no exacerbation at this time 8. History of diverticulitis 9. Nicotine dependence. Patient educated greater than 3 minutes on smoking cessation. Nicotine patch will be ordered Hospital course This is a 45-year-old male patient who presented to the ER with complaints of nonhealing lower extremity cellulitis. Patient reports he went to space. On Keflex outpatient with minimal improvement. Patient denies any fevers at home. Patient has past medical history of previous episodes of cellulitis, recent cardiac ablation for atrial fibrillation in which he is maintained on anticoagulation, COPD, hypertension, sleep apnea, diverticulitis, nicotine dependence and obesity. X-ray of the knee completed showing mild degenerative changes predominantly within the medial compartment. White blood cell within normal. Patient started on vancomycin. Infectious disease consulted. Blood culture ordered. Elevated blood sugar 166 patient does not appear on any diabetic medication. Will order globin A1c in place patient on sliding scale insulin. At this time patient denies chest pain or shortness breath. Patient denies nausea vomiting or diarrhea. Patient denies any urinary burning or frequency On 07/21/2020 patient was seen and examined on the medical floor, is alert and oriented 3 in no apparent distress, he has significant erythema and tenderness in the right thigh otherwise he denies any complaints there is no fever or chills no headache or dizziness no chest pain no shortness of breath no cough no nausea or vomiting no abdominal pain no diarrhea no blood in the stools no burning with urination no frequency or urgency no hematuria On 07/22/2020 patient is alert and oriented 3. Patient expresses eager to go home. Discussed case with infectious disease. Patient may is likely able to be discharged on by mouth antibiotic but needs to be assessed by infectious disease prior to discharge. At this time patient denies chest pain or shortness breath. Patient denies nausea vomiting or diarrhea. Patient denies any urinary burning or frequency. Patient Condition at Discharge: Stable Plan - Discharge Summary Discharge Rx Participant: No New Discharge Prescriptions: Continue HYDROcodone/APAP 10-325MG [[place] 10-325] 1 tab PO TID PRN PRN Reason: Pain Furosemide [Lasix] 80 mg PO DAILY Metoprolol Tartrate [Lopressor] 25 mg PO BID #60 tab Rivaroxaban [Xarelto] 20 mg PO W/SUPPER #30 tab Dextroamphetamine/Amphetamine [Adderall] 15 mg PO TID Albuterol Nebulized [Ventolin Nebulized] 2.5 mg INHALATION RT-Q6H PRN PRN Reason: Shortness Of Breath Tamsulosin [Flomax] 0.4 mg PO HS Diltiazem HCl [Cartia Xt] 120 mg PO DAILY Omalizumab [Xolair] 150 mg SQ Q14D Montelukast [Singulair] 10 mg PO HS No Action Cephalexin [Keflex] 500 mg PO Q4H Discharge Medication List Furosemide [Lasix] 80 mg PO DAILY 05/06/17 [History] HYDROcodone/APAP 10-325MG [[place] 10-325] 1 tab PO TID PRN 05/06/17 [History] Metoprolol Tartrate [Lopressor] 25 mg PO BID #60 tab 09/04/18 [Rx] Rivaroxaban [Xarelto] 20 mg PO W/SUPPER #30 tab 09/04/18 [Rx] Dextroamphetamine/Amphetamine [Adderall] 15 mg PO TID 02/17/20 [History] Albuterol Nebulized [Ventolin Nebulized] 2.5 mg INHALATION RT-Q6H PRN 07/20/20 [History] Cephalexin [Keflex] 500 mg PO Q4H 07/20/20 [History] Diltiazem HCl [Cartia Xt] 120 mg PO DAILY 07/20/20 [History] Montelukast [Singulair] 10 mg PO HS 07/20/20 [History] Omalizumab [Xolair] 150 mg SQ Q14D 07/20/20 [History] Tamsulosin [Flomax] 0.4 mg PO HS 07/20/20 [History] Follow up Appointment(s)/Referral(s): David Paniagua MD [Primary Care Provider] - 1-2 days
[2020-07-22 11:48] LABS: African American GFR (CKD) 130.2 (60.0-200.0); C Reactive Protein 1.9 mg/dL (0.0-0.8); Non-African American GFR(CKD) 112.4 (60.0-200.0)
[2020-07-22 12:43] LABS: Glucose,Whole Blood 209 mg/dL (75-99)
[2020-07-22 13:33] LABS: Glucose,Whole Blood 244 mg/dL (75-99)
[2020-07-22 14:20] VITALS: BP 110/68; PULSE 79; TEMP 98.3
--- NOTE | 2020-07-22 16:00 | PN ---
PROGRESS NOTE DATE OF SERVICE: 07/22/2020 REASON FOR FOLLOWUP: Right leg cellulitis. INTERVAL HISTORY: The patient was seen on rounds this morning. The patient has been afebrile, feeling better. Denies having any chest pain, shortness of breath or cough. No abdominal pain. Overall pain and swelling and redness of right lower medial thigh has decreased. PHYSICAL EXAMINATION: Blood pressure 110/68 with a pulse of 79, temperature 98.3. He is 95% on room air. General description is a middle-aged male lying in bed in no distress. RESPIRATORY SYSTEM: Unlabored breathing, clear to auscultation anteriorly. HEART: S1, S2. Regular rate and rhythm. ABDOMEN: Soft, no tenderness. Right lower mid thigh swelling and redness has improved. No induration or drainage. LABS: White count 11.04. Blood culture negative. DIAGNOSTIC IMPRESSION AND PLAN: Patient with right lower extremity cellulitis in this patient seemed to have shown overall clinical improvement. Plan at this time is to finish therapy with oral Keflex 500 mg p.o. q.6 hours for 10 days. Prescription sent to the pharmacy. Continue supportive care. MMODL / IJN: [id number] /
== END 2020-07-22 16:00 | disposition home or self-care (01) ==
LOC: EC 06:21 → INTOOBSV 11:00 → 5NMEDONC 11:00 → 4SSUR 20:05 → 5NMEDONC 20:08 → UNDODISIN 07-22 16:00
PROVIDERS: ADMIT Internal Medicine; ATTEND Internal Medicine
DX: L03.115 Cellulitis of right lower limb (principal); L03.311 Cellulitis of abdominal wall; I10 Essential (primary) hypertension; D58.0 Hereditary spherocytosis; J44.9 Chronic obstructive pulmonary disease, unspecified; I48.91 Unspecified atrial fibrillation; I48.92 Unspecified atrial flutter; G47.33 Obstructive sleep apnea (adult) (pediatric); Z99.89 Dependence on other enabling machines and devices; K57.90 Diverticulosis of intestine, part unspecified, without perforation or abscess without bleeding; G43.909 Migraine, unspecified, not intractable, without status migrainosus; M25.562 Pain in left knee; M25.561 Pain in right knee; M54.9 Dorsalgia, unspecified; F90.9 Attention-deficit hyperactivity disorder, unspecified type; F17.200 Nicotine dependence, unspecified, uncomplicated; R73.9 Hyperglycemia, unspecified; E66.01 Morbid (severe) obesity due to excess calories; Z68.43 Body mass index [BMI] 50.0-59.9, adult; Z20.822 Contact with and (suspected) exposure to COVID-19; Z79.01 Long term (current) use of anticoagulants; Z79.891 Long term (current) use of opiate analgesic; Z79.899 Other long term (current) drug therapy; Z88.1 Allergy status to other antibiotic agents; Z88.2 Allergy status to sulfonamides; Z90.81 Acquired absence of spleen; Z87.01 Personal history of pneumonia (recurrent); Z82.49 Family history of ischemic heart disease and other diseases of the circulatory system; Z82.0 Family history of epilepsy and other diseases of the nervous system; Z81.3 Family history of other psychoactive substance abuse and dependence
CPT/HCPCS: 96376 ×4; 96366 ×4; 96365; 96367; 96375; 99284; 36415; 94640; 94760; 80053 ×2; 82565; 83605; 85025 ×3; 86140; 87040; 83036; 87635; 73560; 71045; G0378 ×3; J3370; J0690 ×3; J2405; J0696; J1170 ×3; 99285

== ENCOUNTER 2021-02-12 16:16 | Emergency (ER) | payer BC ==
[2021-02-12 16:22] VITALS: TEMP 98.6
[2021-02-12] MEDS ORDERED: IPRATROPIUM-ALBUTEROL 3 ML NEB INHALATION STA (17:18)
[2021-02-12] MEDS ORDERED: predniSONE 50 MG TAB PO STA (17:18)
[2021-02-12 17:41] LABS: Basophils # (A) 0.1 k/uL (0-0.2); Basophils % (A) 0 %; Eosinophils # (A) 0.5 k/uL (0-0.7); Eosinophils % (A) 3 %; HCT 51.1 % (39.0-53.0); HGB 17.8 gm/dL (13.0-17.5); Hyperchromasia Slight; Lymphocytes # (A) 2.6 k/uL (1.0-4.8); Lymphocytes % (A) 14 %; MCH 32.1 pg (25.0-35.0); MCHC 34.8 g/dL (31.0-37.0); MCV 92.4 fL (80.0-100.0); Mean Platelet Volume 9.2; Monocytes # (A) 1.1 k/uL (0-1.0); Monocytes % (A) 6 %; Neutrophils # (A) 13.8 k/uL (1.3-7.7); Neutrophils % (A) 75 %; Platelet Count 296 k/uL (150-450); Poikilocytosis Slight; RBC 5.53 m/uL (4.30-5.90); RDW 13.9 % (11.5-15.5); WBC 18.3 k/uL (3.8-10.6)
[2021-02-12 17:52] LABS: ALT 30 U/L (4-49); AST 28 U/L (17-59); African American GFR (CKD) >90 (>60 ml/min/1.73 sqM); Albumin 3.9 g/dL (3.5-5.0); Alkaline Phosphatase 79 U/L (38-126); Anion Gap 7 mmol/L; Blood Urea Nitrogen 17 mg/dL (9-20); Calcium 9.4 mg/dL (8.4-10.2); Carbon Dioxide 30 mmol/L (22-30); Chloride 99 mmol/L (98-107); Glucose 143 mg/dL (74-99); INR 0.9 (<1.2); Magnesium 2.2 mg/dL (1.6-2.3); Non-African American GFR(CKD) >90 (>60 ml/min/1.73 sqM); Partial Thromboplastin Time 22.5 sec (22.0-30.0); Potassium 4.3 mmol/L (3.5-5.1); Prothrombin Time 10.1 sec (9.0-12.0); Sodium 136 mmol/L (137-145); Total Bilirubin 0.5 mg/dL (0.2-1.3); Total Protein 7.2 g/dL (6.3-8.2)
--- NOTE | 2021-02-12 18:04 | ED ---
General Adult HPI - General Chief complaint: Weakness Stated complaint: lethargic Time Seen by Provider: 02/12/21 17:00 Source: patient, RN notes reviewed, old records reviewed Mode of arrival: ambulatory Limitations: no limitations - History of Present Illness Initial comments: Patient was evaluated when he was placed in a room. Patient is a 46-year-old male with past medical history remarkable for A. fib on anticoagulation, chronic tobacco use, spherocytosis, splenectomy who presents emergency Department complaining of generalized weakness. Patient has been having increased fatigue and weakness that is subjective over the last few days. Denies any shortness of breath, chest pain, fevers, chills, cough, sick contacts. Denies any Covid exposure. Denies any nausea, vomiting. Denies any sensory deficits, lightheadedness. Has no headache. Denies any urinary complaints. His no signs of acute infection. He has noticed worsening lower extremity edema as well as some worsening orthopnea at home. Denies any paroxysmal nocturnal dyspnea. He states he is having worsening exertional dyspnea with climbing stairs that he has noticed also, however most of these symptoms have been ongoing over the last few weeks to months. Denies any history of known heart failure. He has no other acute complaints at this time. States he is compliant with medications. States he has not noticed any signs of bleeding at this time. - Related Data Home Medications Medication Instructions Recorded Confirmed Furosemide [Lasix] 80 mg PO DAILY 05/06/17 07/20/20 HYDROcodone/APAP 10-325MG [[place] 1 tab PO TID PRN 05/06/17 07/20/20 10-325] Dextroamphetamine/Amphetamine 15 mg PO TID 02/17/20 07/20/20 [Adderall] Albuterol Nebulized [Ventolin 2.5 mg INHALATION RT-Q6H PRN 07/20/20 07/20/20 Nebulized] Cephalexin [Keflex] 500 mg PO Q4H 07/20/20 07/20/20 Diltiazem HCl [Cartia Xt] 120 mg PO DAILY 07/20/20 07/20/20 Montelukast [Singulair] 10 mg PO HS 07/20/20 07/20/20 Omalizumab [Xolair] 150 mg SQ Q14D 07/20/20 07/20/20 Tamsulosin [Flomax] 0.4 mg PO HS 07/20/20 07/20/20 Previous Rx's Medication Instructions Recorded Metoprolol Tartrate [Lopressor] 25 mg PO BID #60 tab 09/04/18 Rivaroxaban [Xarelto] 20 mg PO W/SUPPER #30 tab 09/04/18 Cephalexin [Keflex] 500 mg PO Q6HR 10 Days #40 cap 07/22/20 Albuterol Inhaler [Ventolin Hfa 1 puff INHALATION RT-QID #8 gm 02/12/21 Inhaler] predniSONE [Deltasone] 40 mg PO DAILY 5 Days #10 tab 02/12/21 Allergies Allergy/AdvReac Type Severity Reaction Status Date / Time sulfamethoxazole AdvReac ATRIAL Verified 02/12/21 16:22 [From Bactrim] FLUTTER/rash trimethoprim [From Bactrim] AdvReac ATRIAL Verified 02/12/21 16:22 FLUTTER/rash Review of Systems ROS Statement: Those systems with pertinent positive or pertinent negative responses have been documented in the HPI. Review of Systems: CONST: Endorses fatigue EYES: Denies blurry vision ENT: Denies nasal congestion C/V: Denies Chest pain RESP: Denies shortness of breath GI: Denies abdominal pain : Denies dysuria SKIN: Denies rash. MSK: Denies joint pain. NEURO: Denies headache ROS Other: All systems not noted in ROS Statement are negative. Past Medical History Past Medical History: Atrial Fibrillation, Atrial Flutter, Asthma, Blood Disorder, COPD, Hypertension, Pneumonia, Sleep Apnea/CPAP/BIPAP Additional Past Medical History / Comment(s): ASPLENIC. Pt recently admitted to [facility] on 08/28/18 with L lower leg cellulitis and hyperkalemia. 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 History of Any Multi-Drug Resistant Organisms: None Reported Additional Past Surgical History / Comment(s): Splenectomy AGE 2, ;left thigh in jury with surgery and another surgery d/t abscess with I&D appox 2000, vocal cord lesions removed, 2014 BMA/Bx, CARDIOVERSION Past Anesthesia/Blood Transfusion Reactions: Previous Problems w/ Anesthesia Additional Past Anesthesia/Blood Transfusion Reaction / Comment(s): Pt states he woke up aggressive one time. Past Psychological History: ADD/ADHD Smoking Status: Current every day smoker Past Alcohol Use History: None Reported Past Drug Use History: Marijuana - Past Family History Mother Family Medical History: Hypertension, Seizure Disorder Father Additional Family Medical History / Comment(s): Father from a heroin overdose. General Exam - General Exam Comments Initial Comments: General: Appears in no acute distress. HEAD: Normal with no signs of head trauma. EYES: PERRLA, EOMI, conjunctiva normal, no discharge. Pupils are 3 mm and equal bilaterally. ENT: Hearing grossly intact, normal oropharynx. RESPIRATORY: Patient has mild bilateral end expiratory wheezing. No obvious rhonchi or increased work of breathing. C/V: Regular rate and rhythm. S1 and S2 auscultated. Peripheral pulses are 2+ and intact throughout. Patient does have 1+ pitting edema into the bilateral shins. ABD: Shunt is obese. Abdomen is soft, nondistended. He is nontender to palpati on. No guarding, peritoneal signs. No rebound tenderness. No CVA tenderness. EXT: Normal range of motion, no obvious deformity SKIN: No rashes or lesions observed on exposed skin. NEURO: Alert and oriented 4. Cranial nerves II through XII intact. No focal sensory strength deficits. Patient is able to ambulate without difficulty. Limitations: no limitations Course Vital Signs 02/12/21 02/12/21 02/12/21 16:20 17:29 17:37 Temperature 98.6 F Pulse Rate 71 80 84 Respiratory 16 Rate Blood Pressure 127/70 O2 Sat by Pulse 95 Oximetry 02/12/21 18:38 Temperature Pulse Rate 71 Respiratory 18 Rate Blood Pressure 118/76 O2 Sat by Pulse Oximetry Medical Decision Making - Medical Decision Making Based on the patient's presentation and physical exam, I'm concerned for possible infectious etiology for his current symptoms but cannot rule out the possibility of cardiac etiology or heart failure. Patient does have a history of serocytosis the cannot rule out anemia either despite no signs of bleeding at this time. Therefore we will obtain basic labs, troponin, EKG, chest x-ray as well as BNP. Covid swab was already obtained and was found to be negative. Patient be symptomatically treated with a prednisone 50 mg as well as DuoNeb breathing treatment for his mild COPD exacerbation. He was in agreement this plan. Patient's EKG shows a normal sinus rhythm without any signs of acute ischemia. Patient's lavatory studies are remarkable for a leukocytosis of 18, elevated hemoglobin 17, a slightly elevated lactic acid of 2.6, a negative urinalysis, a negative Covid swab, and a negative troponin. Discussed with the patient that it does appear that he is dehydrated and we will provide him with a 1 L fluid bolus. We will redraw the lactic acid. Patient otherwise has no acute cardiopulmonary process seen on chest x-ray. Patient is afebrile, complaining of denies fatigue any appears to be dehydrated. There are no signs of acute infection at this time. The leukocytosis and elevated hemoglobin is likely secondary to dehydration, as evident by the minimally elevated lactic acid no reason to directly admit him at this time, and therefore we will fluid hydrate him and check to make sure that she has a decrease in his lactic acid. Patient was in agreement with this plan. Final 1 L fluid bolus, lactic acid is now within normal limits. Patient states he feels better. He is tolerating by mouth intake. He would like to go home. Patient does have a PCP appointment on that he plans on attending. I do believe is safe for him to be discharged home with close follow-up. Patient was in agreement with this plan. I will provide the patient with a prescription for prednisone 40 mg daily for 5 days, albuterol inhaler. I instructed the patient to follow up with their PCP in the next 3 days. I explained that the patient should return to the emergency department if they experience any worsening symptoms. Strict return precautions were discussed with the patient. The patient expressed understanding of these instructions. I answered all questions that the patient had. The patient was discharged home in fair condition with their prescriptions and follow up in formation. - Lab Data Result diagrams: 02/12/21 17:30 02/12/21 17:30 Lab Results 02/12/21 02/12/21 02/12/21 Range/Units 16:25 17:30 17:30 WBC 18.3 H (3.8-10.6) k/uL RBC 5.53 (4.30-5.90) m/uL Hgb 17.8 H (13.0-17.5) gm/dL Hct 51.1 (39.0-53.0) % MCV 92.4 (80.0-100.0) fL MCH 32.1 (25.0-35.0) pg MCHC 34.8 (31.0-37.0) g/dL RDW 13.9 (11.5-15.5) % Plt Count 296 (150-450) k/uL MPV 9.2 Neutrophils % 75 % Lymphocytes % 14 % Monocytes % 6 % Eosinophils % 3 % Basophils % 0 % Neutrophils # 13.8 H (1.3-7.7) k/uL Lymphocytes # 2.6 (1.0-4.8) k/uL Monocytes # 1.1 H (0-1.0) k/uL Eosinophils # 0.5 (0-0.7) k/uL Basophils # 0.1 (0-0.2) k/uL Hyperchromasia Slight Poikilocytosis Slight PT 10.1 (9.0-12.0) sec INR 0.9 (<1.2) APTT 22.5 (22.0-30.0) sec Sodium (137-145) mmol/L Potassium (3.5-5.1) mmol/L Chloride (98-107) mmol/L Carbon Dioxide (22-30) mmol/L Anion Gap mmol/L BUN (9-20) mg/dL Creatinine (0.66-1.25) mg/dL Est GFR (CKD-EPI)AfAm (>60 ml/min/1.73 sqM) Est GFR (CKD-EPI)NonAf (>60 ml/min/1.73 sqM) Glucose (74-99) mg/dL Lactic Ac Sepsis Rflx Plasma Lactic Acid Raymond (0.7-2.0) mmol/L Calcium (8.4-10.2) mg/dL Magnesium (1.6-2.3) mg/dL Total Bilirubin (0.2-1.3) mg/dL AST (17-59) U/L ALT (4-49) U/L Alkaline Phosphatase (38-126) U/L Troponin I (0.000-0.034) ng/mL NT-Pro-B Natriuret Pep pg/mL Total Protein (6.3-8.2) g/dL Albumin (3.5-5.0) g/dL Urine Color Urine Appearance (Clear) Urine pH (5.0-8.0) Ur Specific [place] (1.001-1.035) Urine Protein (Negative) Urine Glucose (UA) (Negative) Urine Ketones (Negative) Urine Blood (Negative) Urine Nitrite (Negative) Urine Bilirubin (Negative) Urine Urobilinogen (<2.0) mg/dL Ur Leukocyte Esterase (Negative) Coronavirus (PCR) Not Detected (Not Detectd) 02/12/21 02/12/21 02/12/21 Range/Units 17:30 17:30 17:30 WBC (3.8-10.6) k/uL RBC (4.30-5.90) m/uL Hgb (13.0-17.5) gm/dL Hct (39.0-53.0) % MCV (80.0-100.0) fL MCH (25.0-35.0) pg MCHC (31.0-37.0) g/dL RDW (11.5-15.5) % Plt Count (150-450) k/uL MPV Neutrophils % % Lymphocytes % % Monocytes % % Eosinophils % % Basophils % % Neutrophils # (1.3-7.7) k/uL Lymphocytes # (1.0-4.8) k/uL Monocytes # (0-1.0) k/uL Eosinophils # (0-0.7) k/uL Basophils # (0-0.2) k/uL Hyperchromasia Poikilocytosis PT (9.0-12.0) sec INR (<1.2) APTT (22.0-30.0) sec Sodium 136 L (137-145) mmol/L Potassium 4.3 (3.5-5.1) mmol/L Chloride 99 (98-107) mmol/L Carbon Dioxide 30 (22-30) mmol/L Anion Gap 7 mmol/L BUN 17 (9-20) mg/dL Creatinine 0.58 L (0.66-1.25) mg/dL Est GFR (CKD-EPI)AfAm >90 (>60 ml/min/1.73 sqM) Est GFR (CKD-EPI)NonAf >90 (>60 ml/min/1.73 sqM) Glucose 143 H (74-99) mg/dL Lactic Ac Sepsis Rflx Plasma Lactic Acid Raymond 2.6 H* (0.7-2.0) mmol/L Calcium 9.4 (8.4-10.2) mg/dL Magnesium 2.2 (1.6-2.3) mg/dL Total Bilirubin 0.5 (0.2-1.3) mg/dL AST 28 (17-59) U/L ALT 30 (4-49) U/L Alkaline Phosphatase 79 (38-126) U/L Troponin I (0.000-0.034) ng/mL NT-Pro-B Natriuret Pep pg/mL Total Protein 7.2 (6.3-8.2) g/dL Albumin 3.9 (3.5-5.0) g/dL Urine Color Yellow Urine Appearance Clear (Clear) Urine pH 6.0 (5.0-8.0) Ur Specific [place] 1.020 (1.001-1.035) Urine Protein Negative (Negative) Urine Glucose (UA) Negative (Negative) Urine Ketones Negative (Negative) Urine Blood Negative (Negative) Urine Nitrite Negative (Negative) Urine Bilirubin Negative (Negative) Urine Urobilinogen <2.0 (<2.0) mg/dL Ur Leukocyte Esterase Negative (Negative) Coronavirus (PCR) (Not Detectd) 02/12/21 02/12/21 02/12/21 Range/Units 17:30 17:30 18:06 WBC (3.8-10.6) k/uL RBC (4.30-5.90) m/uL Hgb (13.0-17.5) gm/dL Hct (39.0-53.0) % MCV (80.0-100.0) fL MCH (25.0-35.0) pg MCHC (31.0-37.0) g/dL RDW (11.5-15.5) % Plt Count (150-450) k/uL MPV Neutrophils % % Lymphocytes % % Monocytes % % Eosinophils % % Basophils % % Neutrophils # (1.3-7.7) k/uL Lymphocytes # (1.0-4.8) k/uL Monocytes # (0-1.0) k/uL Eosinophils # (0-0.7) k/uL Basophils # (0-0.2) k/uL Hyperchromasia Poikilocytosis PT (9.0-12.0) sec INR (<1.2) APTT (22.0-30.0) sec Sodium (137-145) mmol/L Potassium (3.5-5.1) mmol/L Chloride (98-107) mmol/L Carbon Dioxide (22-30) mmol/L Anion Gap mmol/L BUN (9-20) mg/dL Creatinine (0.66-1.25) mg/dL Est GFR (CKD-EPI)AfAm (>60 ml/min/1.73 sqM) Est GFR (CKD-EPI)NonAf (>60 ml/min/1.73 sqM) Glucose (74-99) mg/dL Lactic Ac Sepsis Rflx Y Plasma Lactic Acid Raymond (0.7-2.0) mmol/L Calcium (8.4-10.2) mg/dL Magnesium (1.6-2.3) mg/dL Total Bilirubin (0.2-1.3) mg/dL AST (17-59) U/L ALT (4-49) U/L Alkaline Phosphatase (38-126) U/L Troponin I <0.012 (0.000-0.034) ng/mL NT-Pro-B Natriuret Pep 58 pg/mL Total Protein (6.3-8.2) g/dL Albumin (3.5-5.0) g/dL Urine Color Urine Appearance (Clear) Urine pH (5.0-8.0) Ur Specific [place] (1.001-1.035) Urine Protein (Negative) Urine Glucose (UA) (Negative) Urine Ketones (Negative) Urine Blood (Negative) Urine Nitrite (Negative) Urine Bilirubin (Negative) Urine Urobilinogen (<2.0) mg/dL Ur Leukocyte Esterase (Negative) Coronavirus (PCR) (Not Detectd) 02/12/21 Range/Units 20:40 WBC (3.8-10.6) k/uL RBC (4.30-5.90) m/uL Hgb (13.0-17.5) gm/dL Hct (39.0-53.0) % MCV (80.0-100.0) fL MCH (25.0-35.0) pg MCHC (31.0-37.0) g/dL RDW (11.5-15.5) % Plt Count (150-450) k/uL MPV Neutrophils % % Lymphocytes % % Monocytes % % Eosinophils % % Basophils % % Neutrophils # (1.3-7.7) k/uL Lymphocytes # (1.0-4.8) k/uL Monocytes # (0-1.0) k/uL Eosinophils # (0-0.7) k/uL Basophils # (0-0.2) k/uL Hyperchromasia Poikilocytosis PT (9.0-12.0) sec INR (<1.2) APTT (22.0-30.0) sec Sodium (137-145) mmol/L Potassium (3.5-5.1) mmol/L Chloride (98-107) mmol/L Carbon Dioxide (22-30) mmol/L Anion Gap mmol/L BUN (9-20) mg/dL Creatinine (0.66-1.25) mg/dL Est GFR (CKD-EPI)AfAm (>60 ml/min/1.73 sqM) Est GFR (CKD-EPI)NonAf (>60 ml/min/1.73 sqM) Glucose (74-99) mg/dL Lactic Ac Sepsis Rflx Plasma Lactic Acid Raymond 1.3 (0.7-2.0) mmol/L Calcium (8.4-10.2) mg/dL Magnesium (1.6-2.3) mg/dL Total Bilirubin (0.2-1.3) mg/dL AST (17-59) U/L ALT (4-49) U/L Alkaline Phosphatase (38-126) U/L Troponin I (0.000-0.034) ng/mL NT-Pro-B Natriuret Pep pg/mL Total Protein (6.3-8.2) g/dL Albumin (3.5-5.0) g/dL Urine Color Urine Appearance (Clear) Urine pH (5.0-8.0) Ur Specific [place] (1.001-1.035) Urine Protein (Negative) Urine Glucose (UA) (Negative) Urine Ketones (Negative) Urine Blood (Negative) Urine Nitrite (Negative) Urine Bilirubin (Negative) Urine Urobilinogen (<2.0) mg/dL Ur Leukocyte Esterase (Negative) Coronavirus (PCR) (Not Detectd) - EKG Data -: EKG Interpreted by Me EKG Comments: 12-lead Electrocardiogram Interpretation Note EKG was reviewed and interpreted by myself. 12-lead ECG performed at 1720 is interpreted by me as revealing normal sinus rhythm at a rate of 71 beats per minute. [place] is normal. [place] interval is 144 ms, QRS duration is 86 ms, QTc is 404 ms.. There were no ST or T wave abnormalities to suggest myocardial ischemia or injury. R wave progression across the precordium was satisfactory. By my interpretation this EKG is non-diagnostic for acute ischemia. Disposition Clinical Impression: Dehydration, Fatigue, COPD exacerbation Disposition: HOME SELF-CARE Condition: Fair Prescriptions: predniSONE [Deltasone] 40 mg PO DAILY 5 Days #10 tab Albuterol Inhaler [Ventolin Hfa Inhaler] 1 puff INHALATION RT-QID #8 gm Is patient prescribed a controlled substance at d/c from ED?: No Referrals: David Paniagua MD [Primary Care Provider] - 1-2 days
[2021-02-12 18:39] VITALS: RESP 18
[2021-02-12] MEDS ORDERED: SODIUM CHLORIDE 0.9% 1,000 ML IV STA (18:40)
--- NOTE | 2021-02-12 18:56 | XR ---
EXAMINATION TYPE: XR chest 2V DATE OF EXAM: 02/12/2021 COMPARISON: NONE HISTORY: Short of breath TECHNIQUE: 2 views FINDINGS: Heart and mediastinum are normal. Lungs are clear. Diaphragm is normal. Bony thorax is inta ct. Pulmonary vascularity is normal. IMPRESSION: Normal chest. No change.
[2021-02-12 19:09] LABS: Appearance,Urine Clear (Clear); Bilirubin,Urine Negative (Negative); Blood,Urine Negative (Negative); Color,Urine Yellow; Glucose,Urine (UA) Negative (Negative); Ketones,Urine Negative (Negative); Leukocyte Esterase,Urine Negative (Negative); Nitrite,Urine Negative (Negative); Protein,Urine Negative (Negative); Urobilinogen,Urine <2.0 mg/dL (<2.0)
[2021-02-12 21:27] VITALS: BP 122/62; PULSE 81
== END 2021-02-12 21:27 | disposition home or self-care (01) ==
LOC: EC 16:16
DX: E86.0 Dehydration (principal); R53.83 Other fatigue; J44.1 Chronic obstructive pulmonary disease with (acute) exacerbation; F17.200 Nicotine dependence, unspecified, uncomplicated; I10 Essential (primary) hypertension; I48.91 Unspecified atrial fibrillation; Z79.01 Long term (current) use of anticoagulants; Z79.899 Other long term (current) drug therapy; Z88.1 Allergy status to other antibiotic agents; Z88.2 Allergy status to sulfonamides; Z20.822 Contact with and (suspected) exposure to COVID-19
CPT/HCPCS: 36415; 94640; 93005; 83880; 80053; 83605; 83735; 84484; 85025; 85610; 85730; 81003; 87635; 71046; 99285; 96360; J7512

== ENCOUNTER 2021-02-15 08:01 | Inpatient (IN) | payer BC ==
[2021-02-15] MEDS ORDERED: cefTRIAXone IN SWFI 1,000 MG/10 ML SYRINGE IVP STA (08:41)
[2021-02-15 09:27] LABS: Basophils # (A) 0.1 k/uL (0-0.2); Basophils % (A) 0 %; Eosinophils # (A) 0.2 k/uL (0-0.7); Eosinophils % (A) 1 %; HCT 52.3 % (39.0-53.0); Lymphocytes # (A) 2.1 k/uL (1.0-4.8); Lymphocytes % (A) 10 %; MCHC 34.4 g/dL (31.0-37.0); MCV 93.1 fL (80.0-100.0); Mean Platelet Volume 9.1; Monocytes % (A) 5 %; Neutrophils # (A) 16.8 k/uL (1.3-7.7); Neutrophils % (A) 83 %; Platelet Count 275 k/uL (150-450); Poikilocytosis Slight; RBC 5.62 m/uL (4.30-5.90); RDW 13.9 % (11.5-15.5); WBC 20.4 k/uL (3.8-10.6)
[2021-02-15 09:37] LABS: ALT 35 U/L (4-49); AST 33 U/L (17-59); African American GFR (CKD) >90 (>60 ml/min/1.73 sqM); Alkaline Phosphatase 76 U/L (38-126); Anion Gap 8 mmol/L; Blood Urea Nitrogen 18 mg/dL (9-20); Calcium 9.6 mg/dL (8.4-10.2); Carbon Dioxide 31 mmol/L (22-30); Chloride 98 mmol/L (98-107); Glucose 109 mg/dL (74-99); Non-African American GFR(CKD) >90 (>60 ml/min/1.73 sqM); Potassium 4.7 mmol/L (3.5-5.1); Sodium 137 mmol/L (137-145); Total Bilirubin 0.7 mg/dL (0.2-1.3); Total Protein 7.4 g/dL (6.3-8.2)
--- NOTE | 2021-02-15 09:43 | XR ---
EXAMINATION TYPE: XR hand complete LT DATE OF EXAM: 02/15/2021 COMPARISON: None HISTORY: Cellulitis, abscess swelling third digit TECHNIQUE: 3 view left hand FINDINGS: No acute osseous abnormality is evident. Joint spaces are preserved. Diffuse soft tissue sw elling is present to the left hand. No radiopaque foreign bodies are evident. IMPRESSION: 1. Soft tissue swelling.
[2021-02-15] MEDS: SODIUM CHLORIDE 0.9% 500 ML 500 ML IV SCH ×2 (09:46→10:00)
[2021-02-15] MEDS ORDERED: HYDROmorphone 0.5 MG/0.5 ML SYRINGE IVP STA (09:46)
--- NOTE | 2021-02-15 10:31 | ED ---
General Adult HPI - General Chief complaint: Extremity Injury, Upper Stated complaint: hand swelling Time Seen by Provider: 02/15/21 08:19 Source: patient Mode of arrival: ambulatory Limitations: no limitations - History of Present Illness Initial comments: 46-year-old male presents to the emergency room for a chief complaint of left hand swelling. Patient has had this over the past couple days. States it started as a pimple on his finger. To streaking up his arm. Patient denies fevers. 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 Patient states it is painful to move his hand. Patient has no other complaints at this time including shortness of breath, chest pain, abdominal pain, nausea or vomiting, headache, or visual changes. - Related Data Home Medications Medication Instructions Recorded Confirmed Furosemide [Lasix] 80 mg PO DAILY 05/06/17 07/20/20 HYDROcodone/APAP 10-325MG [[place] 1 tab PO TID PRN 05/06/17 07/20/20 10-325] Dextroamphetamine/Amphetamine 15 mg PO TID 02/17/20 07/20/20 [Adderall] Albuterol Nebulized [Ventolin 2.5 mg INHALATION RT-Q6H PRN 07/20/20 07/20/20 Nebulized] Cephalexin [Keflex] 500 mg PO Q4H 07/20/20 07/20/20 Diltiazem HCl [Cartia Xt] 120 mg PO DAILY 07/20/20 07/20/20 Montelukast [Singulair] 10 mg PO HS 07/20/20 07/20/20 Omalizumab [Xolair] 150 mg SQ Q14D 07/20/20 07/20/20 Tamsulosin [Flomax] 0.4 mg PO HS 07/20/20 07/20/20 Previous Rx's Medication Instructions Recorded Metoprolol Tartrate [Lopressor] 25 mg PO BID #60 tab 09/04/18 Rivaroxaban [Xarelto] 20 mg PO W/SUPPER #30 tab 09/04/18 Cephalexin [Keflex] 500 mg PO Q6HR 10 Days #40 cap 07/22/20 Albuterol Inhaler [Ventolin Hfa 1 puff INHALATION RT-QID #8 gm 02/12/21 Inhaler] predniSONE [Deltasone] 40 mg PO DAILY 5 Days #10 tab 02/12/21 Allergies Allergy/AdvReac Type Severity Reaction Status Date / Time sulfamethoxazole AdvReac ATRIAL Verified 02/15/21 08:12 [From Bactrim] FLUTTER/rash trimethoprim [From Bactrim] AdvReac ATRIAL Verified 02/15/21 08:12 FLUTTER/rash Review of Systems ROS Statement: Those systems with pertinent positive or pertinent negative responses have been documented in the HPI. ROS Other: All systems not noted in ROS Statement are negative. Past Medical History Past Medical History: Atrial Fibrillation, Atrial Flutter, Asthma, Blood Disorder, COPD, Hypertension, Pneumonia, Sleep Apnea/CPAP/BIPAP Additional Past Medical History / Comment(s): ASPLENIC. Pt recently admitted to [facility] on 08/28/18 with L lower leg cellulitis and hyperkalemia. 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 History of Any Multi-Drug Resistant Organisms: None Reported Additional Past Surgical History / Comment(s): Splenectomy AGE 2, ;left thigh injury with surgery and another surgery d/t abscess with I&D appox 2000, vocal cord lesions removed, 2014 BMA/Bx, CARDIOVERSION Past Anesthesia/Blood Transfusion Reactions: Previous Problems w/ Anesthesia Additional Past Anesthesia/Blood Transfusion Reaction / Comment(s): Pt states he woke up aggressive one time. Past Psychological History: ADD/ADHD Smoking Status: Current every day smoker Past Alcohol Use History: None Reported Past Drug Use History: Marijuana - Past Family History Mother Family Medical History: Hypertension, Seizure Disorder Father Additional Family Medical History / Comment(s): Father from a heroin overdose. General Exam Limitations: no limitations General appearance: alert Head exam: Present: atraumatic Eye exam: Present: normal appearance, PERRL, EOMI. Absent: scleral icterus, conjunctival injection ENT exam: Present: normal exam, mucous membranes moist Neck exam: Present: normal inspection, full ROM. Absent: tenderness Respiratory exam: Present: normal lung sounds bilaterally. Absent: respiratory distress, wheezes Cardiovascular Exam: Present: regular rate, normal rhythm, normal heart sounds GI/Abdominal exam: Present: soft, normal bowel sounds. Absent: distended, tenderness Extremities exam: Present: full ROM (Decreased range of motion of the left hand secondary to pain. No tenderness to the flexor tendons.), normal capillary refill (Capillary refill less than 2 seconds, DP pulse 2+.), other (Erythema and edema noted to the dorsal aspect of the left hand. Erythema is tracing up forearm to the elbow.) Course Vital Signs 02/15/21 08:12 Temperature 98.3 F Pulse Rate 70 Respiratory 18 Rate Blood Pressure 139/85 O2 Sat by Pulse 96 Oximetry Medical Decision Making - Medical Decision Making Vitals are stable. The HPI physical exam as documented. Pertinent for edema and erythema of the left hand with lymphangitis to the left elbow. CBC does show significant leukocytosis of 20. CMP is unremarkable. Lactic acid is normal. Hand x-ray is negative. Patient will be admitted for IV antibiotics given his asplenic history and platelets of the left hand. - Lab Data Result diagrams: 02/15/21 09:14 02/15/21 09:14 Lab Results 02/15/21 02/15/21 02/15/21 Range/Units 09:14 09:14 09:14 WBC 20.4 H (3.8-10.6) k/uL RBC 5.62 (4.30-5.90) m/uL Hgb 18.0 H (13.0-17.5) gm/dL Hct 52.3 (39.0-53.0) % MCV 93.1 (80.0-100.0) fL MCH 32.0 (25.0-35.0) pg MCHC 34.4 (31.0-37.0) g/dL RDW 13.9 (11.5-15.5) % Plt Count 275 (150-450) k/uL MPV 9.1 Neutrophils % 83 % Lymphocytes % 10 % Monocytes % 5 % Eosinophils % 1 % Basophils % 0 % Neutrophils # 16.8 H (1.3-7.7) k/uL Lymphocytes # 2.1 (1.0-4.8) k/uL Monocytes # 1.0 (0-1.0) k/uL Eosinophils # 0.2 (0-0.7) k/uL Basophils # 0.1 (0-0.2) k/uL Poikilocytosis Slight Sodium 137 (137-145) mmol/L Potassium 4.7 (3.5-5.1) mmol/L Chloride 98 (98-107) mmol/L Carbon Dioxide 31 H (22-30) mmol/L Anion Gap 8 mmol/L BUN 18 (9-20) mg/dL Creatinine 0.55 L (0.66-1.25) mg/dL Est GFR (CKD-EPI)AfAm >90 (>60 ml/min/1.73 sqM) Est GFR (CKD-EPI)NonAf >90 (>60 ml/min/1.73 sqM) Glucose 109 H (74-99) mg/dL Plasma Lactic Acid Raymond 1.2 (0.7-2.0) mmol/L Calcium 9.6 (8.4-10.2) mg/dL Total Bilirubin 0.7 (0.2-1.3) mg/dL AST 33 (17-59) U/L ALT 35 (4-49) U/L Alkaline Phosphatase 76 (38-126) U/L Total Protein 7.4 (6.3-8.2) g/dL Albumin 4.0 (3.5-5.0) g/dL Disposition Clinical Impression: Cellulitis, Leukocytosis, Asplenia Disposition: ADMITTED IP TO THIS HOSP Is patient prescribed a controlled substance at d/c from ED?: No Referrals: David Paniagua MD [Primary Care Provider] - 1-2 days Time of Disposition: 10:31
[2021-02-15] MEDS ORDERED: NALOXONE 0.4 MG/ML 1 ML VIAL IV PRN (11:03)
[2021-02-15] MEDS ORDERED: AMPICILLIN-SULBACTAM 3 GM in SODIUM CHLORIDE 0.9% 100 ML IVPB STA (11:06)
[2021-02-15] MEDS ORDERED: TRIAMCINOLONE ACET 0.5% CREAM 15 GM TUBE TOPICAL PRN (11:07)
[2021-02-15] MEDS ORDERED: VANCOMYCIN IV PER PHARMACY 1 EACH MISC MISCELLANE PRN (11:07)
[2021-02-15] MEDS: ALBUTEROL NEBULIZED 2.5 MG/3 ML INHALATION SCH ×3 (11:31→21:21)
[2021-02-15] MEDS: VANCOMYCIN 2,500 MG in SODIUM CHLORIDE 0.9% 500 ML 500 ML IVPB STA ×2 (12:11→13:40)
[2021-02-15] MEDS: HYDROmorphone 0.5 MG/0.5 ML SYRINGE IVP PRN ×2 (12:16→17:06)
[2021-02-15] MEDS: SODIUM CHLORIDE 0.9% 1,000 ML IV SCH ×2 (12:24→19:11)
--- NOTE | 2021-02-15 13:45 | P.HPIM ---
History of Present Illness H&P Date: 02/15/21 Chief Complaint: Cellulitis This is a 46-year-old male patient who presented to the ER with increasing cellulitis to left hand. Patient was seen by his PCP in the office was started on Keflex. But left hand cellulitis progressed up to forearm area. Patient presented to the ER for further evaluation. She reports he did have a small pimple-like abrasion on finger prior to the redness patient denies any fevers at home. Patient denies any chest pain or shortness of breath. Patient denies nausea vomiting or diarrhea. Patient does have past medical history of atrial f ibrillation/flutter, asthma, COPD, hypertension, sleep apnea and previous episodes of lower leg cellulitis. hand x-ray completed showing soft tissue swelling. Infectious disease services will be consulted. Blood culture ordered. Patient started on azithromycin and Rocephin. Repeat labs ordered for a.m. At this time patient denies any chest pain or shortness of breath. Patient denies nausea vomiting or diarrhea. Patient denies any urinary burning or frequency Review of Systems Please refer to HPI otherwise unremarkable Past Medical History Past Medical History: Atrial Fibrillation, Atrial Flutter, Asthma, Blood Disord er, COPD, Hypertension, Pneumonia, Sleep Apnea/CPAP/BIPAP Additional Past Medical History / Comment(s): ASPLENIC. Pt recently admitted to [facility] on 08/28/18 with L lower leg cellulitis and hyperkalemia. 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 History of Any Multi-Drug Resistant Organisms: None Reported Additional Past Surgical History / Comment(s): Splenectomy AGE 2, ;left thigh injury with surgery and another surgery d/t abscess with I&D appox 2000, vocal cord lesions removed, 2014 BMA/Bx, CARDIOVERSION Past Anesthesia/Blood Transfusion Reactions: Previous Problems w/ Anesthesia Additional Past Anesthesia/Blood Transfusion Reaction / Comment(s): Pt states he woke up aggressive one time. Past Psychological History: ADD/ADHD Smoking Status: Current every day smoker Past Alcohol Use History: None Reported Past Drug Use History: Marijuana - Past Family History Mother Family Medical History: Hypertension, Seizure Disorder Father Additional Family Medical History / Comment(s): Father from a heroin overd ose. Medications and Allergies Home Medications Medication Instructions Recorded Confirmed Type Furosemide [Lasix] 40 mg PO BID 05/06/17 02/15/21 History HYDROcodone/APAP 10-325MG [[place] 1 tab PO TID PRN 05/06/17 02/15/21 History 10-325] Metoprolol Tartrate [Lopressor] 25 mg PO BID #60 tab 09/04/18 02/15/21 Rx Rivaroxaban [Xarelto] 20 mg PO W/SUPPER #30 tab 09/04/18 02/15/21 Rx Dextroamphetamine/Amphetamine 15 mg PO TID 02/17/20 02/15/21 History [Adderall] Diltiazem HCl [Cartia Xt] 120 mg PO DAILY 07/20/20 02/15/21 History Montelukast [Singulair] 10 mg PO HS 07/20/20 02/15/21 History Tamsulosin [Flomax] 0.4 mg PO HS 07/20/20 02/15/21 History Albuterol Inhaler [Ventolin Hfa 1 puff INHALATION RT-QID #8 gm 02/12/21 02/15/21 Rx Inhaler] predniSONE [Deltasone] 40 mg PO DAILY 5 Days #10 tab 02/12/21 02/15/21 Rx Nicotine 21Mg/24Hr Patch [Habitrol] 1 patch TRANSDERM DAILY 02/15/21 02/15/21 History Triamcinolone 0.5% Cream [Kenalog 1 applic TOPICAL TID PRN 02/15/21 02/15/21 History 0.5% Cream] Allergies Allergy/AdvReac Type Severity Reaction Status Date / Time sulfamethoxazole AdvReac ATRIAL Verified 02/15/21 10:47 [From Bactrim] FLUTTER/rash trimethoprim [From Bactrim] AdvReac ATRIAL Verified 02/15/21 10:47 FLUTTER/rash Physical Exam Vitals: Vital Signs Temp Pulse Resp BP Pulse Ox 02/15/21 11:40 62 16 02/15/21 11:32 60 18 02/15/21 08:12 98.3 F 70 18 139/85 96 Intake and Output 02/14/21 02/15/21 02/15/21 22:59 06:59 14:59 Other: Weight 159.665 kg Head normocephalic Neck supple Lungs clear to auscultation bilaterally no wheezing or crackles Heart regular rate and rhythm S1-S2, no rub or gallop Abdomen is soft nontender nondistended positive bowel sounds no hepatosplenomegaly Extremities no edema. left hand erythema noted to hand and forearm Neuro alert and orientated to 3 Results CBC & Chem 7: 02/15/21 09:14 02/15/21 09:14 Labs: Abnormal Lab Results - Last 24 Hours (Table) 02/15/21 02/15/21 Range/Units 09:14 09:14 WBC 20.4 H (3.8-10.6) k/uL Hgb 18.0 H (13.0-17.5) gm/dL Neutrophils # 16.8 H (1.3-7.7) k/uL Carbon Dioxide 31 H (22-30) mmol/L Creatinine 0.55 L (0.66-1.25) mg/dL Glucose 109 H (74-99) mg/dL Assessment and Plan Assessment: 1. Left hand cellulitis with failed outpatient treatment. 2. History of atrial fibrillation/flutter with recent ablation patient maintained on xarelto 3. History of sleep apnea 4. History of morbid obesity 5. History of asthma with no exacerbation at this time 6. History of diverticulitis 7. History of previous episodes of cellulitis to lower extremities 8. Nicotine dependence. Patient educated greater than 3 minutes on smoking cessation. Nicotine patch will be ordered DVT prophylaxis xarelto. GI prophylaxis Protonix Continue IV antibiotics Blood and sputum cultures ordered Infectious disease consulted Time with Patient: Greater than 30 (Greater than 60% of the total time spent in counseling and coordination of care)
[2021-02-15] MEDS ORDERED: NON FORMULARY DRUG (Dextroamphetamine/Amphetamine [Adderall] 15 MG Tablet) PO SCH (16:00)
[2021-02-15] MEDS: FUROSEMIDE 40 MG TAB PO SCH (17:07)
[2021-02-15] MEDS ORDERED: AMPICILLIN-SULBACTAM 3 GM in SODIUM CHLORIDE 0.9% 100 ML IVPB SCH (18:00)
[2021-02-15] MEDS: RIVAROXABAN 20 MG TAB PO SCH (19:03)
[2021-02-15] MEDS: HYDROcodone/APAP 10-325MG 1 EACH TAB PO PRN (19:09)
[2021-02-15] MEDS: MONTELUKAST 10 MG TAB PO SCH (19:09)
[2021-02-15] MEDS: TAMSULOSIN 0.4 MG CAP.ER.24H PO SCH (19:09)
[2021-02-15] MEDS: METOPROLOL TARTRATE 25 MG TAB PO SCH (19:11)
[2021-02-15] MEDS: VANCOMYCIN 2,250 MG in SODIUM CHLORIDE 0.9% 500 ML 500 ML IVPB SCH (22:13)
[2021-02-16] MEDS: HYDROmorphone 0.5 MG/0.5 ML SYRINGE IVP PRN ×6 (01:20→21:23)
[2021-02-16] MEDS: SODIUM CHLORIDE 0.9% 1,000 ML IV SCH ×3 (03:46→20:40)
[2021-02-16] MEDS: VANCOMYCIN 2,250 MG in SODIUM CHLORIDE 0.9% 500 ML 500 ML IVPB SCH ×3 (05:41→21:24)
[2021-02-16] MEDS: ALBUTEROL NEBULIZED 2.5 MG/3 ML INHALATION SCH ×4 (08:09→19:45)
[2021-02-16] MEDS: FUROSEMIDE 40 MG TAB PO SCH ×2 (08:19→17:55)
[2021-02-16] MEDS: METOPROLOL TARTRATE 25 MG TAB PO SCH ×2 (08:19→20:34)
[2021-02-16] MEDS: DILTIAZEM CD 120 MG CAP.ER.24H PO SCH (08:19)
[2021-02-16] MEDS: PANTOPRAZOLE 40 MG TABLET PO SCH (08:19)
[2021-02-16] MEDS: predniSONE 20 MG TAB PO SCH (08:19)
[2021-02-16] MEDS: NICOTINE 21MG/24HR PATCH TRANSDERM SCH (08:19)
[2021-02-16 08:34] LABS: ALT 47 U/L (4-49); AST 35 U/L (17-59); African American GFR (CKD) >90 (>60 ml/min/1.73 sqM); Albumin 3.1 g/dL (3.5-5.0); Alkaline Phosphatase 62 U/L (38-126); Anion Gap 2 mmol/L; Blood Urea Nitrogen 14 mg/dL (9-20); Calcium 8.7 mg/dL (8.4-10.2); Carbon Dioxide 33 mmol/L (22-30); Chloride 100 mmol/L (98-107); Glucose 134 mg/dL (74-99); Non-African American GFR(CKD) >90 (>60 ml/min/1.73 sqM); Potassium 4.4 mmol/L (3.5-5.1); Sodium 135 mmol/L (137-145); Total Bilirubin 0.7 mg/dL (0.2-1.3)
[2021-02-16 08:53] LABS: Basophils # (A) 0.1 k/uL (0-0.2); Basophils % (A) 1 %; Eosinophils # (A) 0.2 k/uL (0-0.7); Eosinophils % (A) 1 %; HGB 15.5 gm/dL (13.0-17.5); Lymphocytes % (A) 14 %; MCH 31.2 pg (25.0-35.0); MCV 94.5 fL (80.0-100.0); Mean Platelet Volume 9.4; Monocytes # (A) 1.1 k/uL (0-1.0); Monocytes % (A) 7 %; Neutrophils # (A) 11.3 k/uL (1.3-7.7); Neutrophils % (A) 76 %; Platelet Count 259 k/uL (150-450); Poikilocytosis Slight; RBC 4.98 m/uL (4.30-5.90); WBC 14.9 k/uL (3.8-10.6)
[2021-02-16] MEDS: HYDROcodone/APAP 10-325MG 1 EACH TAB PO PRN (10:42)
--- NOTE | 2021-02-16 15:11 | P.CONS ---
History of Present Illness - Reason for Consult Consult date: 02/15/21 left hand cellulitis Requesting physician: David Paniagua - Chief Complaint left hand pain and redness x days - History of Present Illness History of Present Illness : Patient is 46-year male presented to the ER this morning for evaluation of left hand swelling apparently the patient has developed a small pimple on the dorsum aspect of his left middle finger that the patient tried to squeeze out some pus from it afterwards he noticed that the finger becoming more swollen and red with redness spreading to the dorsum aspect of his left hand patient is complaining of throbbing pain to the area intensity 7-8 out of 10 no radiation there is no further drainage, patient on presentation to the hospital was afebrile and no fever has been recorded subsequently he did have white count of 20,000 with a left shift creatinine was 0.55 olvera PCR was negative blood culture was obtained patient was started on vancomycin and Unasyn has been admitted to hospital infectious disease was consulted for further management of antibiotic therapy Review of system: CONSTITUTIONAL: Positive for weakness denies high-grade fever. EYES: No complaint. ENT: No complaint. RESPIRATORY: No complaint. CARDIOVASCULAR: No complaint. GENITOURINARY: No complaint. GASTROINTESTINAL: No complaint. MUSCULOSKELETAL: As per history of present illness. INTEGUMENTARY : As per history of present illness. PSYCHOLOGIC: No complaint. ENDOCRINE: No complaint. NEUROLOGIC: No complaint. Past medical history : Reviewed, documented below Past surgical history : Reviewed, documented below Social history: Reviewed, documented below Medications: Reviewed, as documented below EXAMINATION: Vital sigans= Reviewed and documented below GENERAL DESCRIPTION: Middle-aged male lying in bed, no distress. No tachypnea or accessory muscle of respiration use. HEENT: Shows Pallor , no scleral icterus. Oral mucous membrane is dry. NECK: Trachea central, no thyromegaly. LUNGS: Unlabored breathing. Clear to auscultation anteriorly. No wheeze or crackle. HEART: S1, S2, regular rate and rhythm. ABDOMEN: Soft, no tenderness , guarding or rigidity EXTREMITIES: Left hand dorsum I did have a swelling and redness left middle finger did have an area of induration no significant fluctuation or drainage was noticed SKIN: No rash, no masses palpable. NEUROLOGICAL: The patient is awake, alert, oriented x3, mood and affect normal. LABS AND RADIOLOGY: Reviewed results see below Assessment : Patient presented to hospital with left hand cellulitis in this patient symptoms started with a small pimple on the dorsal aspect of his left middle finger with the patient tried to squeeze pus out of it with subsequent worsening of the swelling redness high clinical suspicion for staphylococcal inf ection and possible MRSA Plan: 1-RN has been instructed to obtain cultures if the area started to drain 2-vancomycin pharmacy to dose target trough of 15 while watching kidney function and vancomycin trough closely 3-discontinue Unasyn We will follow on clinical condition and cultures to further adjust medication if needed Thank you for this consultation we will follow the patient along with you Past Medical History Past Medical History: Atrial Fibrillation, Atrial Flutter, Asthma, Blood Disorder, COPD, Hypertension, Pneumonia, Sleep Apnea/CPAP/BIPAP Additional Past Medical History / Comment(s): ASPLENIC. Pt recently admitted to [facility] on 08/28/18 with L lower leg cellulitis and hyperkalemia. 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 Past Psychological History: ADD/ADHD Smoking Status: Current every day smoker Past Alcohol Use History: None Reported Past Drug Use History: Marijuana - Past Family History Mother Family Medical History: Hypertension, Seizure Disorder Father Additional Family Medical History / Comment(s): Father from a heroin overdose. Medications and Allergies Home Medications Medication Instructions Recorded Confirmed Type Furosemide [Lasix] 40 mg PO BID 05/06/17 02/15/21 History HYDROcodone/APAP 10-325MG [[place] 1 tab PO TID PRN 05/06/17 02/15/21 History 10-325] Metoprolol Tartrate [Lopressor] 25 mg PO BID #60 tab 09/04/18 02/15/21 Rx Rivaroxaban [Xarelto] 20 mg PO W/SUPPER #30 tab 09/04/18 02/15/21 Rx Dextroamphetamine/Amphetamine 15 mg PO TID 02/17/20 02/15/21 History [Adderall] Diltiazem HCl [Cartia Xt] 120 mg PO DAILY 07/20/20 02/15/21 History Montelukast [Singulair] 10 mg PO HS 07/20/20 02/15/21 History Tamsulosin [Flomax] 0.4 mg PO HS 07/20/20 02/15/21 History Albuterol Inhaler [Ventolin Hfa 1 puff INHALATION RT-QID #8 gm 02/12/21 02/15/21 Rx Inhaler] predniSONE [Deltasone] 40 mg PO DAILY 5 Days #10 tab 02/12/21 02/15/21 Rx Nicotine 21Mg/24Hr Patch [Habitrol] 1 patch TRANSDERM DAILY 02/15/21 02/15/21 History Triamcinolone 0.5% Cream [Kenalog 1 applic TOPICAL TID PRN 02/15/21 02/15/21 History 0.5% Cream] Allergies Allergy/AdvReac Type Severity Reaction Status Date / Time sulfamethoxazole AdvReac ATRIAL Verified 02/15/21 10:47 [From Bactrim] FLUTTER/rash trimethoprim [From Bactrim] AdvReac ATRIAL Verified 02/15/21 10:47 FLUTTER/rash Physical Exam Vitals: Vital Signs Temp Pulse Resp BP Pulse Ox 02/15/21 11:40 62 16 02/15/21 11:32 60 18 02/15/21 08:12 98.3 F 70 18 139/85 96 Intake and Output 02/14/21 02/15/21 02/15/21 22:59 06:59 14:59 Other: Weight 159.665 kg Results CBC & Chem 7: 02/16/21 07:54 02/16/21 07:54 Labs: Abnormal Lab Results - Last 24 Hours (Table) 02/15/21 02/15/21 Range/Units 09:14 09:14 WBC 20.4 H (3.8-10.6) k/uL Hgb 18.0 H (13.0-17.5) gm/dL Neutrophils # 16.8 H (1.3-7.7) k/uL Carbon Dioxide 31 H (22-30) mmol/L Creatinine 0.55 L (0.66-1.25) mg/dL Glucose 109 H (74-99) mg/dL
[2021-02-16] MEDS: RIVAROXABAN 20 MG TAB PO SCH (17:54)
--- NOTE | 2021-02-16 18:41 | PN ---
PROGRESS NOTE DATE OF SERVICE: 02/16/2021 REASON FOR FOLLOW UP: Left middle finger and left hand cellulitis, possible abscess. INTERVAL HISTORY: The patient is afebrile. Still complaining of pain to the left middle finger as well as dorsum aspect of the left hand. The patient denies having any chest pain. No shortness of breath or cough. No abdominal pain or diarrhea. PHYSICAL EXAMINATION: Blood pressure 138/72 with a pulse of 78, temperature 97.7. He is 96% on room air. General description is a middle-aged male lying in bed in no distress. Respiratory system: Unlabored breathing, clear to auscultation anteriorly. Heart S1, S2. Regular rate and rhythm. Abdomen soft, no tenderness. LABS: Hemoglobin is 15.5, white count 14.9 down from yesterday of 20.4, creatinine 0.60. Blood culture negative. DIAGNOSTIC IMPRESSION AND PLAN: Patient with left middle finger and dorsum of left hand abscess and cellulitis, likely staphylococcal infection. Patient to continue with vancomycin ( ) cultures and monitor clinical course closely. MMODL / IJN: [id number] /
[2021-02-16] MEDS: MONTELUKAST 10 MG TAB PO SCH (20:34)
[2021-02-16] MEDS: diphenhydrAMINE 50 MG CAP PO SCH ×3 (20:34→20:40)
[2021-02-16] MEDS: TAMSULOSIN 0.4 MG CAP.ER.24H PO SCH (20:34)
[2021-02-17] MEDS: HYDROmorphone 0.5 MG/0.5 ML SYRINGE IVP PRN ×7 (02:08→23:49)
[2021-02-17] MEDS ORDERED: VANCOMYCIN TROUGH DUE 1 EACH MISC MISCELLANE ONE (05:00)
[2021-02-17 07:07] LABS: Basophils # (A) 0.1 k/uL (0-0.2); Basophils % (A) 1 %; Eosinophils # (A) 0.2 k/uL (0-0.7); Eosinophils % (A) 1 %; HCT 46.8 % (39.0-53.0); Lymphocytes # (A) 3.8 k/uL (1.0-4.8); Lymphocytes % (A) 18 %; MCH 32.1 pg (25.0-35.0); MCHC 34.3 g/dL (31.0-37.0); MCV 93.7 fL (80.0-100.0); Monocytes # (A) 1.3 k/uL (0-1.0); Monocytes % (A) 6 %; Neutrophils # (A) 15.7 k/uL (1.3-7.7); Neutrophils % (A) 73 %; Platelet Count 266 k/uL (150-450); Poikilocytosis Slight; RBC 4.99 m/uL (4.30-5.90); RDW 13.9 % (11.5-15.5); WBC 21.4 k/uL (3.8-10.6)
[2021-02-17 07:20] LABS: ALT 57 U/L (4-49); AST 35 U/L (17-59); African American GFR (CKD) >90 (>60 ml/min/1.73 sqM); Albumin 3.2 g/dL (3.5-5.0); Alkaline Phosphatase 62 U/L (38-126); Anion Gap 5 mmol/L; Blood Urea Nitrogen 16 mg/dL (9-20); Calcium 9.1 mg/dL (8.4-10.2); Carbon Dioxide 33 mmol/L (22-30); Chloride 99 mmol/L (98-107); Glucose 99 mg/dL (74-99); Non-African American GFR(CKD) >90 (>60 ml/min/1.73 sqM); Potassium 4.4 mmol/L (3.5-5.1); Sodium 137 mmol/L (137-145); Total Bilirubin 0.7 mg/dL (0.2-1.3); Total Protein 6.2 g/dL (6.3-8.2)
[2021-02-17] MEDS: predniSONE 20 MG TAB PO SCH (07:27)
[2021-02-17] MEDS: PANTOPRAZOLE 40 MG TABLET PO SCH (07:28)
[2021-02-17] MEDS: METOPROLOL TARTRATE 25 MG TAB PO SCH ×2 (07:28→20:22)
[2021-02-17] MEDS: FUROSEMIDE 40 MG TAB PO SCH ×2 (07:28→17:24)
[2021-02-17] MEDS: VANCOMYCIN 2,250 MG in SODIUM CHLORIDE 0.9% 500 ML 500 ML IVPB SCH ×3 (08:38→22:19)
[2021-02-17] MEDS: HYDROcodone/APAP 10-325MG 1 EACH TAB PO PRN (08:38)
[2021-02-17] MEDS: DILTIAZEM CD 120 MG CAP.ER.24H PO SCH (08:39)
[2021-02-17] MEDS: SODIUM CHLORIDE 0.9% 1,000 ML IV SCH ×3 (08:39→17:24)
[2021-02-17] MEDS: NICOTINE 21MG/24HR PATCH TRANSDERM SCH (08:42)
[2021-02-17] MEDS: ALBUTEROL NEBULIZED 2.5 MG/3 ML INHALATION SCH ×4 (09:07→20:44)
--- NOTE | 2021-02-17 09:36 | P.PN ---
Subjective Progress Note Date: 02/16/21 This is a 46-year-old male patient who presented to the ER with increasing cellulitis to left hand. Patient was seen by his PCP in the office was started on Keflex. But left hand cellulitis progressed up to forearm area. Patient presented to the ER for further evaluation. She reports he did have a small pimple-like abrasion on finger prior to the redness patient denies any fevers at home. Patient denies any chest pain or shortness of breath. Patient denies nausea vomiting or diarrhea. Patient does have past medical history of atrial fibrillation/flutter, asthma, COPD, hypertension, sleep apnea and previous episodes of lower leg cellulitis. hand x-ray completed showing soft tissue swelling. Infectious disease services will be consulted. Blood culture ordered. Patient started on azithromycin and Rocephin. Repeat labs ordered for a.m. At this time patient denies any chest pain or shortness of breath. Patient denies nausea vomiting or diarrhea. Patient denies any urinary burning or frequency On 02/16/2021 patient is alert and oriented 3. Infectious disease services are following. Patient changed to IV vancomycin. Patient denies chest pain or shortness of breath. Patient denies nausea vomiting or diarrhea. Patient denies any urinary burning or frequency Objective - Vital Signs Vital signs: Vital Signs Temp 98.5 F 02/16/21 08:30 Pulse 80 02/16/21 08:30 Resp 18 02/16/21 08:30 BP 120/71 02/16/21 08:30 Pulse Ox 91 L 02/16/21 08:30 Intake & Output 02/15/21 02/16/21 02/16/21 18:59 06:59 18:59 Weight 159.665 kg Other: Voiding Method Toilet # Voids 4 - Exam Head normocephalic Neck supple Lungs clear to auscultation bilaterally no wheezing or crackles Heart regular rate and rhythm S1-S2, no rub or gallop Abdomen is soft nontender nondistended positive bowel sounds no hepatosplenomegaly Extremities no edema. left hand erythema noted to hand and forearm Neuro alert and orientated to 3 - Labs CBC & Chem 7: 02/17/21 06:42 02/17/21 06:42 Labs: Abnormal Lab Results - Last 24 Hours (Table) 02/16/21 02/16/21 Range/Units 07:54 07:54 WBC 14.9 H (3.8-10.6) k/uL Neutrophils # 11.3 H (1.3-7.7) k/uL Monocytes # 1.1 H (0-1.0) k/uL Sodium 135 L (137-145) mmol/L Carbon Dioxide 33 H (22-30) mmol/L Creatinine 0.60 L (0.66-1.25) mg/dL Glucose 134 H (74-99) mg/dL Total Protein 6.0 L (6.3-8.2) g/dL Albumin 3.1 L (3.5-5.0) g/dL Assessment and Plan Assessment: 1. Left hand cellulitis with failed outpatient treatment. 2. History of atrial fibrillation/flutter with recent ablation patient maintained on xarelto 3. History of sleep apnea 4. History of morbid obesity 5. History of asthma with no exacerbation at this time 6. History of diverticulitis 7. History of previous episodes of cellulitis to lower extremities 8. Nicotine dependence. Patient educated greater than 3 minutes on smoking cessation. Nicotine patch will be ordered DVT prophylaxis xarelto. GI prophylaxis Protonix Continue IV antibiotics Blood and sputum cultures ordered Infectious disease consulted
--- NOTE | 2021-02-17 09:39 | P.PN ---
Subjective Progress Note Date: 02/17/21 This is a 46-year-old male patient who presented to the ER with increasing cellulitis to left hand. Patient was seen by his PCP in the office was started on Keflex. But left hand cellulitis progressed up to forearm area. Patient presented to the ER for further evaluation. She reports he did have a small pimple-like abrasion on finger prior to the redness patient denies any fevers at home. Patient denies any chest pain or shortness of breath. Patient denies nausea vomiting or diarrhea. Patient does have past medical history of atrial fibrillation/flutter, asthma, COPD, hypertension, sleep apnea and previous episodes of lower leg cellulitis. hand x-ray completed showing soft tissue swelling. Infectious disease services will be consulted. Blood culture ordered. Patient started on azithromycin and Rocephin. Repeat labs ordered for a.m. At this time patient denies any chest pain or shortness of breath. Patient denies nausea vomiting or diarrhea. Patient denies any urinary burning or frequency On 02/16/2021 patient is alert and oriented 3. Infectious disease services are following. Patient changed to IV vancomycin. Patient denies chest pain or shortness of breath. Patient denies nausea vomiting or diarrhea. Patient denies any urinary burning or frequency On 02/17/2021 patient's alert and oriented 3. She remains on vancomycin. Blood culture currently negative. Patient states he does not see much improvement to hand. Infectious disease services are following. Patient denies any chest pain or shortness of breath. Patient denies nausea vomiting or diarrhea. Patient denies any urinary burning or frequency Objective - Vital Signs Vital signs: Vital Signs Temp 98.4 F 02/17/21 07:21 Pulse 78 02/17/21 09:15 Resp 17 02/17/21 07:21 BP 150/73 02/17/21 07:21 Pulse Ox 94 L 02/17/21 07:21 Intake & Output 02/16/21 02/17/21 02/17/21 18:59 06:59 18:59 Intake Total 2600 Balance 2600 Intake: Intake, IV Titration 1800 Amount Sodium Chloride 0.9% 1, 1300 000 ml @ 130 mls/hr IV . Q7H42M [facility] Rx#:[id number] Vancomycin 2,250 mg In 500 Sodium Chloride 0.9% 500 ml 500 ml @ 167 mls/hr IVPB Q8H [facility] Rx#: [id number] Oral 800 Other: Voiding Method Toilet # Voids 3 2 - Exam Head normocephalic Neck supple Lungs clear to auscultation bilaterally no wheezing or crackles Heart regular rate and rhythm S1-S2, no rub or gallop Abdomen is soft nontender nondistended positive bowel sounds no hepatosplenomegaly Extremities no edema. left hand erythema noted to hand and forearm Neuro alert and orientated to 3 - Labs CBC & Chem 7: 02/17/21 06:42 02/17/21 06:42 Labs: Abnormal Lab Results - Last 24 Hours (Table) 02/17/21 02/17/21 Range/Units 06:42 06:42 WBC 21.4 H (3.8-10.6) k/uL Neutrophils # 15.7 H (1.3-7.7) k/uL Monocytes # 1.3 H (0-1.0) k/uL Carbon Dioxide 33 H (22-30) mmol/L Creatinine 0.52 L (0.66-1.25) mg/dL ALT 57 H (4-49) U/L Total Protein 6.2 L (6.3-8.2) g/dL Albumin 3.2 L (3.5-5.0) g/dL Microbiology - Last 24 Hours (Table) 02/15/21 09:14 Blood Culture - Preliminary Blood No Growth after 24 hours 02/15/21 09:14 Blood Culture - Preliminary Blood No Growth after 24 hours Assessment and Plan Assessment: 1. Left hand cellulitis with failed outpatient treatment. 2. History of atrial fibrillation/flutter with recent ablation patient maintained on xarelto 3. History of sleep apnea 4. History of morbid obesity 5. History of asthma with no exacerbation at this time 6. History of diverticulitis 7. History of previous episodes of cellulitis to lower extremities 8. Nicotine dependence. Patient educated greater than 3 minutes on smoking cessation. Nicotine patch will be ordered DVT prophylaxis xarelto. GI prophylaxis Protonix Continue IV antibiotic vancomycin Blood culture currently negative Infectious disease consulted
--- NOTE | 2021-02-17 16:53 | PN ---
PROGRESS NOTE DATE OF SERVICE: 02/17/2021 REASON FOR FOLLOWUP: Left third finger abscess and cellulitis and right lower extremity abscess and cellulitis. INTERVAL HISTORY: The patient is afebrile. The patient has developed another lesion on his right lateral leg area. Patient denies having any chest pain or shortness of breath or cough. No abdominal pain or diarrhea. PHYSICAL EXAMINATION: Blood pressure is 143/64, pulse of 63, temperature 98.4. He is 95% on room air. General description is a middle-aged male up in the room in no distress. RESPIRATORY SYSTEM: Unlabored breathing. Clear to auscultation anteriorly. HEART: S1, S2. Regular rate and rhythm. ABDOMEN: Soft. No tenderness. Left third finger dorsum did have a small abscess and developing lesion on the right lateral leg. LABS: White count up to 21.4. Creatinine 0.52. DIAGNOSTIC IMPRESSION AND PLAN: Patient with a left middle finger dorsum area abscess with secondary cellulitis. There was no cellulitis on the right leg. With worsening of the white count, may benefit from ortho evaluation for possible drainage of the abscess and culture. Some of the elevated white could be related to steroids the patient is on. Continue supportive care. MMODL / IJN: [id number] /
[2021-02-17] MEDS: RIVAROXABAN 20 MG TAB PO SCH (17:24)
[2021-02-17] MEDS: TAMSULOSIN 0.4 MG CAP.ER.24H PO SCH (20:22)
[2021-02-17] MEDS: MONTELUKAST 10 MG TAB PO SCH (20:22)
[2021-02-17] MEDS: diphenhydrAMINE 50 MG CAP PO SCH (20:23)
[2021-02-18] MEDS: HYDROmorphone 0.5 MG/0.5 ML SYRINGE IVP PRN ×5 (04:53→19:44)
[2021-02-18] MEDS: VANCOMYCIN 2,250 MG in SODIUM CHLORIDE 0.9% 500 ML 500 ML IVPB SCH ×3 (05:53→21:58)
[2021-02-18] MEDS: DILTIAZEM CD 120 MG CAP.ER.24H PO SCH (07:30)
[2021-02-18] MEDS: FUROSEMIDE 40 MG TAB PO SCH ×2 (07:30→17:30)
[2021-02-18] MEDS: METOPROLOL TARTRATE 25 MG TAB PO SCH ×2 (07:30→21:57)
[2021-02-18] MEDS: predniSONE 20 MG TAB PO SCH (07:30)
[2021-02-18] MEDS: PANTOPRAZOLE 40 MG TABLET PO SCH (07:30)
[2021-02-18] MEDS: NICOTINE 21MG/24HR PATCH TRANSDERM SCH ×2 (07:31→07:34)
[2021-02-18] MEDS: HYDROcodone/APAP 10-325MG 1 EACH TAB PO PRN (07:31)
[2021-02-18] MEDS: ALBUTEROL NEBULIZED 2.5 MG/3 ML INHALATION SCH ×4 (11:51→20:42)
[2021-02-18 12:14] LABS: Basophils # (A) 0.1 k/uL (0-0.2); Basophils % (A) 1 %; Eosinophils # (A) 0.1 k/uL (0-0.7); Eosinophils % (A) 1 %; HCT 50.4 % (39.0-53.0); HGB 17.1 gm/dL (13.0-17.5); Lymphocytes # (A) 1.7 k/uL (1.0-4.8); Lymphocytes % (A) 11 %; MCH 32.2 pg (25.0-35.0); MCHC 33.9 g/dL (31.0-37.0); MCV 94.8 fL (80.0-100.0); Mean Platelet Volume 9.4; Monocytes # (A) 0.7 k/uL (0-1.0); Monocytes % (A) 5 %; Neutrophils # (A) 12.9 k/uL (1.3-7.7); Neutrophils % (A) 82 %; Platelet Count 301 k/uL (150-450); Poikilocytosis Slight; RBC 5.32 m/uL (4.30-5.90); WBC 15.7 k/uL (3.8-10.6)
[2021-02-18 12:33] LABS: ALT 70 U/L (4-49); AST 43 U/L (17-59); African American GFR (CKD) >90 (>60 ml/min/1.73 sqM); Albumin 3.8 g/dL (3.5-5.0); Albumin/Globulin Ratio 1.2; Alkaline Phosphatase 75 U/L (38-126); Anion Gap 7 mmol/L; Blood Urea Nitrogen 14 mg/dL (9-20); Calcium 9.4 mg/dL (8.4-10.2); Carbon Dioxide 32 mmol/L (22-30); Chloride 96 mmol/L (98-107); Globulin 3.2 g/dL; Glucose 105 mg/dL (74-99); Non-African American GFR(CKD) >90 (>60 ml/min/1.73 sqM); Potassium 4.7 mmol/L (3.5-5.1); Sodium 135 mmol/L (137-145); Total Bilirubin 0.6 mg/dL (0.2-1.3)
[2021-02-18] MEDS: SODIUM CHLORIDE 0.9% 1,000 ML IV SCH (13:54)
[2021-02-18] MEDS: LORazepam 2 MG/ML INJ IV PRN ×2 (17:30→23:55)
[2021-02-18] MEDS: RIVAROXABAN 20 MG TAB PO SCH (17:30)
--- NOTE | 2021-02-18 18:07 | PN ---
PROGRESS NOTE DATE OF SERVICE: 02/18/2021 REASON FOR FOLLOWUP: Left middle finger and right leg abscess and cellulitis. INTERVAL HISTORY: The patient is afebrile, has been complaining of pain to the right index finger area without any significant improvement. Patient denies having any chest pain, shortness of breath or cough. No abdominal pain or diarrhea. PHYSICAL EXAMINATION: Blood pressure 115/68 with a pulse of 74, temperature 98.4. He is 96% on room air. General description is a middle-aged male up in the room in no distress. RESPIRATORY SYSTEM: Unlabored breathing. Decreased intensity of breath sounds. No wheeze. HEART: S1, S2. Regular rate and rhythm. ABDOMEN: Soft. No tenderness. Right leg/thigh area swelling and induration have slightly decreased. Left middle finger dorsum still has swelling, induration and redness without drainage. LABS: Hemoglobin is .9, white count 15.7, creatinine 0.60. Culture obtained yesterday has been pending. DIAGNOSTIC IMPRESSION AND PLAN: Patient with left middle finger dorsum abscess with cellulitis. Involvement to the right thigh area. Patient at this time to continue with vancomycin with a concern for possible drainage of the finger abscess and close outpatient followup. MMODL / IJN: [id number] /
[2021-02-18] MEDS: MELATONIN 5 MG TABLET PO SCH (21:57)
[2021-02-18] MEDS: TAMSULOSIN 0.4 MG CAP.ER.24H PO SCH (21:57)
[2021-02-18] MEDS: MONTELUKAST 10 MG TAB PO SCH (21:57)
[2021-02-18] MEDS: diphenhydrAMINE 50 MG CAP PO SCH (21:58)
[2021-02-19] MEDS: VANCOMYCIN 2,250 MG in SODIUM CHLORIDE 0.9% 500 ML 500 ML IVPB SCH ×3 (05:51→22:05)
[2021-02-19] MEDS: HYDROmorphone 0.5 MG/0.5 ML SYRINGE IVP PRN ×5 (06:02→22:10)
[2021-02-19] MEDS: DILTIAZEM CD 120 MG CAP.ER.24H PO SCH (07:17)
[2021-02-19] MEDS: NICOTINE 21MG/24HR PATCH TRANSDERM SCH ×2 (07:17→07:20)
[2021-02-19] MEDS: FUROSEMIDE 40 MG TAB PO SCH ×2 (07:17→17:27)
[2021-02-19] MEDS: PANTOPRAZOLE 40 MG TABLET PO SCH (07:17)
[2021-02-19] MEDS: predniSONE 20 MG TAB PO SCH (07:17)
[2021-02-19] MEDS: METOPROLOL TARTRATE 25 MG TAB PO SCH ×2 (07:17→22:05)
[2021-02-19] MEDS: SODIUM CHLORIDE 0.9% 1,000 ML IV SCH ×2 (07:18→19:25)
[2021-02-19] MEDS: LORazepam 2 MG/ML INJ IV PRN ×2 (07:31→14:26)
[2021-02-19] MEDS: ALBUTEROL NEBULIZED 2.5 MG/3 ML INHALATION SCH ×4 (07:36→19:49)
--- NOTE | 2021-02-19 10:24 | P.PN ---
Subjective Progress Note Date: 02/18/21 This is a 46-year-old male patient who presented to the ER with increasing cellulitis to left hand. Patient was seen by his PCP in the office was started on Keflex. But left hand cellulitis progressed up to forearm area. Patient presented to the ER for further evaluation. She reports he did have a small pimple-like abrasion on finger prior to the redness patient denies any fevers at home. Patient denies any chest pain or shortness of breath. Patient denies nausea vomiting or diarrhea. Patient does have past medical history of atrial fibrillation/flutter, asthma, COPD, hypertension, sleep apnea and previous episodes of lower leg cellulitis. hand x-ray completed showing soft tissue swelling. Infectious disease services will be consulted. Blood culture ordered. Patient started on azithromycin and Rocephin. Repeat labs ordered for a.m. At this time patient denies any chest pain or shortness of breath. Patient denies nausea vomiting or diarrhea. Patient denies any urinary burning or frequency On 02/16/2021 patient is alert and oriented 3. Infectious disease services are following. Patient changed to IV vancomycin. Patient denies chest pain or shortness of breath. Patient denies nausea vomiting or diarrhea. Patient denies any urinary burning or frequency On 02/17/2021 patient's alert and oriented 3. She remains on vancomycin. Blood culture currently negative. Patient states he does not see much improvement to hand. Infectious disease services are following. Patient denies any chest pain or shortness of breath. Patient denies nausea vomiting or diarrhea. Patient denies any urinary burning or frequency On 02/18/2023 1 patient's alert and oriented 3. Patient remains on IV vancomycin. Possible surgical consult for drainage of finger. Patient denies chest pain or shortness breath. Patient denies any urinary burning or frequency. Patient denies any nausea vomiting or diarrhea Objective - Vital Signs Vital signs: Vital Signs Temp 98.1 F 02/18/21 07:23 Pulse 88 02/18/21 12:08 Resp 20 02/18/21 07:23 BP 124/70 02/18/21 07:23 Pulse Ox 94 L 02/18/21 07:23 Intake & Output 02/17/21 02/18/21 02/18/21 18:59 06:59 18:59 Other: Voiding Method Toilet # Voids 3 3 - Exam Head normocephalic Neck supple Lungs clear to auscultation bilaterally no wheezing or crackles Heart regular rate and rhythm S1-S2, no rub or gallop Abdomen is soft nontender nondistended positive bowel sounds no hepatosplenomegaly Extremities no edema. left hand erythema noted to hand and forearm Neuro alert and orientated to 3 - Labs CBC & Chem 7: 02/18/21 11:28 02/18/21 11:28 Labs: Abnormal Lab Results - Last 24 Hours (Table) 02/18/21 02/18/21 Range/Units 11:28 11:28 WBC 15.7 H (3.8-10.6) k/uL Neutrophils # 12.9 H (1.3-7.7) k/uL Sodium 135 L (137-145) mmol/L Chloride 96 L (98-107) mmol/L Carbon Dioxide 32 H (22-30) mmol/L Creatinine 0.60 L (0.66-1.25) mg/dL Glucose 105 H (74-99) mg/dL ALT 70 H (4-49) U/L Microbiology - Last 24 Hours (Table) 02/15/21 09:14 Blood Culture - Preliminary Blood No Growth after 72 hours 02/15/21 09:14 Blood Culture - Preliminary Blood No Growth after 72 hours 02/17/21 14:45 Wound Culture - Preliminary Thigh - Right Assessment and Plan Assessment: 1. Left hand cellulitis with failed outpatient treatment. 2. History of atrial fibrillation/flutter with recent ablation patient maintained on xarelto 3. History of sleep apnea 4. History of morbid obesity 5. History of asthma with no exacerbation at this time 6. History of diverticulitis 7. History of previous episodes of cellulitis to lower extremities 8. Nicotine dependence. Patient educated greater than 3 minutes on smoking cessation. Nicotine patch will be ordered DVT prophylaxis xarelto. GI prophylaxis Protonix Continue IV antibiotic vancomycin Blood culture currently negative Infectious disease consulted
--- NOTE | 2021-02-19 10:25 | P.PN ---
Subjective Progress Note Date: 02/19/21 This is a 46-year-old male patient who presented to the ER with increasing cellulitis to left hand. Patient was seen by his PCP in the office was started on Keflex. But left hand cellulitis progressed up to forearm area. Patient presented to the ER for further evaluation. She reports he did have a small pimple-like abrasion on finger prior to the redness patient denies any fevers at home. Patient denies any chest pain or shortness of breath. Patient denies nausea vomiting or diarrhea. Patient does have past medical history of atrial fibrillation/flutter, asthma, COPD, hypertension, sleep apnea and previous episodes of lower leg cellulitis. hand x-ray completed showing soft tissue swelling. Infectious disease services will be consulted. Blood culture ordered. Patient started on azithromycin and Rocephin. Repeat labs ordered for a.m. At this time patient denies any chest pain or shortness of breath. Patient denies nausea vomiting or diarrhea. Patient denies any urinary burning or frequency On 02/16/2021 patient is alert and oriented 3. Infectious disease services are following. Patient changed to IV vancomycin. Patient denies chest pain or shortness of breath. Patient denies nausea vomiting or diarrhea. Patient denies any urinary burning or frequency On 02/17/2021 patient's alert and oriented 3. She remains on vancomycin. Blood culture currently negative. Patient states he does not see much improvement to hand. Infectious disease services are following. Patient denies any chest pain or shortness of breath. Patient denies nausea vomiting or diarrhea. Patient denies any urinary burning or frequency On 02/18/2023 1 patient's alert and oriented 3. Patient remains on IV vancomycin. Possible surgical consult for drainage of finger. Patient denies chest pain or shortness breath. Patient denies any urinary burning or frequency. Patient denies any nausea vomiting or diarrhea On 02/19/2021 patient's alert and oriented 3. Awaiting surgical input for possible drainage. Patient denies chest pain or shortness breath. Patient denies nausea vomiting or diarrhea. Patient denies any urinary burning or frequency Objective - Vital Signs Vital signs: Vital Signs Temp 97.8 F 02/19/21 06:01 Pulse 83 02/19/21 06:01 Resp 17 02/19/21 06:01 BP 137/72 02/19/21 06:01 Pulse Ox 97 02/19/21 06:01 Intake & Output 02/18/21 02/19/21 02/19/21 18:59 06:59 18:59 Other: Voiding Method Toilet # Voids 3 2 - Exam Head normocephalic Neck supple Lungs clear to auscultation bilaterally no wheezing or crackles Heart regular rate and rhythm S1-S2, no rub or gallop Abdomen is soft nontender nondistended positive bowel sounds no hepatosplenomegaly Extremities no edema. left hand erythema noted to hand and forearm Neuro alert and orientated to 3 - Labs CBC & Chem 7: 02/18/21 11:28 02/18/21 11:28 Labs: Abnormal Lab Results - Last 24 Hours (Table) 02/18/21 02/18/21 Range/Units 11:28 11:28 WBC 15.7 H (3.8-10.6) k/uL Neutrophils # 12.9 H (1.3-7.7) k/uL Sodium 135 L (137-145) mmol/L Chloride 96 L (98-107) mmol/L Carbon Dioxide 32 H (22-30) mmol/L Creatinine 0.60 L (0.66-1.25) mg/dL Glucose 105 H (74-99) mg/dL ALT 70 H (4-49) U/L Microbiology - Last 24 Hours (Table) 02/17/21 14:45 Gram Stain - Preliminary Thigh - Right Wound Culture - Preliminary Presumptive Staph aureus 02/15/21 09:14 Blood Culture - Preliminary Blood No Growth after 72 hours 02/15/21 09:14 Blood Culture - Preliminary Blood No Growth after 72 hours Assessment and Plan Assessment: 1. Left hand cellulitis with failed outpatient treatment. 2. History of atrial fibrillation/flutter with recent ablation patient maintained on xarelto 3. History of sleep apnea 4. History of morbid obesity 5. History of asthma with no exacerbation at this time 6. History of diverticulitis 7. History of previous episodes of cellulitis to lower extremities 8. Nicotine dependence. Patient educated greater than 3 minutes on smoking cessation. Nicotine patch will be ordered DVT prophylaxis xarelto. GI prophylaxis Protonix Continue IV antibiotic vancomycin Blood culture currently negative Infectious disease consulted Vertical service consulted for possible drainage
[2021-02-19 11:12] LABS: HGB 16.4 g/dL (13.0-17.0); MCH 32.5 pg (27.0-32.0); MCHC 33.5 g/dL (32.0-37.0); MCV 97.2 fL (80.0-97.0); Mean Platelet Volume 12.7 fL (9.5-12.2); Platelet Count 284 X 10*3/uL (140-440); RBC 5.04 X 10*6/uL (4.40-5.60); RDW 13.8 % (11.5-14.5); WBC 19.76 X 10*3/uL (4.50-10.00)
[2021-02-19] MEDS: HYDROcodone/APAP 10-325MG 1 EACH TAB PO PRN ×2 (11:38→19:34)
[2021-02-19 11:48] LABS: African American GFR (CKD) 127.6 (60.0-200.0); Albumin 3.7 g/dL (3.8-4.9); Albumin/Globulin Ratio 1.48 (1.60-3.17); Anion Gap 12.4 mmol/L (4.00-12.00); BUN/Creat Ratio 19.78 Ratio (12.00-20.00); Blood Urea Nitrogen 14.3 mg/dL (9.0-27.0); Calcium 9.2 mg/dL (8.7-10.3); Carbon Dioxide 29.3 mmol/L (21.6-31.8); Globulin 2.5 g/dL (1.6-3.3); Non-African American GFR(CKD) 110.1 (60.0-200.0); Potassium 4.4 mmol/L (3.5-5.5); Total Bilirubin 0.5 mg/dL (0.30-1.20); Total Protein 6.2 g/dL (6.2-8.2)
--- NOTE | 2021-02-19 12:20 | P.CNOR ---
History of Present Illness - HPI Consult date: 02/19/21 Consult reason: other History of present illness: Patient is a 46-year-old male seen at bedside this morning consultation for her left middle finger infection. He states that he presented to presented to the emergency room on February 15, 2021 for a chief complaint of left hand swelling. Patient has had this over the past couple days. States it started as a pimple on his finger and progressed to streaking up his arm. Patient denies fevers or chills. 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 He states the pain, swelling and redness have improved some today. He has been on IV antibiotics. Initial cultures are showing presumptive staph aureus. Patient has no other complaints at this time including shortness of breath, chest pain, abdominal pain, nausea or vomiting, headache, or visual changes. Review of Systems All systems: negative Constitutional: Denies chills, Denies fever Eyes: denies blurred vision, denies pain Ears, nose, mouth and throat: Denies headache, Denies sore throat Cardiovascular: Denies chest pain, Denies shortness of breath Respiratory: Denies cough Gastrointestinal: Denies abdominal pain, Denies diarrhea, Denies nausea, Denies vomiting Musculoskeletal: Denies myalgias Integumentary: Denies pruritus, Denies rash Neurological: Denies numbness, Denies weakness Psychiatric: Denies anxiety, Denies depression Endocrine: Denies fatigue, Denies weight change Past Medical History Past Medical History: Atrial Fibrillation, Atrial Flutter, Asthma, Blood Disorder, COPD, Hypertension, Pneumonia, Sleep Apnea/CPAP/BIPAP Additional Past Medical History / Comment(s): ASPLENIC. Pt recently admitted to [facility] on 08/28/18 with L lower leg cellulitis and hyperkalemia. 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 Past Psychological History: ADD/ADHD Smoking Status: Current every day smoker Past Alcohol Use History: None Reported Past Drug Use History: Marijuana - Past Family History Mother Family Medical History: Hypertension, Seizure Disorder Father Additional Family Medical History / Comment(s): Father from a heroin overdose. Medications and Allergies Home Medications Medication Instructions Recorded Confirmed Type Furosemide [Lasix] 40 mg PO BID 05/06/17 02/15/21 History HYDROcodone/APAP 10-325MG [[place] 1 tab PO TID PRN 05/06/17 02/15/21 History 10-325] Metoprolol Tartrate [Lopressor] 25 mg PO BID #60 tab 09/04/18 02/15/21 Rx Rivaroxaban [Xarelto] 20 mg PO W/SUPPER #30 tab 09/04/18 02/15/21 Rx Dextroamphetamine/Amphetamine 15 mg PO TID 02/17/20 02/15/21 History [Adderall] Diltiazem HCl [Cartia Xt] 120 mg PO DAILY 07/20/20 02/15/21 History Montelukast [Singulair] 10 mg PO HS 07/20/20 02/15/21 History Tamsulosin [Flomax] 0.4 mg PO HS 07/20/20 02/15/21 History Albuterol Inhaler [Ventolin Hfa 1 puff INHALATION RT-QID #8 gm 02/12/21 02/15/21 Rx Inhaler] predniSONE [Deltasone] 40 mg PO DAILY 5 Days #10 tab 02/12/21 02/15/21 Rx Nicotine 21Mg/24Hr Patch [Habitrol] 1 patch TRANSDERM DAILY 02/15/21 02/15/21 History Triamcinolone 0.5% Cream [Kenalog 1 applic TOPICAL TID PRN 02/15/21 02/15/21 History 0.5% Cream] Allergies Allergy/AdvReac Type Severity Reaction Status Date / Time sulfamethoxazole AdvReac ATRIAL Verified 02/15/21 10:47 [From Bactrim] FLUTTER/rash trimethoprim [From Bactrim] AdvReac ATRIAL Verified 02/15/21 10:47 FLUTTER/rash Physical Examination Inspection of the left hand and upper extremity show what appears to be a blood- filled blister at the dorsal aspect of the proximal phalanx the left middle finger. There is mild erythema in the close proximity. There is no progressive erythema proximally. There is mild minimal edema throughout the hand. There is swelling at the left middle finger. The left middle finger is mildly tender and painful to touch. He has near full flexion cascade in all digits as well as extension. There is no hand or wrist pain. He has full active range of motion at the wrist and elbow is painless. Sensation to touch is intact in all digits and hand. Less than 2 second capillary refill is present as well as 2+ radial pulse. Results X-rays of the left hand show no fractures or foreign bodies. - Labs Labs: Abnormal Lab Results - Last 24 Hours (Table) 02/18/21 02/18/21 02/19/21 Range/Units 11:28 11:28 07:12 WBC 15.7 H 19.76 H (3.8-10.6) k/uL MCV 97.2 H (80.0-97.0) fL MCH 32.5 H (27.0-32.0) pg MPV 12.7 H (9.5-12.2) fL Neutrophils # 12.9 H (1.3-7.7) k/uL Sodium 135 L (137-145) mmol/L Chloride 96 L (98-107) mmol/L Carbon Dioxide 32 H (22-30) mmol/L Anion Gap (4.00-12.00) mmol/L Creatinine 0.60 L (0.66-1.25) mg/dL Glucose 105 H (74-99) mg/dL ALT 70 H (4-49) U/L Albumin (3.8-4.9) g/dL Albumin/Globulin Ratio (1.60-3.17) g/dL 02/19/21 Range/Units 07:12 WBC (3.8-10.6) k/uL MCV (80.0-97.0) fL MCH (27.0-32.0) pg MPV (9.5-12.2) fL Neutrophils # (1.3-7.7) k/uL Sodium (137-145) mmol/L Chloride (98-107) mmol/L Carbon Dioxide (22-30) mmol/L Anion Gap 12.40 H (4.00-12.00) mmol/L Creatinine (0.66-1.25) mg/dL Glucose (74-99) mg/dL ALT 59 H (4-49) U/L Albumin 3.7 L (3.8-4.9) g/dL Albumin/Globulin Ratio 1.48 L (1.60-3.17) g/dL Microbiology - Last 24 Hours (Table) 02/15/21 09:14 Blood Culture - Preliminary Blood No Growth after 96 hours 02/15/21 09:14 Blood Culture - Preliminary Blood No Growth after 96 hours 02/17/21 14:45 Gram Stain - Preliminary Thigh - Right Wound Culture - Preliminary Presumptive Staph aureus H & H 02/15/21 02/16/21 02/17/21 Range/Units 09:14 07:54 06:42 Hgb 18.0 H 15.5 16.0 (13.0-17.5) gm/dL Hct 52.3 47.0 46.8 (39.0-53.0) % 02/18/21 02/19/21 Range/Units 11:28 07:12 Hgb 17.1 16.4 (13.0-17.5) gm/dL Hct 50.4 49.0 (39.0-53.0) % Result Diagrams: 02/19/21 07:12 02/19/21 07:12 - Diagnostic results Wrist/Hand x-ray: report reviewed, image reviewed Assessment and Plan (1) Cellulitis Narrative/Plan: Utilizing sterile technique a small puncture the left middle finger at the dorsal aspect was performed. Small amount of blood tinged purulence was expressed. Cultures were obtained. Recommended doing warm soapy soaks with the left hand at least twice per day for 30 minutes. Advised to continue elevation and IV antibiotics. We'll continue to monitor make further recommendations as appropriate. Current Visit: Yes Status: Acute Priority: Medium Code(s): L03.90 - CELLULITIS, UNSPECIFIED SNOMED Code(s): 335687361 (2) Abscess Current Visit: No Status: Acute Priority: Medium Code(s): L02.91 - CUTANEOUS ABSCESS, UNSPECIFIED SNOMED Code(s): 099333077 Time with Patient: Less than 30
[2021-02-19 12:55] LABS: Basophils # (A) 0.18 X 10*3/uL (0.00-0.10); Basophils % (A) 0.9 %; Eosinophils # (A) 0.31 X 10*3/uL (0.04-0.35); Eosinophils % (A) 1.6 %; Lymphocytes % (A) 22.3 %; Monocytes # (A) 1.92 X 10*3/uL (0.20-1.00); Monocytes % (A) 9.7 %; Neutrophils # (A) 12.49 X 10*3/uL (1.80-7.70); Neutrophils % (A) 63.2 %
[2021-02-19] MEDS: RIVAROXABAN 20 MG TAB PO SCH (17:27)
[2021-02-19] MEDS: MONTELUKAST 10 MG TAB PO SCH (22:05)
[2021-02-19] MEDS: TAMSULOSIN 0.4 MG CAP.ER.24H PO SCH (22:05)
[2021-02-19] MEDS: MELATONIN 5 MG TABLET PO SCH (22:05)
[2021-02-19] MEDS: diphenhydrAMINE 50 MG CAP PO SCH (22:05)
--- NOTE | 2021-02-20 01:01 | PN ---
PROGRESS NOTE DATE OF SERVICE: 02/19/2021 REASON FOR FOLLOWUP: Left middle finger abscess and right leg MRSA abscess and cellulitis. INTERVAL HISTORY: The patient is afebrile. The patient was evaluated by Ortho this morning, status post bedside drainage of the abscess. Patient tolerated the procedure. No chest pain, shortness of breath or cough. No abdominal pain or diarrhea. PHYSICAL EXAMINATION: Blood pressure 172/73 with a pulse of 85, temperature 98.3. He is 93% on room air. General description is a middle-aged male up in the bed in no distress. RESPIRATORY SYSTEM: Unlabored breathing. Decreased intensity of breath sounds. No wheeze. HEART: S1, S2. Regular rate and rhythm. ABDOMEN: Soft. No tenderness. Left hand and right leg overall swelling has decreased. No drainage. LABS: Hemoglobin is 16.4, white count 19.76, creatinine 0.7. DIAGNOSTIC IMPRESSION AND PLAN: Patient with left hand finger abscess, status post drainage with a right thigh abscess secondary to MRSA. Patient is covered with vancomycin. Transition to oral antibiotic on discharge. Elevated white count more likely related to steroids, as no clinical evidence of worsening infection. Continue with supportive care. MMODL / IJN: [id number] /
[2021-02-20] MEDS ORDERED: VANCOMYCIN TROUGH DUE 1 EACH MISC MISCELLANE ONE (05:00)
[2021-02-20 05:55] LABS: ALT 47 U/L (4-49); AST 26 U/L (17-59); African American GFR (CKD) >90 (>60 ml/min/1.73 sqM); Albumin 3.1 g/dL (3.5-5.0); Albumin/Globulin Ratio 1.1; Alkaline Phosphatase 61 U/L (38-126); Anion Gap 4 mmol/L; Blood Urea Nitrogen 17 mg/dL (9-20); Calcium 9.2 mg/dL (8.4-10.2); Carbon Dioxide 35 mmol/L (22-30); Chloride 97 mmol/L (98-107); Globulin 2.9 g/dL; Glucose 94 mg/dL (74-99); Non-African American GFR(CKD) >90 (>60 ml/min/1.73 sqM); Potassium 4.2 mmol/L (3.5-5.1); Sodium 136 mmol/L (137-145); Total Bilirubin 0.3 mg/dL (0.2-1.3)
[2021-02-20] MEDS: HYDROmorphone 0.5 MG/0.5 ML SYRINGE IVP PRN ×4 (06:11→17:31)
[2021-02-20] MEDS: VANCOMYCIN 2,250 MG in SODIUM CHLORIDE 0.9% 500 ML 500 ML IVPB SCH (06:14)
[2021-02-20] MEDS: ALBUTEROL NEBULIZED 2.5 MG/3 ML INHALATION SCH ×3 (07:01→20:54)
[2021-02-20 07:19] VITALS: RESP 18
[2021-02-20] MEDS: predniSONE 20 MG TAB PO SCH (07:32)
[2021-02-20] MEDS: NICOTINE 21MG/24HR PATCH TRANSDERM SCH (07:33)
[2021-02-20] MEDS: METOPROLOL TARTRATE 25 MG TAB PO SCH ×2 (07:33→20:30)
[2021-02-20] MEDS: HYDROcodone/APAP 10-325MG 1 EACH TAB PO PRN (07:33)
[2021-02-20] MEDS: DILTIAZEM CD 120 MG CAP.ER.24H PO SCH (07:33)
[2021-02-20] MEDS: PANTOPRAZOLE 40 MG TABLET PO SCH (07:33)
[2021-02-20] MEDS: FUROSEMIDE 40 MG TAB PO SCH ×2 (07:33→17:31)
[2021-02-20 08:42] LABS: Basophils % (A) 1.2 %; Eosinophils # (A) 0.46 X 10*3/uL (0.04-0.35); Eosinophils % (A) 2.7 %; HCT 44.5 % (39.6-50.0); HGB 14.8 g/dL (13.0-17.0); Lymphocytes % (A) 23.9 %; MCH 32.3 pg (27.0-32.0); MCHC 33.3 g/dL (32.0-37.0); MCV 97.2 fL (80.0-97.0); Monocytes # (A) 1.59 X 10*3/uL (0.20-1.00); Monocytes % (A) 9.3 %; Neutrophils # (A) 10.36 X 10*3/uL (1.80-7.70); Neutrophils % (A) 60.4 %; Platelet Count 303 X 10*3/uL (140-440); RBC 4.58 X 10*6/uL (4.40-5.60); RDW 13.9 % (11.5-14.5); WBC 17.14 X 10*3/uL (4.50-10.00)
--- NOTE | 2021-02-20 13:37 | P.PN ---
Subjective Progress Note Date: 02/20/21 Principal diagnosis: Left finger infection Patient is seen at bedside this am. We are followingbhim for left middle finger infection. A simple I and D of the left middle finger at the dorsum aspect of the proximal phalanx was performed at bedside yesterday. He has been also doing warm soapy soaks BID. He feels improved some today. He denies fever ior chills. No new numbness or tingling. No wrist or arm complaints. Objective - Vital Signs Vital signs: Vital Signs Temp 97.8 F 02/20/21 06:58 Pulse 54 L 02/20/21 06:58 Resp 18 02/20/21 06:58 BP 135/68 02/20/21 06:58 Pulse Ox 94 L 02/20/21 06:58 Intake & Output 02/19/21 02/20/21 02/20/21 18:59 06:59 18:59 Other: Voiding Method Toilet # Voids 5 3 - Exam Inspection of left hand shows general improvement with erythema and edema. There is a small wound at dorsum of proximal phalanx of left middle finger. There is minimal draiange/bleeding. There is improved swelling and erythema about the wound. There is no proximal progression. It is minimally tender at the middle finger. There is no evidence of fluid collection or fluctuance. He has near full flexion of the middle finger which is improved and otherwise normal range of motion of all digits, hand and wrist. NVI with motor and sensation throughout left upper extremity and hand. 2+ radial pulse and less than 2 sec refill is present - Constitutional General appearance: Present: no acute distress - Labs CBC & Chem 7: 02/20/21 05:37 02/20/21 05:37 Labs: Abnormal Lab Results - Last 24 Hours (Table) 02/20/21 02/20/21 Range/Units 05:37 05:37 WBC 17.14 H (4.50-10.00) X 10*3/uL MCV 97.2 H (80.0-97.0) fL MCH 32.3 H (27.0-32.0) pg Immature Gran # 0.43 H (0.00-0.04) X 10*3/uL Neutrophils # 10.36 H (1.80-7.70) X 10*3/uL Monocytes # 1.59 H (0.20-1.00) X 10*3/uL Eosinophils # 0.46 H (0.04-0.35) X 10*3/uL Basophils # 0.20 H (0.00-0.10) X 10*3/uL Sodium 136 L (137-145) mmol/L Chloride 97 L (98-107) mmol/L Carbon Dioxide 35 H (22-30) mmol/L Total Protein 6.0 L (6.3-8.2) g/dL Albumin 3.1 L (3.5-5.0) g/dL Microbiology - Last 24 Hours (Table) 02/15/21 09:14 Blood Culture - Preliminary Blood No Growth after 120 hours 02/15/21 09:14 Blood Culture - Preliminary Blood No Growth after 120 hours 02/19/21 11:35 Gram Stain - Preliminary Finger - Left Third Wound Culture - Preliminary Presumptive MRSA 02/17/21 14:45 Gram Stain - Final Thigh - Right Wound Culture - Final Methicillin resist S. aureus 02/19/21 11:35 Anaerobic Culture - Preliminary Finger - Left Third Assessment and Plan (1) Cellulitis Narrative/Plan: He will continue doing warm soapy soaks with the left hand at least twice per day for 30 minutes. Advised to continue elevation and IV antibiotics per ID where cultures are showing presumptive MRSA. We'll continue to monitor make further recommendations as appropriate. Current Visit: Yes Status: Acute Priority: Medium Code(s): L03.90 - CELLULITIS, UNSPECIFIED SNOMED Code(s): 839467918 (2) Abscess Current Visit: No Status: Acute Priority: Medium Code(s): L02.91 - CUTANEOUS ABSCESS, UNSPECIFIED SNOMED Code(s): 412305107
[2021-02-20 15:15] VITALS: PULSE 72
[2021-02-20] MEDS: LORazepam 2 MG/ML INJ IV PRN (15:56)
[2021-02-20] MEDS: RIVAROXABAN 20 MG TAB PO SCH (17:31)
[2021-02-20] MEDS ORDERED: VANCOMYCIN 2,250 MG in SODIUM CHLORIDE 0.9% 500 ML 500 ML IVPB SCH (18:00)
--- NOTE | 2021-02-20 19:18 | PN ---
PROGRESS NOTE DATE OF SERVICE: 02/20/2021 REASON FOR FOLLOWUP: Left middle finger and right leg MRSA abscess and cellulitis. INTERVAL HISTORY: The patient is afebrile. The patient is currently breathing comfortably. Denies any chest pain or shortness of breath or cough. Pain to the left middle finger and right thigh has decreased in intensity. PHYSICAL EXAMINATION: Blood pressure 114/59, pulse of 72, temperature 98.4. He is 93% on room air. General description is a middle-aged male lying in bed in no distress. RESPIRATORY SYSTEM: Unlabored breathing. Clear to auscultation anteriorly. HEART: S1, S2. Regular rate and rhythm. ABDOMEN: Soft. No tenderness. LABS: Hemoglobin is 14.8, white count 17.4, creatinine 0.73. DIAGNOSTIC IMPRESSION AND PLAN: Patient with left middle finger and right lateral thigh abscess secondary to MRSA with drainage of the abscess. Patient seems to have shown overall clinical improvement. Finishing therapy with oral doxycycline and close outpatient followup. Discussed with the admitting physician. LUCILA / IJN: [id number] /
[2021-02-20] MEDS: TAMSULOSIN 0.4 MG CAP.ER.24H PO SCH (20:29)
[2021-02-20] MEDS: MONTELUKAST 10 MG TAB PO SCH (20:29)
[2021-02-20] MEDS: diphenhydrAMINE 50 MG CAP PO SCH (20:30)
[2021-02-20] MEDS: MELATONIN 5 MG TABLET PO SCH (20:30)
[2021-02-20 21:05] VITALS: BP 158/83; TEMP 98
== END 2021-02-20 21:19 | disposition home or self-care (01) | DRG 603 ==
LOC: EC 08:01 → 5NMEDONC 10:22 → 1SOBS 17:35 → 4SSUR 02-17 06:31
PROVIDERS: ADMIT Internal Medicine; ATTEND Internal Medicine
PROC: 0J9K3ZX Drainage of Left Hand Subcutaneous Tissue and Fascia, Percutaneous Approach, Diagnostic (ICD-10-PCS; principal; 2021-02-14)
DX: L02.512 Cutaneous abscess of left hand (principal); I48.92 Unspecified atrial flutter; Z68.43 Body mass index [BMI] 50.0-59.9, adult; L02.415 Cutaneous abscess of right lower limb; L03.114 Cellulitis of left upper limb; L03.115 Cellulitis of right lower limb; E66.01 Morbid (severe) obesity due to excess calories; M79.89 Other specified soft tissue disorders; B95.62 Methicillin resistant Staphylococcus aureus infection as the cause of diseases classified elsewhere; T38.0X5A Adverse effect of glucocorticoids and synthetic analogues, initial encounter; Z90.81 Acquired absence of spleen; D58.0 Hereditary spherocytosis; Z79.899 Other long term (current) drug therapy; Z79.01 Long term (current) use of anticoagulants; J44.9 Chronic obstructive pulmonary disease, unspecified; I10 Essential (primary) hypertension; I48.91 Unspecified atrial fibrillation; G47.33 Obstructive sleep apnea (adult) (pediatric); F17.210 Nicotine dependence, cigarettes, uncomplicated; E87.5 Hyperkalemia; F90.9 Attention-deficit hyperactivity disorder, unspecified type; T80.92XA Unspecified transfusion reaction, initial encounter; Y84.8 Other medical procedures as the cause of abnormal reaction of the patient, or of later complication, without mention of misadventure at the time of the procedure; L03.012 Cellulitis of left finger; X58.XXXA Exposure to other specified factors, initial encounter; Z88.8 Allergy status to other drugs, medicaments and biological substances; Z88.2 Allergy status to sulfonamides
CPT/HCPCS: 36415; 80053; 80202; 83605; 85025; 87040; 87070; 87075; 87077; 87186; 87205; 87635; 94640

== ENCOUNTER 2021-07-12 01:08 | Observation (INO) | payer BC ==
--- NOTE | 2021-07-12 01:57 | ED ---
SOB HPI - General Chief Complaint: Shortness of Breath Stated Complaint: SOB, LT arm numbness Time Seen by Provider: 07/12/21 01:24 Source: patient Mode of arrival: wheelchair Limitations: no limitations - History of Present Illness Initial Comments: This patient is a 46-year-old man with history of previous CHF who presents with complaint that he is having progressively worse dyspnea mainly exertional over the past week. He states that if he walks from his house to his car gets very short of breath in and nearly has a panic attack. There is been some dull pain in his chest. He states also that his left arm is been going numb over the past 3 days. The patient has had some swelling of the legs and feet over the past 3 days but it does get a little better when he takes Lasix. The patient has not noted fever or chills. No productive cough. No change in urination or bowel movements. MD Complaint: shortness of breath, chest pain Onset/Timin -: week(s) Radiation: left arm Severity: mild Quality: dull, other (Numbness) Consistency: constant Improves With: upright position Worsens With: lying flat, exertion Known History Of: congestive heart failure Associated Symptoms: other (Leg swelling) Treatments Prior to Arrival: diuretics - Related Data Home Medications Medication Instructions Recorded Confirmed Furosemide [Lasix] 80 mg PO DAILY 05/06/17 07/12/21 HYDROcodone/APAP 10-325MG [[place] 1 tab PO TID PRN 05/06/17 07/12/21 10-325] Diltiazem HCl [Cartia Xt] 120 mg PO DAILY 07/20/20 07/12/21 Montelukast [Singulair] 10 mg PO HS 07/20/20 07/12/21 Tamsulosin [Flomax] 0.4 mg PO HS 07/20/20 07/12/21 Nicotine 21Mg/24Hr Patch [Habitrol] 1 patch TRANSDERM DAILY 02/15/21 07/12/21 Albuterol Inhaler [Ventolin Hfa 1 puff INHALATION RT-QID PRN 07/12/21 07/12/21 Inhaler] Dextroamphetamine/Amphetamine 20 mg PO TID 07/12/21 07/12/21 [Adderall] Omalizumab [Xolair] 150 mg SQ Q14D 07/12/21 07/12/21 predniSONE See Taper PO DAILY 07/12/21 07/12/21 Previous Rx's Medication Instructions Recorded Metoprolol Tartrate [Lopressor] 25 mg PO BID #60 tab 09/04/18 Rivaroxaban [Xarelto] 20 mg PO W/SUPPER #30 tab 09/04/18 Cephalexin [Keflex] 250 mg PO Q6HR 10 Days #40 capsule 07/14/21 Allergies Allergy/AdvReac Type Severity Reaction Status Date / Time sulfamethoxazole Allergy AFIB/Hives Verified 07/12/21 06:52 [From Bactrim] trimethoprim [From Bactrim] Allergy AFIB/Hives Verified 07/12/21 06:52 Review of Systems ROS Statement: Those systems with pertinent positive or pertinent negative responses have been documented in the HPI. ROS Other: All systems not noted in ROS Statement are negative. Constitutional: Denies: fever, chills Respiratory: Reports: dyspnea. Denies: cough Cardiovascular: Reports: dyspnea on exertion, orthopnea, edema. Denies: chest pain, palpitations, syncope Gastrointestinal: Denies: abdominal pain, nausea, vomiting, diarrhea, melena, hematochezia Genitourinary: Denies: dysuria, hematuria Musculoskeletal: Denies: back pain Skin: Denies: rash, lesions Neurological: Reports: numbness (Left arm). Denies: headache, weakness Past Medical History Past Medical History: Atrial Fibrillation, Atrial Flutter, Asthma, Blood Disorder, Heart Failure, COPD, Hypertension, Pneumonia, Sleep Apnea/CPAP/BIPAP Additional Past Medical History / Comment(s): ASPLENIC. Pt recently admitted to [facility] on 08/28/18 with L lower leg cellulitis and hyperkalemia. 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 History of Any Multi-Drug Resistant Organisms: MRSA Date of last positivie culture/infection: 02/19/21 MDRO Source:: FINGER, THIGH MRSA Additional Past Surgical History / Comment(s): Splenectomy AGE 2, ;left thigh injury with surgery and another surgery d/t abscess with I&D appox 2000, vocal cord lesions removed, 2014 BMA/Bx, CARDIOVERSION Past Anesthesia/Blood Transfusion Reactions: Previous Problems w/ Anesthesia Additional Past Anesthesia/Blood Transfusion Reaction / Comment(s): Pt states he woke up aggressive one time. Past Psychological History: ADD/ADHD Smoking Status: Current every day smoker Past Alcohol Use History: None Reported Past Drug Use History: Marijuana - Past Family History Mother Family Medical History: Hypertension, Seizure Disorder Father Additional Family Medical History / Comment(s): Father from a heroin overdose. General Exam Limitations: no limitations General appearance: alert, in no apparent distress Head exam: Present: atraumatic, normocephalic Eye exam: Present: normal appearance Neck exam: Present: normal inspection Respiratory exam: Present: normal lung sounds bilaterally. Absent: respiratory distress, wheezes, rales, rhonchi, stridor Cardiovascular Exam: Present: regular rate, normal rhythm, normal heart sounds. Absent: systolic murmur, diastolic murmur, rubs, gallop GI/Abdominal exam: Present: soft. Absent: distended, tenderness, guarding, rebound, rigid, mass Extremities exam: Present: normal inspection, normal capillary refill. Absent: pedal edema, calf tenderness Back exam: Present: normal inspection. Absent: CVA tenderness (R), CVA tenderness (L) Neurological exam: Present: alert Skin exam: Present: warm, dry, intact, normal color. Absent: rash Course Vital Signs 07/12/21 07/12/21 07/12/21 01:11 02:26 02:27 Temperature 97.8 F Pulse Rate 86 74 Respiratory 18 20 Rate Blood Pressure 158/81 134/75 O2 Sat by Pulse 94 L 91 L 96 Oximetry 07/12/21 07/12/21 07/12/21 05:00 06:22 06:50 Temperature 98.4 F Pulse Rate 78 66 69 Respiratory 16 18 18 Rate Blood Pressure 144/71 120/58 O2 Sat by Pulse 96 99 Oximetry Medical Decision Making - Lab Data Result diagrams: 07/14/21 07:23 07/14/21 07:23 Lab Results 07/12/21 07/12/21 07/12/21 Range/Units 02:24 02:24 02:24 WBC 17.6 H (3.8-10.6) k/uL RBC 4.61 (4.30-5.90) m/uL Hgb 15.0 (13.0-17.5) gm/dL Hct 42.7 (39.0-53.0) % MCV 92.6 (80.0-100.0) fL MCH 32.5 (25.0-35.0) pg MCHC 35.0 (31.0-37.0) g/dL RDW 14.3 (11.5-15.5) % Plt Count 298 (150-450) k/uL MPV 9.3 Neutrophils % 78 % Lymphocytes % 14 % Monocytes % 6 % Eosinophils % 1 % Basophils % 1 % Neutrophils # 13.6 H (1.3-7.7) k/uL Lymphocytes # 2.4 (1.0-4.8) k/uL Monocytes # 1.0 (0-1.0) k/uL Eosinophils # 0.2 (0-0.7) k/uL Basophils # 0.2 (0-0.2) k/uL Poikilocytosis Slight PT 11.2 (9.0-12.0) sec INR 1.0 (<1.2) APTT 26.5 (22.0-30.0) sec D-Dimer <0.17 (<0.60) mg/L FEU Sodium 137 (137-145) mmol/L Potassium 4.1 (3.5-5.1) mmol/L Chloride 98 (98-107) mmol/L Carbon Dioxide 35 H (22-30) mmol/L Anion Gap 4 mmol/L BUN 18 (9-20) mg/dL Creatinine 0.60 L (0.66-1.25) mg/dL Est GFR (CKD-EPI)AfAm >90 (>60 ml/min/1.73 sqM) Est GFR (CKD-EPI)NonAf >90 (>60 ml/min/1.73 sqM) Glucose 138 H (74-99) mg/dL Estimated Ave Glu mg/dL Hemoglobin A1c (0.0-6.0) % Plasma Lactic Acid [place] (0.7-2.0) mmol/L Calcium 9.0 (8.4-10.2) mg/dL Magnesium 2.3 (1.6-2.3) mg/dL Total Bilirubin 0.5 (0.2-1.3) mg/dL AST 35 (17-59) U/L ALT 37 (4-49) U/L Alkaline Phosphatase 72 (38-126) U/L Troponin I (0.000-0.034) ng/mL NT-Pro-B Natriuret Pep pg/mL Total Protein 6.9 (6.3-8.2) g/dL Albumin 3.8 (3.5-5.0) g/dL Urine Color Urine Appearance (Clear) Urine pH (5.0-8.0) Ur Specific [place] (1.001-1.035) Urine Protein (Negative) Urine Glucose (UA) (Negative) Urine Ketones (Negative) Urine Blood (Negative) Urine Nitrite (Negative) Urine Bilirubin (Negative) Urine Urobilinogen (<2.0) mg/dL Ur Leukocyte Esterase (Negative) Urine RBC (0-5) /hpf Urine WBC (0-5) /hpf Urine Mucus (None) /hpf 07/12/21 07/12/21 07/12/21 Range/Units 02:24 02:24 02:24 WBC (3.8-10.6) k/uL RBC (4.30-5.90) m/uL Hgb (13.0-17.5) gm/dL Hct (39.0-53.0) % MCV (80.0-100.0) fL MCH (25.0-35.0) pg MCHC (31.0-37.0) g/dL RDW (11.5-15.5) % Plt Count (150-450) k/uL MPV Neutrophils % % Lymphocytes % % Monocytes % % Eosinophils % % Basophils % % Neutrophils # (1.3-7.7) k/uL Lymphocytes # (1.0-4.8) k/uL Monocytes # (0-1.0) k/uL Eosinophils # (0-0.7) k/uL Basophils # (0-0.2) k/uL Poikilocytosis PT (9.0-12.0) sec INR (<1.2) APTT (22.0-30.0) sec D-Dimer (<0.60) mg/L FEU Sodium (137-145) mmol/L Potassium (3.5-5.1) mmol/L Chloride (98-107) mmol/L Carbon Dioxide (22-30) mmol/L Anion Gap mmol/L BUN (9-20) mg/dL Creatinine (0.66-1.25) mg/dL Est GFR (CKD-EPI)AfAm (>60 ml/min/1.73 sqM) Est GFR (CKD-EPI)NonAf (>60 ml/min/1.73 sqM) Glucose (74-99) mg/dL Estimated Ave Glu mg/dL Hemoglobin A1c (0.0-6.0) % Plasma Lactic Acid [place] 1.4 (0.7-2.0) mmol/L Calcium (8.4-10.2) mg/dL Magnesium (1.6-2.3) mg/dL Total Bilirubin (0.2-1.3) mg/dL AST (17-59) U/L ALT (4-49) U/L Alkaline Phosphatase (38-126) U/L Troponin I <0.012 (0.000-0.034) ng/mL NT-Pro-B Natriuret Pep 60 pg/mL Total Protein (6.3-8.2) g/dL Albumin (3.5-5.0) g/dL Urine Color Urine Appearance (Clear) Urine pH (5.0-8.0) Ur Specific [place] (1.001-1.035) Urine Protein (Negative) Urine Glucose (UA) (Negative) Urine Ketones (Negative) Urine Blood (Negative) Urine Nitrite (Negative) Urine Bilirubin (Negative) Urine Urobilinogen (<2.0) mg/dL Ur Leukocyte Esterase (Negative) Urine RBC (0-5) /hpf Urine WBC (0-5) /hpf Urine Mucus (None) /hpf 07/12/21 07/12/21 Range/Units 02:24 03:40 WBC (3.8-10.6) k/uL RBC (4.30-5.90) m/uL Hgb (13.0-17.5) gm/dL Hct (39.0-53.0) % MCV (80.0-100.0) fL MCH (25.0-35.0) pg MCHC (31.0-37.0) g/dL RDW (11.5-15.5) % Plt Count (150-450) k/uL MPV Neutrophils % % Lymphocytes % % Monocytes % % Eosinophils % % Basophils % % Neutrophils # (1.3-7.7) k/uL Lymphocytes # (1.0-4.8) k/uL Monocytes # (0-1.0) k/uL Eosinophils # (0-0.7) k/uL Basophils # (0-0.2) k/uL Poikilocytosis PT (9.0-12.0) sec INR (<1.2) APTT (22.0-30.0) sec D-Dimer (<0.60) mg/L FEU Sodium (137-145) mmol/L Potassium (3.5-5.1) mmol/L Chloride (98-107) mmol/L Carbon Dioxide (22-30) mmol/L Anion Gap mmol/L BUN (9-20) mg/dL Creatinine (0.66-1.25) mg/dL Est GFR (CKD-EPI)AfAm (>60 ml/min/1.73 sqM) Est GFR (CKD-EPI)NonAf (>60 ml/min/1.73 sqM) Glucose (74-99) mg/dL Estimated Ave Glu mg/dL 120 Hemoglobin A1c 5.8 (0.0-6.0) % Plasma Lactic Acid [place] (0.7-2.0) mmol/L Calcium (8.4-10.2) mg/dL Magnesium (1.6-2.3) mg/dL Total Bilirubin (0.2-1.3) mg/dL AST (17-59) U/L ALT (4-49) U/L Alkaline Phosphatase (38-126) U/L Troponin I (0.000-0.034) ng/mL NT-Pro-B Natriuret Pep pg/mL Total Protein (6.3-8.2) g/dL Albumin (3.5-5.0) g/dL Urine Color Yellow Urine Appearance Clear (Clear) Urine pH 6.0 (5.0-8.0) Ur Specific [place] 1.027 (1.001-1.035) Urine Protein Negative (Negative) Urine Glucose (UA) Negative (Negative) Urine Ketones Negative (Negative) Urine Blood Trace H (Negative) Urine Nitrite Negative (Negative) Urine Bilirubin Negative (Negative) Urine Urobilinogen <2.0 (<2.0) mg/dL Ur Leukocyte Esterase Negative (Negative) Urine RBC 12 H (0-5) /hpf Urine WBC <1 (0-5) /hpf Urine Mucus Rare H (None) /hpf Disposition Clinical Impression: Dyspnea, Chest pain Disposition: ADMITTED IP TO THIS HOSP Condition: Stable
--- NOTE | 2021-07-12 02:32 | XR ---
EXAMINATION TYPE: XR chest 2V DATE OF EXAM: 07/12/2021 COMPARISON: 02/12/2021 HISTORY: Difficulty breathing TECHNIQUE: 2 views FINDINGS: There is no heart failure nor confluent pneumonic infiltrate. Costophrenic angles are clear . The bony thorax is intact. There is no pleural effusion IMPRESSION: No active cardiopulmonary disease. Normal heart. No change.
[2021-07-12 02:44] LABS: Basophils # (A) 0.2 k/uL (0-0.2); Basophils % (A) 1 %; Eosinophils # (A) 0.2 k/uL (0-0.7); Eosinophils % (A) 1 %; HCT 42.7 % (39.0-53.0); Lymphocytes # (A) 2.4 k/uL (1.0-4.8); Lymphocytes % (A) 14 %; MCH 32.5 pg (25.0-35.0); MCV 92.6 fL (80.0-100.0); Mean Platelet Volume 9.3; Monocytes % (A) 6 %; Neutrophils # (A) 13.6 k/uL (1.3-7.7); Neutrophils % (A) 78 %; Platelet Count 298 k/uL (150-450); Poikilocytosis Slight; RBC 4.61 m/uL (4.30-5.90); RDW 14.3 % (11.5-15.5); WBC 17.6 k/uL (3.8-10.6)
[2021-07-12 03:01] LABS: ALT 37 U/L (4-49); AST 35 U/L (17-59); African American GFR (CKD) >90 (>60 ml/min/1.73 sqM); Albumin 3.8 g/dL (3.5-5.0); Alkaline Phosphatase 72 U/L (38-126); Anion Gap 4 mmol/L; Blood Urea Nitrogen 18 mg/dL (9-20); Carbon Dioxide 35 mmol/L (22-30); Chloride 98 mmol/L (98-107); Glucose 138 mg/dL (74-99); Magnesium 2.3 mg/dL (1.6-2.3); Non-African American GFR(CKD) >90 (>60 ml/min/1.73 sqM); Potassium 4.1 mmol/L (3.5-5.1); Sodium 137 mmol/L (137-145); Total Bilirubin 0.5 mg/dL (0.2-1.3); Total Protein 6.9 g/dL (6.3-8.2)
[2021-07-12 03:04] LABS: Partial Thromboplastin Time 26.5 sec (22.0-30.0); Prothrombin Time 11.2 sec (9.0-12.0)
[2021-07-12 03:58] LABS: Appearance,Urine Clear (Clear); Bilirubin,Urine Negative (Negative); Blood,Urine Trace (Negative); Color,Urine Yellow; Glucose,Urine (UA) Negative (Negative); Ketones,Urine Negative (Negative); Leukocyte Esterase,Urine Negative (Negative); Mucus,Urine Rare /hpf; Nitrite,Urine Negative (Negative); Protein,Urine Negative (Negative); RBC,Urine 12 /hpf (0-5); Specific Gravity,Urine 1.027 (1.001-1.035); Urobilinogen,Urine <2.0 mg/dL (<2.0); WBC,Urine <1 /hpf (0-5)
[2021-07-12] MEDS ORDERED: NITROGLYCERIN SL TABS 0.4 MG TAB SUBLINGUAL PRN (07:28)
[2021-07-12] MEDS: FUROSEMIDE 80 MG TAB PO SCH (10:13)
[2021-07-12] MEDS: DILTIAZEM CD 120 MG CAP.ER.24H PO SCH (10:13)
[2021-07-12] MEDS: METOPROLOL TARTRATE 25 MG TAB PO SCH ×2 (10:13→20:18)
--- NOTE | 2021-07-12 10:59 | P.CRDCN ---
History of Present Illness History of present illness: HISTORY OF PRESENTING ILLNESS This is a pleasant 46-year-old male past medical history significant for typical atrial flutter on Xarelto s/p JOHNATHAN cardioversion in 06/2020, hypertension, chroni c nicotine dependence, asthma, obesity, obstructive sleep apnea with CPAP use, chronic lower extremity edema, cellulitis of the bilateral legs. He follows in the office with Dr. Bee. We have been asked to see in consultation for chest pain. Patient presents emergency department with worsening exertional shortness of breath, and left arm numbness. Over the past week patient has been having worsening shortness of breath with activity and worsening wheezing. He states that he recently underwent a sleep apnea pulmonary test 2 days ago and suffered from a panic attack during the test. Over the past 3 days he also has been noticing left arm numbness. He denies any chest pain, palpitations, li ghtheadedness, dizziness, syncope or near syncope. He denies any symptoms of orthopnea or PND. No history of CAD, SC, Stroke, diabetes. Currently smokes 1/2 PPD cigarettes. He has been having intermittent bilateral lower extremity edema that has increased, but improved with his PO Lasix at home. He states he was recently treated for cellulitis of the left leg with Bactrim. He states he has had cellulitis multiple times. And has not been on his Xolair for asthma in 3 months. DIAGNOSTICS EKG reveals sinus rhythm, heart rate 79, nonspecific ST history abnormalities, T wave inversion in aVL, EKG in 01/2021 with similar findings JOHNATHAN 06/2020 revealed a normal ejection fraction of 5055 percent, normal appearance of left atrial appendage, mild mitral and mild tricuspid regurgitation, trace aortic regurgitation, no evidence of shunting across the septum Telemetry tracings indicate sinus mechanism . Chest xray no acute heart failure Laboratory reviewed, troponin negative 2, proBNP 60, WBC 17.6, hemoglobin 15, platelets 298, d-dimer negative, sodium 137, potassium 4.1, BUN 18, serum crea tinine 0.6, magnesium 2.3 Current home medications include prednisone taper, Keflex, Singulair, albuterol, Lasix 80 mg daily, Cardizem 120 mg daily, Xarelto 20 mg nightly, metoprolol tartrate 25 mg twice a day Lexiscan stress test in 2019 with no evidence of reversible ischemia. REVIEW OF SYSTEMS At the time of my exam: CONSTITUTIONAL: Denies fever or chills. CARDIOVASCULAR: Denies chest pain, +shortness of breath, Denies orthopnea, PND or palpitations. RESPIRATORY: Denies cough. GASTROINTESTINAL: Denies abdominal pain, diarrhea, constipation, nausea or vomiting. MUSCULOSKELETAL: Denies myalgias. NEUROLOGIC: Denies numbness, tingling, headacbe or weakness. ENDOCRINE: Denies fatigue, weight change, polydipsia or polyurina. GENITOURINARY: Denies burning, hematuria or urgency with micturation. HEMATOLOGIC: Denies history of anemia or bleeding. PHYSICAL EXAMINATION Blood pressure 120/58, heart rate 69, afebrile, oxygen saturations 99% on 2 L nasal cannula CONSTITUTIONAL: No apparent distress. HEENT: Head is normocephalic. Pupils are equal, round. Sclerae anicteric. Mucous membranes of the mouth are moist. No JVD. No carotid bruit. CHEST EXAMINATION: Lungs are bilateral wheezing to auscultation. No chest wall tenderness is noted on palpation or with deep breathing. HEART EXAMINATION: Regular rate and rhythm. S1, S2 heard. No murmurs, gallops or rub. ABDOMEN: Soft, nontender. Positive bowel sounds. EXTREMITIES: 2+ peripheral pulses, moderate non-pitting bilateral lower ex tremity edema and no calf tenderness. NEUROLOGIC EXAMINATION: Patient is awake, alert and oriented x3. SKIN: Left leg behind knee with redness noted ASSESSMENT Symptoms of worsening shortness of breath with activity and wheezing, acute coronary syndrome unlikely. Patient with no symptoms of chest pain Symptoms of left arm numbness, improving Asthma Obstructive sleep apnea Recurrent cellulitis of left leg Chronic nicotine dependence History of hypertension PLAN -Patient does not have any symptoms of chest pain. Does not appear to be in acute heart failure. Symptoms appear to be more pulmonary in etiology. -Trend troponins, first 2 are negative -Obtain 2D echocardiogram and doppler study to assess cardiac structure and function. -Continue home cardiac medications with Xarelto, Cardizem, metoprolol and lasix -Further recommendations based on clinical course Nurse practitioner note has been reviewed by physician. Signing provider agrees with the documented findings, assessment, and plan of care. Past Medical History Past Medical History: Atrial Fibrillation, Atrial Flutter, Asthma, Blood Disorder, Heart Failure, COPD, Hypertension, Pneumonia, Sleep Apnea/CPAP/BIPAP Additional Past Medical History / Comment(s): ASPLENIC. Pt recently admitted to [facility] on 08/28/18 with L lower leg cellulitis and hyperkalemia. 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 History of Any Multi-Drug Resistant Organisms: MRSA Date of last positivie culture/infection: 02/19/21 MDRO Source:: FINGER, THIGH MRSA Additional Past Surgical History / Comment(s): Splenectomy AGE 2, ;left thigh injury with surgery and another surgery d/t abscess with I&D appox 2000, vocal cord lesions removed, 2014 BMA/Bx, CARDIOVERSION Past Anesthesia/Blood Transfusion Reactions: Previous Problems w/ Anesthesia Additional Past Anesthesia/Blood Transfusion Reaction / Comment(s): Pt states he woke up aggressive one time. Past Psychological History: ADD/ADHD Smoking Status: Current every day smoker Past Alcohol Use History: None Reported Past Drug Use History: Marijuana - Past Family History Mother Family Medical History: Hypertension, Seizure Disorder Father Additional Family Medical History / Comment(s): Father from a heroin o verdose. Medications and Allergies Home Medications Medication Instructions Recorded Confirmed Type Furosemide [Lasix] 80 mg PO DAILY 05/06/17 07/12/21 History HYDROcodone/APAP 10-325MG [[place] 1 tab PO TID PRN 05/06/17 07/12/21 History 10-325] Metoprolol Tartrate [Lopressor] 25 mg PO BID #60 tab 09/04/18 07/12/21 Rx Rivaroxaban [Xarelto] 20 mg PO W/SUPPER #30 tab 09/04/18 07/12/21 Rx Diltiazem HCl [Cartia Xt] 120 mg PO DAILY 07/20/20 07/12/21 History Montelukast [Singulair] 10 mg PO HS 07/20/20 07/12/21 History Tamsulosin [Flomax] 0.4 mg PO HS 07/20/20 07/12/21 History Nicotine 21Mg/24Hr Patch [Habitrol] 1 patch TRANSDERM DAILY 02/15/21 07/12/21 History Albuterol Inhaler [Ventolin Hfa 1 puff INHALATION RT-QID PRN 07/12/21 07/12/21 History Inhaler] Cephalexin [Keflex] 750 mg PO Q8HR 07/12/21 07/12/21 History Dextroamphetamine/Amphetamine 20 mg PO TID 07/12/21 07/12/21 History [Adderall] Omalizumab [Xolair] 150 mg SQ Q14D 07/12/21 07/12/21 History predniSONE See Taper PO DAILY 07/12/21 07/12/21 History Allergies Allergy/AdvReac Type Severity Reaction Status Date / Time sulfamethoxazole Allergy AFIB/Hives Verified 07/12/21 06:52 [From Bactrim] trimethoprim [From Bactrim] Allergy AFIB/Hives Verified 07/12/21 06:52 Physical Exam Vitals: Vital Signs Temp Pulse Resp BP Pulse Ox 07/12/21 06:50 98.4 F 69 18 120/58 99 07/12/21 06:22 66 18 07/12/21 05:00 78 16 144/71 96 07/12/21 02:27 96 07/12/21 02:26 74 20 134/75 91 L 07/12/21 01:11 97.8 F 86 18 158/81 94 L Intake and Output 07/11/21 07/12/21 07/12/21 22:59 06:59 14:59 Other: Weight 172.365 kg Results 07/12/21 02:24 07/12/21 02:24 Cardiac Enzymes 07/12/21 07/12/21 07/12/21 Range/Units 02:24 02:24 07:41 AST 35 (17-59) U/L Troponin I <0.012 <0.012 (0.000-0.034) ng/mL Coagulation 07/12/21 Range/Units 02:24 PT 11.2 (9.0-12.0) sec APTT 26.5 (22.0-30.0) sec CBC 07/12/21 Range/Units 02:24 WBC 17.6 H (3.8-10.6) k/uL RBC 4.61 (4.30-5.90) m/uL Hgb 15.0 (13.0-17.5) gm/dL Hct 42.7 (39.0-53.0) % Plt Count 298 (150-450) k/uL Comprehensive Metabolic Panel 07/12/21 Range/Units 02:24 Sodium 137 (137-145) mmol/L Potassium 4.1 (3.5-5.1) mmol/L Chloride 98 (98-107) mmol/L Carbon Dioxide 35 H (22-30) mmol/L BUN 18 (9-20) mg/dL Creatinine 0.60 L (0.66-1.25) mg/dL Glucose 138 H (74-99) mg/dL Calcium 9.0 (8.4-10.2) mg/dL AST 35 (17-59) U/L ALT 37 (4-49) U/L Alkaline Phosphatase 72 (38-126) U/L Total Protein 6.9 (6.3-8.2) g/dL Albumin 3.8 (3.5-5.0) g/dL Current Medications Generic Name Dose Route Start Last Admin Trade Name Freq PRN Reason Stop Dose Admin Aspirin 325 mg 07/13/21 09:00 Aspirin 325 Mg Tab PO DAILY ALEKSANDRA Nitroglycerin 0.4 mg 07/12/21 07:28 Nitroglycerin Sl Tabs 0.4 Mg Tab SUBLINGUAL Q5M PRN Chest Pain Intake and Output 07/11/21 07/12/21 07/12/21 22:59 06:59 14:59 Other: Weight 172.365 kg 07/12/21 02:24 07/12/21 02:24
[2021-07-12] MEDS: HYDROcodone/APAP 10-325MG 1 EACH TAB PO PRN (12:07)
--- NOTE | 2021-07-12 12:19 | P.HPIM ---
History of Present Illness H&P Date: 07/12/21 Chief Complaint: Shortness of breath This is a 46-year-old male patient who presented with complaints of intermittent episodes of shortness of breath has been increasing over the past few days. Patient also reports left sided arm pain. Chest x-ray was completed showing no acute cardiopulmonary disease normal heart. No change. Patient reported that he's had increased swelling to his lower extremities that did improve once he took a higher dose of Lasix patient also reports that he is currently being treated for cellulitis of lower extremities. Currently maintained on Keflex and prednisone. At this time patient will be admitted 2-D echo has been ordered. Cardiology services been consulted will start patient on antibiotics for cellulitis and infectious disease service is consulted. At this time patient denies chest pain. Patient denies nausea vomiting or diarrhea. Patient denies any urinary burning or frequency Review of Systems please refer to HPI otherwise unremarkable Past Medical History Past Medical History: Atrial Fibrillation, Atrial Flutter, Asthma, Blood Disorder, Heart Failure, COPD, Hypertension, Pneumonia, Sleep Apnea/CPAP/BIPAP Additional Past Medical History / Comment(s): ASPLENIC. Pt recently admitted to [facility] on 08/28/18 with L lower leg cellulitis and hyperkalemia. 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 History of Any Multi-Drug Resistant Organisms: MRSA Date of last positivie culture/infection: 02/19/21 MDRO Source:: FINGER, THIGH MRSA Past Surgical History: Cardiac Ablation Additional Past Surgical History / Comment(s): Splenectomy AGE 2, ;left thigh injury with surgery and another surgery d/t abscess with I&D appox 2000, vocal cord lesions removed, 2014 BMA/Bx, CARDIOVERSION Past Anesthesia/Blood Transfusion Reactions: Previous Problems w/ Anesthesia Additional Past Anesthesia/Blood Transfusion Reaction / Comment(s): Pt states he woke up aggressive one time. Past Psychological History: ADD/ADHD Smoking Status: Current every day smoker Past Alcohol Use History: None Reported Past Drug Use History: Marijuana - Past Family History Mother Family Medical History: Hypertension, Seizure Disorder Father Additional Family Medical History / Comment(s): Father from a heroin overdose. Medications and Allergies Home Medications Medication Instructions Recorded Confirmed Type Furosemide [Lasix] 80 mg PO DAILY 05/06/17 07/12/21 History HYDROcodone/APAP 10-325MG [[place] 1 tab PO TID PRN 05/06/17 07/12/21 History 10-325] Metoprolol Tartrate [Lopressor] 25 mg PO BID #60 tab 09/04/18 07/12/21 Rx Rivaroxaban [Xarelto] 20 mg PO W/SUPPER #30 tab 09/04/18 07/12/21 Rx Diltiazem HCl [Cartia Xt] 120 mg PO DAILY 07/20/20 07/12/21 History Montelukast [Singulair] 10 mg PO HS 07/20/20 07/12/21 History Tamsulosin [Flomax] 0.4 mg PO HS 07/20/20 07/12/21 History Nicotine 21Mg/24Hr Patch [Habitrol] 1 patch TRANSDERM DAILY 02/15/21 07/12/21 History Albuterol Inhaler [Ventolin Hfa 1 puff INHALATION RT-QID PRN 07/12/21 07/12/21 History Inhaler] Cephalexin [Keflex] 750 mg PO Q8HR 07/12/21 07/12/21 History Dextroamphetamine/Amphetamine 20 mg PO TID 07/12/21 07/12/21 History [Adderall] Omalizumab [Xolair] 150 mg SQ Q14D 07/12/21 07/12/21 History predniSONE See Taper PO DAILY 07/12/21 07/12/21 History Allergies Allergy/AdvReac Type Severity Reaction Status Date / Time sulfamethoxazole Allergy AFIB/Hives Verified 07/12/21 06:52 [From Bactrim] trimethoprim [From Bactrim] Allergy AFIB/Hives Verified 07/12/21 06:52 Physical Exam Vitals: Vital Signs Temp Pulse Resp BP Pulse Ox 07/12/21 06:50 98.4 F 69 18 120/58 99 07/12/21 06:22 66 18 07/12/21 05:00 78 16 144/71 96 07/12/21 02:27 96 07/12/21 02:26 74 20 134/75 91 L 07/12/21 01:11 97.8 F 86 18 158/81 94 L Intake and Output 07/11/21 07/12/21 07/12/21 22:59 06:59 14:59 Other: Weight 172.365 kg 172.365 kg Head normocephalic Neck supple Lungs minutes bilaterally Heart regular rate and rhythm S1-S2, no rub or gallop Abdomen is soft nontender nondistended positive bowel sounds no hepatosplenomegaly Extremities +1 lower extremity edema. Redness noted bilaterally to the lower extremities Neuro alert and orientated to 3 Results CBC & Chem 7: 07/12/21 02:24 07/12/21 02:24 Labs: Abnormal Lab Results - Last 24 Hours (Table) 07/12/21 07/12/21 07/12/21 Range/Units 02:24 02:24 03:40 WBC 17.6 H (3.8-10.6) k/uL Neutrophils # 13.6 H (1.3-7.7) k/uL Carbon Dioxide 35 H (22-30) mmol/L Creatinine 0.60 L (0.66-1.25) mg/dL Glucose 138 H (74-99) mg/dL Urine Blood Trace H (Negative) Urine RBC 12 H (0-5) /hpf Urine Mucus Rare H (None) /hpf Thrombosis Risk Factor Assmnt - Choose All That Apply Any of the Below Risk Factors Present?: Yes Each Factor Represents 1 point: Heart failure (<1month), Obesity (BMI >25), Swollen legs (current) Other Risk Factors: No Other congenital or acquired thrombophilia - If yes, enter type in comment: No Thrombosis Risk Factor Assessment Total Risk Factor Score: 3 Thrombosis Risk Factor Assessment Level: Moderate Risk Assessment and Plan Assessment: 1. Shortness of breath possibly secondary to acute CHF. 2-D echo ordered 2. Episodes of chest pain 3. Lower extremity cellulitis 4. His stream atrial fibrillation/flutter with recent ablation maintained on xa rleto 5. History of sleep apnea 6. History of morbid obesity 7. Ongoing nicotine dependence. Patient educated greater than 3 minutes on smoking cessation nicotine patch will be ordered DVT prophylaxis xarelto. GI prophylaxis Pepcid Cardiology service is consulted 2-D echo ordered Continue IV antibiotics for cellulitis Infectious disease service is consulted Repeat labs ordered Time with Patient: Greater than 30 (Greater than 60% of the total time spent in counseling and coordination of care)
[2021-07-12] MEDS: INSULIN ASPART (NovoLOG) 100 UNIT/ML VIAL SQ SCH ×3 (12:26→20:42)
--- NOTE | 2021-07-12 12:47 | ECHOF ---
Referral Reason:dyspnea MEASUREMENTS -------- HEIGHT: 170.2 cm WEIGHT: 172.4 kg BP: 120/58 RVIDd: 3.3 cm (< 3.3) IVSd: 1.4 cm (0.6 - 1.1) LVIDd: 4.5 cm (3.9 - 5.3) LVPWd: 1.5 cm (0.6 - 1.1) IVSs: 2.1 cm LVIDs: 3.0 cm LVPWs: 2.2 cm LA Diam: 4.0 cm (2.7 - 3.8) LAESV Index (A-L): 24.42 ml/m Ao Diam: 3.8 cm (2.0 - 3.7) AV Cusp: 2.4 cm (1.5 - 2.6) MV EXCURSION: 17.701 mm (> 18.000) MV EF SLOPE: 88 mm/s (70 - 150) EPSS: 0.8 cm MV E Ron: 1.23 m/s MV DecT: 140 ms MV A Ron: 0.89 m/s MV E/A Ratio: 1.38 RAP: 5.00 mmHg RVSP: 43.62 mmHg FINDINGS -------- Sinus rhythm. This was a technically difficult study with suboptimal apical views. The left ventricular size is normal. There is moderate concentric left ventricular hypertrophy. O verall left ventricular systolic function is normal with, an EF between 60 - 65 %. The right ventricle is mildly enlarged. Normal LA size by volume 22+/-6 ml/m2. The right atrium is normal in size. 3 ml of Lumason was utilized for enhancement of images. The aortic valve is trileaflet, and appears structurally normal. No aortic stenosis or regurgitation. The mitral valve is normal. Mild tricuspid regurgitation present. There is mild pulmonary hypertension. The right ventricular systolic pressure, as measured by Doppler, is 43.62mmHg. The pulmonic valve is normal. The aortic root is dilated measuring 3.8cm. IVC Not well visulized. There is no pericardial effusion. CONCLUSIONS -------- 1. The left ventricular size is normal. 2. There is moderate concentric left ventricular hypertrophy. 3. Overall left ventricular systolic function is normal with, an EF between 60 - 65 %. 4. The right ventricle is mildly enlarged. 5. 3 ml of Lumason was utilized for enhancement of images. 6. Mild tricuspid regurgitation present. 7. There is mild pulmonary hypertension. 8. The right ventricular systolic pressure, as measured by Doppler, is 43.62mmHg. 9. The aortic root is dilated measuring 3.8cm. 10. There is no pericardial effusion. 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
[2021-07-12] MEDS: ALBUTEROL NEBULIZED 2.5 MG/3 ML INHALATION PRN (14:54)
[2021-07-12] MEDS: HYDROmorphone 0.5 MG/0.5 ML SYRINGE IVP PRN ×2 (16:41→20:50)
[2021-07-12 17:52] LABS: Glucose,Whole Blood 137 mg/dL (75-99)
[2021-07-12] MEDS: RIVAROXABAN 20 MG TAB PO SCH (18:51)
[2021-07-12] MEDS: MONTELUKAST 10 MG TAB PO SCH (20:18)
[2021-07-12] MEDS: TAMSULOSIN 0.4 MG CAP.ER.24H PO SCH (20:18)
[2021-07-12 20:24] LABS: Glucose,Whole Blood 148 mg/dL (75-99)
--- NOTE | 2021-07-12 22:54 | P.CONS ---
History of Present Illness - Reason for Consult Consult date: 07/12/21 Cellulitis Requesting physician: David Paniagua - Chief Complaint Shortness of breath x few days - History of Present Illness Patient is 46-year-old male with a past medical history significant for recurrent abdominal wall as well as lower extremity cellulitis in this patient also have a history of atrial fibrillation and COPD patient presented to hospital with increasing shortness of breath that have been getting worse for the last few days patient complaining of shortness of the minimal exertion and even at rest also complaining of left-sided arm pain, the patient denies having any chest pain no cough or sputum production no nausea no vomiting no abdominal pain or diarrhea patient on presentation to the hospital was afebrile patient did have mild hypoxemia with O2 sats of 91% however currently 95% on room air patient did have white count of 17.6 with a left shift creatinine was normal liver enzymes are normal NT proBNP was 60 patient did have a chest x-ray no active cardiopulmonary disease with concern for possible cellulitis the patient was started on cefazolin admitted to the hospital infectious disease was consulted for further management of antibiotic therapy Review of Systems Positive point has been mentioned in the HPI rest of the systems are negative Past Medical History Past Medical History: Atrial Fibrillation, Atrial Flutter, Asthma, Blood Disorder, Heart Failure, COPD, Hypertension, Pneumonia, Sleep Apnea/CPAP/BIPAP Additional Past Medical History / Comment(s): ASPLENIC. Pt recently admitted to [facility] on 08/28/18 with L lower leg cellulitis and hyperkalemia. 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 History of Any Multi-Drug Resistant Organisms: MRSA Year Discovered:: 02/19/21 MDRO Source:: FINGER, THIGH MRSA Past Surgical History: Cardiac Ablation Additional Past Surgical History / Comment(s): Splenectomy AGE 2, ;left thigh injury with surgery and another surgery d/t abscess with I&D appox 2000, vocal cord lesions removed, 2014 BMA/Bx, CARDIOVERSION Past Anesthesia/Blood Transfusion Reactions: Previous Problems w/ Anesthesia Additional Past Anesthesia/Blood Transfusion Reaction / Comm: Pt states he woke up aggressive one time. Past Psychological History: ADD/ADHD Smoking Status: Current every day smoker Past Alcohol Use History: None Reported Past Drug Use History: Marijuana - Past Family History Mother Family Medical History: Hypertension, Seizure Disorder Father Additional Family Medical History / Comment(s): Father from a heroin overdose. Medications and Allergies Home Medications Medication Instructions Recorded Confirmed Type Furosemide [Lasix] 80 mg PO DAILY 05/06/17 07/12/21 History HYDROcodone/APAP 10-325MG [[place] 1 tab PO TID PRN 05/06/17 07/12/21 History 10-325] Metoprolol Tartrate [Lopressor] 25 mg PO BID #60 tab 09/04/18 07/12/21 Rx Rivaroxaban [Xarelto] 20 mg PO W/SUPPER #30 tab 09/04/18 07/12/21 Rx Diltiazem HCl [Cartia Xt] 120 mg PO DAILY 07/20/20 07/12/21 History Montelukast [Singulair] 10 mg PO HS 07/20/20 07/12/21 History Tamsulosin [Flomax] 0.4 mg PO HS 07/20/20 07/12/21 History Nicotine 21Mg/24Hr Patch [Habitrol] 1 patch TRANSDERM DAILY 02/15/21 07/12/21 History Albuterol Inhaler [Ventolin Hfa 1 puff INHALATION RT-QID PRN 07/12/21 07/12/21 History Inhaler] Cephalexin [Keflex] 750 mg PO Q8HR 07/12/21 07/12/21 History Dextroamphetamine/Amphetamine 20 mg PO TID 07/12/21 07/12/21 History [Adderall] Omalizumab [Xolair] 150 mg SQ Q14D 07/12/21 07/12/21 History predniSONE See Taper PO DAILY 07/12/21 07/12/21 History Allergies Allergy/AdvReac Type Severity Reaction Status Date / Time sulfamethoxazole Allergy AFIB/Hives Verified 07/12/21 06:52 [From Bactrim] trimethoprim [From Bactrim] Allergy AFIB/Hives Verified 07/12/21 06:52 Physical Exam Vitals: Vital Signs Temp Pulse Resp BP Pulse Ox 07/12/21 06:50 98.4 F 69 18 120/58 99 07/12/21 06:22 66 18 07/12/21 05:00 78 16 144/71 96 07/12/21 02:27 96 07/12/21 02:26 74 20 134/75 91 L 07/12/21 01:11 97.8 F 86 18 158/81 94 L Intake and Output 07/11/21 07/12/21 07/12/21 22:59 06:59 14:59 Other: Weight 172.365 kg 172.365 kg GENERAL DESCRIPTION: Middle-aged male up in the chair, no distress. No tachypnea or accessory muscle of respiration use. HEENT: Shows Pallor , no scleral icterus. Oral mucous membrane is dry. No pharyngeal erythema or thrush NECK: Trachea central, no thyromegaly. LUNGS: Unlabored breathing. Clear to auscultation anteriorly. No wheeze or crackle. HEART: S1, S2, regular rate and rhythm. No loud murmur ABDOMEN: Soft, diffuse abdominal wall swelling and minimal redness EXTREMITIES: Diffuse swelling of bilateral lower extremity with minimal redness to the left leg. SKIN: No rash, no masses palpable. NEUROLOGICAL: The patient is awake, alert, oriented x3, mood and affect normal. Results CBC & Chem 7: 07/12/21 02:24 07/12/21 02:24 Labs: Abnormal Lab Results - Last 24 Hours (Table) 07/12/21 07/12/21 07/12/21 Range/Units 02:24 02:24 03:40 WBC 17.6 H (3.8-10.6) k/uL Neutrophils # 13.6 H (1.3-7.7) k/uL Carbon Dioxide 35 H (22-30) mmol/L Creatinine 0.60 L (0.66-1.25) mg/dL Glucose 138 H (74-99) mg/dL Urine Blood Trace H (Negative) Urine RBC 12 H (0-5) /hpf Urine Mucus Rare H (None) /hpf Assessment and Plan (1) Cellulitis Current Visit: No Status: Acute Priority: Medium Code(s): L03.90 - CELLULITIS, UNSPECIFIED SNOMED Code(s): 870425526 Plan: 1patient presented to hospital with increasing shortness of breath this patient clinically did have evidence of fluid overload patient did have significant abdominal distention and some erythema to abdominal wall concerning for cellulitis likely from a gram-positive skin ady. 2patient with bilateral lower extremity swelling with minimal redness to left leg and laceration to the popliteal fossa of the left side. 3patient to continue with cefazolin 2 g every 8 hours. We will follow on clinical condition and cultures to further adjust medication if needed Thank you for this consultation will follow this patient along with you Time with Patient: Less than 30
[2021-07-13] MEDS: HYDROmorphone 0.5 MG/0.5 ML SYRINGE IVP PRN ×5 (00:54→20:03)
[2021-07-13 07:37] LABS: Glucose,Whole Blood 107 mg/dL (75-99)
[2021-07-13] MEDS: INSULIN ASPART (NovoLOG) 100 UNIT/ML VIAL SQ SCH ×4 (08:58→20:41)
[2021-07-13] MEDS: DILTIAZEM CD 120 MG CAP.ER.24H PO SCH (08:58)
[2021-07-13] MEDS: ASPIRIN 325 MG TAB PO SCH (08:58)
[2021-07-13] MEDS: FUROSEMIDE 80 MG TAB PO SCH (08:59)
[2021-07-13] MEDS: METOPROLOL TARTRATE 25 MG TAB PO SCH ×2 (08:59→20:15)
[2021-07-13] MEDS: NICOTINE 21MG/24HR PATCH TRANSDERM SCH (08:59)
[2021-07-13] MEDS: HYDROcodone/APAP 10-325MG 1 EACH TAB PO PRN (09:02)
[2021-07-13 09:11] LABS: Basophils # (A) 0.13 X 10*3/uL (0.00-0.10); Basophils % (A) 0.8 %; Eosinophils # (A) 0.27 X 10*3/uL (0.04-0.35); Eosinophils % (A) 1.7 %; HCT 46.2 % (39.6-50.0); HGB 15.2 g/dL (13.0-17.0); Immature Grans, Automated 1.2 %; Lymphocytes # (A) 3.31 X 10*3/uL (0.90-5.00); MCH 31.5 pg (27.0-32.0); MCHC 32.9 g/dL (32.0-37.0); MCV 95.9 fL (80.0-97.0); Mean Platelet Volume 12.1 fL (9.5-12.2); Monocytes # (A) 1.52 X 10*3/uL (0.20-1.00); Monocytes % (A) 9.7 %; NRBC Per 100 WBC 0 /100 WBCS (0.0-0.0); Neutrophils # (A) 10.32 X 10*3/uL (1.80-7.70); Neutrophils % (A) 65.6 %; Platelet Count 324 X 10*3/uL (140-440); RBC 4.82 X 10*6/uL (4.40-5.60); RDW 14.3 % (11.5-14.5); WBC 15.74 X 10*3/uL (4.50-10.00)
[2021-07-13 09:24] LABS: ALT 38 U/L (10-49); AST 25 U/L (14-35); African American GFR (CKD) 137.8 (60.0-200.0); Albumin 3.8 g/dL (3.8-4.9); Albumin/Globulin Ratio 1.65 (1.60-3.17); Alkaline Phosphatase 76 U/L (41-126); BUN/Creat Ratio 24.67 Ratio (12.00-20.00); Blood Urea Nitrogen 14.8 mg/dL (9.0-27.0); Calcium 9.1 mg/dL (8.7-10.3); Carbon Dioxide 29.9 mmol/L (20.0-27.5); Chloride 97 mmol/L (96-109); Chol/HDL Ratio 3.05 Ratio; Globulin 2.3 g/dL (1.6-3.3); Glucose 110 mg/dL (70-110); LDL Cholesterol,Calculated 74.7 mg/dL (0.0-131.0); Non-African American GFR(CKD) 118.9 (60.0-200.0); Potassium 4.7 mmol/L (3.5-5.5); Sodium 138 mmol/L (135-145); Total Protein 6.1 g/dL (6.2-8.2)
--- NOTE | 2021-07-13 11:04 | PN ---
PROGRESS NOTE FOLLOW-UP NOTE: Chau is a 46-year-old patient with a history of atrial fibrillation who has recently undergone cardioversion. He came to hospital with shortness of breath and cellulitis. Patient was in sinus rhythm and did not seem to be in overt heart failure. His cellulitis is being managed by infectious disease doctor. He has had bilateral leg edema but takes regular Lasix. His symptoms mostly seem to be related to bronchospasm. He has significant wheezing and he continues to wheeze this morning. On exam, he is comfortable at rest. Vital signs are stable. Chest exam reveals bilateral rhonchi. Heart exam reveals first and second heart sounds. No gallop. No murmur. Abdomen is soft. Examination of extremities reveals mild bilateral leg edema and cellulitis. Labs show that the white cell count is elevated at 17.6, platelet count is 298. Troponins are negative. Potassium is 4.1. Creatinine is 0.6. ASSESSMENT: 1. Shortness of breath secondary to bronchospastic disease; could be asthma, COPD. 2. Leg edema, probably secondary to cellulitis. 3. Paroxysmal atrial fibrillation. 4. Morbid obesity. PLAN: Patient is not in congestive heart failure. He will continue his current medications, including Cardizem CD, oral Lasix that he had been on chronically, insulin, Lopressor and Xarelto. We will continue to follow the patient with interest during this admission. MMODL / IJN: [id number] /
[2021-07-13 12:08] LABS: Glucose,Whole Blood 100 mg/dL (75-99)
[2021-07-13 17:06] LABS: Glucose,Whole Blood 148 mg/dL (75-99)
[2021-07-13] MEDS: RIVAROXABAN 20 MG TAB PO SCH (17:50)
[2021-07-13] MEDS: ALBUTEROL NEBULIZED 2.5 MG/3 ML INHALATION PRN (20:12)
[2021-07-13] MEDS: MONTELUKAST 10 MG TAB PO SCH (20:15)
[2021-07-13] MEDS: TAMSULOSIN 0.4 MG CAP.ER.24H PO SCH (20:15)
[2021-07-13 20:31] LABS: Glucose,Whole Blood 104 mg/dL (75-99)
--- NOTE | 2021-07-13 22:55 | P.PN ---
Subjective Progress Note Date: 07/13/21 Principal diagnosis: Abdominal wall and left lower extremity cellulitis Patient is a 46 year old male with a past medical history significant for morbid obesity history of abdominal wall and lower extremity cellulitis, presented to hospital with increasing shortness of breath or lower extremity swelling some redness and abdominal wall redness. On today's evaluation that is 07/13/2021 the patient denies having any fever or rate, the patient is feeling slightly better abdominal wall redness has resolved, lower extremity with swelling but less redness to open wound or any drainage, denies any diarrhea Objective - Vital Signs Vital signs: Vital Signs Temp 98.2 F 07/13/21 07:00 Pulse 72 07/13/21 07:00 Resp 22 07/13/21 07:00 BP 112/64 07/13/21 07:00 Pulse Ox 96 07/13/21 07:00 Intake & Output 07/12/21 07/13/21 07/13/21 18:59 06:59 18:59 Intake Total 240 Balance 240 Weight 172.365 kg Intake: Oral 240 Other: Voiding Method Toilet # Voids 1 2 - Exam GENERAL DESCRIPTION: An middle-aged male lying in bed in no distress RESPIRATORY SYSTEM: Unlabored breathing , decreased breath sounds at bases HEART: S1 S2 regular rate and rhythm , ABDOMEN: Soft , no tenderness, redness has resolved EXTREMITIES: Bilateral lower extremity swelling less redness to the left leg - Labs CBC & Chem 7: 07/13/21 06:43 07/13/21 06:43 Labs: Abnormal Lab Results - Last 24 Hours (Table) 07/12/21 07/12/21 07/13/21 Range/Units 17:50 20:23 06:43 WBC (4.50-10.00) X 10*3/uL Immature Gran # (0.00-0.04) X 10*3/uL Neutrophils # (1.80-7.70) X 10*3/uL Monocytes # (0.20-1.00) X 10*3/uL Basophils # (0.00-0.10) X 10*3/uL Carbon Dioxide 29.9 H (20.0-27.5) mmol/L BUN/Creatinine Ratio 24.67 H (12.00-20.00) Ratio POC Glucose (mg/dL) 137 H 148 H (75-99) mg/dL Total Protein 6.1 L (6.2-8.2) g/dL Triglycerides 151.00 H (0.00-149.00) mg/dL 07/13/21 07/13/21 Range/Units 06:43 07:34 WBC 15.74 H (4.50-10.00) X 10*3/uL Immature Gran # 0.19 H (0.00-0.04) X 10*3/uL Neutrophils # 10.32 H (1.80-7.70) X 10*3/uL Monocytes # 1.52 H (0.20-1.00) X 10*3/uL Basophils # 0.13 H (0.00-0.10) X 10*3/uL Carbon Dioxide (20.0-27.5) mmol/L BUN/Creatinine Ratio (12.00-20.00) Ratio POC Glucose (mg/dL) 107 H (75-99) mg/dL Total Protein (6.2-8.2) g/dL Triglycerides (0.00-149.00) mg/dL Assessment and Plan (1) Cellulitis Current Visit: No Status: Acute Priority: Medium Code(s): L03.90 - C ELLULITIS, UNSPECIFIED SNOMED Code(s): 017230116 Plan: 1patient presented to hospital with increasing shortness of breath this patient clinically did have evidence of fluid overload patient did have significant abdominal distention and some erythema to abdominal wall concerning for cellulitis likely from a gram-positive skin ady. Abdominal wall redness has resolved 2patient with bilateral lower extremity swelling with minimal redness to left leg and laceration to the popliteal fossa of the left side. 3patient to continue with cefazolin 2 g every 8 hours , with plan to finish therapy with oral Keflex Time with Patient: Less than 30
[2021-07-14] MEDS: HYDROmorphone 0.5 MG/0.5 ML SYRINGE IVP PRN ×3 (00:07→08:22)
[2021-07-14 07:44] LABS: Glucose,Whole Blood 125 mg/dL (75-99)
[2021-07-14 08:18] VITALS: BP 169/78; PULSE 67; RESP 22; TEMP 97.8
[2021-07-14] MEDS: INSULIN ASPART (NovoLOG) 100 UNIT/ML VIAL SQ SCH (08:18)
[2021-07-14] MEDS: NICOTINE 21MG/24HR PATCH TRANSDERM SCH (08:38)
[2021-07-14] MEDS: FUROSEMIDE 80 MG TAB PO SCH (08:38)
[2021-07-14] MEDS: ASPIRIN 325 MG TAB PO SCH (08:38)
[2021-07-14] MEDS: METOPROLOL TARTRATE 25 MG TAB PO SCH (08:38)
[2021-07-14] MEDS: DILTIAZEM CD 120 MG CAP.ER.24H PO SCH (08:38)
--- NOTE | 2021-07-14 10:06 | P.PN ---
Subjective Progress Note Date: 07/13/21 This is a 46-year-old male patient who presented with complaints of intermittent episodes of shortness of breath has been increasing over the past few days. Patient also reports left sided arm pain. Chest x-ray was completed showing no acute cardiopulmonary disease normal heart. No change. Patient reported that he's had increased swelling to his lower extremities that did improve once he took a higher dose of Lasix patient also reports that he is currently being treated for cellulitis of lower extremities. Currently maintained on Keflex and prednisone. At this time patient will be admitted 2-D echo has been ordered. Cardiology services been consulted will start patient on antibiotics for ce llulitis and infectious disease service is consulted. At this time patient denies chest pain. Patient denies nausea vomiting or diarrhea. Patient denies any urinary burning or frequency On 07/13/2021 patient is alert and oriented 3. Patient remains on IV antibiotics for cellulitis. Cardiology and infectious disease service is following. 2-D echo completed showing EF of 60-65%. This time patient denies chest pain or shortness of breath. Patient denies nausea vomiting or diarrhea. Patient denies any urinary burning or frequency Objective - Vital Signs Vital signs: Vital Signs Temp 97.9 F 07/13/21 15:00 Pulse 71 07/13/21 15:00 Resp 20 07/13/21 15:00 BP 125/74 07/13/21 15:00 Pulse Ox 93 L 07/13/21 15:00 Intake & Output 07/12/21 07/13/21 07/13/21 18:59 06:59 18:59 Intake Total 240 168 Balance 240 168 Weight 172.365 kg Intake: Intake, IV Titration 50 Amount ceFAZolin 2 gm In Sodium 50 Chloride 0.9% 50 ml @ 100 mls/hr IVPB Q8HR [facility] Rx# :[id number] Oral 240 118 Other: Voiding Method Toilet # Voids 1 2 - Exam Head normocephalic Neck supple Lungs minutes bilaterally Heart regular rate and rhythm S1-S2, no rub or gallop Abdomen is soft nontender nondistended positive bowel sounds no hepatosplenomegaly Extremities +1 lower extremity edema. Redness noted bilaterally to the lower extremities Neuro alert and orientated to 3 - Labs CBC & Chem 7: 07/13/21 06:43 07/13/21 06:43 Labs: Abnormal Lab Results - Last 24 Hours (Table) 07/12/21 07/13/21 07/13/21 Range/Units 20:23 06:43 06:43 WBC 15.74 H (4.50-10.00) X 10*3/uL Immature Gran # 0.19 H (0.00-0.04) X 10*3/uL Neutrophils # 10.32 H (1.80-7.70) X 10*3/uL Monocytes # 1.52 H (0.20-1.00) X 10*3/uL Basophils # 0.13 H (0.00-0.10) X 10*3/uL Carbon Dioxide 29.9 H (20.0-27.5) mmol/L BUN/Creatinine Ratio 24.67 H (12.00-20.00) Ratio POC Glucose (mg/dL) 148 H (75-99) mg/dL Total Protein 6.1 L (6.2-8.2) g/dL Triglycerides 151.00 H (0.00-149.00) mg/dL 07/13/21 07/13/21 07/13/21 Range/Units 07:34 12:03 17:05 WBC (4.50-10.00) X 10*3/uL Immature Gran # (0.00-0.04) X 10*3/uL Neutrophils # (1.80-7.70) X 10*3/uL Monocytes # (0.20-1.00) X 10*3/uL Basophils # (0.00-0.10) X 10*3/uL Carbon Dioxide (20.0-27.5) mmol/L BUN/Creatinine Ratio (12.00-20.00) Ratio POC Glucose (mg/dL) 107 H 100 H 148 H (75-99) mg/dL Total Protein (6.2-8.2) g/dL Triglycerides (0.00-149.00) mg/dL Assessment and Plan Assessment: 1. Shortness of breath possibly secondary to acute CHF. 2-D echo ordered 2. Episodes of chest pain 3. Lower extremity cellulitis 4. His stream atrial fibrillation/flutter with recent ablation maintained on xarleto 5. History of sleep apnea 6. History of morbid obesity 7. Ongoing nicotine dependence. Patient educated greater than 3 minutes on smoking cessation nicotine patch will be ordered DVT prophylaxis xarelto. GI prophylaxis Pepcid Cardiologogy and infectious disease service is following Patient remains on IV antibiotics 2-D echo completed
--- NOTE | 2021-07-14 10:12 | P.DS ---
Providers Date of admission: 07/12/21 07:38 Expected date of discharge: 07/14/21 Attending physician: David Paniagua Consults: 07/12/21 07:28 Consult Physician Routine Consulting Provider: Checo Lowery Consult Reason/Comments: chest pain Do you want consulting provider notified?: Yes 07/12/21 12:11 Consult Physician Routine Consulting Provider: Rai Carcamo Consult Reason/Comments: cellulitis Do you want consulting provider notified?: Yes 07/13/21 12:34 Consult Physician Routine Consulting Provider: Butch Berry Consult Reason/Comments: shortness of breath Do you want consulting provider notified?: Yes Primary care physician: David Siva [facility] Course: Discharge diagnosis 1. Shortness of breath possibly secondary to acute CHF. 2-D echo ordered 2. Episodes of chest pain 3. Lower extremity cellulitis 4. His stream atrial fibrillation/flutter with recent ablation maintained on xarleto 5. History of sleep apnea 6. History of morbid obesity 7. Ongoing nicotine dependence. Patient educated greater than 3 minutes on smoking cessation nicotine patch will be ordered Hospital course This is a 46-year-old male patient who presented with complaints of intermittent episodes of shortness of breath has been increasing over the past few days. Patient also reports left sided arm pain. Chest x-ray was completed showing no acute cardiopulmonary disease normal heart. No change. Patient reported that he's had increased swelling to his lower extremities that did improve once he took a higher dose of Lasix patient also reports that he is currently being treated for cellulitis of lower extremities. Currently maintained on Keflex and prednisone. At this time patient will be admitted 2-D echo has been ordered. Cardiology services been consulted will start patient on antibiotics for cellulitis and infectious disease service is consulted. At this time patient denies chest pain. Patient denies nausea vomiting or diarrhea. Patient denies any urinary burning or frequency On 07/13/2021 patient is alert and oriented 3. Patient remains on IV antibiotics for cellulitis. Cardiology and infectious disease service is following. 2-D echo completed showing EF of 60-65%. This time patient denies chest pain or shortness of breath. Patient denies nausea vomiting or diarrhea. Patient denies any urinary burning or frequency On 07/14/2021 patient is alert and oriented 3. At this time patient denies chest pain or shortness of breath. 2-D echo was completed showing an EF of 60- 65%. Patient was evaluated by cardiology services. No further workup inpatient per cardiology patient to continue home medication. Patient educated again on the importance of complete smoking cessation. Patient also evaluated by infectious disease services and recommend DC on oral Keflex. 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 for further management of chronic conditions Patient Condition at Discharge: Stable Plan - Discharge Summary Discharge Rx Participant: No New Discharge Prescriptions: New Cephalexin [Keflex] 250 mg PO Q6HR 10 Days #40 capsule Continue HYDROcodone/APAP 10-325MG [[place] 10-325] 1 tab PO TID PRN PRN Reason: Pain Furosemide [Lasix] 80 mg PO DAILY Metoprolol Tartrate [Lopressor] 25 mg PO BID #60 tab Rivaroxaban [Xarelto] 20 mg PO W/SUPPER #30 tab Nicotine 21Mg/24Hr Patch [Habitrol] 1 patch TRANSDERM DAILY Tamsulosin [Flomax] 0.4 mg PO HS Diltiazem HCl [Cartia Xt] 120 mg PO DAILY Montelukast [Singulair] 10 mg PO HS predniSONE See Taper PO DAILY Dextroamphetamine/Amphetamine [Adderall] 20 mg PO TID Omalizumab [Xolair] 150 mg SQ Q14D Albuterol Inhaler [Ventolin Hfa Inhaler] 1 puff INHALATION RT-QID PRN PRN Reason: Shortness Of Breath Discontinued Cephalexin [Keflex] 750 mg PO Q8HR Discharge Medication List Furosemide [Lasix] 80 mg PO DAILY 05/06/17 [History] HYDROcodone/APAP 10-325MG [[place] 10-325] 1 tab PO TID PRN 05/06/17 [History] Metoprolol Tartrate [Lopressor] 25 mg PO BID #60 tab 09/04/18 [Rx] Rivaroxaban [Xarelto] 20 mg PO W/SUPPER #30 tab 09/04/18 [Rx] Diltiazem HCl [Cartia Xt] 120 mg PO DAILY 07/20/20 [History] Montelukast [Singulair] 10 mg PO HS 07/20/20 [History] Tamsulosin [Flomax] 0.4 mg PO HS 07/20/20 [History] Nicotine 21Mg/24Hr Patch [Habitrol] 1 patch TRANSDERM DAILY 10/27/21 [History] Albuterol Inhaler [Ventolin Hfa Inhaler] 1 puff INHALATION RT-QID PRN 07/12/21 [History] Dextroamphetamine/Amphetamine [Adderall] 20 mg PO TID 07/12/21 [History] Omalizumab [Xolair] 150 mg SQ Q14D 07/12/21 [History] predniSONE See Taper PO DAILY 07/12/21 [History] Cephalexin [Keflex] 250 mg PO Q6HR 10 Days #40 capsule 07/14/21 [Rx] Follow up Appointment(s)/Referral(s): David Paniagua MD [Primary Care Provider] - 1-2 days Activity/Diet/Wound Care/Special Instructions: Activity as tolerated Diet heart healthy Discharge Disposition: HOME SELF-CARE
[2021-07-14 10:44] LABS: Basophils % (A) 0.6 %; Eosinophils # (A) 0.74 X 10*3/uL (0.04-0.35); Eosinophils % (A) 4.6 %; HCT 47.5 % (39.6-50.0); HGB 15.6 g/dL (13.0-17.0); Immature Grans, Automated 0.9 %; Lymphocytes # (A) 3.25 X 10*3/uL (0.90-5.00); Lymphocytes % (A) 20.4 %; MCHC 32.8 g/dL (32.0-37.0); MCV 94.2 fL (80.0-97.0); Mean Platelet Volume 11.9 fL (9.5-12.2); Monocytes # (A) 1.31 X 10*3/uL (0.20-1.00); Monocytes % (A) 8.2 %; NRBC Per 100 WBC 0 /100 WBCS (0.0-0.0); Neutrophils # (A) 10.38 X 10*3/uL (1.80-7.70); Neutrophils % (A) 65.3 %; Platelet Count 327 X 10*3/uL (140-440); RBC 5.04 X 10*6/uL (4.40-5.60); WBC 15.92 X 10*3/uL (4.50-10.00)
[2021-07-14 10:56] LABS: African American GFR (CKD) 137.8 (60.0-200.0); Albumin 3.8 g/dL (3.8-4.9); Albumin/Globulin Ratio 1.65 (1.60-3.17); Anion Gap 8.1 mmol/L (10.00-18.00); Blood Urea Nitrogen 13.2 mg/dL (9.0-27.0); Calcium 9.3 mg/dL (8.7-10.3); Carbon Dioxide 32.9 mmol/L (20.0-27.5); Globulin 2.3 g/dL (1.6-3.3); Non-African American GFR(CKD) 118.9 (60.0-200.0); Potassium 4.2 mmol/L (3.5-5.5); Total Bilirubin 0.4 mg/dL (0.30-1.20); Total Protein 6.1 g/dL (6.2-8.2)
--- NOTE | 2021-07-14 14:19 | PN ---
PROGRESS NOTE FOLLOW-UP NOTE: This patient is a 46-year-old gentleman with history of atrial fibrillation, status post cardioversion, and morbid obesity. He came to hospital with shortness of breath. It seemed to be secondary to COPD and asthma exacerbation. He had quite a bit of wheezing, treated, with significant improvement in his symptoms. His current medications include aspirin, diltiazem, Lasix, insulin, Lopressor and Xarelto. On exam, comfortable at rest. Vital signs are stable. There is no jugular venous distention. Chest exam reveals good air entry bilaterally. Heart exam reveals first and second heart sounds. No gallop. No murmur. Abdomen is soft. Examination of extremities did not reveal any edema. Peripheral pulses are felt. ASSESSMENT: 1. Shortness of breath secondary to chronic obstructive pulmonary disease exacerbation. 2. History of atrial fibrillation. PLAN: Patient is doing well. Stable for discharge from cardiac standpoint. He is not in congestive heart failure. We will follow the patient on an as-needed basis. MMODL / IJN: [id number] /
== END 2021-07-14 10:54 | disposition home or self-care (01) ==
LOC: EC 01:08 → 6NMEDSUR 07:38
PROVIDERS: ADMIT Internal Medicine; ATTEND Internal Medicine
DX: R06.02 Shortness of breath (principal); R07.89 Other chest pain; L03.115 Cellulitis of right lower limb; I48.0 Paroxysmal atrial fibrillation; I48.92 Unspecified atrial flutter; J44.1 Chronic obstructive pulmonary disease with (acute) exacerbation; G47.33 Obstructive sleep apnea (adult) (pediatric); E66.01 Morbid (severe) obesity due to excess calories; Z68.43 Body mass index [BMI] 50.0-59.9, adult; F17.210 Nicotine dependence, cigarettes, uncomplicated; M79.602 Pain in left arm; L03.116 Cellulitis of left lower limb; R60.0 Localized edema; M79.89 Other specified soft tissue disorders; I11.0 Hypertensive heart disease with heart failure; I50.9 Heart failure, unspecified; E87.70 Fluid overload, unspecified; Q89.01 Asplenia (congenital); K57.92 Diverticulitis of intestine, part unspecified, without perforation or abscess without bleeding; S81.012A Laceration without foreign body, left knee, initial encounter; I48.3 Typical atrial flutter; D58.0 Hereditary spherocytosis; M54.9 Dorsalgia, unspecified; R20.0 Anesthesia of skin; I27.20 Pulmonary hypertension, unspecified; I07.1 Rheumatic tricuspid insufficiency; F41.0 Panic disorder [episodic paroxysmal anxiety]; G43.909 Migraine, unspecified, not intractable, without status migrainosus; M25.561 Pain in right knee; M25.562 Pain in left knee; F90.9 Attention-deficit hyperactivity disorder, unspecified type; Z87.01 Personal history of pneumonia (recurrent); Z86.14 Personal history of Methicillin resistant Staphylococcus aureus infection; Z90.81 Acquired absence of spleen; Z88.2 Allergy status to sulfonamides; Z79.899 Other long term (current) drug therapy; Z79.52 Long term (current) use of systemic steroids; Z71.6 Tobacco abuse counseling; Z71.9 Counseling, unspecified; Z71.3 Dietary counseling and surveillance; Z79.01 Long term (current) use of anticoagulants; Z82.49 Family history of ischemic heart disease and other diseases of the circulatory system; Z82.0 Family history of epilepsy and other diseases of the nervous system
CPT/HCPCS: 96376 ×3; 96365; 96366 ×3; 96375; 99285; 36415; 94640 ×2; 93005; 93306; 85379; 83880; 80061; 80053 ×3; 83605; 83735; 84484; 85025 ×3; 85610; 85730; 81001; 83036; 71046; G0378 ×3; S4990 ×2; J0690 ×3; J1170 ×3

== ENCOUNTER → 2021-08-17 | Outpatient (CLI) | payer BC ==
[2021-08-17 13:41] LABS: African American GFR (CKD) >90 (>60 ml/min/1.73 sqM); Blood Urea Nitrogen 16 mg/dL (9-20); Non-African American GFR(CKD) >90 (>60 ml/min/1.73 sqM)
--- NOTE | 2021-08-17 14:58 | CT ---
EXAMINATION TYPE: CT soft tissue neck w con DATE OF EXAM: 08/17/2021 HISTORY: Dysphagia. COMPARISON: NONE CT DLP: 905.5 mGycm. Automated Exposure Control for Dose Reduction was Utilized. TECHNIQUE: CT scan of the neck is performed with IV Contrast, patient injected with 100 mL of Isovue M300, axial images are obtained, coronal and sagittal reformatted images are reviewed. FINDINGS: Slightly suboptimal as there is some artifact related to patient's large body habitus. Airway: No gross abnormality seen. Parotid/submandibular glands: No gross abnormality seen. Carotid/Vascular Structures: No significant plaque at carotid bulb level bilaterally. Osseous Structures: No significant abnormality. Other: No suspicious greater than 1 cm neck adenopathy. Pharyngeal fat spaces are maintained bilaterally. Incidental 2.2 x 1.1 x 3.9 cm oval intramuscular li katarzyna on the right coronal image 56 and axial image 51 posterior lower cervical muscles. IMPRESSION: No significant abnormality is seen to account for patient's symptoms of dysphagia.
== END | disposition home or self-care (01) ==
LOC: RADCTMAIN 12:57
PROVIDERS: ATTEND Otolaryngology
DX: R13.10 Dysphagia, unspecified (principal); R09.89 Other specified symptoms and signs involving the circulatory and respiratory systems
CPT/HCPCS: 82565; 84520; 70491; 36415; Q9967

== ENCOUNTER 2023-12-28 11:19 | Inpatient (IN) | payer MEDICARE, OTHER ==
--- NOTE | 2023-12-28 11:40 | ED ---
General Adult HPI - General Chief complaint: Shortness of Breath Stated complaint: ZOHRA Time Seen by Provider: 12/28/23 11:19 Source: patient, RN notes reviewed, old records reviewed Mode of arrival: EMS Limitations: no limitations - History of Present Illness Initial comments: This is a 48-year-old male who presents to the emergency department with a past medical history significant for smoking COPD and congestive heart failure. Patient is a very poor historian and does not answer all of her questions. Patient states he had difficulty breathing last night and got worse today. Patient was given an albuterol treatment on the way in and also given a DuoNeb. Patient denies any fever or chills. Patient Nuys any chest pain or palpitations. Patient denies any back pain. Patient has abdominal pain. Patient is morbidly obese as well. - Related Data Home Medications Medication Instructions Recorded Confirmed Furosemide [Lasix] 80 mg PO DAILY 05/06/17 07/12/21 HYDROcodone/APAP 10-325MG [Yantis 1 tab PO TID PRN 05/06/17 07/12/21 10-325] Montelukast [Singulair] 10 mg PO HS 07/20/20 07/12/21 Tamsulosin [Flomax] 0.4 mg PO HS 07/20/20 07/12/21 dilTIAZem HCL [Cartia Xt] 120 mg PO DAILY 07/20/20 07/12/21 Nicotine 21Mg/24Hr Patch [Habitrol] 1 patch TRANSDERM DAILY 02/15/21 07/12/21 Albuterol Inhaler [Ventolin Hfa 1 puff INHALATION RT-QID PRN 07/12/21 07/12/21 Inhaler] Dextroamphetamine/Amphetamine 20 mg PO TID 07/12/21 07/12/21 [Adderall] Omalizumab [Xolair] 150 mg SQ Q14D 07/12/21 07/12/21 predniSONE See Taper PO DAILY 07/12/21 07/12/21 Previous Rx's Medication Instructions Recorded Metoprolol Tartrate [Lopressor] 25 mg PO BID #60 tab 09/04/18 Rivaroxaban [Xarelto] 20 mg PO W/SUPPER #30 tab 09/04/18 Cephalexin [Keflex] 250 mg PO Q6HR 10 Days #40 capsule 07/14/21 Allergies Allergy/AdvReac Type Severity Reaction Status Date / Time sulfamethoxazole Allergy AFIB/Hives Verified 12/28/23 11:28 [From Bactrim] trimethoprim [From Bactrim] Allergy AFIB/Hives Verified 12/28/23 11:28 Review of Systems ROS Statement: Those systems with pertinent positive or pertinent negative responses have been documented in the HPI. ROS Other: All systems not noted in ROS Statement are negative. Past Medical History Past Medical History: Atrial Fibrillation, Atrial Flutter, Asthma, Blood Disor sumit, Heart Failure, COPD, Hypertension, Pneumonia, Sleep Apnea/CPAP/BIPAP Additional Past Medical History / Comment(s): ASPLENIC. Pt recently admitted to [facility] on 08/28/18 with L lower leg cellulitis and hyperkalemia. 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 History of Any Multi-Drug Resistant Organisms: MRSA Date of last positivie culture/infection: 02/19/21 MDRO Source:: FINGER, THIGH MRSA Past Surgical History: Cardiac Ablation Additional Past Surgical History / Comment(s): Splenectomy AGE 2, ;left thigh injury with surgery and another surgery d/t abscess with I&D appox 2000, vocal cord lesions removed, 2014 BMA/Bx, CARDIOVERSION Past Anesthesia/Blood Transfusion Reactions: Previous Problems w/ Anesthesia Additional Past Anesthesia/Blood Transfusion Reaction / Comment(s): Pt states he woke up aggressive one time. Past Psychological History: ADD/ADHD Smoking Status: Current every day smoker Past Alcohol Use History: Occasional Past Drug Use History: Marijuana - Past Family History Mother Family Medical History: Hypertension, Seizure Disorder Father Additional Family Medical History / Comment(s): Father from a heroin ov erdose. General Exam - General Exam Comments Initial Comments: GENERAL: Patient is well-developed and well-nourished. Patient is nontoxic and well- hydrated and is in mild distress. ENT: Neck is soft and supple. No significant lymphadenopathy is noted. Oropharynx is clear. Moist mucous membranes. Neck has full range of motion without eliciting any pain. EYES: The sclera were anicteric and conjunctiva were pink and moist. Extraocular movements were intact and pupils were equal round and reactive to light. Eyelids were unremarkable. PULMONARY: Unlabored respirations. Good breath sounds bilaterally. No audible rales rhonchi or wheezing was noted. CARDIOVASCULAR: Patient is tachycardic at 130 bpm ABDOMEN: Soft and nontender with normal bowel sounds. SKIN: Skin is clear with no lesions or rashes and otherwise unremarkable. NEUROLOGIC: Patient is alert and oriented x3. Cranial nerves II through XII are grossly intact. Motor and sensory are also intact. Normal speech, volume and content. Symmetrical smile. MUSCULOSKELETAL: Normal extremities with adequate strength and full range of motion. LYMPHATICS: No significant lymphadenopathy is noted PSYCHIATRIC: Normal psychiatric evaluation. Limitations: no limitations Course Vital Signs 12/28/23 12/28/23 12/28/23 11:21 11:36 11:53 Temperature 101.8 F H Pulse Rate 129 H 124 H 122 H Respiratory 40 H 36 H 38 H Rate Blood Pressure 116/58 116/50 O2 Sat by Pulse 96 94 L Oximetry Fraction of Inspired Oxygen (FIO2) 12/28/23 12/28/23 12/28/23 12:02 12:04 12:07 Temperature Pulse Rate 131 H Respiratory 50 H 50 H Rate Blood Pressure 120/59 O2 Sat by Pulse 95 Oximetry Fraction of 40 Inspired Oxygen (FIO2) 12/28/23 12/28/23 12:19 13:00 Temperature Pulse Rate 126 H 122 H Respiratory 39 H 42 H Rate Blood Pressure 137/86 O2 Sat by Pulse 97 Oximetry Fraction of Inspired Oxygen (FIO2) Medical Decision Making - Medical Decision Making EKG is interpreted by myself. EKG shows sinus tachycardia at a rate of 124 bpm UT interval is 164 QRS is 89 QT interval 315 QTc is 389. Patient's EKG is of poor quality in V1 and V4 otherwise there is no ST segment elevation Was pt. sent in by a medical professional or institution (, PA, CEMETERY VAULT INSTALLER, urgent care, hospital, or shelter...) When possible be specific @ -No Did you speak to anyone other than the patient for history (EMS, parent, family, police, friend...)? What history was obtained from this source @ -No Did you review nursing and triage notes (agree or disagree)? Why? @ -I reviewed and agree with nursing and triage notes Were old charts reviewed (outside hosp., previous admission, EMS record, old EKG, old radiological studies, urgent care reports/EKG's, shelter records)? Report findings @ -No old charts were reviewed Differential Diagnosis? @ -Differential Dyspnea: Coronary syndrome, arrhythmia, tamponade, asthma, COPD, pulmonary embolism, pneumonia, pneumothorax, pulmonary effusion, anaphylaxis, diabetic ketoacidosis, flailed chest, pulmonary contusion, diaphragmatic rupture, anemia, neuromuscular, this is not meant to be an all-inclusive list. EKG interpreted by me (3pts min.). @ -As above X-rays interpreted by me (1pt min.). @ -Chest x-ray shows a lobar infiltrate in the left lower lobe. CT interpreted by me (1pt min.). @ -None done U/S interpreted by me (1pt. min.). @ -None done What testing was considered but not performed or refused? (CT, X-rays, U/S, labs)? Why? @ -None What meds were considered but not given or refused? Why? @ -None Did you discuss the management of the patient with other professionals (pr ofessionals i.e. , PA, CEMETERY VAULT INSTALLER, lab, RT, psych nurse, long term care social worker, hoistman, teacher, fiscal officer, case assembler)? Give summary @ -I spoke with Dr. Paniagua he agreed to admit the patient admit the patient recommending orders Was smoking cessation discussed for >3mins.? @ -No Was critical care preformed (if so, how long)? @ -35 minutes Were there social determinants of health that impacted care today? How? (Homelessness, low income, unemployed, alcoholism, drug addiction, transportation, low edu. Level, literacy, decrease access to med. care, [facility], rehab)? @ -No Was there de-escalation of care discussed even if they declined (Discuss DNR or withdrawal of care, Hospice)? DNR status @ -No What co-morbidities impacted this encounter? (DM, HTN, Smoking, COPD, CAD, Cancer, CVA, ARF, Chemo, Hep., AIDS, mental health diagnosis, sleep apnea, morbid obesity)? @ -None Was patient admitted / discharged? Hospital course, mention meds given and route, prescriptions, significant lab abnormalities, going to OR and other pertinent info. @ -Patient was given albuterol 7.5 mg with Atrovent and given Solu-Medrol as well as terbutaline when he first arrived. Patient was improving but still working pretty hard so the patient was put on BiPAP that made him feel considerably better. Patient was also given 2 g of Rocephin on arrival. I spoke with Dr. Freedman he agreed admit the patient to the patient recommending her psych consulted pulmonary Undiagnosed new problem with uncertain prognosis? @ -No Drug Therapy requiring intensive monitoring for toxicity (Heparin, Nitro, Insulin, Cardizem)? @ -No Were any procedures done? @ -No Diagnosis/symptom? @ -Pneumonia Acute, or Chronic, or Acute on Chronic? @ -Acute Uncomplicated (without systemic symptoms) or Complicated (systemic symptoms)? @ -Complicated Side effects of treatment? @ -No Exacerbation, Progression, or Severe Exacerbation? @ -No Poses a threat to life or bodily function? How? (Chest pain, [place], [place], pneumonia, PE, COPD, DKA, ARF, appy, cholecystitis, CVA, Diverticulitis, Homicidal, Suicidal, threat to staff... and all critical care pts) @ -Yes this could lead to sepsis and endorgan dysfunction Diagnosis/symptom? @ -Sepsis Acute, or Chronic, or Acute on Chronic? @ -Acute Uncomplicated (without systemic symptoms) or Complicated (systemic symptoms)? @ -Complicated Side effects of treatment? @ -None Exacerbation, Progression, or Severe Exacerbation] @ -No Poses a threat to life or bodily function? @ -Yes this can lead to poor perfusion and endorgan dysfunction Diagnosis/symptom? @ -Hypomagnesemia Acute, or Chronic, or Acute on Chronic? @ -Acute Uncomplicated (without systemic symptoms) or Complicated (systemic symptoms)? @ -Uncomplicated Side effects of treatment? @ -None Exacerbation, Progression, or Severe Exacerbation] @ -No Poses a threat to life or bodily function? @ -No Diagnosis/symptom? @ -COPD exacerbation Acute, or Chronic, or Acute on Chronic? @ -Acute Uncomplicated (without systemic symptoms) or Complicated (systemic symptoms)? @ -Complicated Side effects of treatment? @ -None Exacerbation, Progression, or Severe Exacerbation] @ -No Poses a threat to life or bodily function? @ -Yes this could lead to endorgan dysfunction secondary to hypoxia - Lab Data Result diagrams: 12/28/23 11:50 12/28/23 11:50 Lab Results 12/28/23 12/28/2324 Range/Units 11:50 11:50 11:50 WBC 38.7 H (3.8-10.6) k/uL RBC 5.22 (4.30-5.90) m/uL Hgb 15.8 (13.0-17.5) gm/dL Hct 47.2 (39.0-53.0) % MCV 90.4 (80.0-100.0) fL MCH 30.4 (25.0-35.0) pg MCHC 33.6 (31.0-37.0) g/dL RDW 14.5 (11.5-15.5) % Plt Count 373 (150-450) k/uL MPV 9.2 Neutrophils % (Manual) 88 % Band Neuts % (Manual) 5 % Lymphocytes % (Manual) 6 % Monocytes % (Manual) 1 % Neutrophils # (Manual) 35.90 H (1.3-7.7) k/uL Lymphocytes # (Manual) 2.32 (1.0-4.8) k/uL Monocytes # (Manual) 0.39 (0-1.0) k/uL Nucleated RBCs 0 (0-0) /100 WBC Manual Slide Review Performed RBC Morphology Normal PT 12.9 H (10.0-12.5) sec INR 1.2 H (<1.2) APTT 32.0 H (22.0-30.0) sec Sodium 130 L (137-145) mmol/L Potassium 4.2 (3.5-5.1) mmol/L Chloride 92 L (98-107) mmol/L Carbon Dioxide 25 (22-30) mmol/L Anion Gap 13 mmol/L BUN 16 (9-20) mg/dL Creatinine 0.82 (0.66-1.25) mg/dL Est GFR (CKD-EPI)AfAm >90 (>60 ml/min/1.73 sqM) Est GFR (CKD-EPI)NonAf >90 (>60 ml/min/1.73 sqM) Glucose 118 H (74-99) mg/dL Plasma Lactic Acid Raymond (0.7-2.0) mmol/L Calcium 9.5 (8.4-10.2) mg/dL Magnesium 1.3 L (1.6-2.3) mg/dL Total Bilirubin 1.6 H (0.2-1.3) mg/dL AST 44 (17-59) U/L ALT 22 (4-49) U/L Alkaline Phosphatase 86 (38-126) U/L Troponin I (0.000-0.034) ng/mL NT-Pro-B Natriuret Pep 379 pg/mL Total Protein 7.6 (6.3-8.2) g/dL Albumin 4.2 (3.5-5.0) g/dL Influenza Type A (PCR) (Not Detectd) Influenza Type B (PCR) (Not Detectd) RSV (PCR) (Not Detectd) SARS-CoV-2 (PCR) (Not Detectd) 12/28/23 12/28/23 12/28/23 Range/Units 11:50 11:50 11:50 WBC (3.8-10.6) k/uL RBC (4.30-5.90) m/uL Hgb (13.0-17.5) gm/dL Hct (39.0-53.0) % MCV (80.0-100.0) fL MCH (25.0-35.0) pg MCHC (31.0-37.0) g/dL RDW (11.5-15.5) % Plt Count (150-450) k/uL MPV Neutrophils % (Manual) % Band Neuts % (Manual) % Lymphocytes % (Manual) % Monocytes % (Manual) % Neutrophils # (Manual) (1.3-7.7) k/uL Lymphocytes # (Manual) (1.0-4.8) k/uL Monocytes # (Manual) (0-1.0) k/uL Nucleated RBCs (0-0) /100 WBC Manual Slide Review RBC Morphology PT (10.0-12.5) sec INR (<1.2) APTT (22.0-30.0) sec Sodium (137-145) mmol/L Potassium (3.5-5.1) mmol/L Chloride (98-107) mmol/L Carbon Dioxide (22-30) mmol/L Anion Gap mmol/L BUN (9-20) mg/dL Creatinine (0.66-1.25) mg/dL Est GFR (CKD-EPI)AfAm (>60 ml/min/1.73 sqM) Est GFR (CKD-EPI)NonAf (>60 ml/min/1.73 sqM) Glucose (74-99) mg/dL Plasma Lactic Acid Raymond 2.1 H* (0.7-2.0) mmol/L Calcium (8.4-10.2) mg/dL Magnesium (1.6-2.3) mg/dL Total Bilirubin (0.2-1.3) mg/dL AST (17-59) U/L ALT (4-49) U/L Alkaline Phosphatase (38-126) U/L Troponin I 0.053 H* (0.000-0.034) ng/mL NT-Pro-B Natriuret Pep pg/mL Total Protein (6.3-8.2) g/dL Albumin (3.5-5.0) g/dL Influenza Type A (PCR) Not Detected (Not Detectd) Influenza Type B (PCR) Not Detected (Not Detectd) RSV (PCR) Not Detected (Not Detectd) SARS-CoV-2 (PCR) Not Detected (Not Detectd) Disposition Clinical Impression: COPD exacerbation, Community acquired pneumonia, Hypomagnesemia, Sepsis Disposition: ADMITTED IP TO THIS HOSP Referrals: David Paniagua MD [Primary Care Provider] - 1-2 days Time of Disposition: 13:18
[2023-12-28 11:45] LABS: ABG Base Excess 1.7 mmol/L; ABG HCO3 25 mmol/L (21-25); ABG Oxygen Saturation 94.9 % (94-97); ABG PCO2 34 mmHg (35-45); ABG PH 7.47 (7.35-7.45); ABG PO2 64 mmHg (83-108); ABG TCO2 26 mmol/L (19-24); Allen Test Performed? Yes
[2023-12-28] MEDS: ALBUTEROL NEBULIZED 2.5 MG/3 ML INHALATION STA (11:52)
[2023-12-28] MEDS: TERBUTALINE 1 MG/ML VIAL SQ STA (11:54)
[2023-12-28] MEDS: methylPREDNISolone SOD SUCCI 125 MG/2 ML VIAL IV STA (11:56)
[2023-12-28] MEDS: IBUPROFEN 600 MG TAB PO STA (11:59)
[2023-12-28] MEDS: ACETAMINOPHEN TAB 500 MG TAB PO PRN (12:00)
[2023-12-28] MEDS: LORazepam 2 MG/ML INJ IV STA (12:05)
[2023-12-28] MEDS: cefTRIAXone IN SWFI 1,000 MG/10 ML SYRINGE IVP STA (12:07)
[2023-12-28 12:17] LABS: ALT 22 U/L (4-49); AST 44 U/L (17-59); African American GFR (CKD) >90 (>60 ml/min/1.73 sqM); Albumin 4.2 g/dL (3.5-5.0); Alkaline Phosphatase 86 U/L (38-126); Anion Gap 13 mmol/L; Blood Urea Nitrogen 16 mg/dL (9-20); Calcium 9.5 mg/dL (8.4-10.2); Carbon Dioxide 25 mmol/L (22-30); Chloride 92 mmol/L (98-107); Glucose 118 mg/dL (74-99); Magnesium 1.3 mg/dL (1.6-2.3); Non-African American GFR(CKD) >90 (>60 ml/min/1.73 sqM); Potassium 4.2 mmol/L (3.5-5.1); Sodium 130 mmol/L (137-145); Total Bilirubin 1.6 mg/dL (0.2-1.3); Total Protein 7.6 g/dL (6.3-8.2)
[2023-12-28 12:18] LABS: HCT 47.2 % (39.0-53.0); HGB 15.8 gm/dL (13.0-17.5); MCH 30.4 pg (25.0-35.0); MCHC 33.6 g/dL (31.0-37.0); MCV 90.4 fL (80.0-100.0); Mean Platelet Volume 9.2; Platelet Count 373 k/uL (150-450); RBC 5.22 m/uL (4.30-5.90); RDW 14.5 % (11.5-15.5); WBC 38.7 k/uL (3.8-10.6)
[2023-12-28 12:26] LABS: NT-Pro-B-Type Natriuretic Pept 379 pg/mL
[2023-12-28 12:39] LABS: INR 1.2 (<1.2); Prothrombin Time 12.9 sec (10.0-12.5)
--- NOTE | 2023-12-28 12:45 | XR ---
EXAMINATION TYPE: XR chest 1V portable DATE OF EXAM: 12/28/2023 COMPARISON: 07/12/2021 HISTORY: Shortness of breath TECHNIQUE: Single frontal view of the chest is obtained. FINDINGS: The exam is limited by the technique. There is a focal opacity in the left midlung zone which could represent a pneumonic infiltrate. Short -term follow-up to resolution is recommended. There is no pneumothorax or large pleural effusion. IMPRESSION: Limited study but focal airspace consolidation in the left midlung possibly representing acute pneumo collin. Short-term follow-up is recommended.
[2023-12-28 12:52] LABS: Band Neutrophils % 5 %; Lymphocytes # (M) 2.32 k/uL (1.0-4.8); Monocytes # (M) 0.39 k/uL (0-1.0); Neutrophils % (M) 88 %; Nucleated Red Blood Cells 0 /100 WBC (0-0); Total Cells Counted 100
[2023-12-28 12:53] LABS: RBC Morphology Normal
[2023-12-28] MEDS: MAGNESIUM SULFATE-D5W PMX 1 GM in DEXTROSE/WATER 1 100ML.BAG IVPB SCH (13:16)
[2023-12-28] MEDS ORDERED: PNEUMONIA PROTOCOL UTILIZED 1 EACH MISC PO PRN (13:18)
[2023-12-28] MEDS ORDERED: VANCOMYCIN IV PER PHARMACY 1 EACH MISC MISCELLANE PRN (14:30)
[2023-12-28] MEDS: SODIUM CHLORIDE 0.9% 1,000 ML IV ONE ×2 (14:32→22:46)
[2023-12-28] MEDS: SODIUM CHLORIDE 0.9% 1,000 ML IV SCH (14:32)
[2023-12-28] MEDS ORDERED: VANCOMYCIN 2,250 MG in SODIUM CHLORIDE 0.9% 500 ML 500 ML IVPB ONE (14:45)
[2023-12-28] MEDS: IPRATROPIUM-ALBUTEROL 3 ML NEB INHALATION PRN (15:18)
[2023-12-28] MEDS: AZITHROMYCIN 500 MG in SODIUM CHLORIDE 0.9% 250 ML IVPB STA (15:18)
[2023-12-28] MEDS: VANCOMYCIN 2,500 MG in SODIUM CHLORIDE 0.9% 500 ML 500 ML IVPB ONE (17:41)
[2023-12-29] MEDS: ALPRAZolam 0.25 MG TAB PO PRN (01:04)
[2023-12-29] MEDS: HYDROcodone/APAP 10-325MG 1 EACH TAB PO PRN (01:04)
[2023-12-29] MEDS: SODIUM CHLORIDE 0.9% 1,000 ML IV ONE (01:04)
[2023-12-29 04:37] LABS: HCT 43.6 % (39.0-53.0); HGB 14.6 gm/dL (13.0-17.5); MCH 31.2 pg (25.0-35.0); MCHC 33.6 g/dL (31.0-37.0); MCV 92.9 fL (80.0-100.0); Mean Platelet Volume 9.4; Platelet Count 344 k/uL (150-450); Poikilocytosis Slight; RBC 4.69 m/uL (4.30-5.90); RDW 14.7 % (11.5-15.5)
[2023-12-29 04:40] LABS: WBC 73.5 k/uL (3.8-10.6)
[2023-12-29 04:55] LABS: African American GFR (CKD) >90 (>60 ml/min/1.73 sqM); Anion Gap 10 mmol/L; Blood Urea Nitrogen 16 mg/dL (9-20); Calcium 9.4 mg/dL (8.4-10.2); Carbon Dioxide 25 mmol/L (22-30); Chloride 102 mmol/L (98-107); Glucose 170 mg/dL (74-99); Non-African American GFR(CKD) >90 (>60 ml/min/1.73 sqM); Potassium 4.4 mmol/L (3.5-5.1); Sodium 137 mmol/L (137-145)
[2023-12-29] MEDS: VANCOMYCIN 2,250 MG in SODIUM CHLORIDE 0.9% 500 ML 500 ML IVPB SCH (05:10)
[2023-12-29 05:58] LABS: Band Neutrophils % 39 %; Lymphocytes # (M) 2.94 k/uL (1.0-4.8); Metamyelocytes # (M) 1.47 k/uL (0); Metamyelocytes % 2 %; Monocytes # (M) 2.94 k/uL (0-1.0); Neutrophils % (M) 52 %; Nucleated Red Blood Cells 0 /100 WBC (0-0); Total Cells Counted 200
[2023-12-29 05:59] LABS: Anisocytosis (M) Present; Polychromasia Present
--- NOTE | 2023-12-29 06:59 | XR ---
EXAMINATION TYPE: XR chest 1V portable DATE OF EXAM: 12/29/2023 COMPARISON: 12/28/2023 HISTORY: Pneumonia TECHNIQUE: Single frontal view of the chest is obtained. FINDINGS: Exam is limited by the portable technique. The focal opacity in the left midlung is unchanged and is consistent with a pneumonic infiltrate. There is no pneumothorax. There is no large pleural effusion. The pulmonary vasculature is not congested heart size is likely within normal limits for the techniqu e. The osseous structures are grossly intact. IMPRESSION: No change in the focal opacity in the left midlung likely representing pneumonia. Follow-up to resolu tion is recommended. IMPRESSION: No acute process.
[2023-12-29] MEDS: AZITHROMYCIN 500 MG TAB PO SCH (08:52)
[2023-12-29] MEDS ORDERED: DEXTROSE 50% SYRINGE 50 ML IVP PRN ×2 (09:10)
--- NOTE | 2023-12-29 09:52 | P.HPIM ---
History of Present Illness H&P Date: 12/29/23 Chau Diallo, is a 48-year-old male patient who presented to the ER with concerns of shortness of breath. Patient has a past medical history of atrial fibrillation, asthma, blood disorder, heart failure, COPD, hypertension, pneumonia and morbid obesity. Initial chest x-ray completed showing focal airspace consolidation in the left midlung possibly representing acute pneumonia. Lab work revealing initial white blood cell of 38.7, lactic acid 2.1 increasing to 5.1. Initial troponin elevated at 0.053. Influenza RSV and COVID-19 all negative. Initial vitals temp 102.8, heart rate 106, respiratory rate 26, blood pressure 106/60 with a pulse ox of 95% on 2 L. At this time patient will be admitted patient started on IV antibiotics. Infectious disease and pulmonary services consulted. Will also consult cardiology services and repeat troponin level. Patient did receive multiple fluid boluses in the ER. Patient reports improvement. Patient denies chest pain or shortness of breath. Patient denies nausea vomiting or diarrhea. Patient denies any urinary burning or frequency. Will order urine blood and sputum cultures Review of Systems Please refer to HPI otherwise unremarkable Past Medical History Past Medical History: Atrial Fibrillation, Atrial Flutter, Asthma, Blood Disorder, Heart Failure, COPD, Hypertension, Pneumonia, Sleep Apnea/CPAP/BIPAP Additional Past Medical History / Comment(s): ASPLENIC. Pt recently admitted to [facility] on 08/28/18 with L lower leg cellulitis and hyperkalemia. 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 History of Any Multi-Drug Resistant Organisms: MRSA Date of last positivie culture/infection: 02/19/21 MDRO Source:: FINGER, THIGH MRSA Past Surgical History: Cardiac Ablation Additional Past Surgical History / Comment(s): Splenectomy AGE 2, ;left thigh i njury with surgery and another surgery d/t abscess with I&D appox 2000, vocal cord lesions removed, 2014 BMA/Bx, CARDIOVERSION Past Anesthesia/Blood Transfusion Reactions: Previous Problems w/ Anesthesia Additional Past Anesthesia/Blood Transfusion Reaction / Comment(s): Pt states he woke up aggressive one time. Past Psychological History: ADD/ADHD Additional Psychological History / Comment(s): Pt resides with his mother. He has a nebulizer. 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 Smoking Status: Current every day smoker Past Alcohol Use History: Occasional Additional Past Alcohol Use History / Comment(s): Pt started smoking in 1992 and was a 2 ppd smoker but has decreased amount he smokes to 1/2 ppd. Past Drug Use History: Marijuana Additional Drug Use History / Comment(s): Occasional marijuana use - Past Family History Mother Family Medical History: Hypertension, Seizure Disorder Father Additional Family Medical History / Comment(s): Father from a heroin overdose. Medications and Allergies Home Medications Medication Instructions Recorded Confirmed Type Furosemide [Lasix] 40 mg PO BID 05/06/17 12/28/23 History Metoprolol Tartrate [Lopressor] 25 mg PO BID #60 tab 09/04/18 12/28/23 Rx Rivaroxaban [Xarelto] 20 mg PO W/SUPPER #30 tab 09/04/18 12/28/23 Rx Montelukast [Singulair] 10 mg PO HS 07/20/20 12/28/23 History Tamsulosin [Flomax] 0.4 mg PO HS 07/20/20 12/28/23 History dilTIAZem HCL [Cartia Xt] 120 mg PO DAILY 07/20/20 12/28/23 History Albuterol Inhaler [Ventolin Hfa 2 puff INHALATION RT-Q6H PRN 07/12/21 12/28/23 History Inhaler] Dextroamphetamine/Amphetamine 30 mg PO TID 12/28/23 12/28/23 History [Adderall 30 mg Tablet] Ergocalciferol (Vitamin D2) 1,250 mcg PO Q7D 12/28/23 12/28/23 History [Drisdol (50,000 Iu)] HYDROcodone/APAP 7.5-325MG [[place] 1 tab PO Q6H PRN 12/28/23 12/28/23 History 7.5-325] Semaglutide [Ozempic] 0.5 mg SQ FR 12/28/23 12/28/23 History Spironolactone [Aldactone] 25 mg PO DAILY 12/28/23 12/28/23 History Tezepelumab-Ekko [Tezspire] 1 dose SQ Q30D 12/28/23 12/28/23 History Allergies Allergy/AdvReac Type Severity Reaction Status Date / Time sulfamethoxazole Allergy AFIB/Hives Verified 12/28/23 14:14 [From Bactrim] trimethoprim [From Bactrim] Allergy AFIB/Hives Verified 12/28/23 14:14 Physical Exam Vitals: Vital Signs Temp Pulse Pulse Resp BP BP Pulse Ox 12/29/23 09:20 78 12/29/23 09:03 78 12/29/23 08:00 97.8 F 75 22 133/61 95 12/29/23 04:00 97.7 F 77 20 123/73 95 12/29/23 00:30 97.6 F 79 24 103/53 96 12/28/23 23:56 97.0 F L 78 15 133/59 95 12/28/23 19:36 83 20 113/74 95 12/28/23 18:30 92 20 96 12/28/23 17:40 20 12/28/23 17:35 98.6 F 93 18 105/48 96 12/28/23 16:06 92 26 H 104/58 96 12/28/23 15:27 101 H 28 H 12/28/23 15:19 114 H 25 H 12/28/23 15:18 12/28/23 14:52 97 26 H 96 12/28/23 14:09 102.8 F H 106 H 26 H 106/60 95 12/28/23 13:00 122 H 42 H 137/86 97 12/28/23 12:19 126 H 39 H 12/28/23 12:07 12/28/23 12:04 50 H 12/28/23 12:02 131 H 50 H 120/59 95 12/28/23 11:53 122 H 38 H 12/28/23 11:36 124 H 36 H 116/50 94 L 12/28/23 11:21 101.8 F H 129 H 40 H 116/58 96 FiO2 12/29/23 09:20 12/29/23 09:03 12/29/23 08:00 12/29/23 04:00 12/29/23 00:30 12/28/23 23:56 12/28/23 19:36 12/28/23 18:30 12/28/23 17:40 12/28/23 17:35 12/28/23 16:06 12/28/23 15:27 12/28/23 15:19 12/28/23 15:18 40 12/28/23 14:52 12/28/23 14:09 12/28/23 13:00 12/28/23 12:19 12/28/23 12:07 40 12/28/23 12:04 12/28/23 12:02 12/28/23 11:53 12/28/23 11:36 12/28/23 11:21 Intake and Output 12/28/23 12/29/23 12/29/23 22:59 06:59 14:59 Intake Total 540 Output Total 1900 Balance -1360 Intake: Oral 540 Output: Urine 1900 Other: Voiding Method Toilet Urinal Weight 194.2 kg Head normocephalic Neck supple Lungs clear to auscultation bilaterally no wheezing or crackles Heart irregular heart rate known A-fib Abdomen is soft nontender nondistended positive bowel sounds no hepatosplenomegaly. Morbidly obese Extremities no edema Neuro alert and orientated to 3 Results CBC & Chem 7: 12/29/23 03:50 12/29/23 03:50 Labs: Abnormal Lab Results - Last 24 Hours (Table) 12/28/23 12/28/23 12/28/23 Range/Units 11:40 11:50 11:50 WBC 38.7 H (3.8-10.6) k/uL Neutrophils # (Manual) 35.90 H (1.3-7.7) k/uL Monocytes # (Manual) (0-1.0) k/uL Metamyelocytes # (Man) (0) k/uL PT 12.9 H (10.0-12.5) sec INR 1.2 H (<1.2) APTT 32.0 H (22.0-30.0) sec ABG pH 7.47 H (7.35-7.45) ABG pCO2 34 L (35-45) mmHg ABG pO2 64 L (83-108) mmHg ABG Total CO2 26 H (19-24) mmol/L Sodium (137-145) mmol/L Chloride (98-107) mmol/L Glucose (74-99) mg/dL Plasma Lactic Acid Raymond (0.7-2.0) mmol/L Magnesium (1.6-2.3) mg/dL Total Bilirubin (0.2-1.3) mg/dL Troponin I (0.000-0.034) ng/mL 12/28/23 12/28/23 12/28/23 Range/Units 11:50 11:50 11:50 WBC (3.8-10.6) k/uL Neutrophils # (Manual) (1.3-7.7) k/uL Monocytes # (Manual) (0-1.0) k/uL Metamyelocytes # (Man) (0) k/uL PT (10.0-12.5) sec INR (<1.2) APTT (22.0-30.0) sec ABG pH (7.35-7.45) ABG pCO2 (35-45) mmHg ABG pO2 (83-108) mmHg ABG Total CO2 (19-24) mmol/L Sodium 130 L (137-145) mmol/L Chloride 92 L (98-107) mmol/L Glucose 118 H (74-99) mg/dL Plasma Lactic Acid Raymond 2.1 H* (0.7-2.0) mmol/L Magnesium 1.3 L (1.6-2.3) mg/dL Total Bilirubin 1.6 H (0.2-1.3) mg/dL Troponin I 0.053 H* (0.000-0.034) ng/mL 12/28/23 12/28/23 12/28/23 Range/Units 14:56 18:14 21:17 WBC (3.8-10.6) k/uL Neutrophils # (Manual) (1.3-7.7) k/uL Monocytes # (Manual) (0-1.0) k/uL Metamyelocytes # (Man) (0) k/uL PT (10.0-12.5) sec INR (<1.2) APTT (22.0-30.0) sec ABG pH (7.35-7.45) ABG pCO2 (35-45) mmHg ABG pO2 (83-108) mmHg ABG Total CO2 (19-24) mmol/L Sodium (137-145) mmol/L Chloride (98-107) mmol/L Glucose (74-99) mg/dL Plasma Lactic Acid Raymond 2.8 H* 3.8 H* 5.1 H* (0.7-2.0) mmol/L Magnesium (1.6-2.3) mg/dL Total Bilirubin (0.2-1.3) mg/dL Troponin I (0.000-0.034) ng/mL 12/29/23 12/29/23 12/29/23 Range/Units 03:50 03:50 03:50 WBC 73.5 H* (3.8-10.6) k/uL Neutrophils # (Manual) 66.80 H (1.3-7.7) k/uL Monocytes # (Manual) 2.94 H (0-1.0) k/uL Metamyelocytes # (Man) 1.47 H (0) k/uL PT (10.0-12.5) sec INR (<1.2) APTT (22.0-30.0) sec ABG pH (7.35-7.45) ABG pCO2 (35-45) mmHg ABG pO2 (83-108) mmHg ABG Total CO2 (19-24) mmol/L Sodium (137-145) mmol/L Chloride (98-107) mmol/L Glucose 170 H (74-99) mg/dL Plasma Lactic Acid Raymond 2.8 H* (0.7-2.0) mmol/L Magnesium (1.6-2.3) mg/dL Total Bilirubin (0.2-1.3) mg/dL Troponin I (0.000-0.034) ng/mL 12/29/23 Range/Units 07:08 WBC (3.8-10.6) k/uL Neutrophils # (Manual) (1.3-7.7) k/uL Monocytes # (Manual) (0-1.0) k/uL Metamyelocytes # (Man) (0) k/uL PT (10.0-12.5) sec INR (<1.2) APTT (22.0-30.0) sec ABG pH (7.35-7.45) ABG pCO2 (35-45) mmHg ABG pO2 (83-108) mmHg ABG Total CO2 (19-24) mmol/L Sodium (137-145) mmol/L Chloride (98-107) mmol/L Glucose (74-99) mg/dL Plasma Lactic Acid Raymond 2.6 H* (0.7-2.0) mmol/L Magnesium (1.6-2.3) mg/dL Total Bilirubin (0.2-1.3) mg/dL Troponin I (0.000-0.034) ng/mL Thrombosis Risk Factor Assmnt - Choose All That Apply Any of the Below Risk Factors Present?: Yes Each Factor Represents 1 point: Age 41-60 years, Obesity (BMI >25), Sepsis (< 1month) Other Risk Factors: No Other congenital or acquired thrombophilia - If yes, enter type in comment: No Thrombosis Risk Factor Assessment Total Risk Factor Score: 3 Thrombosis Risk Factor Assessment Level: Moderate Risk Assessment and Plan Assessment: Sepsis evident by leukocytosis and fever. Blood urine and sputum cultures ordered patient started on IV antibiotics Elevated troponin cardiology services consulted Possible pneumonia. Patient pulmonary services consulted Possible abdominal cellulitis. History of atrial fibrillation/atrial fluter maintained on Xarelto History of sleep apnea History of morbid obesity Ongoing nicotine dependence patient educated greater than 3 minutes on the importance of complete smoking cessation, nicotine patch ordered DVT prophylaxis Xarelto. GI prophylaxis Protonix Infectious disease, pulmonary and cardiology services consulted Blood and urine and sputum cultures ordered Repeat labs ordered for a.m. Time with Patient: Greater than 30 (Greater than 60% of the total time spent in counseling and coordination of care)
--- NOTE | 2023-12-29 11:59 | P.CNPUL ---
History of Present Illness Consult date: 12/29/23 Reason for consult: dyspnea, pneumonia History of present illness: On 12/29/2023, the patient is seen in consultation for increased shortness of br eath. The patient is morbidly obese. He is a smoker and was smoking up to 2 packs of cigarettes a day. Currently smoking few cigarettes a day. He has seen Dr. Roberts from pulmonology and the patient was started on Tezspire injections/infusions which is typically used for asthma. The patient has not seen any major improvement in his respiratory status while being on this medication. Utilize albuterol nebulized treatments [id number]. No home oxygen. He claims that he has a CPAP machine at home regarding obstructive sleep apnea. The patient has had a 30 spherocytosis and the patient has previous splenectomy. He comes in with worsening shortness of breath and fever and the chest x-ray is consistent with lower lobe pneumonia. Repeat chest x-ray was done today and shows significant consolidation in the left lower lobe and the left midlung area. The patient remains on a combination of Rocephin and Zithromax and vancomycin. Hemodynamically stable. Currently afebrile 3 0 Bact roban nasal cannula. The white cell count is up to 73 with a hemoglobin 14.6 and a platelet count of 344. The patient has a 39% bandemia. Electrolytes are all within normal limits. Initial lactic acid level was at 5.1 dropped down to 2.1. Troponins are 0.05 and 0.01 respectively x 2. Normal LFTs. Viral screen was negative. He has chronic edema lower extremities bilaterally. He remains on broad-spectrum antibiotics Review of Systems Constitutional: Reports daytime sleepiness, Reports fatigue, Reports fever, Reports weakness Eyes: denies as per HPI, denies blurred vision, denies bulging eye, denies decreased vision, denies diplopia, denies discharge, denies dry eye, denies irritation, denies itching, denies pain, denies photophobia, denies loss of peripheral vision, denies loss of vision, denies tunnel vision/blind spots Ears: deny: decreased hearing, ear discharge, earache, tinnitus Ears, nose, mouth and throat: Reports as per HPI Breasts: absent: as per HPI, gynecomastia Cardiovascular: Reports leg edema, Reports shortness of breath Respiratory: Reports cough, Reports dyspnea, Reports sleep apnea, Reports snoring Gastrointestinal: Reports as per HPI Musculoskeletal: Reports as per HPI Musculoskeletal: bilateral: ankle swelling, absent: ankle pain, ankle stiffness Integumentary: Reports as per HPI Neurological: Reports as per HPI Psychiatric: Reports as per HPI Endocrine: Reports as per HPI Hematologic/Lymphatic: Reports as per HPI Allergic/Immunologic: Reports as per HPI Past Medical History Past Medical History: Atrial Fibrillation, Atrial Flutter, Asthma, Blood Disorder, Heart Failure, COPD, Hypertension, Pneumonia, Sleep Apnea/CPAP/BIPAP Additional Past Medical History / Comment(s): ASPLENIC. Pt recently admitted to [facility] on 08/28/18 with L lower leg cellulitis and hyperkalemia. 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 History of Any Multi-Drug Resistant Organisms: MRSA Date of last positivie culture/infection: 02/19/21 MDRO Source:: FINGER, THIGH MRSA Past Surgical History: Cardiac Ablation Additional Past Surgical History / Comment(s): Splenectomy AGE 2, ;left thigh injury with surgery and another surgery d/t abscess with I&D appox 2000, vocal cord lesions removed, 2014 BMA/Bx, CARDIOVERSION Past Anesthesia/Blood Transfusion Reactions: Previous Problems w/ Anesthesia Additional Past Anesthesia/Blood Transfusion Reaction / Comment(s): Pt states he woke up aggressive one time. Past Psychological History: ADD/ADHD Additional Psychological History / Comment(s): Pt resides with his mother. He has a nebulizer. 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 Smoking Status: Current every day smoker Past Alcohol Use History: Occasional Additional Past Alcohol Use History / Comment(s): Pt started smoking in 1992 and was a 2 ppd smoker but has decreased amount he smokes to 1/2 ppd. Past Drug Use History: Marijuana Additional Drug Use History / Comment(s): Occasional marijuana use - Past Family History Mother Family Medical History: Hypertension, Seizure Disorder Father Additional Family Medical History / Comment(s): Father from a heroin overdose. Medications and Allergies Home Medications Medication Instructions Recorded Confirmed Type Furosemide [Lasix] 40 mg PO BID 05/06/17 12/28/23 History Metoprolol Tartrate [Lopressor] 25 mg PO BID #60 tab 09/04/18 12/28/23 Rx Rivaroxaban [Xarelto] 20 mg PO W/SUPPER #30 tab 09/04/18 12/28/23 Rx Montelukast [Singulair] 10 mg PO HS 07/20/20 12/28/23 History Tamsulosin [Flomax] 0.4 mg PO HS 07/20/20 12/28/23 History dilTIAZem HCL [Cartia Xt] 120 mg PO DAILY 07/20/20 12/28/23 History Albuterol Inhaler [Ventolin Hfa 2 puff INHALATION RT-Q6H PRN 07/12/21 12/28/23 History Inhaler] Dextroamphetamine/Amphetamine 30 mg PO TID 12/28/23 12/28/23 History [Adderall 30 mg Tablet] Ergocalciferol (Vitamin D2) 1,250 mcg PO Q7D 12/28/23 12/28/23 History [Drisdol (50,000 Iu)] HYDROcodone/APAP 7.5-325MG [[place] 1 tab PO Q6H PRN 12/28/23 12/28/23 History 7.5-325] Semaglutide [Ozempic] 0.5 mg SQ FR 12/28/23 12/28/23 History Spironolactone [Aldactone] 25 mg PO DAILY 12/28/23 12/28/23 History Tezepelumab-Ekko [Tezspire] 1 dose SQ Q30D 12/28/23 12/28/23 History Allergies Allergy/AdvReac Type Severity Reaction Status Date / Time sulfamethoxazole Allergy AFIB/Hives Verified 12/28/23 14:14 [From Bactrim] trimethoprim [From Bactrim] Allergy AFIB/Hives Verified 12/28/23 14:14 Physical Exam Vitals: Vital Signs Temp Pulse Pulse Resp BP BP Pulse Ox 12/29/23 09:20 78 12/29/23 09:03 78 12/29/23 08:00 97.8 F 75 22 133/61 95 12/29/23 04:00 97.7 F 77 20 123/73 95 12/29/23 00:30 97.6 F 79 24 103/53 96 12/28/23 23:56 97.0 F L 78 15 133/59 95 12/28/23 19:36 83 20 113/74 95 12/28/23 18:30 92 20 96 12/28/23 17:40 20 12/28/23 17:35 98.6 F 93 18 105/48 96 12/28/23 16:06 92 26 H 104/58 96 12/28/23 15:27 101 H 28 H 12/28/23 15:19 114 H 25 H 12/28/23 15:18 12/28/23 14:52 97 26 H 96 12/28/23 14:09 102.8 F H 106 H 26 H 106/60 95 12/28/23 13:00 122 H 42 H 137/86 97 12/28/23 12:19 126 H 39 H 12/28/23 12:07 12/28/23 12:04 50 H 12/28/23 12:02 131 H 50 H 120/59 95 12/28/23 11:53 122 H 38 H 12/28/23 11:36 124 H 36 H 116/50 94 L 12/28/23 11:21 101.8 F H 129 H 40 H 116/58 96 FiO2 12/29/23 09:20 12/29/23 09:03 12/29/23 08:00 12/29/23 04:00 12/29/23 00:30 12/28/23 23:56 12/28/23 19:36 12/28/23 18:30 12/28/23 17:40 12/28/23 17:35 12/28/23 16:06 12/28/23 15:27 12/28/23 15:19 12/28/23 15:18 40 12/28/23 14:52 12/28/23 14:09 12/28/23 13:00 12/28/23 12:19 12/28/23 12:07 40 12/28/23 12:04 12/28/23 12:02 12/28/23 11:53 12/28/23 11:36 12/28/23 11:21 Intake and Output 12/28/23 12/29/23 12/29/23 22:59 06:59 14:59 Intake Total 540 Output Total 1900 Balance -1360 Intake: Oral 540 Output: Urine 1900 Other: Voiding Method Toilet Urinal Weight 194.2 kg Obese, comfortable in no acute distress. Body mass index is 67.1 Head exam was generally normal. There was no scleral icterus or corneal arcus. Mucous membranes were moist. Neck was supple and without jugular venous distension, thyromegaly, or carotid bruits. Carotids were easily palpable bilaterally. There was no adenopathy. Mallampati class IV with significant crowding of posterior pharynx Lung sounds are diminished bilaterally, crackles lung base bilaterally Cardiac exam revealed the PMI to be normally situated and sized. The rhythm was regular and no extrasystoles were noted during several minutes of auscultation. The first and second heart sounds were normal and physiologic splitting of the second heart sound was noted. There were no murmurs, rubs, clicks, or gallops. Overall heart sounds are distant Abdominal exam revealed normal bowel sounds. The abdomen was soft, non-tender, and without masses, organomegaly, or appreciable enlargement of the abdominal aorta. Extremities +1 pitting edema no cyanosis or clubbing Examination of the skin revealed no evidence of significant rashes, suspicious appearing nevi or other concerning lesions. Neurologically, the patient is awake and alert and the patient does not have any focal neurological deficit. Cranial nerves are essentially intact. Results - Laboratory Findings CBC and BMP: 12/29/23 03:50 12/29/23 03:50 ABG ABG pH 7.47 (7.35-7.45) H 12/28/23 11:40 ABG pCO2 34 mmHg (35-45) L 12/28/23 11:40 ABG pO2 64 mmHg (83-108) L 12/28/23 11:40 ABG O2 Saturation 94.9 % (94-97) 12/28/23 11:40 PT/INR, D-dimer PT 12.9 sec (10.0-12.5) H 12/28/23 11:50 INR 1.2 (<1.2) H 12/28/23 11:50 Abnormal lab findings: Abnormal Labs 12/28/23 12/28/23 12/28/23 11:40 11:50 11:50 WBC 38.7 H Neutrophils # (Manual) 35.90 H Monocytes # (Manual) Metamyelocytes # (Man) PT 12.9 H INR 1.2 H APTT 32.0 H ABG pH 7.47 H ABG pCO2 34 L ABG pO2 64 L ABG Total CO2 26 H Sodium Chloride Glucose Plasma Lactic Acid Raymond Magnesium Total Bilirubin Troponin I 12/28/23 12/28/23 12/28/23 11:50 11:50 11:50 WBC Neutrophils # (Manual) Monocytes # (Manual) Metamyelocytes # (Man) PT INR APTT ABG pH ABG pCO2 ABG pO2 ABG Total CO2 Sodium 130 L Chloride 92 L Glucose 118 H Plasma Lactic Acid Raymond 2.1 H* Magnesium 1.3 L Total Bilirubin 1.6 H Troponin I 0.053 H* 12/28/23 12/28/23 12/28/23 14:56 18:14 21:17 WBC Neutrophils # (Manual) Monocytes # (Manual) Metamyelocytes # (Man) PT INR APTT ABG pH ABG pCO2 ABG pO2 ABG Total CO2 Sodium Chloride Glucose Plasma Lactic Acid Raymond 2.8 H* 3.8 H* 5.1 H* Magnesium Total Bilirubin Troponin I 12/29/23 12/29/23 12/29/23 03:50 03:50 03:50 WBC 73.5 H* Neutrophils # (Manual) 66.80 H Monocytes # (Manual) 2.94 H Metamyelocytes # (Man) 1.47 H PT INR APTT ABG pH ABG pCO2 ABG pO2 ABG Total CO2 Sodium Chloride Glucose 170 H Plasma Lactic Acid Raymond 2.8 H* Magnesium Total Bilirubin Troponin I 12/29/23 07:08 WBC Neutrophils # (Manual) Monocytes # (Manual) Metamyelocytes # (Man) PT INR APTT ABG pH ABG pCO2 ABG pO2 ABG Total CO2 Sodium Chloride Glucose Plasma Lactic Acid Raymond 2.6 H* Magnesium Total Bilirubin Troponin I - Diagnostic Findings Chest x-ray: image reviewed Assessment and Plan Plan: Acute hypoxic respiratory failure currently on 3 L of oxygen by nasal cannula Acute left lower lobe pneumonia with extensive consolidation Acute fever secondary to above Acute leukocytosis in a patient with previous splenectomy. The patient has significant bandemia with a white cell count of 73 and the patient is currently on a combination of Rocephin and Zithromax and vancomycin. The viral screen has been negative Acute lactic acidosis improving Minimal troponin leak secondary to above, likely is type II ischemia myocardial COPD/asthma although I favor COPD and the patient has been a chronic smoker. The patient has been receiving Tezspire infusions through Dr. Roberts on outpatient basis Obstructive sleep apnea maintained on CPAP therapy on outpatient basis History of hereditary spherocytosis and the patient has undergone splenectomy at age of 2 History of diverticulosis History of migraines History of chronic lower extremity edema Degenerative arthritis History of A-fib/flutter post ablation and the patient is currently in normal sinus rhythm. He has been maintained on Xarelto on outpatient basis Plan Titrate oxygen flow to maintain saturation above 90%, currently on 3 L I agree on the head and the body coverage which include Rocephin Zithromax and vancomycin Check blood cultures Legionella urine antigen Lasix 40 mg IV push x 1 Continue Aldactone Continue anticoagulation with Xarelto Smoking cessation counseling Will continue to follow. Monitor white cell count.
[2023-12-29 12:06] LABS: Glucose,Whole Blood 286 mg/dL (70-110)
[2023-12-29] MEDS: FUROSEMIDE 10 MG/ML 4 ML VIAL IV SCH (12:06)
[2023-12-29 13:00] LABS: Appearance,Urine Clear (Clear); Bilirubin,Urine Negative (Negative); Blood,Urine Negative (Negative); Color,Urine Colorless; Glucose,Urine (UA) Negative (Negative); Ketones,Urine Negative (Negative); Leukocyte Esterase,Urine Negative (Negative); Nitrite,Urine Negative (Negative); Protein,Urine Negative (Negative); Specific Gravity,Urine 1.014 (1.001-1.035); Urobilinogen,Urine <2.0 mg/dL (<2.0)
[2023-12-29] MEDS: INSULIN ASPART (NovoLOG) 100 UNIT/ML VIAL SQ SCH (13:01)
[2023-12-29] MEDS ORDERED: FUROSEMIDE 40 MG TAB PO SCH (16:00)
[2023-12-29] MEDS: CEFEPIME 2 GM in SODIUM CHLORIDE 0.9% 100 ML IVPB SCH (16:46)
[2023-12-29 16:55] LABS: Glucose,Whole Blood 274 mg/dL (70-110)
[2023-12-29] MEDS: RIVAROXABAN 20 MG TAB PO SCH (17:12)
--- NOTE | 2023-12-29 20:15 | P.CRDCN ---
History of Present Illness Consult date: 12/29/23 History of present illness: HISTORY OF PRESENTING ILLNESS Presented to the hospital because of increased worsening shortness of breath. He is past medical history of A-fib status post ablation, morbid obesity, KADI on CPAP, prior history of spherocytosis status post pleurectomy. He is also 2 pack cigarette smoker. This time he presented to the hospital because of worsening shortness of breath, increased fatigue, increased cough. And concerns of fever. On admission he has significant leukocytosis with WBC 73, hemoglobin 14.6, 59% bandemia, elevated lactate 5.1, Trope of 0.05, ECG shows sinus tachycardia REVIEW OF SYSTEMS 14 point review of system is negative except what is mentioned above in HPI. PHYSICAL EXAMINATION Morbidly obese head: Normocephalic. Eyes: Sclerae nonicteric. Neck: Brisk carotid upstroke, cannot assess JVD due to thick neck Lungs: mild crackles audible, diminished breath sounds in left lung weber, mild rhonchi audible Heart: Regular rate and rhythm, S1-S2, no S3, no murmur or rub. Abdomen: Soft nontender, positive bowel sounds. Extremities: Chronic lymphedema right lower extremity, 2+ edema Neuro: Alert, oritented, no focal deficits. Detailed neuro exam was not performed. ASSESSMENT Acute hypoxic respiratory failure Acute left lower lobe pneumonia Severe leukocytosis. Prior history of splenectomy because of spherocytosis. Lactic acidosis Severe sepsis Mild troponin elevation, likely type II from demand supply mismatch from sepsis and pneumonia Mild HFpEF exacerbation KADI on CPAP Morbid obesity Chronic lymphedema in bilateral lower extremity History of A-fib status post ablation, on anticoagulation with Xarelto Last echo from June 2021, EF preserved, mild to moderate pulmonary hypertension, mild RV dilatation, moderate concentric LVH PLAN Continue Lasix 40 mg iv. daily Aldactone 25 mg daily, Farxiga 10 mg daily, Losartan 12.5 mg daily Metoprolol 25 mg twice daily, Cardizem 120 mg daily Xarelto 20 mg daily Jesus Mcguire MD, FAC, RPVI Thank you for allowing [facility] to participate in this patient's care. Feel free to reach out in case of any followup questions. Past Medical History Past Medical History: Atrial Fibrillation, Atrial Flutter, Asthma, Blood Disorder, Heart Failure, COPD, Hypertension, Pneumonia, Sleep Apnea/CPAP/BIPAP Additional Past Medical History / Comment(s): ASPLENIC. Pt recently admitted to [facility] on 08/28/18 with L lower leg cellulitis and hyperkalemia. 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 History of Any Multi-Drug Resistant Organisms: MRSA Date of last positivie culture/infection: 02/19/21 MDRO Source:: FINGER, THIGH MRSA Past Surgical History: Cardiac Ablation Additional Past Surgical History / Comment(s): Splenectomy AGE 2, ;left thigh injury with surgery and another surgery d/t abscess with I&D appox 2000, vocal cord lesions removed, 2014 BMA/Bx, CARDIOVERSION Past Anesthesia/Blood Transfusion Reactions: Previous Problems w/ Anesthesia Additional Past Anesthesia/Blood Transfusion Reaction / Comment(s): Pt states he woke up aggressive one time. Past Psychological History: ADD/ADHD Additional Psychological History / Comment(s): Pt resides with his mother. He has a nebulizer. He works [employer]. Smoking Status: Current every day smoker Past Alcohol Use History: Occasional Additional Past Alcohol Use History / Comment(s): Pt started smoking in 1992 and was a 2 ppd smoker but has decreased amount he smokes to 1/2 ppd. Past Drug Use History: Marijuana Additional Drug Use History / Comment(s): Occasional marijuana use - Past Family History Mother Family Medical History: Hypertension, Seizure Disorder Father Additional Family Medical History / Comment(s): Father from a heroin overdose. Medications and Allergies Home Medications Medication Instructions Recorded Confirmed Type Furosemide [Lasix] 40 mg PO BID 05/06/17 12/28/23 History Metoprolol Tartrate [Lopressor] 25 mg PO BID #60 tab 09/04/18 12/28/23 Rx Rivaroxaban [Xarelto] 20 mg PO W/SUPPER #30 tab 09/04/18 12/28/23 Rx Montelukast [Singulair] 10 mg PO HS 07/20/20 12/28/23 History Tamsulosin [Flomax] 0.4 mg PO HS 07/20/20 12/28/23 History dilTIAZem HCL [Cartia Xt] 120 mg PO DAILY 07/20/20 12/28/23 History Albuterol Inhaler [Ventolin Hfa 2 puff INHALATION RT-Q6H PRN 07/12/21 12/28/23 History Inhaler] Dextroamphetamine/Amphetamine 30 mg PO TID 12/28/23 12/28/23 History [Adderall 30 mg Tablet] Ergocalciferol (Vitamin D2) 1,250 mcg PO Q7D 12/28/23 12/28/23 History [Drisdol (50,000 Iu)] HYDROcodone/APAP 7.5-325MG [[place] 1 tab PO Q6H PRN 12/28/23 12/28/23 History 7.5-325] Semaglutide [Ozempic] 0.5 mg SQ FR 12/28/23 12/28/23 History Spironolactone [Aldactone] 25 mg PO DAILY 12/28/23 12/28/23 History Tezepelumab-Ekko [Tezspire] 1 dose SQ Q30D 12/28/23 12/28/23 History Allergies Allergy/AdvReac Type Severity Reaction Status Date / Time sulfamethoxazole Allergy AFIB/Hives Verified 12/28/23 14:14 [From Bactrim] trimethoprim [From Bactrim] Allergy AFIB/Hives Verified 12/28/23 14:14 Physical Exam Vitals: Vital Signs Temp Pulse Pulse Resp BP BP Pulse Ox 12/29/23 16:50 82 12/29/23 16:38 80 12/29/23 14:00 20 12/29/23 12:31 82 12/29/23 12:19 80 12/29/23 12:00 97.7 F 76 20 121/60 97 12/29/23 09:20 78 12/29/23 09:03 78 12/29/23 08:30 76 22 12/29/23 08:00 97.8 F 75 22 133/61 95 12/29/23 04:00 97.7 F 77 20 123/73 95 12/29/23 00:30 97.6 F 79 24 103/53 96 12/28/23 23:56 97.0 F L 78 15 133/59 95 Intake and Output 12/29/23 12/29/23 12/29/23 06:59 14:59 22:59 Intake Total 540 Output Total 1900 650 Balance -1360 -650 Intake: Oral 540 Output: Urine 1900 650 Other: Voiding Method Toilet Toilet Urinal Urinal Weight 194.2 kg Results 12/29/23 03:50 12/29/23 03:50 Cardiac Enzymes 12/29/23 12/29/23 Range/Units 09:56 12:48 Troponin I 0.013 0.012 (0.000-0.034) ng/mL CBC 12/29/23 Range/Units 03:50 WBC 73.5 H* (3.8-10.6) k/uL RBC 4.69 (4.30-5.90) m/uL Hgb 14.6 (13.0-17.5) gm/dL Hct 43.6 (39.0-53.0) % Plt Count 344 (150-450) k/uL Comprehensive Metabolic Panel 12/29/23 Range/Units 03:50 Sodium 137 (137-145) mmol/L Potassium 4.4 (3.5-5.1) mmol/L Chloride 102 (98-107) mmol/L Carbon Dioxide 25 (22-30) mmol/L BUN 16 (9-20) mg/dL Creatinine 0.74 (0.66-1.25) mg/dL Glucose 170 H (74-99) mg/dL Calcium 9.4 (8.4-10.2) mg/dL Current Medications Generic Name Dose Route Start Last Admin Trade Name Freq PRN Reason Stop Dose Admin Acetaminophen 1,000 mg 12/28/23 11:31 12/28/23 12:00 Acetaminophen Tab 500 Mg Tab PO 1,000 mg Q4HR PRN Administration Fever and/ or Pain Hydrocodone Bitart/Acetaminophen 1 each 12/29/23 00:41 12/29/23 17:12 Hydrocodone/Apap 10-325mg 1 Each Tab PO 1 each Q6HR PRN Administration Pain Albuterol/Ipratropium 3 ml 12/28/23 13:18 12/29/23 16:38 Ipratropium-Albuterol 3 Ml Neb INHALATION 3 ml RT-Q4H PRN Administration shortness of breath Alprazolam 0.25 mg 12/29/23 00:42 12/29/23 13:04 Alprazolam 0.25 Mg Tab PO 0.25 mg QID PRN Administration Anxiety Azithromycin 500 mg 12/29/23 09:00 12/29/23 08:52 Azithromycin 500 Mg Tab PO 12/30/23 09:01 500 mg DAILY ALEKSANDRA Administration Protocol Dapagliflozin 10 mg 12/30/23 09:00 Dapagliflozin Propanediol 10 Mg Tablet PO DAILY ALEKSANDRA Dextrose/Water 25 ml 12/29/23 09:10 Dextrose 50% Syringe 50 Ml IVP PER PROTOCOL PRN Hypoglycemia Protocol Dextrose/Water 50 ml 12/29/23 09:10 Dextrose 50% Syringe 50 Ml IVP PER PROTOCOL PRN Hypoglycemia Protocol Diltiazem HCl 120 mg 12/30/23 09:00 Diltiazem Cd 120 Mg Cap.Er.24h PO DAILY ALEKSANDRA Furosemide 40 mg 12/29/23 09:45 12/29/23 12:06 Furosemide 10 Mg/Ml 4 Ml Vial IV 40 mg DAILY ALEKSANDRA Administration Sodium Chloride 1,000 mls @ 75 mls/hr 12/28/23 13:30 12/29/23 02:46 Saline 0.9% IV 75 mls/hr .[id number] ALEKSANDRA Administration Vancomycin HCl 2,250 mg/ 500 mls @ 167 mls/hr 12/29/23 05:00 12/29/23 17:13 Sodium Chloride IVPB 167 mls/hr Q12H ALEKSANDRA Administration Cefepime HCl 2 gm/ Sodium 100 mls @ 25 mls/hr 12/29/23 16:00 12/29/23 16:46 Chloride IVPB 25 mls/hr Q8HR ALEKSANDRA Administration Protocol Insulin Aspart 0 unit 12/29/23 12:30 12/29/23 17:13 Insulin Aspart (Novolog) 100 Unit/Ml Vial SQ 6 unit ACHS ALEKSANDRA Administration Protocol Losartan Potassium 12.5 mg 12/30/23 09:00 Losartan 25 Mg Tab PO DAILY ALEKSANDRA Metoprolol Tartrate 25 mg 12/29/23 21:00 Metoprolol Tartrate 25 Mg Tab PO BID ALEKSANDRA Miscellaneous Information 1 each 12/28/23 13:18 Pneumonia Protocol Utilized 1 Each Misc PO ONCE PRN Per Protocol Montelukast Sodium 10 mg 12/29/23 21:00 Montelukast 10 Mg Tab PO HS [facility] Nicotine 1 patch 12/30/23 09:00 Nicotine 14mg/24hr Patch TRANSDERM DAILY ALEKSANDRA Nystatin 1 applic 12/29/23 21:00 Nystatin 100,000 Unit/Gm Powd 15 Gm TOPICAL BID [facility] Protocol Pantoprazole Sodium 40 mg 12/30/23 07:30 Pantoprazole 40 Mg Tablet PO AC-BRKFST [facility] Rivaroxaban 20 mg 12/29/23 17:30 12/29/23 17:12 Rivaroxaban 20 Mg Tab PO 20 mg W/SUPPER ALEKSANDRA Administration Protocol Spironolactone 25 mg 12/30/23 09:00 Spironolactone 25 Mg Tab PO DAILY [facility] Intake and Output 12/29/23 12/29/23 12/29/23 06:59 14:59 22:59 Intake Total 540 Output Total 1900 650 Balance -1360 -650 Intake: Oral 540 Output: Urine 1900 650 Other: Voiding Method Toilet Toilet Urinal Urinal Weight 194.2 kg 12/29/23 03:50 12/29/23 03:50
[2023-12-29 20:38] LABS: Glucose,Whole Blood 272 mg/dL (70-110)
[2023-12-29] MEDS: METOPROLOL TARTRATE 25 MG TAB PO SCH (22:17)
[2023-12-29] MEDS: MONTELUKAST 10 MG TAB PO SCH (22:17)
[2023-12-29] MEDS: NYSTATIN 100,000 UNIT/GM POWD 15 GM TOPICAL SCH (22:18)
--- NOTE | 2023-12-29 22:23 | P.CONS ---
History of Present Illness - Reason for Consult Consult date: 12/29/23 Pneumonia, infection Requesting physician: David Paniagua - Chief Complaint Shortness of breath and mental status changes x 1 day - History of Present Illness Patient is a 48-year-old male with a past medical history significant for hypertension COPD heart failure atrial fibrillation morbid obesity also with a history of recurrent abdominal wall cellulitis patient has been brought into the hospital yesterday concerning for increasing shortness of breath that ap parently has been getting worse for a day or 2 before presentation to the hospital patient also complaining of cough moderate intensity with yellowish- green sputum no hemoptysis no pleuritic chest pain no nausea no vomiting has been complaining of lower abdominal discomfort some distention but no diarrhea or constipation currently do not have any redness or pain to the abdominal wall and no urinary symptom on presentation to the hospital he did have a fever of 102.8 F patient was tachycardic but not hypotensive he was mildly hypoxic with O2 sats of 94% room air patient is currently on 2 L nasal cannula oxygen satting around 98% patient workup did include a white count of 38.7 which has jumped to 73.5 today with a left shift did have a normal creatinine and electrolytes are normal lactic acid was elevated subsequent normalized liver enzymes are normal troponin was elevated UA is negative influenza RSV COVID testing negative patient was started on Rocephin Zithromax and vancomycin infectious disease was consulted for further management of antibiotic therapy patient did have a chest x-ray concerning for left midlung airspace consolidation concerning for pneumonia Review of Systems Positive point and negatives has been mentioned in the HPI, complete review of systems was performed and all other systems are negative Past Medical History Past Medical History: Atrial Fibrillation, Atrial Flutter, Asthma, Blood Dis order, Heart Failure, COPD, Hypertension, Pneumonia, Sleep Apnea/CPAP/BIPAP Additional Past Medical History / Comment(s): ASPLENIC. Pt recently admitted to [facility] on 08/28/18 with L lower leg cellulitis and hyperkalemia. 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 History of Any Multi-Drug Resistant Organisms: MRSA Year Discovered:: 02/19/21 MDRO Source:: FINGER, THIGH MRSA Past Surgical History: Cardiac Ablation Additional Past Surgical History / Comment(s): Splenectomy AGE 2, ;left thigh injury with surgery and another surgery d/t abscess with I&D appox 2000, vocal cord lesions removed, 2014 BMA/Bx, CARDIOVERSION Past Anesthesia/Blood Transfusion Reactions: Previous Problems w/ Anesthesia Additional Past Anesthesia/Blood Transfusion Reaction / Comm: Pt states he woke up aggressive one time. Past Psychological History: ADD/ADHD Additional Psychological History / Comment(s): Pt resides with his mother. He has a nebulizer. 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 Smoking Status: Current every day smoker Past Alcohol Use History: Occasional Additional Past Alcohol Use History / Comment(s): Pt started smoking in 1992 and was a 2 ppd smoker but has decreased amount he smokes to 1/2 ppd. Past Drug Use History: Marijuana Additional Drug Use History / Comment(s): Occasional marijuana use - Past Family History Mother Family Medical History: Hypertension, Seizure Disorder Father Additional Family Medical History / Comment(s): Father from a heroin overdose. Medications and Allergies Home Medications Medication Instructions Recorded Confirmed Type Furosemide [Lasix] 40 mg PO BID 05/06/17 12/28/23 History Metoprolol Tartrate [Lopressor] 25 mg PO BID #60 tab 09/04/18 12/28/23 Rx Rivaroxaban [Xarelto] 20 mg PO W/SUPPER #30 tab 09/04/18 12/28/23 Rx Montelukast [Singulair] 10 mg PO HS 07/20/20 12/28/23 History Tamsulosin [Flomax] 0.4 mg PO HS 07/20/20 12/28/23 History dilTIAZem HCL [Cartia Xt] 120 mg PO DAILY 07/20/20 12/28/23 History Albuterol Inhaler [Ventolin Hfa 2 puff INHALATION RT-Q6H PRN 07/12/21 12/28/23 History Inhaler] Dextroamphetamine/Amphetamine 30 mg PO TID 12/28/23 12/28/23 History [Adderall 30 mg Tablet] Ergocalciferol (Vitamin D2) 1,250 mcg PO Q7D 12/28/23 12/28/23 History [Drisdol (50,000 Iu)] HYDROcodone/APAP 7.5-325MG [[place] 1 tab PO Q6H PRN 12/28/23 12/28/23 History 7.5-325] Semaglutide [Ozempic] 0.5 mg SQ FR 12/28/23 12/28/23 History Spironolactone [Aldactone] 25 mg PO DAILY 12/28/23 12/28/23 History Tezepelumab-Ekko [Tezspire] 1 dose SQ Q30D 12/28/23 12/28/23 History Allergies Allergy/AdvReac Type Severity Reaction Status Date / Time sulfamethoxazole Allergy AFIB/Hives Verified 12/28/23 14:14 [From Bactrim] trimethoprim [From Bactrim] Allergy AFIB/Hives Verified 12/28/23 14:14 Physical Exam Vitals: Vital Signs Temp Pulse Pulse Resp BP BP Pulse Ox 12/29/23 12:31 82 12/29/23 12:19 80 12/29/23 12:00 97.7 F 76 20 121/60 97 12/29/23 09:20 78 12/29/23 09:03 78 12/29/23 08:00 97.8 F 75 22 133/61 95 12/29/23 04:00 97.7 F 77 20 123/73 95 12/29/23 00:30 97.6 F 79 24 103/53 96 12/28/23 23:56 97.0 F L 78 15 133/59 95 12/28/23 19:36 83 20 113/74 95 12/28/23 18:30 92 20 96 12/28/23 17:40 20 12/28/23 17:35 98.6 F 93 18 105/48 96 12/28/23 16:06 92 26 H 104/58 96 12/28/23 15:27 101 H 28 H 12/28/23 15:19 114 H 25 H 12/28/23 15:18 12/28/23 14:52 97 26 H 96 12/28/23 14:09 102.8 F H 106 H 26 H 106/60 95 12/28/23 13:00 122 H 42 H 137/86 97 FiO2 12/29/23 12:31 12/29/23 12:19 12/29/23 12:00 12/29/23 09:20 12/29/23 09:03 12/29/23 08:00 12/29/23 04:00 12/29/23 00:30 12/28/23 23:56 12/28/23 19:36 12/28/23 18:30 12/28/23 17:40 12/28/23 17:35 12/28/23 16:06 12/28/23 15:27 12/28/23 15:19 12/28/23 15:18 40 12/28/23 14:52 12/28/23 14:09 12/28/23 13:00 Intake and Output 12/28/23 12/29/23 12/29/23 22:59 06:59 14:59 Intake Total 540 Output Total 1900 Balance -1360 Intake: Oral 540 Output: Urine 1900 Other: Voiding Method Toilet Urinal Weight 194.2 kg GENERAL DESCRIPTION: Middle-aged male lying in bed, no distress. No tachypnea or accessory muscle of respiration use. HEENT: Shows Pallor , no scleral icterus. Oral mucous membrane is dry. No pharyngeal erythema or thrush NECK: Trachea central, no thyromegaly. LUNGS: Unlabored breathing. Decreased intensity of breath sounds no wheeze or crackle. HEART: S1, S2, regular rate and rhythm. No loud murmur ABDOMEN: Soft, lower abdominal swelling but no redness or drainage EXTREMITIES: Swelling to the leg no redness SKIN: No rash, no masses palpable. NEUROLOGICAL: The patient is awake, alert, oriented x3, mood and affect normal. Results CBC & Chem 7: 12/29/23 03:50 12/29/23 03:50 Labs: Abnormal Lab Results - Last 24 Hours (Table) 12/28/23 12/28/23 12/28/23 Range/Units 11:40 11:50 11:50 WBC (3.8-10.6) k/uL Neutrophils # (Manual) 35.90 H (1.3-7.7) k/uL Monocytes # (Manual) (0-1.0) k/uL Metamyelocytes # (Man) (0) k/uL PT 12.9 H (10.0-12.5) sec INR 1.2 H (<1.2) APTT 32.0 H (22.0-30.0) sec ABG pH 7.47 H (7.35-7.45) ABG pCO2 34 L (35-45) mmHg ABG pO2 64 L (83-108) mmHg ABG Total CO2 26 H (19-24) mmol/L Glucose (74-99) mg/dL POC Glucose (mg/dL) (70-110) mg/dL Plasma Lactic Acid Raymond (0.7-2.0) mmol/L 12/28/23 12/28/23 12/28/23 Range/Units 14:56 18:14 21:17 WBC (3.8-10.6) k/uL Neutrophils # (Manual) (1.3-7.7) k/uL Monocytes # (Manual) (0-1.0) k/uL Metamyelocytes # (Man) (0) k/uL PT (10.0-12.5) sec INR (<1.2) APTT (22.0-30.0) sec ABG pH (7.35-7.45) ABG pCO2 (35-45) mmHg ABG pO2 (83-108) mmHg ABG Total CO2 (19-24) mmol/L Glucose (74-99) mg/dL POC Glucose (mg/dL) (70-110) mg/dL Plasma Lactic Acid Raymond 2.8 H* 3.8 H* 5.1 H* (0.7-2.0) mmol/L 12/29/23 12/29/23 12/29/23 Range/Units 03:50 03:50 03:50 WBC 73.5 H* (3.8-10.6) k/uL Neutrophils # (Manual) 66.80 H (1.3-7.7) k/uL Monocytes # (Manual) 2.94 H (0-1.0) k/uL Metamyelocytes # (Man) 1.47 H (0) k/uL PT (10.0-12.5) sec INR (<1.2) APTT (22.0-30.0) sec ABG pH (7.35-7.45) ABG pCO2 (35-45) mmHg ABG pO2 (83-108) mmHg ABG Total CO2 (19-24) mmol/L Glucose 170 H (74-99) mg/dL POC Glucose (mg/dL) (70-110) mg/dL Plasma Lactic Acid Raymond 2.8 H* (0.7-2.0) mmol/L 12/29/23 12/29/23 12/29/23 Range/Units 07:08 10:02 12:05 WBC (3.8-10.6) k/uL Neutrophils # (Manual) (1.3-7.7) k/uL Monocytes # (Manual) (0-1.0) k/uL Metamyelocytes # (Man) (0) k/uL PT (10.0-12.5) sec INR (<1.2) APTT (22.0-30.0) sec ABG pH (7.35-7.45) ABG pCO2 (35-45) mmHg ABG pO2 (83-108) mmHg ABG Total CO2 (19-24) mmol/L Glucose (74-99) mg/dL POC Glucose (mg/dL) 286 H (70-110) mg/dL Plasma Lactic Acid Raymond 2.6 H* 2.1 H* (0.7-2.0) mmol/L Assessment and Plan (1) Pneumonia Current Visit: Yes Status: Acute Code(s): J18.9 - PNEUMONIA, UNSPECIFIED ORGANISM SNOMED Code(s): 249242602 (2) Allergy to sulfa drugs Current Visit: No Status: Acute Code(s): Z88.2 - ALLERGY STATUS TO SULFONAMIDES SNOMED Code(s): 87935992 (3) Leukocytosis Current Visit: No Status: Acute Code(s): D72.829 - ELEVATED WHITE BLOOD CELL COUNT, UNSPECIFIED SNOMED Code(s): 563708204 (4) Sepsis Current Visit: Yes Status: Acute Code(s): A41.9 - SEPSIS, UNSPECIFIED ORGANISM SNOMED Code(s): 13004884 Plan: 1patient presented to hospital with sepsis in this patient who did have a fever elevated white count tachycardia elevated lactic acid source likely left-sided pneumonia had the patient also have been admitted respiratory symptoms or shortness of breath cough and yellowish-green sputum production patient did have history of recurrent abdominal wall cellulitis however had no cellulitis was noticed on examination today. 2patient with significant elevated white count questionable related to right that he has received a dose yesterday and need to monitor closely. 3we will check a CRP procalcitonin sputum for Gram stain and culture urine for Legionella antigen 4continue with vancomycin we will switch Rocephin to cefepime for better gram- negative coverage Question concern answered We will follow on clinical condition and cultures to further adjust medication if needed Thank you for this consultation we will follow the patient along with you Dictation was produced using [employer] dictation software. please excuse any grammatical, word or spelling errors. Time with Patient: Greater than 30
[2023-12-29] MEDS: diphenhydrAMINE 50 MG/ML 1 ML VIAL IVP SCH (22:29)
[2023-12-30 06:24] LABS: Glucose,Whole Blood 158 mg/dL (70-110)
[2023-12-30] MEDS: PANTOPRAZOLE 40 MG TABLET PO SCH (06:36)
[2023-12-30 08:17] LABS: Basophils # (A) 0.1 k/uL (0-0.2); Basophils % (A) 0 %; Eosinophils # (A) 0.2 k/uL (0-0.7); Eosinophils % (A) 1 %; HCT 44.8 % (39.0-53.0); HGB 14.5 gm/dL (13.0-17.5); Lymphocytes # (A) 1.9 k/uL (1.0-4.8); Lymphocytes % (A) 4 %; MCH 30.1 pg (25.0-35.0); MCHC 32.3 g/dL (31.0-37.0); Monocytes # (A) 1.5 k/uL (0-1.0); Monocytes % (A) 4 %; Neutrophils # (A) 39.3 k/uL (1.3-7.7); Neutrophils % (A) 91 %; Poikilocytosis Slight; RBC 4.82 m/uL (4.30-5.90); WBC 43.3 k/uL (3.8-10.6)
[2023-12-30 08:20] LABS: ALT 30 U/L (4-49); African American GFR (CKD) >90 (>60 ml/min/1.73 sqM); Albumin 3.4 g/dL (3.5-5.0); Anion Gap 4 mmol/L; Blood Urea Nitrogen 19 mg/dL (9-20); Calcium 9.2 mg/dL (8.4-10.2); Carbon Dioxide 31 mmol/L (22-30); Chloride 103 mmol/L (98-107); Glucose 119 mg/dL (74-99); Non-African American GFR(CKD) >90 (>60 ml/min/1.73 sqM); Sodium 138 mmol/L (137-145); Total Bilirubin 0.8 mg/dL (0.2-1.3); Total Protein 6.9 g/dL (6.3-8.2)
[2023-12-30 08:21] LABS: AST 73 U/L (17-59); Alkaline Phosphatase 80 U/L (38-126); Potassium 5.4 mmol/L (3.5-5.1)
[2023-12-30 08:46] LABS: Platelet Count 352 k/uL (150-450)
[2023-12-30] MEDS: LOSARTAN 25 MG TAB PO SCH (09:07)
[2023-12-30] MEDS: DILTIAZEM CD 120 MG CAP.ER.24H PO SCH (09:07)
[2023-12-30] MEDS: SPIRONOLACTONE 25 MG TAB PO SCH (09:07)
[2023-12-30] MEDS: DAPAGLIFLOZIN PROPANEDIOL 10 MG TABLET PO SCH (09:07)
[2023-12-30] MEDS: NICOTINE 14MG/24HR PATCH TRANSDERM SCH (09:08)
--- NOTE | 2023-12-30 11:36 | P.PN ---
Subjective Progress Note Date: 12/30/23 HISTORY OF PRESENTING ILLNESS Presented to the hospital because of increased worsening shortness of breath. He is past medical history of A-fib status post ablation, morbid obesity, KADI on CPAP, prior history of spherocytosis status post pleurectomy. He is also 2 pack cigarette smoker. This time he presented to the hospital because of worsening shortness of breath, increased fatigue, increased cough. And concerns of fever. On admission he has significant leukocytosis with WBC 73, hemoglobin 14.6, 59% bandemia, elevated lactate 5.1, Trope of 0.05, ECG shows sinus tachycardia REVIEW OF SYSTEMS 14 point review of system is negative except what is mentioned above in HPI. 12/29 Patient states that his breathing is better. He denies having any chest pain. He continues to have lower extremity edema and wheezing. Echocardiogram is pending. Blood pressure 122/73, heart rate 65, pulse ox 94% on 2 L nasal cannula. Repeat blood work reveals WBC 43, hemoglobin 14.5. Sodium 138, potassium 5.4, creatinine 0.61. Patient is currently on IV Lasix 40 mg daily. Patient has a negative fluid balance, weight is up from yesterday. PHYSICAL EXAMINATION Morbidly obese head: Normocephalic. Eyes: Sclerae nonicteric. Neck: Brisk carotid upstroke, cannot assess JVD due to thick neck Lungs: Expiratory wheezing. Heart: Regular rate and rhythm, S1-S2, no S3, no murmur or rub. Abdomen: Soft nontender, positive bowel sounds. Extremities: Chronic lymphedema right lower extremity, 2+ edema Neuro: Alert, oritented, no focal deficits. Detailed neuro exam was not performed. ASSESSMENT Acute hypoxic respiratory failure Acute left lower lobe pneumonia Severe leukocytosis. Prior history of splenectomy because of spherocytosis. Lactic acidosis Severe sepsis Mild troponin elevation, likely type II from demand supply mismatch from sepsis and pneumonia Mild HFpEF exacerbation KADI on CPAP Morbid obesity with BMI of 67 Chronic lymphedema in bilateral lower extremity History of A-fib status post ablation, on anticoagulation with Xarelto Last echo from June 2021, EF preserved, mild to moderate pulmonary hypertension, mild RV dilatation, moderate concentric LVH PLAN Continue current cardiac medications: Farxiga 10 mg daily, Cardizem 120 mg daily, losartan 12.5 mg daily, Lopressor 25 mg twice daily, Xarelto 20 mg daily, Aldactone 25 mg daily Continue Lasix 40 mg iv. daily Monitor ANKUR, daily weights, electrolytes and renal function. Nurse practitioner note has been reviewed, I agree with documented findings and plan of care. Patient was seen and examined. Objective - Vital Signs Vital signs: Vital Signs Temp 98.0 F 12/30/23 04:00 Pulse 66 12/30/23 04:00 Resp 20 12/30/23 04:00 BP 116/57 12/30/23 04:00 Pulse Ox 95 12/30/23 04:00 FiO2 40 12/28/23 15:18 Intake & Output 12/29/23 12/30/23 12/30/23 18:59 06:59 18:59 Intake Total 540 Output Total 650 1550 Balance -650 -1010 Weight 195.1 kg Intake: Oral 540 Output: Urine 650 1550 Other: Voiding Method Toilet Toilet Urinal Urinal - Labs CBC & Chem 7: 12/30/23 07:23 12/30/23 07:23 Labs: Abnormal Lab Results - Last 24 Hours (Table) 12/29/23 12/29/23 12/29/23 Range/Units 03:50 10:02 12:05 WBC (3.8-10.6) k/uL Potassium (3.5-5.1) mmol/L Carbon Dioxide (22-30) mmol/L Creatinine (0.66-1.25) mg/dL Glucose (74-99) mg/dL POC Glucose (mg/dL) 286 H (70-110) mg/dL Plasma Lactic Acid Raymond 2.1 H* (0.7-2.0) mmol/L AST (17-59) U/L Albumin (3.5-5.0) g/dL Procalcitonin 17.70 H (0.02-0.50) ng/mL 12/29/23 12/29/23 12/30/23 Range/Units 16:50 20:37 06:21 WBC (3.8-10.6) k/uL Potassium (3.5-5.1) mmol/L Carbon Dioxide (22-30) mmol/L Creatinine (0.66-1.25) mg/dL Glucose (74-99) mg/dL POC Glucose (mg/dL) 274 H 272 H 158 H (70-110) mg/dL Plasma Lactic Acid Raymond (0.7-2.0) mmol/L AST (17-59) U/L Albumin (3.5-5.0) g/dL Procalcitonin (0.02-0.50) ng/mL 12/30/23 12/30/23 Range/Units 07:23 07:23 WBC 43.3 H (3.8-10.6) k/uL Potassium 5.4 H (3.5-5.1) mmol/L Carbon Dioxide 31 H (22-30) mmol/L Creatinine 0.61 L (0.66-1.25) mg/dL Glucose 119 H (74-99) mg/dL POC Glucose (mg/dL) (70-110) mg/dL Plasma Lactic Acid Raymond (0.7-2.0) mmol/L AST 73 H (17-59) U/L Albumin 3.4 L (3.5-5.0) g/dL Procalcitonin (0.02-0.50) ng/mL Microbiology - Last 24 Hours (Table) 12/28/23 11:50 Blood Culture - Preliminary Blood
[2023-12-30 11:46] LABS: Glucose,Whole Blood 165 mg/dL (70-110)
--- NOTE | 2023-12-30 15:25 | P.PN ---
Subjective Progress Note Date: 12/30/23 On 12/29/2023, the patient is seen in consultation for increased shortness of breath. The patient is morbidly obese. He is a smoker and was smoking up to 2 packs of cigarettes a day. Currently smoking few cigarettes a day. He has seen Dr. Roberts from pulmonology and the patient was started on Tezspire in jections/infusions which is typically used for asthma. The patient has not seen any major improvement in his respiratory status while being on this medication. Utilize albuterol nebulized treatments [id number]. No home oxygen. He claims that he has a CPAP machine at home regarding obstructive sleep apnea. The patient has had a 30 spherocytosis and the patient has previous splenectomy. He comes in with worsening shortness of breath and fever and the chest x-ray is consistent with lower lobe pneumonia. Repeat chest x-ray was done today and shows significant consolidation in the left lower lobe and the left midlung area. The patient remains on a combination of Rocephin and Zithromax and vancomycin. Hemodynamically stable. Currently afebrile 3 0 Bactroban nasal cannula. The white cell count is up to 73 with a hemoglobin 14.6 and a platelet count of 344. The patient has a 39% bandemia. Electrolytes are all within normal limits. Initial lactic acid level was at 5.1 dropped down to 2.1. Troponins are 0.05 and 0.01 respectively x 2. Normal LFTs. Viral screen was negative. He has chronic edema lower extremities bilaterally. He remains on broad-spectrum antibiotics The patient is seen today December 30, 2023 in follow-up on the selective care unit. He is currently sitting up in a chair at the bedside. Awake and alert in no acute distress. He is maintaining O2 saturations in the 90s on 2 L/min per nasal cannula. He is feeling a bit better today compared to yesterday. He remains on cefepime and vancomycin for his left lower lobe pneumonia. He is also utilizing his home CPAP at night for his obstructive sleep apnea. He is anticoagulated with Xarelto. White count 43.3. Hemoglobin 14.5. Platelets 352. Sodium 138. Potassium 5.4. Bicarb 31. BUN 19. Creatinine 0.61. Glucose 119. NicoDerm patch remains in place Objective - Vital Signs Vital signs: Vital Signs Temp 98.1 F 12/30/23 11:35 Pulse 76 12/30/23 12:13 Resp 18 12/30/23 11:35 BP 112/72 12/30/23 11:35 Pulse Ox 95 12/30/23 11:35 FiO2 40 12/28/23 15:18 Intake & Output 12/29/23 12/30/23 12/30/23 18:59 06:59 18:59 Intake Total 540 1118 Output Total 650 1550 Balance -650 -1010 1118 Weight 195.1 kg Intake: Intake, IV Titration 500 Amount Vancomycin 2,250 mg In 500 Sodium Chloride 0.9% 500 ml 500 ml @ 167 mls/hr IVPB Q12H [facility] Rx#: [id number] Oral 540 618 Output: Urine 650 1550 Other: Voiding Method Toilet Toilet Toilet Urinal Urinal Urinal - Exam GENERAL EXAM: Alert, pleasant, morbidly obese 48-year-old male, on 2 L nasal cannula, up in a chair, comfortable in no apparent distress. HEAD: Normocephalic. EYES: Normal reaction of pupils, equal size. NOSE: Clear with pink turbinates. THROAT: No erythema or exudates. NECK: No masses, no JVD. CHEST: No chest wall deformity. LUNGS: Equal air entry with bilateral scattered rhonchi left greater than right. CVS: S1 and S2 normal with no audible murmur, regular rhythm. ABDOMEN: No hepatomegaly, normal bowel sounds, no guarding or rigidity. SPINE: No scoliosis or deformity SKIN: No rashes CENTRAL NERVOUS SYSTEM: No focal deficits, tone is normal in all 4 extremities. EXTREMITIES: There is 1+ peripheral edema. No clubbing, no cyanosis. Peripheral pulses are intact. - Labs CBC & Chem 7: 12/30/23 07:23 12/30/23 07:23 Labs: Abnormal Lab Results - Last 24 Hours (Table) 12/29/23 12/29/23 12/29/23 Range/Units 03:50 16:50 20:37 WBC (3.8-10.6) k/uL Neutrophils # (1.3-7.7) k/uL Monocytes # (0-1.0) k/uL Potassium (3.5-5.1) mmol/L Carbon Dioxide (22-30) mmol/L Creatinine (0.66-1.25) mg/dL Glucose (74-99) mg/dL POC Glucose (mg/dL) 274 H 272 H (70-110) mg/dL AST (17-59) U/L Albumin (3.5-5.0) g/dL Procalcitonin 17.70 H (0.02-0.50) ng/mL 12/30/23 12/30/23 12/30/23 Range/Units 06:21 07:23 07:23 WBC 43.3 H (3.8-10.6) k/uL Neutrophils # 39.3 H (1.3-7.7) k/uL Monocytes # 1.5 H (0-1.0) k/uL Potassium 5.4 H (3.5-5.1) mmol/L Carbon Dioxide 31 H (22-30) mmol/L Creatinine 0.61 L (0.66-1.25) mg/dL Glucose 119 H (74-99) mg/dL POC Glucose (mg/dL) 158 H (70-110) mg/dL AST 73 H (17-59) U/L Albumin 3.4 L (3.5-5.0) g/dL Procalcitonin (0.02-0.50) ng/mL 12/30/23 Range/Units 11:44 WBC (3.8-10.6) k/uL Neutrophils # (1.3-7.7) k/uL Monocytes # (0-1.0) k/uL Potassium (3.5-5.1) mmol/L Carbon Dioxide (22-30) mmol/L Creatinine (0.66-1.25) mg/dL Glucose (74-99) mg/dL POC Glucose (mg/dL) 165 H (70-110) mg/dL AST (17-59) U/L Albumin (3.5-5.0) g/dL Procalcitonin (0.02-0.50) ng/mL Microbiology - Last 24 Hours (Table) 12/28/23 11:50 Blood Culture - Preliminary Blood Assessment and Plan Assessment: Acute hypoxic respiratory failure secondary to an acute left lower lobe pneumonia with extensive consolidation, currently on 2 L of oxygen by nasal cannula Acute fever secondary to above, currently afebrile Acute leukocytosis secondary to above in a patient with previous splenectomy. The patient has significant bandemia with a white cell count of 43, currently on a combination of cefepime and vancomycin. The viral screen has been negative Acute lactic acidosis improving Minimal troponin leak secondary to above, likely is type II ischemia myocardial COPD/asthma although favor COPD and the patient has been a chronic smoker. The patient has been receiving Tezspire infusions through Dr. 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 He has been maintained on Xarelto Plan: The patient was seen and evaluated Labs and medications reviewed Improving daily Continue the current treatment plan Titrate down the FiO2 as tolerated Educated regarding the importance of smoking cessation NicoDerm patch in place Anticoagulated with Xarelto We will continue to follow I have personally seen and examined the patient, performed the documentation and the assessment and plan as written. Number of minutes spent on the visit: 10.
[2023-12-30 16:24] LABS: Glucose,Whole Blood 136 mg/dL (70-110)
--- NOTE | 2023-12-30 17:21 | CA ---
Transthoracic Echo Report Name: Chau Diallo Age: 48 Gender: M : 1975 Exam Date: 12/30/2023 11:37 Exam Location: [place] [facility] Ht (in): 67 Wt (lb): 430 Ordering Physician: Neelam Christianson Attending/Referring Phys: [id number], Meghan Meat Stuffer Tabitha Lopez, GRAHAM Procedure CPT: Indications: LVF Cardiac Hx: Technical Quality: Technically difficult study Contrast 1: Definity Total Dose (mL): 2 Contrast 2: Total Dose (mL): MEASUREMENTS (Male / Female) Normal Values 2D ECHO LV Diastolic Diameter PLAX 5.6 cm 4.2 - 5.9 / 3.9 - 5.3 cm LV Systolic Diameter PLAX 3.6 cm IVS Diastolic Thickness 1.4 cm 0.6 - 1.0 / 0.6 - 0.9 cm LVPW Diastolic Thickness 1.4 cm 0.6 - 1.0 / 0.6 - 0.9 cm LV Relative Wall Thickness 0.5 RV Internal Dim ED PLAX 3.6 cm LA Systolic Diameter LX 4.1 cm 3.0 - 4.0 / 2.7 - 3.8 cm LA Volume 67.4 cm??? 18 - 58 / 22 - 52 cm??? LA Volume Index 21.3 cm???/m??? 16 - 28 cm???/m??? M-MODE Aortic Root Diameter MM 4.0 cm AV Cusp Separation MM 2.8 cm DOPPLER AV Peak Velocity 153.4 cm/s AV Peak Gradient 9.4 mmHg MV Area PHT 3.1 cm??? Mitral E Point Velocity 95.9 cm/s Mitral A Point Velocity 86.1 cm/s Mitral E to A Ratio 1.1 MV Deceleration Time 243.3 ms TR Peak Velocity 278.8 cm/s TR Peak Gradient 31.1 mmHg Right Ventricular Systolic Press 35.6 mmHg FINDINGS Left Ventricle Left ventricular ejection fraction is estimated at 55-60 %. Left ventricular cavity size normal. Moderate concentric left ventricular hypertrophy. Normal left ventricular wall motion. Right Ventricle Mild right ventricular dilatation. Mild pulmonary hypertension. Right Atrium Right atrium not well visualized. Left Atrium Mildly increased left atrial volume. Mildly increased left atrial area. Mitral Valve Structurally normal mitral valve. No mitral stenosis, regurgitation or prolapse. Aortic Valve Aortic valve not well visualized. No aortic valve stenosis or regurgitation. Tricuspid Valve Tricuspid valve not well visualized. Mild tricuspid regurgitation. Pulmonic Valve Structurally normal pulmonic valve. Trace to mild pulmonic regurgitation. Pericardium No pericardial or pleural effusion. Aorta Moderate aortic dilatation at the level of the sinuses of valsalva 40 mm CONCLUSIONS Normal LV function Moderate aortic dilatation Previewed by: Dr. Cristopher Carter MD (Electronically Signed) Final Date: 30 December 2023 17:20
--- NOTE | 2023-12-30 17:29 | P.PN ---
Subjective Progress Note Date: 12/30/23 Chau Diallo, is a 48-year-old male patient who presented to the ER with concerns of shortness of breath. Patient has a past medical history of atrial fibrillation, asthma, blood disorder, heart failure, COPD, hypertension, pneumonia and morbid obesity. Initial chest x-ray completed showing focal air space consolidation in the left midlung possibly representing acute pneumonia. Lab work revealing initial white blood cell of 38.7, lactic acid 2.1 increasing to 5.1. Initial troponin elevated at 0.053. Influenza RSV and COVID-19 all negative. Initial vitals temp 102.8, heart rate 106, respiratory rate 26, blood pressure 106/60 with a pulse ox of 95% on 2 L. At this time patient will be admitted patient started on IV antibiotics. Infectious disease and pulmonary services consulted. Will also consult cardiology services and repeat troponin level. Patient did receive multiple fluid boluses in the ER. Patient reports improvement. Patient denies chest pain or shortness of breath. Patient denies nausea vomiting or diarrhea. Patient denies any urinary burning or frequency. Will order urine blood and sputum cultures On 12/30/2023 patient was seen and examined on the medical floor he is alert and oriented x 3 in no apparent distress he feels better there is no fever or chills no headache or dizziness no chest pain no shortness of breath he has occasional cough no nausea or vomiting no abdominal pain no diarrhea and no urinary symptoms. His lower abdominal pannus is hard possibility of abscess was entertained abdomen ultrasound was ordered. Objective - Vital Signs Vital signs: Vital Signs Temp 98.2 F 12/30/23 16:05 Pulse 59 L 12/30/23 16:05 Resp 20 12/30/23 16:05 BP 120/74 12/30/23 16:05 Pulse Ox 95 12/30/23 16:05 FiO2 40 12/28/23 15:18 Intake & Output 12/29/23 12/30/23 12/30/23 18:59 06:59 18:59 Intake Total 540 1218 Output Total 650 1550 650 Balance -650 -1010 568 Weight 195.1 kg Intake: Intake, IV Titration 600 Amount Cefepime 2 gm In Sodium 100 Chloride 0.9% 100 ml @ 25 mls/hr IVPB Q8HR [facility] Rx# :[id number] Vancomycin 2,250 mg In 500 Sodium Chloride 0.9% 500 ml 500 ml @ 167 mls/hr IVPB Q12H [facility] Rx#: [id number] Oral 540 618 Output: Urine 650 1550 650 Other: Voiding Method Toilet Toilet Toilet Urinal Urinal Urinal - Exam Head normocephalic Neck supple Lungs clear to auscultation bilaterally no wheezing or crackles Heart irregular heart rate known A-fib Abdomen is soft nontender nondistended positive bowel sounds no hepatosplenomegaly. Morbidly obese Extremities no edema Neuro alert and orientated to 3 - Labs CBC & Chem 7: 12/30/23 07:23 12/30/23 07:23 Labs: Abnormal Lab Results - Last 24 Hours (Table) 12/29/23 12/29/23 12/29/23 Range/Units 03:50 16:50 20:37 WBC (3.8-10.6) k/uL Neutrophils # (1.3-7.7) k/uL Monocytes # (0-1.0) k/uL Potassium (3.5-5.1) mmol/L Carbon Dioxide (22-30) mmol/L Creatinine (0.66-1.25) mg/dL Glucose (74-99) mg/dL POC Glucose (mg/dL) 274 H 272 H (70-110) mg/dL AST (17-59) U/L Albumin (3.5-5.0) g/dL Procalcitonin 17.70 H (0.02-0.50) ng/mL 12/30/23 12/30/23 12/30/23 Range/Units 06:21 07:23 07:23 WBC 43.3 H (3.8-10.6) k/uL Neutrophils # 39.3 H (1.3-7.7) k/uL Monocytes # 1.5 H (0-1.0) k/uL Potassium 5.4 H (3.5-5.1) mmol/L Carbon Dioxide 31 H (22-30) mmol/L Creatinine 0.61 L (0.66-1.25) mg/dL Glucose 119 H (74-99) mg/dL POC Glucose (mg/dL) 158 H (70-110) mg/dL AST 73 H (17-59) U/L Albumin 3.4 L (3.5-5.0) g/dL Procalcitonin (0.02-0.50) ng/mL 12/30/23 12/30/23 Range/Units 11:44 16:22 WBC (3.8-10.6) k/uL Neutrophils # (1.3-7.7) k/uL Monocytes # (0-1.0) k/uL Potassium (3.5-5.1) mmol/L Carbon Dioxide (22-30) mmol/L Creatinine (0.66-1.25) mg/dL Glucose (74-99) mg/dL POC Glucose (mg/dL) 165 H 136 H (70-110) mg/dL AST (17-59) U/L Albumin (3.5-5.0) g/dL Procalcitonin (0.02-0.50) ng/mL Microbiology - Last 24 Hours (Table) 12/28/23 11:50 Blood Culture - Preliminary Blood Assessment and Plan Plan: Sepsis evident by leukocytosis and fever. 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 Patient pulmonary services consulted Possible abdominal cellulitis. History of atrial fibrillation/atrial fluter maintained on Xarelto History of sleep apnea History of morbid obesity Ongoing nicotine dependence patient educated greater than 3 minutes on the importance of complete smoking cessation, nicotine patch ordered DVT prophylaxis Xarelto. GI prophylaxis Protonix Infectious disease, pulmonary and cardiology services consulted Blood and urine and sputum cultures ordered Repeat labs ordered for a.m.
--- NOTE | 2023-12-30 18:08 | US ---
EXAMINATION TYPE: US abdomen limited DATE OF EXAM: 12/30/2023 COMPARISON: NONE CLINICAL INDICATION: Male, 48 years old with history of Rule out abdominal wall abscess; RO abd wall abscess. Bilateral areas in the lower quadrants that are hard to the touch TECHNIQUE: Scanned patients AOC, bilateral lower quadrants that were hard to the touch FINDINGS: Limitations due to patient body habitus. Scanned in reclining chair. Areas of concern scanned, no abnormalities seen with ultrasound today as best visualized. IMPRESSION: 1. No suspicious collection to suggest underlying subcutaneous abscess. 2. Subcutaneous edema appears to be present.
[2023-12-30 20:24] LABS: Glucose,Whole Blood 119 mg/dL (70-110)
[2023-12-31] MEDS: VANCOMYCIN TROUGH DUE 1 EACH MISC MISCELLANE ONE (05:04)
[2023-12-31 05:26] LABS: HCT 45.1 % (39.0-53.0); HGB 15.1 gm/dL (13.0-17.5); MCH 31.4 pg (25.0-35.0); MCHC 33.4 g/dL (31.0-37.0); Mean Platelet Volume 10.1; Platelet Count 336 k/uL (150-450); Poikilocytosis Slight; RBC 4.79 m/uL (4.30-5.90); RDW 15.5 % (11.5-15.5); WBC 28.3 k/uL (3.8-10.6)
[2023-12-31 05:42] LABS: ALT 37 U/L (4-49); AST 50 U/L (17-59); African American GFR (CKD) >90 (>60 ml/min/1.73 sqM); Albumin 3.4 g/dL (3.5-5.0); Alkaline Phosphatase 78 U/L (38-126); Anion Gap 5 mmol/L; Blood Urea Nitrogen 18 mg/dL (9-20); Calcium 9.1 mg/dL (8.4-10.2); Carbon Dioxide 33 mmol/L (22-30); Chloride 101 mmol/L (98-107); Glucose 78 mg/dL (74-99); Non-African American GFR(CKD) >90 (>60 ml/min/1.73 sqM); Sodium 139 mmol/L (137-145); Total Bilirubin 0.4 mg/dL (0.2-1.3); Total Protein 6.6 g/dL (6.3-8.2)
[2023-12-31 06:25] LABS: Glucose,Whole Blood 88 mg/dL (70-110)
[2023-12-31 07:49] LABS: Anisocytosis (M) Present; Band Neutrophils % 10 %; Eosinophils # (M) 0.28 k/uL (0-0.7); Lymphocytes # (M) 4.81 k/uL (1.0-4.8); Monocytes # (M) 1.42 k/uL (0-1.0); Neutrophils % (M) 69 %; Nucleated Red Blood Cells 0 /100 WBC (0-0); Total Cells Counted 200
[2023-12-31 11:44] LABS: Glucose,Whole Blood 131 mg/dL (70-110)
[2023-12-31] MEDS: VANCOMYCIN 2,250 MG in SODIUM CHLORIDE 0.9% 500 ML 500 ML IVPB SCH (12:08)
--- NOTE | 2023-12-31 12:17 | P.PN ---
Subjective Progress Note Date: 12/31/23 HISTORY OF PRESENTING ILLNESS Presented to the hospital because of increased worsening shortness of breath. He is past medical history of A-fib status post ablation, morbid obesity, KADI on CPAP, prior history of spherocytosis status post pleurectomy. He is also 2 pack cigarette smoker. This time he presented to the hospital because of worsening shortness of breath, increased fatigue, increased cough. And concerns of fever. On admission he has significant leukocytosis with WBC 73, hemoglobin 14.6, 59% bandemia, elevated lactate 5.1, Trope of 0.05, ECG shows sinus tachycardia REVIEW OF SYSTEMS 14 point review of system is negative except what is mentioned above in HPI. 12/29 Patient states that his breathing is better. He denies having any chest pain. He continues to have lower extremity edema and wheezing. Echocardiogram is pending. Blood pressure 122/73, heart rate 65, pulse ox 94% on 2 L nasal cannula. Repeat blood work reveals WBC 43, hemoglobin 14.5. Sodium 138, potassium 5.4, creatinine 0.61. Patient is currently on IV Lasix 40 mg daily. Patient has a negative fluid balance, weight is up from yesterday. 12/30 Patient is currently on IV Lasix 40 mg daily. Lower extremity edema is a little bit better. He feels his breathing is improved today. Blood pressure 110/62, heart rate 62, pulse ox 92% on 2 L. Telemetry sinus rhythm. Repeat blood work reveals WBC 28.3, hemoglobin 15.1. Creatinine 0.64. Echocardiogram results reviewed with the patient. Echocardiogram reveals EF 55 to 60%, moderate aortic dilatation. PHYSICAL EXAMINATION Morbidly obese head: Normocephalic. Eyes: Sclerae nonicteric. Neck: Brisk carotid upstroke, cannot assess JVD due to thick neck Lungs: Expiratory wheezing bilateral. Heart: Regular rate and rhythm, S1-S2, no S3, no murmur or rub. Abdomen: Soft nontender, positive bowel sounds. Extremities: Chronic lymphedema right lower extremity, 2+ edema Neuro: Alert, oritented, no focal deficits. Detailed neuro exam was not performed. ASSESSMENT Acute hypoxic respiratory failure Acute left lower lobe pneumonia Severe leukocytosis. Prior history of splenectomy because of spherocytosis. Lactic acidosis Severe sepsis Mild troponin elevation, likely type II from demand supply mismatch from sepsis and pneumonia Mild HFpEF exacerbation KADI on CPAP Morbid obesity with BMI of 67 Chronic lymphedema in bilateral lower extremity History of A-fib status post ablation, on anticoagulation with Xarelto Last echo from June 2021, EF preserved, mild to moderate pulmonary hypertension, mild RV dilatation, moderate concentric LVH PLAN Continue current cardiac medications: Farxiga 10 mg daily, Cardizem 120 mg daily, losartan 12.5 mg daily, Lopressor 25 mg twice daily, Xarelto 20 mg daily, Aldactone 25 mg daily Continue Lasix 40 mg iv. daily for 1 more day Monitor ANKUR, daily weights, electrolytes and renal function. Nurse practitioner note has been reviewed, I agree with documented findings and plan of care. Patient was seen and examined. Objective - Vital Signs Vital signs: Vital Signs Temp 97.6 F 12/31/23 08:00 Pulse 68 12/31/23 08:47 Resp 16 12/31/23 08:00 BP 124/63 12/31/23 08:00 Pulse Ox 95 12/31/23 08:38 FiO2 40 12/28/23 15:18 Intake & Output 12/30/23 12/31/23 12/31/23 18:59 06:59 18:59 Intake Total 1558 118 Output Total 650 400 425 Balance 908 -400 -307 Weight 197 kg Intake: Intake, IV Titration 600 Amount Cefepime 2 gm In Sodium 100 Chloride 0.9% 100 ml @ 25 mls/hr IVPB Q8HR [facility] Rx# :[id number] Vancomycin 2,250 mg In 500 Sodium Chloride 0.9% 500 ml 500 ml @ 167 mls/hr IVPB Q12H [facility] Rx#: [id number] Oral 958 118 Output: Urine 650 400 425 Other: Voiding Method Toilet Toilet Urinal Urinal # Bowel Movements 1 - Labs CBC & Chem 7: 12/31/23 04:47 12/31/23 04:47 Labs: Abnormal Lab Results - Last 24 Hours (Table) 12/30/23 12/30/23 12/30/23 Range/Units 11:44 16:22 20:22 WBC (3.8-10.6) k/uL Neutrophils # (Manual) (1.3-7.7) k/uL Lymphocytes # (Manual) (1.0-4.8) k/uL Monocytes # (Manual) (0-1.0) k/uL Carbon Dioxide (22-30) mmol/L Creatinine (0.66-1.25) mg/dL POC Glucose (mg/dL) 165 H 136 H 119 H (70-110) mg/dL Albumin (3.5-5.0) g/dL 12/31/23 12/31/23 Range/Units 04:47 04:47 WBC 28.3 H (3.8-10.6) k/uL Neutrophils # (Manual) 22.30 H (1.3-7.7) k/uL Lymphocytes # (Manual) 4.81 H (1.0-4.8) k/uL Monocytes # (Manual) 1.42 H (0-1.0) k/uL Carbon Dioxide 33 H (22-30) mmol/L Creatinine 0.64 L (0.66-1.25) mg/dL POC Glucose (mg/dL) (70-110) mg/dL Albumin 3.4 L (3.5-5.0) g/dL Microbiology - Last 24 Hours (Table) 12/28/23 11:50 Blood Culture - Preliminary Blood
--- NOTE | 2023-12-31 14:46 | P.PN ---
Subjective Progress Note Date: 12/31/23 On 12/29/2023, the patient is seen in consultation for increased shortness of breath. The patient is morbidly obese. He is a smoker and was smoking up to 2 packs of cigarettes a day. Currently smoking few cigarettes a day. He has seen Dr. Roberts from pulmonology and the patient was started on Tezspire in jections/infusions which is typically used for asthma. The patient has not seen any major improvement in his respiratory status while being on this medication. Utilize albuterol nebulized treatments [id number]. No home oxygen. He claims that he has a CPAP machine at home regarding obstructive sleep apnea. The patient has had a 30 spherocytosis and the patient has previous splenectomy. He comes in with worsening shortness of breath and fever and the chest x-ray is consistent with lower lobe pneumonia. Repeat chest x-ray was done today and shows significant consolidation in the left lower lobe and the left midlung area. The patient remains on a combination of Rocephin and Zithromax and vancomycin. Hemodynamically stable. Currently afebrile 3 0 Bactroban nasal cannula. The white cell count is up to 73 with a hemoglobin 14.6 and a platelet count of 344. The patient has a 39% bandemia. Electrolytes are all within normal limits. Initial lactic acid level was at 5.1 dropped down to 2.1. Troponins are 0.05 and 0.01 respectively x 2. Normal LFTs. Viral screen was negative. He has chronic edema lower extremities bilaterally. He remains on broad-spectrum antibiotics The patient is seen today December 30, 2023 in follow-up on the selective care unit. He is currently sitting up in a chair at the bedside. Awake and alert in no acute distress. He is maintaining O2 saturations in the 90s on 2 L/min per nasal cannula. He is feeling a bit better today compared to yesterday. He remains on cefepime and vancomycin for his left lower lobe pneumonia. He is also utilizing his home CPAP at night for his obstructive sleep apnea. He is anticoagulated with Xarelto. White count 43.3. Hemoglobin 14.5. Platelets 352. Sodium 138. Potassium 5.4. Bicarb 31. BUN 19. Creatinine 0.61. Glucose 119. NicoDerm patch remains in place The patient is seen today December 31, 2023 in follow-up on the selective care unit. He is awake and alert in no acute distress. Sitting up in a chair at the bedside. Maintaining good O2 saturations in the 90s on 2 L/min per nasal cannula. He is feeling a bit better today compared to yesterday. He is utilizing his home CPAP at night. He did have an abdominal ultrasound yesterday due to some firmness of his abdominal wall and suspicion for abscess. The ultrasound ruled out subcutaneous abscess. There is some subcutaneous edema present. Cultures revealed no growth. White count 28.3. Hemoglobin 15.1. Platelets 336. Sodium 139. Potassium 5.0. Bicarb 33. BUN 18. Creatinine 0.64. Glucose 78. Vancomycin trough 5.6. He remains on vancomycin and cefepime. Remains on IV diuretics. NicoDerm patch in place. Objective - Vital Signs Vital signs: Vital Signs Temp 98.2 F 12/31/23 11:35 Pulse 62 12/31/23 11:35 Resp 16 12/31/23 11:35 BP 110/62 12/31/23 11:35 Pulse Ox 92 L 12/31/23 11:35 FiO2 40 12/28/23 15:18 Intake & Output 12/30/23 12/31/23 12/31/23 18:59 06:59 18:59 Intake Total 1558 118 Output Total 650 400 425 Balance 908 -400 -307 Weight 197 kg Intake: Intake, IV Titration 600 Amount Cefepime 2 gm In Sodium 100 Chloride 0.9% 100 ml @ 25 mls/hr IVPB Q8HR ALEKSANDRA Rx# :[id number] Vancomycin 2,250 mg In 500 Sodium Chloride 0.9% 500 ml 500 ml @ 167 mls/hr IVPB Q12H ALEKSANDRA Rx#: [id number] Oral 958 [id number] Output: Urine 650 400 425 Other: Voiding Method Toilet Toilet Toilet Urinal Urinal Urinal # Bowel Movements 1 - Exam GENERAL EXAM: Alert, morbidly obese 48-year-old male, on 2 L nasal cannula, up in a chair, comfortable in no apparent distress. HEAD: Normocephalic. EYES: Normal reaction of pupils, equal size. NOSE: Clear with pink turbinates. THROAT: No erythema or exudates. NECK: No masses, no JVD. CHEST: No chest wall deformity. LUNGS: Equal air entry with bilateral scattered rhonchi left greater than right. CVS: S1 and S2 normal with no audible murmur, regular rhythm. ABDOMEN: No hepatomegaly, normal bowel sounds, no guarding or rigidity. SPINE: No scoliosis or deformity SKIN: No rashes CENTRAL NERVOUS SYSTEM: No focal deficits, tone is normal in all 4 extremities. EXTREMITIES: There is 1+ peripheral edema. No clubbing, no cyanosis. Peripheral pulses are intact. - Labs CBC & Chem 7: 12/31/23 04:47 12/31/23 04:47 Labs: Abnormal Lab Results - Last 24 Hours (Table) 12/30/23 12/30/23 12/31/23 Range/Units 16:22 20:22 04:47 WBC (3.8-10.6) k/uL Neutrophils # (Manual) (1.3-7.7) k/uL Lymphocytes # (Manual) (1.0-4.8) k/uL Monocytes # (Manual) (0-1.0) k/uL Carbon Dioxide 33 H (22-30) mmol/L Creatinine 0.64 L (0.66-1.25) mg/dL POC Glucose (mg/dL) 136 H 119 H (70-110) mg/dL Albumin 3.4 L (3.5-5.0) g/dL 12/31/23 12/31/23 Range/Units 04:47 11:42 WBC 28.3 H (3.8-10.6) k/uL Neutrophils # (Manual) 22.30 H (1.3-7.7) k/uL Lymphocytes # (Manual) 4.81 H (1.0-4.8) k/uL Monocytes # (Manual) 1.42 H (0-1.0) k/uL Carbon Dioxide (22-30) mmol/L Creatinine (0.66-1.25) mg/dL POC Glucose (mg/dL) 131 H (70-110) mg/dL Albumin (3.5-5.0) g/dL Microbiology - Last 24 Hours (Table) 12/28/23 11:50 Blood Culture - Preliminary Blood Assessment and Plan Assessment: Acute hypoxic respiratory failure secondary to an acute left lower lobe pneumonia with extensive consolidation, currently on 2 L of oxygen by nasal cannula Acute fever secondary to above, currently afebrile Acute leukocytosis secondary to above in a patient with previous splenectomy. The patient has significant bandemia with a white cell count of 43, currently on a combination of cefepime and vancomycin. The viral screen has been negative Acute lactic acidosis improving Minimal troponin leak secondary to above, likely is type II ischemia myocardial COPD/asthma although favor COPD and the patient has been a chronic smoker. The patient has been receiving Tezspire infusions through Dr. 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 He has been maintained on Xarelto Plan: The patient was seen and evaluated Labs and medications reviewed Remains on vancomycin and cefepime Follow-up chest x-ray in a.m. Titrate down the FiO2 as tolerated We will continue to follow I have personally seen and examined the patient, performed the documentation and the assessment and plan as written. Number of minutes spent on the visit: 10.
--- NOTE | 2023-12-31 15:16 | CDI ---
Documentation Clarification Form Date: 12/31/2023 02:26:58 PM From: Charline Petit RN, CCDS Phone: [phone] Admit Date: 12/28/2023 01:18:00 PM Patient Name: Chau Diallo Visit Number: [id number] Discharge Date: ATTENTION: The Clinical Documentation Specialists (CDI) and [facility] Coding Staff appreciate your assistance in clarifying documentation. Please respond to the clarification below the line at the bottom and electronically sign. The CDI & [facility] Coding staff will review the response and follow-up if needed. Please note: Queries are made part of the Legal Health Record. If you have any questions, please contact the author of this message via ITS. Neelam SAHH There is documentation of mild troponin elevation, likely type II from demand supply mismatch from sepsis. Additional clarification is requested. History/Risk Factors: Atrial Fibrillation, Atrial Flutter, Asthma, Blood Disorder Heart Failure, COPD, Hypertension, Morbid obesity Clinical Indicators: 48-year-old male who presents to the ED with difficulty breathing increased fatigue, increased cough, and concerns of fever. 9/ WBC 38.7 Neutrophils 35.9 9/7 VS: 116/58 129 40 101.8 96% RA EKG Sinus tach with vent rate 124 Treatment: Cardiac/Telemetry monitoring Lasix 40 MG IV Daily, Losartan 12.5 MG PO Daily, Metoprolol 25 MG PO BID Aldactone 25 MG PO Daily, Cardizem 125 MG PO Daily, Xarelto 20MG PO Daily Can you please clarify troponin elevation, likely type II from demand supply mismatch from sepsis as? [ ] Type II CT with demand ischemia due to sepsis [ ] Elevated troponin with demand ischemia without CT [ ] Other, please specify [ ] Unable to determine (Template Last Revised: June 2020) MTDD
--- NOTE | 2023-12-31 15:32 | P.PN ---
Subjective Progress Note Date: 12/30/23 Principal diagnosis: Reason for follow-up is pneumonia and leukocytosis Patient is a 48-year-old male with a past medical history significant for hypertension COPD heart failure atrial fibrillation morbid obesity also with a history of recurrent abdominal wall cellulitis patient has been brought into the hospital for evaluation of increasing shortness of breath cough and some mental status changes. On today's evaluation that is 12/30/2023, Patient is afebrile patient is currently on 2 L nasal oxygen and denies having any shortness of breath, the patient denies any chest pain still complaining of cough bring up some sputum but no specimen provided, the patient denies any nausea vomiting did not have any abdominal pain and no diarrhea Patient white count down to 43.3 creatinine 0.61 blood cultures currently pending Objective - Vital Signs Vital signs: Vital Signs Temp 97.6 F 12/30/23 09:10 Pulse 65 12/30/23 09:10 Resp 20 12/30/23 09:10 BP 122/73 12/30/23 09:10 Pulse Ox 94 L 12/30/23 09:10 FiO2 40 12/28/23 15:18 Intake & Output 12/29/23 12/30/23 12/30/23 18:59 06:59 18:59 Intake Total 540 Output Total 650 1550 Balance -650 -1010 Weight 195.1 kg Intake: Oral 540 Output: Urine 650 1550 Other: Voiding Method Toilet Toilet Toilet Urinal Urinal Urinal - Exam GENERAL DESCRIPTION: Middle-age male up in the chair in no distress RESPIRATORY SYSTEM: Unlabored breathing , decreased breath sounds at bases HEART: S1 S2 regular rate and rhythm , ABDOMEN: Soft , no tenderness EXTREMITIES: No edema feet - Labs CBC & Chem 7: 12/31/23 04:47 12/31/23 04:47 Labs: Abnormal Lab Results - Last 24 Hours (Table) 12/29/23 12/29/23 12/29/23 Range/Units 03:50 12:05 16:50 WBC (3.8-10.6) k/uL Neutrophils # (1.3-7.7) k/uL Monocytes # (0-1.0) k/uL Potassium (3.5-5.1) mmol/L Carbon Dioxide (22-30) mmol/L Creatinine (0.66-1.25) mg/dL Glucose (74-99) mg/dL POC Glucose (mg/dL) 286 H 274 H (70-110) mg/dL AST (17-59) U/L Albumin (3.5-5.0) g/dL Procalcitonin 17.70 H (0.02-0.50) ng/mL 12/29/23 12/30/23 12/30/23 Range/Units 20:37 06:21 07:23 WBC (3.8-10.6) k/uL Neutrophils # (1.3-7.7) k/uL Monocytes # (0-1.0) k/uL Potassium 5.4 H (3.5-5.1) mmol/L Carbon Dioxide 31 H (22-30) mmol/L Creatinine 0.61 L (0.66-1.25) mg/dL Glucose 119 H (74-99) mg/dL POC Glucose (mg/dL) 272 H 158 H (70-110) mg/dL AST 73 H (17-59) U/L Albumin 3.4 L (3.5-5.0) g/dL Procalcitonin (0.02-0.50) ng/mL 12/30/23 Range/Units 07:23 WBC 43.3 H (3.8-10.6) k/uL Neutrophils # 39.3 H (1.3-7.7) k/uL Monocytes # 1.5 H (0-1.0) k/uL Potassium (3.5-5.1) mmol/L Carbon Dioxide (22-30) mmol/L Creatinine (0.66-1.25) mg/dL Glucose (74-99) mg/dL POC Glucose (mg/dL) (70-110) mg/dL AST (17-59) U/L Albumin (3.5-5.0) g/dL Procalcitonin (0.02-0.50) ng/mL Microbiology - Last 24 Hours (Table) 12/28/23 11:50 Blood Culture - Preliminary Blood Assessment and Plan (1) Pneumonia Current Visit: Yes Status: Acute Code(s): J18.9 - PNEUMONIA, UNSPECIFIED ORGANISM SNOMED Code(s): 920255629 (2) Allergy to sulfa drugs Current Visit: No Status: Acute Code(s): Z88.2 - ALLERGY STATUS TO SULFONAMIDES SNOMED Code(s): 10989513 (3) Leukocytosis Current Visit: No Status: Acute Code(s): D72.829 - ELEVATED WHITE BLOOD CELL COUNT, UNSPECIFIED SNOMED Code(s): 471630323 (4) Sepsis Current Visit: Yes Status: Acute Code(s): A41.9 - SEPSIS, UNSPECIFIED ORGANISM SNOMED Code(s): 36221408 Plan: 1patient presented to hospital with sepsis in this patient who did have a fever elevated white count tachycardia elevated lactic acid source likely left-sided pneumonia had the patient also have been admitted respiratory symptoms or shortness of breath cough and yellowish-green sputum production patient did have history of recurrent abdominal wall cellulitis however had no cellulitis was noticed on examination today. 2patient with significant elevated white count questionable related to steroids that he has received a dose yesterday and need to monitor closely. 3patient did have elevated procalcitonin 17.70, sputum for Gram stain and culture not collected, urine for Legionella antigen pending 4patient to continue with vancomycin and cefepime while waiting for the culture to finalize Dictation was produced using [employer] dictation software. please excuse any gra mmatical, word or spelling errors.
--- NOTE | 2023-12-31 15:33 | P.PN ---
Subjective Progress Note Date: 12/31/23 Principal diagnosis: Reason for follow-up is pneumonia and leukocytosis Patient is a 48-year-old male with a past medical history significant for hypertension COPD heart failure atrial fibrillation morbid obesity also with a history of recurrent abdominal wall cellulitis patient has been brought into the hospital for evaluation of increasing shortness of breath cough and some mental status changes. On today's evaluation that is 12/31/2023, patient has been afebrile, patient is breathing comfortably and is currently on 2 L current oxygen, patient denies having any chest pain has been complaining of cough and bring up some sputum he was able to cough up sputum sample, no nausea no vomiting no abdominal pain or diarrhea. Patient white count is down to 28.3 creatinine is 0.64 Objective - Vital Signs Vital signs: Vital Signs Temp 98.2 F 12/31/23 11:35 Pulse 70 12/31/23 15:27 Resp 16 12/31/23 11:35 BP 110/62 12/31/23 11:35 Pulse Ox 92 L 12/31/23 11:35 FiO2 40 12/28/23 15:18 Intake & Output 12/30/23 12/31/23 12/31/23 18:59 06:59 18:59 Intake Total 1558 1258 Output Total 816 050 2977 Balance 524 -400 -752 Weight 197 kg Intake: Intake, IV Titration 600 700 Amount Cefepime 2 gm In Sodium 100 200 Chloride 0.9% 100 ml @ 25 mls/hr IVPB Q8HR ALEKSANDRA Rx# :[id number] Vancomycin 2,250 mg In 500 Sodium Chloride 0.9% 500 ml 500 ml @ 167 mls/hr IVPB Q12H ALEKSANDRA Rx#: [id number] Vancomycin 2,250 mg In 500 Sodium Chloride 0.9% 500 ml 500 ml @ 167 mls/hr IVPB Q8H ALEKSANDRA Rx#: [id number] Oral [id number] Output: Urine 910 918 5995 Other: Voiding Method Toilet Toilet Toilet Urinal Urinal Urinal # Bowel Movements 1 - Exam GENERAL DESCRIPTION: Middle-age male up in the chair in no distress RESPIRATORY SYSTEM: Unlabored breathing , decreased breath sounds at bases HEART: S1 S2 regular rate and rhythm , ABDOMEN: Soft , no tenderness EXTREMITIES: No edema feet - Labs CBC & Chem 7: 12/31/23 04:47 12/31/23 04:47 Labs: Abnormal Lab Results - Last 24 Hours (Table) 12/30/23 12/30/23 12/31/23 Range/Units 16:22 20:22 04:47 WBC (3.8-10.6) k/uL Neutrophils # (Manual) (1.3-7.7) k/uL Lymphocytes # (Manual) (1.0-4.8) k/uL Monocytes # (Manual) (0-1.0) k/uL Carbon Dioxide 33 H (22-30) mmol/L Creatinine 0.64 L (0.66-1.25) mg/dL POC Glucose (mg/dL) 136 H 119 H (70-110) mg/dL Albumin 3.4 L (3.5-5.0) g/dL 12/31/23 12/31/23 Range/Units 04:47 11:42 WBC 28.3 H (3.8-10.6) k/uL Neutrophils # (Manual) 22.30 H (1.3-7.7) k/uL Lymphocytes # (Manual) 4.81 H (1.0-4.8) k/uL Monocytes # (Manual) 1.42 H (0-1.0) k/uL Carbon Dioxide (22-30) mmol/L Creatinine (0.66-1.25) mg/dL POC Glucose (mg/dL) 131 H (70-110) mg/dL Albumin (3.5-5.0) g/dL Microbiology - Last 24 Hours (Table) 12/28/23 11:50 Blood Culture - Preliminary Blood Assessment and Plan (1) Pneumonia Current Visit: Yes Status: Acute Code(s): J18.9 - PNEUMONIA, UNSPECIFIED ORGANISM SNOMED Code(s): 859385495 (2) Allergy to sulfa drugs Current Visit: No Status: Acute Code(s): Z88.2 - ALLERGY STATUS TO SULFONAMIDES SNOMED Code(s): 10068623 (3) Leukocytosis Current Visit: No Status: Acute Code(s): D72.829 - ELEVATED WHITE BLOOD CELL COUNT, UNSPECIFIED SNOMED Code(s): 410327536 (4) Sepsis Current Visit: Yes Status: Acute Code(s): A41.9 - SEPSIS, UNSPECIFIED ORGANISM SNOMED Code(s): 60372279 Plan: 1patient presented to hospital with sepsis in this patient who did have a fever elevated white count tachycardia elevated lactic acid source likely left-sided pneumonia had the patient also have been admitted respiratory symptoms or shortness of breath cough and yellowish-green sputum production patient did have history of recurrent abdominal wall cellulitis however had no cellulitis was noticed on examination today. 2patient with significant elevated white count questionable related to steroids that he has received a dose yesterday and need to monitor closely. 3patient did have elevated procalcitonin 17.70, sputum for Gram stain and culture sided, urine for Legionella antigen has been negative 4patient did have resolution of his fever and the patient white count is trending down, to continue with vancomycin and cefepime while waiting for the culture to finalize Dictation was produced using [employer] dictation software. please excuse any grammatical, word or spelling errors. Time with Patient: Less than 30
--- NOTE | 2023-12-31 16:23 | P.PN ---
Subjective Progress Note Date: 12/31/23 Chau Diallo, is a 48-year-old male patient who presented to the ER with concerns of shortness of breath. Patient has a past medical history of atrial fibrillation, asthma, blood disorder, heart failure, COPD, hypertension, pneumonia and morbid obesity. Initial chest x-ray completed showing focal air space consolidation in the left midlung possibly representing acute pneumonia. Lab work revealing initial white blood cell of 38.7, lactic acid 2.1 increasing to 5.1. Initial troponin elevated at 0.053. Influenza RSV and COVID-19 all negative. Initial vitals temp 102.8, heart rate 106, respiratory rate 26, blood pressure 106/60 with a pulse ox of 95% on 2 L. At this time patient will be admitted patient started on IV antibiotics. Infectious disease and pulmonary services consulted. Will also consult cardiology services and repeat troponin level. Patient did receive multiple fluid boluses in the ER. Patient reports improvement. Patient denies chest pain or shortness of breath. Patient denies nausea vomiting or diarrhea. Patient denies any urinary burning or frequency. Will order urine blood and sputum cultures On 12/30/2023 patient was seen and examined on the medical floor he is alert and oriented x 3 in no apparent distress he feels better there is no fever or chills no headache or dizziness no chest pain no shortness of breath he has occasional cough no nausea or vomiting no abdominal pain no diarrhea and no urinary symptoms. His lower abdominal pannus is hard possibility of abscess was entertained abdomen ultrasound was ordered. On 12/31/2023 patient was seen and examined on the medical floor he is alert and oriented x 3 in no apparent distress there is no fever or chills no headache or dizziness no chest pain no shortness of breath no cough no nausea or vomiting no abdominal pain no diarrhea and no urinary symptoms. Patient has some induration in the lower abdominal fold, no evidence of abscess on ultrasound. At this time we will continue with current antibiotic, awaiting further recommendation from infectious disease Objective - Vital Signs Vital signs: Vital Signs Temp 98.2 F 12/31/23 11:35 Pulse 62 12/31/23 11:35 Resp 16 12/31/23 11:35 BP 110/62 12/31/23 11:35 Pulse Ox 92 L 12/31/23 11:35 FiO2 40 12/28/23 15:18 Intake & Output 12/30/23 12/31/23 12/31/23 18:59 06:59 18:59 Intake Total 1558 118 Output Total 650 400 425 Balance 908 400 -373 Weight 197 kg Intake: Intake, IV Titration 600 Amount Cefepime 2 gm In Sodium 100 Chloride 0.9% 100 ml @ 25 mls/hr IVPB Q8HR ALEKSANDRA Rx# :[id number] Vancomycin 2,250 mg In 500 Sodium Chloride 0.9% 500 ml 500 ml @ 167 mls/hr IVPB Q12H ALEKSANDRA Rx#: [id number] Oral [id number] [id number] Output: Urine 650 400 425 Other: Voiding Method Toilet Toilet Toilet Urinal Urinal Urinal # Bowel Movements 1 - Exam Head normocephalic Neck supple Lungs clear to auscultation bilaterally no wheezing or crackles Heart irregular heart rate known A-fib Abdomen is soft nontender nondistended positive bowel sounds no hepatosplenomegaly. Morbidly obese Extremities no edema Neuro alert and orientated to 3 - Labs CBC & Chem 7: 12/31/23 04:47 12/31/23 04:47 Labs: Abnormal Lab Results - Last 24 Hours (Table) 12/30/23 12/30/23 12/31/23 Range/Units 16:22 20:22 04:47 WBC (3.8-10.6) k/uL Neutrophils # (Manual) (1.3-7.7) k/uL Lymphocytes # (Manual) (1.0-4.8) k/uL Monocytes # (Manual) (0-1.0) k/uL Carbon Dioxide 33 H (22-30) mmol/L Creatinine 0.64 L (0.66-1.25) mg/dL POC Glucose (mg/dL) 136 H 119 H (70-110) mg/dL Albumin 3.4 L (3.5-5.0) g/dL 12/31/23 12/31/23 Range/Units 04:47 11:42 WBC 28.3 H (3.8-10.6) k/uL Neutrophils # (Manual) 22.30 H (1.3-7.7) k/uL Lymphocytes # (Manual) 4.81 H (1.0-4.8) k/uL Monocytes # (Manual) 1.42 H (0-1.0) k/uL Carbon Dioxide (22-30) mmol/L Creatinine (0.66-1.25) mg/dL POC Glucose (mg/dL) 131 H (70-110) mg/dL Albumin (3.5-5.0) g/dL Microbiology - Last 24 Hours (Table) 12/28/23 11:50 Blood Culture - Preliminary Blood Assessment and Plan Plan: Sepsis evident by leukocytosis and fever. 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 Patient pulmonary services consulted Possible abdominal cellulitis. History of atrial fibrillation/atrial fluter maintained on Xarelto History of sleep apnea History of morbid obesity Ongoing nicotine dependence patient educated greater than 3 minutes on the im portance of complete smoking cessation, nicotine patch ordered DVT prophylaxis Xarelto. GI prophylaxis Protonix Infectious disease, pulmonary and cardiology services consulted Blood and urine and sputum cultures ordered Repeat labs ordered for a.m.
[2023-12-31 16:40] LABS: Glucose,Whole Blood 165 mg/dL (70-110)
[2023-12-31 20:25] LABS: Glucose,Whole Blood 116 mg/dL (70-110)
[2024-01-01 06:01] LABS: Glucose,Whole Blood 95 mg/dL (70-110)
--- NOTE | 2024-01-01 08:04 | XR ---
EXAMINATION TYPE: XR chest 1V portable DATE OF EXAM: 01/01/2024 HISTORY: Shortness of breath. COMPARISON: 12/29/2023 TECHNIQUE: Single view of the chest is submitted. FINDINGS: Demonstrated are scattered senescent parenchymal change. Left lower lobe infiltrate persists although has improved. Mild increased density right medial lung b ase. The heart is stable. Hilar and mediastinal structures are within normal limits. Degenerative changes are seen of the dorsal spine. IMPRESSION: 1. Left lower lobe infiltrate persists although has improved. Mild increased density right medial bambi ng base.
[2024-01-01 10:28] LABS: African American GFR (CKD) >90 (>60 ml/min/1.73 sqM); Non-African American GFR(CKD) >90 (>60 ml/min/1.73 sqM)
[2024-01-01 11:04] VITALS: RESP 16
[2024-01-01 11:48] LABS: Glucose,Whole Blood 84 mg/dL (70-110)
--- NOTE | 2024-01-01 12:42 | P.PN ---
Subjective Progress Note Date: 01/01/24 Chau Diallo, is a 48-year-old male patient who presented to the ER with concerns of shortness of breath. Patient has a past medical history of atrial fibrillation, asthma, blood disorder, heart failure, COPD, hypertension, pneumonia and morbid obesity. Initial chest x-ray completed showing focal air space consolidation in the left midlung possibly representing acute pneumonia. Lab work revealing initial white blood cell of 38.7, lactic acid 2.1 increasing to 5.1. Initial troponin elevated at 0.053. Influenza RSV and COVID-19 all negative. Initial vitals temp 102.8, heart rate 106, respiratory rate 26, blood pressure 106/60 with a pulse ox of 95% on 2 L. At this time patient will be admitted patient started on IV antibiotics. Infectious disease and pulmonary services consulted. Will also consult cardiology services and repeat troponin level. Patient did receive multiple fluid boluses in the ER. Patient reports improvement. Patient denies chest pain or shortness of breath. Patient denies nausea vomiting or diarrhea. Patient denies any urinary burning or frequency. Will order urine blood and sputum cultures On 12/30/2023 patient was seen and examined on the medical floor he is alert and oriented x 3 in no apparent distress he feels better there is no fever or chills no headache or dizziness no chest pain no shortness of breath he has occasional cough no nausea or vomiting no abdominal pain no diarrhea and no urinary symptoms. His lower abdominal pannus is hard possibility of abscess was entertained abdomen ultrasound was ordered. On 12/31/2023 patient was seen and examined on the medical floor he is alert and oriented x 3 in no apparent distress there is no fever or chills no headache or dizziness no chest pain no shortness of breath no cough no nausea or vomiting no abdominal pain no diarrhea and no urinary symptoms. Patient has some induration in the lower abdominal fold, no evidence of abscess on ultrasound. At this time we will continue with current antibiotic, awaiting further recommendation from infectious disease On 01/01/2024 patient is alert and oriented 3. Patient eager to be DC'd home patient was cleared by pulmonary services but not cleared by infectious disease Patient remains on IV antibiotics vancomycin and Maxipime. current vital signs temp 98.2, heart rate 62, respiratory rate 16, blood pressure 110/62 with a pulse ox 92% on 2 L6. Patient denies chest pain or shortness breath. Patient denies nausea vomiting or diarrhea. Patient denies any urinary burning or frequency Objective - Vital Signs Vital signs: Vital Signs Temp 98.2 F 12/31/23 11:35 Pulse 71 01/01/24 08:00 Resp 16 01/01/24 08:00 BP 151/70 01/01/24 08:00 Pulse Ox 95 01/01/24 08:00 FiO2 40 12/28/23 15:18 Intake & Output 12/31/23 01/01/24 01/01/24 18:59 06:59 18:59 Intake Total 1498 540 118 Output Total 2025 750 3100 Balance -745 -485 -1238 Weight 196.2 kg Intake: Intake, IV Titration 700 Amount Cefepime 2 gm In Sodium 200 Chloride 0.9% 100 ml @ 25 mls/hr IVPB Q8HR [facility] Rx# :[id number] Vancomycin 2,250 mg In 500 Sodium Chloride 0.9% 500 ml 500 ml @ 167 mls/hr IVPB Q8H [facility] Rx#: [id number] Oral [id number] [id number] Output: Urine 2024 750 3100 Other: Voiding Method Toilet Toilet Toilet Urinal Urinal Urinal # Voids 1 # Bowel Movements 1 2 - Exam Head normocephalic Neck supple Lungs clear to auscultation bilaterally no wheezing or crackles Heart irregular heart rate known A-fib Abdomen is soft nontender nondistended positive bowel sounds no hepatosplenomegaly. Morbidly obese Extremities no edema Neuro alert and orientated to 3 - Labs CBC & Chem 7: 12/31/23 04:47 01/01/24 09:38 Labs: Abnormal Lab Results - Last 24 Hours (Table) 12/31/23 12/31/23 Range/Units 16:38 20:24 POC Glucose (mg/dL) 165 H 116 H (70-110) mg/dL Microbiology - Last 24 Hours (Table) 12/28/23 11:50 Blood Culture - Preliminary Blood Assessment and Plan Plan: Sepsis evident by leukocytosis and fever. 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 Patient pulmonary services consulted Possible abdominal cellulitis. History of atrial fibrillation/atrial fluter maintained on Xarelto History of sleep apnea History of morbid obesity Ongoing nicotine dependence patient educated greater than 3 minutes on the importance of complete smoking cessation, nicotine patch ordered DVT prophylaxis Xarelto. GI prophylaxis Protonix Infectious disease, pulmonary and cardiology services consulted Blood and urine and sputum cultures ordered Repeat labs ordered for a.m.
[2024-01-01] MEDS ORDERED: metOLazone 2.5 MG TAB PO SCH (13:45)
--- NOTE | 2024-01-01 14:05 | P.PN ---
Subjective Progress Note Date: 01/01/24 HISTORY OF PRESENTING ILLNESS Presented to the hospital because of increased worsening shortness of breath. He is past medical history of A-fib status post ablation, morbid obesity, KADI on CPAP, prior history of spherocytosis status post pleurectomy. He is also 2 pack cigarette smoker. This time he presented to the hospital because of worsening shortness of breath, increased fatigue, increased cough. And concerns of fever. On admission he has significant leukocytosis with WBC 73, hemoglobin 14.6, 59% bandemia, elevated lactate 5.1, Trope of 0.05, ECG shows sinus tachycardia REVIEW OF SYSTEMS 14 point review of system is negative except what is mentioned above in HPI. 12/29 Patient states that his breathing is better. He denies having any chest pain. He continues to have lower extremity edema and wheezing. Echocardiogram is pending. Blood pressure 122/73, heart rate 65, pulse ox 94% on 2 L nasal cannula. Repeat blood work reveals WBC 43, hemoglobin 14.5. Sodium 138, potassium 5.4, creatinine 0.61. Patient is currently on IV Lasix 40 mg daily. Patient has a negative fluid balance, weight is up from yesterday. 12/30 Patient is currently on IV Lasix 40 mg daily. Lower extremity edema is a little bit better. He feels his breathing is improved today. Blood pressure 110/62, heart rate 62, pulse ox 92% on 2 L. Telemetry sinus rhythm. Repeat blood work reveals WBC 28.3, hemoglobin 15.1. Creatinine 0.64. Echocardiogram results reviewed with the patient. Echocardiogram reveals EF 55 to 60%, moderate aortic dilatation. 12/31 Patient has been maintained on IV Lasix 40 mg daily. He continues to have some lower extremity edema but he states his breathing is better. He states as long as he is sitting in a recliner with legs in a dependent position, he is not going to get rid of the fluid in his legs. Blood pressure 126/72, heart rate 63, pulse ox 96% on 2 L nasal cannula. Creatinine 0.68. Patient is expecting discharge home today. PHYSICAL EXAMINATION Morbidly obese head: Normocephalic. Eyes: Sclerae nonicteric. Neck: Brisk carotid upstroke, cannot assess JVD due to thick neck Lungs: Expiratory wheezing bilateral. Heart: Regular rate and rhythm, S1-S2, no S3, no murmur or rub. Abdomen: Soft nontender, positive bowel sounds. Extremities: Chronic lymphedema right lower extremity, 2+ edema Neuro: Alert, oritented, no focal deficits. Detailed neuro exam was not performed. ASSESSMENT Acute hypoxic respiratory failure Acute left lower lobe pneumonia Severe leukocytosis. Prior history of splenectomy because of spherocytosis. Lactic acidosis Severe sepsis Mild troponin elevation, likely type II from demand supply mismatch from sepsis and pneumonia Mild HFpEF exacerbation KADI on CPAP Morbid obesity with BMI of 67 Chronic lymphedema in bilateral lower extremity History of A-fib status post ablation, on anticoagulation with Xarelto Last echo from June 2021, EF preserved, mild to moderate pulmonary hypertension, mild RV dilatation, moderate concentric LVH PLAN Continue current cardiac medications: Farxiga 10 mg daily, Cardizem 120 mg daily, losartan 12.5 mg daily, Lopressor 25 mg twice daily, Xarelto 20 mg daily, Aldactone 25 mg daily Recommend Lasix 60 mg twice daily for home Patient is cleared for discharge from cardiology and may follow-up in the office in 1 to 2 weeks. Nurse practitioner note has been reviewed, I agree with documented findings and plan of care. Patient was seen and examined. Objective - Vital Signs Vital signs: Vital Signs Temp 98.2 F 12/31/23 11:35 Pulse 71 01/01/24 08:00 Resp 16 01/01/24 08:00 BP 151/70 01/01/24 08:00 Pulse Ox 95 01/01/24 08:00 FiO2 40 12/28/23 15:18 Intake & Output 12/31/23 01/01/24 01/01/24 18:59 06:59 18:59 Intake Total 1498 540 118 Output Total 2024 3100 Balance -527 210 2982 Weight 196.2 kg Intake: Intake, IV Titration 700 Amount Cefepime 2 gm In Sodium 200 Chloride 0.9% 100 ml @ 25 mls/hr IVPB Q8HR [facility] Rx# :[id number] Vancomycin 2,250 mg In 500 Sodium Chloride 0.9% 500 ml 500 ml @ 167 mls/hr IVPB Q8H [facility] Rx#: [id number] Oral [id number] [id number] Output: Urine 2024 750 3100 Other: Voiding Method Toilet Toilet Toilet Urinal Urinal Urinal # Voids 1 # Bowel Movements 1 2 - Labs CBC & Chem 7: 12/31/23 04:47 01/01/24 09:38 Labs: Abnormal Lab Results - Last 24 Hours (Table) 12/31/23 12/31/23 Range/Units 16:38 20:24 POC Glucose (mg/dL) 165 H 116 H (70-110) mg/dL Microbiology - Last 24 Hours (Table) 12/28/23 11:50 Blood Culture - Preliminary Blood
--- NOTE | 2024-01-01 14:56 | P.PN ---
Subjective Progress Note Date: 01/01/24 On 12/29/2023, the patient is seen in consultation for increased shortness of breath. The patient is morbidly obese. He is a smoker and was smoking up to 2 packs of cigarettes a day. Currently smoking few cigarettes a day. He has seen Dr. Roberts from pulmonology and the patient was started on Tezspire in jections/infusions which is typically used for asthma. The patient has not seen any major improvement in his respiratory status while being on this medication. Utilize albuterol nebulized treatments [id number]. No home oxygen. He claims that he has a CPAP machine at home regarding obstructive sleep apnea. The patient has had a 30 spherocytosis and the patient has previous splenectomy. He comes in with worsening shortness of breath and fever and the chest x-ray is consistent with lower lobe pneumonia. Repeat chest x-ray was done today and shows significant consolidation in the left lower lobe and the left midlung area. The patient remains on a combination of Rocephin and Zithromax and vancomycin. Hemodynamically stable. Currently afebrile 3 0 Bactroban nasal cannula. The white cell count is up to 73 with a hemoglobin 14.6 and a platelet count of 344. The patient has a 39% bandemia. Electrolytes are all within normal limits. Initial lactic acid level was at 5.1 dropped down to 2.1. Troponins are 0.05 and 0.01 respectively x 2. Normal LFTs. Viral screen was negative. He has chronic edema lower extremities bilaterally. He remains on broad-spectrum antibiotics The patient is seen today December 30, 2023 in follow-up on the selective care unit. He is currently sitting up in a chair at the bedside. Awake and alert in no acute distress. He is maintaining O2 saturations in the 90s on 2 L/min per nasal cannula. He is feeling a bit better today compared to yesterday. He remains on cefepime and vancomycin for his left lower lobe pneumonia. He is also utilizing his home CPAP at night for his obstructive sleep apnea. He is anticoagulated with Xarelto. White count 43.3. Hemoglobin 14.5. Platelets 352. Sodium 138. Potassium 5.4. Bicarb 31. BUN 19. Creatinine 0.61. Glucose 119. NicoDerm patch remains in place The patient is seen today December 31, 2023 in follow-up on the selective care unit. He is awake and alert in no acute distress. Sitting up in a chair at the bedside. Maintaining good O2 saturations in the 90s on 2 L/min per nasal cannula. He is feeling a bit better today compared to yesterday. He is utilizing his home CPAP at night. He did have an abdominal ultrasound yesterday due to some firmness of his abdominal wall and suspicion for abscess. The ultrasound ruled out subcutaneous abscess. There is some subcutaneous edema present. Cultures revealed no growth. White count 28.3. Hemoglobin 15.1. Platelets 336. Sodium 139. Potassium 5.0. Bicarb 33. BUN 18. Creatinine 0.64. Glucose 78. Vancomycin trough 5.6. He remains on vancomycin and cefepime. Remains on IV diuretics. NicoDerm patch in place. The patient is seen today January 01, 2024 in follow-up on the selective care unit. He is sitting up in a chair. Awake and alert in no acute distress. Denies any worsening shortness of breath, cough or congestion. He is maintaining good O2 saturations in the 90s on 2 L minute per nasal cannula. He has been afebrile. Hemodynamically stable. Blood cultures revealed no growth. Creatinine 0.68. GFR greater than 90. Glucose 84. He is continued on cefepime and vancomycin. Remains on DuoNebs, Singulair. NicoDerm patch in place. X-ray shows persistent left lower lobe infiltrate with slight improvement. Objective - Vital Signs Vital signs: Vital Signs Temp 98.2 F 12/31/23 11:35 Pulse 63 01/01/24 12:00 Resp 16 01/01/24 12:00 BP 126/72 01/01/24 12:00 Pulse Ox 96 01/01/24 12:00 FiO2 40 12/28/23 15:18 Intake & Output 12/31/23 01/01/24 01/01/24 18:59 06:59 18:59 Intake Total 1498 540 118 Output Total 0 174 4106 Balance -831 -084 -9514 Weight 196.2 kg Intake: Intake, IV Titration 700 Amount Cefepime 2 gm In Sodium 200 Chloride 0.9% 100 ml @ 25 mls/hr IVPB Q8HR [facility] Rx# :[id number] Vancomycin 2,250 mg In 500 Sodium Chloride 0.9% 500 ml 500 ml @ 167 mls/hr IVPB Q8H [facility] Rx#: [id number] Oral [id number] Output: Urine 2024 750 3100 Other: Voiding Method Toilet Toilet Toilet Urinal Urinal Urinal # Voids 1 # Bowel Movements 1 2 - Exam GENERAL EXAM: Alert, pleasant, obese 48-year-old male, on 2 L nasal cannula, up in a chair, in no apparent distress. HEAD: Normocephalic. EYES: Normal reaction of pupils, equal size. NOSE: Clear with pink turbinates. THROAT: No erythema or exudates. NECK: No masses, no JVD. CHEST: No chest wall deformity. LUNGS: Equal air entry with bilateral scattered rhonchi left greater than right. CVS: S1 and S2 normal with no audible murmur, regular rhythm. ABDOMEN: No hepatomegaly, normal bowel sounds, no guarding or rigidity. SPINE: No scoliosis or deformity SKIN: No rashes CENTRAL NERVOUS SYSTEM: No focal deficits, tone is normal in all 4 extremities. EXTREMITIES: There is 1+ peripheral edema. No clubbing, no cyanosis. Peripheral pulses are intact. - Labs CBC & Chem 7: 12/31/23 04:47 01/01/24 09:38 Labs: Abnormal Lab Results - Last 24 Hours (Table) 12/31/23 12/31/23 Range/Units 16:38 20:24 POC Glucose (mg/dL) 165 H 116 H (70-110) mg/dL Microbiology - Last 24 Hours (Table) 12/28/23 11:50 Blood Culture - Preliminary Blood Assessment and Plan Assessment: Acute hypoxic respiratory failure secondary to an acute left lower lobe pneumonia with extensive consolidation, currently on 2 L of oxygen by nasal americo mona Acute fever secondary to above, currently afebrile Acute leukocytosis secondary to above in a patient with previous splenectomy. The patient has significant bandemia with a white cell count of 43, currently on a combination of cefepime and vancomycin. The viral screen has been negative Acute lactic acidosis improving Minimal troponin leak secondary to above, likely is type II ischemia myocardial COPD/asthma although favor COPD and the patient has been a chronic smoker. The patient has been receiving Tezspire infusions through Dr. 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 He has been maintained on Xarelto Plan: The patient was seen and evaluated Chest x-ray, labs and medications reviewed Remains on vancomycin and cefepime Titrate down the FiO2 as tolerated Increase his activity as tolerated We will continue to follow I have personally seen and examined the patient, performed the documentation and the assessment and plan as written. Number of minutes spent on the visit: 10.
[2024-01-01] MEDS: FUROSEMIDE 20 MG TAB PO SCH (16:37)
[2024-01-01 16:41] LABS: Glucose,Whole Blood 110 mg/dL (70-110)
[2024-01-01 20:39] LABS: Glucose,Whole Blood 125 mg/dL (70-110)
--- NOTE | 2024-01-01 21:10 | XR ---
EXAMINATION TYPE: XR chest 1V DATE OF EXAM: 01/01/2024 7:44 PM CLINICAL INDICATION: Male, 48 years old with history of resolution of chest tube; [facility] COMPARISON: Chest radiographs from 01/01/2024 TECHNIQUE: XR chest 1V Frontal view of the chest. FINDINGS: Poor penetration of the lungs. Lungs/Pleura: Left midlung airspace opacity There is no evidence of pleural effusion, focal consolida tion, or pneumothorax. Pulmonary vascularity: Unremarkable. Heart/mediastinum: Cardiomediastinal silhouette is unremarkable. Musculoskeletal: No acute osseous pathology. IMPRESSION: No chest tube definitively visualized. Low lung volumes/poor penetration, Left midlung airspace opacity correlate for atelectasis and pneumo collin.
[2024-01-02 03:11] VITALS: TEMP 97.5
[2024-01-02 06:03] LABS: Glucose,Whole Blood 96 mg/dL (70-110)
[2024-01-02 06:29] LABS: ALT 56 U/L (4-49); AST 50 U/L (17-59); African American GFR (CKD) >90 (>60 ml/min/1.73 sqM); Albumin 3.6 g/dL (3.5-5.0); Alkaline Phosphatase 80 U/L (38-126); Anion Gap 5 mmol/L; Blood Urea Nitrogen 17 mg/dL (9-20); Calcium 9.5 mg/dL (8.4-10.2); Carbon Dioxide 37 mmol/L (22-30); Chloride 95 mmol/L (98-107); Glucose 98 mg/dL (74-99); Non-African American GFR(CKD) >90 (>60 ml/min/1.73 sqM); Potassium 4.6 mmol/L (3.5-5.1); Sodium 137 mmol/L (137-145); Total Bilirubin 0.8 mg/dL (0.2-1.3); Total Protein 6.9 g/dL (6.3-8.2)
[2024-01-02 06:35] LABS: HCT 47.7 % (39.0-53.0); HGB 16.4 gm/dL (13.0-17.5); MCH 31.4 pg (25.0-35.0); MCHC 34.3 g/dL (31.0-37.0); MCV 91.7 fL (80.0-100.0); Mean Platelet Volume 10.3; Platelet Count 335 k/uL (150-450); Poikilocytosis Slight; RDW 15.1 % (11.5-15.5); WBC 16.6 k/uL (3.8-10.6)
[2024-01-02] MEDS: VANCOMYCIN 2,250 MG in SODIUM CHLORIDE 0.9% 500 ML 500 ML IVPB SCH (07:04)
[2024-01-02 07:24] LABS: Basophils # (M) 0.17 k/uL (0-0.2); Lymphocytes # (M) 1.99 k/uL (1.0-4.8); Monocytes # (M) 2.49 k/uL (0-1.0); Neutrophils # (M) 10.96 k/uL (1.3-7.7); Neutrophils % (M) 66 %; Nucleated Red Blood Cells 0 /100 WBC (0-0); Total Cells Counted 100
[2024-01-02] MEDS: VANCOMYCIN TROUGH DUE 1 EACH MISC MISCELLANE ONE (08:26)
--- NOTE | 2024-01-02 08:56 | P.PN ---
Subjective Progress Note Date: 01/01/24 Principal diagnosis: Reason for follow-up is pneumonia and leukocytosis Patient is a 48-year-old male with a past medical history significant for hypertension COPD heart failure atrial fibrillation morbid obesity also with a history of recurrent abdominal wall cellulitis patient has been brought into the hospital for evaluation of increasing shortness of breath cough and some mental status changes. On today's evaluation that is 01/01/2024, Patient is afebrile this morning patient denies having any chest pain shortness of breath, cough has decreased in intensity, sputum collected by pt but not sent, the patient is breathing comfortably and currently on 2 L current oxygen patient denies any abdominal pain no diarrhea no nausea no vomiting Patient white count is down to 28.3 as of yesterday but no cbc done today Objective - Vital Signs Vital signs: Vital Signs Temp 98.2 F 12/31/23 11:35 Pulse 71 01/01/24 08:00 Resp 16 01/01/24 08:00 BP 151/70 01/01/24 08:00 Pulse Ox 95 01/01/24 08:00 FiO2 40 12/28/23 15:18 Intake & Output 12/31/23 01/01/24 01/01/24 18:59 06:59 18:59 Intake Total 1498 540 118 Output Total 2024 750 3100 Balance -986 -702 -9291 Weight 196.2 kg Intake: Intake, IV Titration 700 Amount Cefepime 2 gm In Sodium 200 Chloride 0.9% 100 ml @ 25 mls/hr IVPB Q8HR [facility] Rx# :[id number] Vancomycin 2,250 mg In 500 Sodium Chloride 0.9% 500 ml 500 ml @ 167 mls/hr IVPB Q8H [facility] Rx#: [id number] Oral [id number] Output: Urine 2024 750 3100 Other: Voiding Method Toilet Toilet Toilet Urinal Urinal Urinal # Voids 1 # Bowel Movements 1 2 - Exam GENERAL DESCRIPTION: Middle-age male up in the chair in no distress RESPIRATORY SYSTEM: Unlabored breathing , decreased breath sounds at bases HEART: S1 S2 regular rate and rhythm , ABDOMEN: Soft , no tenderness EXTREMITIES: No edema feet - Labs CBC & Chem 7: 01/02/24 05:38 01/02/24 05:38 Labs: Abnormal Lab Results - Last 24 Hours (Table) 12/31/23 12/31/23 Range/Units 16:38 20:24 POC Glucose (mg/dL) 165 H 116 H (70-110) mg/dL Microbiology - Last 24 Hours (Table) 12/28/23 11:50 Blood Culture - Preliminary Blood Assessment and Plan (1) Pneumonia Current Visit: Yes Status: Acute Code(s): J18.9 - PNEUMONIA, UNSPECIFIED ORGANISM SNOMED Code(s): 366138203 (2) Allergy to sulfa drugs Current Visit: No Status: Acute Code(s): Z88.2 - ALLERGY STATUS TO SULFONAMIDES SNOMED Code(s): 08217869 (3) Leukocytosis Current Visit: No Status: Acute Code(s): D72.829 - ELEVATED WHITE BLOOD CELL COUNT, UNSPECIFIED SNOMED Code(s): 987455066 (4) Sepsis Current Visit: Yes Status: Acute Code(s): A41.9 - SEPSIS, UNSPECIFIED ORGANISM SNOMED Code(s): 33778051 Plan: 1patient presented to hospital with sepsis in this patient who did have a fever elevated white count tachycardia elevated lactic acid source likely left-sided pneumonia had the patient also have been admitted respiratory symptoms or shortness of breath cough and yellowish-green sputum production patient did have history of recurrent abdominal wall cellulitis however had no cellulitis was noticed on examination today. 2patient with significant elevated white count questionable related to steroids that he has received a dose yesterday and need to monitor closely. 3patient did have elevated procalcitonin 17.70, sputum for Gram stain and culture sided, urine for Legionella antigen has been negative 4patient did have resolution of his fever and the patient white count is trending down however no CBC was down today, 5- will continue with vancomycin and cefepime , repeat CBC tomorrow and if normailed ot down will consider oral avelox on dc discussed with [employer] for admitting team Dictation was produced using [employer] dictation software. please excuse any grammatical, word or spelling errors. Time with Patient: Less than 30
[2024-01-02 11:28] LABS: Glucose,Whole Blood 158 mg/dL (70-110)
[2024-01-02 12:11] VITALS: BP 128/70; PULSE 58
--- NOTE | 2024-01-02 12:45 | P.PN ---
Subjective Progress Note Date: 01/02/24 Principal diagnosis: Reason for follow-up is pneumonia and leukocytosis Patient is a 48-year-old male with a past medical history significant for hypertension COPD heart failure atrial fibrillation morbid obesity also with a history of recurrent abdominal wall cellulitis patient has been brought into the hospital for evaluation of increasing shortness of breath cough and some mental status changes. On today's evaluation that is 01/02/2024,the patient denies any fever or any chills, patient is breathing comfortably on room air, the patient denies chest pain shortness of breath and cough has decreased in intensity, patient mention feeling better has been insisting on going home since yesterday no abdominal pain or diarrhea. The patient white count 16.6, creatinine 0.61 blood culture negative sputum was not collected Objective - Vital Signs Vital signs: Vital Signs Temp 97.5 F L 01/02/24 03:08 Pulse 64 01/02/24 03:08 Resp 16 01/02/24 03:08 BP 129/73 01/02/24 03:08 Pulse Ox 91 L 01/02/24 03:08 FiO2 40 12/28/23 15:18 Intake & Output 01/01/24 01/02/24 01/02/24 18:59 06:59 18:59 Intake Total 1058 180 Output Total 3550 200 Balance -2492 -200 180 Weight 190.2 kg Intake: Intake, IV Titration 700 Amount Cefepime 2 gm In Sodium 200 Chloride 0.9% 100 ml @ 25 mls/hr IVPB Q8HR [facility] Rx# :[id number] Vancomycin 2,250 mg In 500 Sodium Chloride 0.9% 500 ml 500 ml @ 167 mls/hr IVPB Q8H [facility] Rx#: [id number] Oral 358 180 Output: Urine 3550 200 Other: Voiding Method Toilet Toilet Urinal Urinal # Voids 1 # Bowel Movements 2 1 - Exam GENERAL DESCRIPTION: Middle-age male up in the chair in no distress RESPIRATORY SYSTEM: Unlabored breathing , decreased breath sounds at bases HEART: S1 S2 regular rate and rhythm , ABDOMEN: Soft , no tenderness EXTREMITIES: No edema feet - Labs CBC & Chem 7: 01/02/24 05:38 01/02/24 05:38 Labs: Abnormal Lab Results - Last 24 Hours (Table) 01/01/24 01/02/24 01/02/24 Range/Units 20:36 05:38 05:38 WBC 16.6 H (3.8-10.6) k/uL Neutrophils # (Manual) 10.96 H (1.3-7.7) k/uL Monocytes # (Manual) 2.49 H (0-1.0) k/uL Eosinophils # (Manual) 1.00 H (0-0.7) k/uL Chloride 95 L (98-107) mmol/L Carbon Dioxide 37 H (22-30) mmol/L Creatinine 0.61 L (0.66-1.25) mg/dL POC Glucose (mg/dL) 125 H (70-110) mg/dL ALT 56 H (4-49) U/L Microbiology - Last 24 Hours (Table) 12/28/23 11:50 Blood Culture - Preliminary Blood Assessment and Plan (1) Pneumonia Current Visit: Yes Status: Acute Code(s): J18.9 - PNEUMONIA, UNSPECIFIED ORGANISM SNOMED Code(s): 924532273 (2) Allergy to sulfa drugs Current Visit: No Status: Acute Code(s): Z88.2 - ALLERGY STATUS TO SULFONA MIDES SNOMED Code(s): 44674474 (3) Leukocytosis Current Visit: No Status: Acute Code(s): D72.829 - ELEVATED WHITE BLOOD CELL COUNT, UNSPECIFIED SNOMED Code(s): 182040999 (4) Sepsis Current Visit: Yes Status: Acute Code(s): A41.9 - SEPSIS, UNSPECIFIED O RGANISM SNOMED Code(s): 81051551 Plan: 1patient presented to hospital with sepsis in this patient who did have a fever elevated white count tachycardia elevated lactic acid source likely left-sided pneumonia had the patient also have been admitted respiratory symptoms or shortness of breath cough and yellowish-green sputum production patient did have history of recurrent abdominal wall cellulitis however had no cellulitis was noticed on examination today. 2patient with significant elevated white count questionable related to steroids that he has received a dose yesterday and need to monitor closely. 3patient did have elevated procalcitonin 17.70, sputum for Gram stain and culture sided, urine for Legionella antigen has been negative 4patient did have resolution of his fever and the patient white count is trending down to 16,000 today 5-patient has been insisting on going home prescription for oral Avelox has been sent to the pharmacy and close outpatient follow-up Dictation was produced using [employer] dictation software. please excuse any grammatical, word or spelling errors. Time with Patient: Less than 30
--- NOTE | 2024-01-02 13:56 | P.PN ---
Subjective Progress Note Date: 01/02/24 On 12/29/2023, the patient is seen in consultation for increased shortness of breath. The patient is morbidly obese. He is a smoker and was smoking up to 2 packs of cigarettes a day. Currently smoking few cigarettes a day. He has seen Dr. Roberts from pulmonology and the patient was started on Tezspire in jections/infusions which is typically used for asthma. The patient has not seen any major improvement in his respiratory status while being on this medication. Utilize albuterol nebulized treatments [id number]. No home oxygen. He claims that he has a CPAP machine at home regarding obstructive sleep apnea. The patient has had a 30 spherocytosis and the patient has previous splenectomy. He comes in with worsening shortness of breath and fever and the chest x-ray is consistent with lower lobe pneumonia. Repeat chest x-ray was done today and shows significant consolidation in the left lower lobe and the left midlung area. The patient remains on a combination of Rocephin and Zithromax and vancomycin. Hemodynamically stable. Currently afebrile 3 0 Bactroban nasal cannula. The white cell count is up to 73 with a hemoglobin 14.6 and a platelet count of 344. The patient has a 39% bandemia. Electrolytes are all within normal limits. Initial lactic acid level was at 5.1 dropped down to 2.1. Troponins are 0.05 and 0.01 respectively x 2. Normal LFTs. Viral screen was negative. He has chronic edema lower extremities bilaterally. He remains on broad-spectrum antibiotics The patient is seen today December 30, 2023 in follow-up on the selective care unit. He is currently sitting up in a chair at the bedside. Awake and alert in no acute distress. He is maintaining O2 saturations in the 90s on 2 L/min per nasal cannula. He is feeling a bit better today compared to yesterday. He remains on cefepime and vancomycin for his left lower lobe pneumonia. He is also utilizing his home CPAP at night for his obstructive sleep apnea. He is anticoagulated with Xarelto. White count 43.3. Hemoglobin 14.5. Platelets 352. Sodium 138. Potassium 5.4. Bicarb 31. BUN 19. Creatinine 0.61. Glucose 119. NicoDerm patch remains in place The patient is seen today December 31, 2023 in follow-up on the selective care unit. He is awake and alert in no acute distress. Sitting up in a chair at the bedside. Maintaining good O2 saturations in the 90s on 2 L/min per nasal cannula. He is feeling a bit better today compared to yesterday. He is utilizing his home CPAP at night. He did have an abdominal ultrasound yesterday due to some firmness of his abdominal wall and suspicion for abscess. The ultrasound ruled out subcutaneous abscess. There is some subcutaneous edema present. Cultures revealed no growth. White count 28.3. Hemoglobin 15.1. Platelets 336. Sodium 139. Potassium 5.0. Bicarb 33. BUN 18. Creatinine 0.64. Glucose 78. Vancomycin trough 5.6. He remains on vancomycin and cefepime. Remains on IV diuretics. NicoDerm patch in place. The patient is seen today January 01, 2024 in follow-up on the selective care unit. He is sitting up in a chair. Awake and alert in no acute distress. Denies any worsening shortness of breath, cough or congestion. He is maintaining good O2 saturations in the 90s on 2 L minute per nasal cannula. He has been afebrile. Hemodynamically stable. Blood cultures revealed no growth. Creatinine 0.68. GFR greater than 90. Glucose 84. He is continued on cefepime and vancomycin. Remains on DuoNebs, Singulair. NicoDerm patch in place. X-ray shows persistent left lower lobe infiltrate with slight improvement. The patient is seen today January 02, 2024 in follow-up on the selective care unit. He is awake and alert in no acute distress. Sitting up in a chair. Denies any worsening shortness of breath, cough or congestion. He is maintaining O2 saturations in the 90s on room air. He does utilize his home CPAP at night. He has been afebrile. Hemodynamically stable. X-ray reveals l ow lung volumes. Left midlung opacity noted. Blood cultures revealed no growth. White count 16.6. Hemoglobin 16.4. Sodium 137. Potassium 4.6. Bicarb 37. BUN 17. Creatinine 0.61. Glucose 98. Vancomycin trough 19.0. Comycin and cefepime. NicoDerm patch in place. Continued on bronchodilators. Continued on oral diuretics. Anticoagulated with Xarelto. Objective - Vital Signs Vital signs: Vital Signs Temp 97.5 F L 01/02/24 03:08 Pulse 58 L 01/02/24 12:00 Resp 16 01/02/24 12:00 BP 128/70 01/02/24 12:00 Pulse Ox 93 L 01/02/24 12:00 FiO2 40 12/28/23 15:18 Intake & Output 01/01/24 01/02/24 01/02/24 18:59 06:59 18:59 Intake Total 1058 360 Output Total 3550 200 600 Balance -2492 -200 -240 Weight 190.2 kg Intake: Intake, IV Titration 700 Amount Cefepime 2 gm In Sodium 200 Chloride 0.9% 100 ml @ 25 mls/hr IVPB Q8HR [facility] Rx# :[id number] Vancomycin 2,250 mg In 500 Sodium Chloride 0.9% 500 ml 500 ml @ 167 mls/hr IVPB Q8H [facility] Rx#: [id number] Oral 358 360 Output: Urine 3550 200 600 Other: Voiding Method Toilet Toilet Toilet Urinal Urinal Urinal # Voids 1 # Bowel Movements 2 1 - Exam GENERAL EXAM: Alert, obese 48-year-old male, on room air, up in a chair, in no apparent distress. HEAD: Normocephalic. EYES: Normal reaction of pupils, equal size. NOSE: Clear with pink turbinates. THROAT: No erythema or exudates. NECK: No masses, no JVD. CHEST: No chest wall deformity. LUNGS: Equal air entry with bilateral scattered rhonchi left greater than right. CVS: S1 and S2 normal with no audible murmur, regular rhythm. ABDOMEN: No hepatomegaly, normal bowel sounds, no guarding or rigidity. SPINE: No scoliosis or deformity SKIN: No rashes CENTRAL NERVOUS SYSTEM: No focal deficits, tone is normal in all 4 extremities. EXTREMITIES: There is 1+ peripheral edema. No clubbing, no cyanosis. Peripheral pulses are intact. - Labs CBC & Chem 7: 01/02/24 05:38 01/02/24 05:38 Labs: Abnormal Lab Results - Last 24 Hours (Table) 01/01/24 01/02/24 01/02/24 Range/Units 20:36 05:38 05:38 WBC 16.6 H (3.8-10.6) k/uL Neutrophils # (Manual) 10.96 H (1.3-7.7) k/uL Monocytes # (Manual) 2.49 H (0-1.0) k/uL Eosinophils # (Manual) 1.00 H (0-0.7) k/uL Chloride 95 L (98-107) mmol/L Carbon Dioxide 37 H (22-30) mmol/L Creatinine 0.61 L (0.66-1.25) mg/dL POC Glucose (mg/dL) 125 H (70-110) mg/dL ALT 56 H (4-49) U/L 01/02/24 Range/Units 11:26 WBC (3.8-10.6) k/uL Neutrophils # (Manual) (1.3-7.7) k/uL Monocytes # (Manual) (0-1.0) k/uL Eosinophils # (Manual) (0-0.7) k/uL Chloride (98-107) mmol/L Carbon Dioxide (22-30) mmol/L Creatinine (0.66-1.25) mg/dL POC Glucose (mg/dL) 158 H (70-110) mg/dL ALT (4-49) U/L Assessment and Plan Assessment: Acute hypoxic respiratory failure secondary to an acute left lower lobe pneumonia with extensive consolidation, currently on room air Acute fever secondary to above, currently afebrile Acute leukocytosis secondary to above in a patient with previous splenectomy. The patient has significant bandemia with a white cell count of 43, currently on a combination of cefepime and vancomycin. The viral screen has been negative Acute lactic acidosis improving Minimal troponin leak secondary to above, likely is type II ischemia myocardial COPD/asthma although favor COPD and the patient has been a chronic smoker. The patient has been receiving Tezspire infusions through Dr. 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 He has been maintained on Xarelto Plan: The patient was seen and evaluated Chest x-ray, labs and medications reviewed Remains on vancomycin and cefepime He is anxious to go home Antibiotics per ID service I have personally seen and examined the patient, performed the documentation and the assessment and plan as written. Number of minutes spent on the visit: 10.
[2024-01-02] MEDS ORDERED: VANCOMYCIN 2,000 MG in SODIUM CHLORIDE 0.9% 500 ML 500 ML IVPB SCH (15:00)
--- NOTE | 2024-01-02 18:54 | P.PN ---
Subjective Progress Note Date: 01/02/24 HISTORY OF PRESENTING ILLNESS Presented to the hospital because of increased worsening shortness of breath. He is past medical history of A-fib status post ablation, morbid obesity, KADI on CPAP, prior history of spherocytosis status post pleurectomy. He is also 2 pack cigarette smoker. This time he presented to the hospital because of worsening shortness of breath, increased fatigue, increased cough. And concerns of fever. On admission he has significant leukocytosis with WBC 73, hemoglobin 14.6, 59% bandemia, elevated lactate 5.1, Trope of 0.05, ECG shows sinus tachycardia REVIEW OF SYSTEMS 14 point review of system is negative except what is mentioned above in HPI. 12/29 Patient states that his breathing is better. He denies having any chest pain. He continues to have lower extremity edema and wheezing. Echocardiogram is pending. Blood pressure 122/73, heart rate 65, pulse ox 94% on 2 L nasal cannula. Repeat blood work reveals WBC 43, hemoglobin 14.5. Sodium 138, potassium 5.4, creatinine 0.61. Patient is currently on IV Lasix 40 mg daily. Patient has a negative fluid balance, weight is up from yesterday. 12/30 Patient is currently on IV Lasix 40 mg daily. Lower extremity edema is a little bit better. He feels his breathing is improved today. Blood pressure 110/62, heart rate 62, pulse ox 92% on 2 L. Telemetry sinus rhythm. Repeat blood work reveals WBC 28.3, hemoglobin 15.1. Creatinine 0.64. Echocardiogram results reviewed with the patient. Echocardiogram reveals EF 55 to 60%, moderate aortic dilatation. 12/31 Patient has been maintained on IV Lasix 40 mg daily. He continues to have some lower extremity edema but he states his breathing is better. He states as long as he is sitting in a recliner with legs in a dependent position, he is not going to get rid of the fluid in his legs. Blood pressure 126/72, heart rate 63, pulse ox 96% on 2 L nasal cannula. Creatinine 0.68. Patient is expecting discharge home today. 01/01 Patient's breathing status seems to be stable. Yesterday we transition him to Lasix 60 mg twice daily and advised to discharge patient home on this dose which is higher than his home dose previously. Patient is anticipating discharge home later today. Blood pressure 128/70, heart rate 58, pulse ox 93% on room air. Repeat blood work reveals WBC 16.6, hemoglobin 16.4, BUN 17 creatinine 0.61, potassium 4.6, CO2 37. PHYSICAL EXAMINATION Morbidly obese head: Normocephalic. Eyes: Sclerae nonicteric. Neck: Brisk carotid upstroke, cannot assess JVD due to thick neck Lungs: Expiratory wheezing bilateral. Heart: Regular rate and rhythm, S1-S2, no S3, no murmur or rub. Abdomen: Soft nontender, positive bowel sounds. Extremities: Chronic lymphedema right lower extremity, 2+ edema Neuro: Alert, oritented, no focal deficits. Detailed neuro exam was not performed. ASSESSMENT Acute hypoxic respiratory failure Acute left lower lobe pneumonia Severe leukocytosis. Prior history of splenectomy because of spherocytosis. Lactic acidosis Severe sepsis Mild troponin elevation, likely type II from demand supply mismatch from sepsis and pneumonia Mild HFpEF exacerbation KADI on CPAP Morbid obesity with BMI of 67 Chronic lymphedema in bilateral lower extremity History of A-fib status post ablation, on anticoagulation with Xarelto Last echo from June 2021, EF preserved, mild to moderate pulmonary hypertension, mild RV dilatation, moderate concentric LVH PLAN Continue current cardiac medications: Farxiga 10 mg daily, Cardizem 120 mg daily, losartan 12.5 mg daily, Lopressor 25 mg twice daily, Xarelto 20 mg daily, Aldactone 25 mg daily Recommend Lasix 60 mg twice daily for home Patient is cleared for discharge from cardiology and may follow-up in the office in 1 to 2 weeks. Nurse practitioner note has been reviewed, I agree with documented findings and plan of care. Patient was seen and examined. Objective - Vital Signs Vital signs: Vital Signs Temp 97.5 F L 01/02/24 03:08 Pulse 58 L 01/02/24 12:00 Resp 16 01/02/24 12:00 BP 128/70 01/02/24 12:00 Pulse Ox 93 L 01/02/24 12:00 FiO2 40 12/28/23 15:18 Intake & Output 01/01/24 01/02/24 01/02/24 18:59 06:59 18:59 Intake Total 1058 180 Output Total 3550 200 Balance -2492 -200 180 Weight 190.2 kg Intake: Intake, IV Titration 700 Amount Cefepime 2 gm In Sodium 200 Chloride 0.9% 100 ml @ 25 mls/hr IVPB Q8HR [facility] Rx# :[id number] Vancomycin 2,250 mg In 500 Sodium Chloride 0.9% 500 ml 500 ml @ 167 mls/hr IVPB Q8H [facility] Rx#: [id number] Oral 358 180 Output: Urine 3550 200 Other: Voiding Method Toilet Toilet Toilet Urinal Urinal Urinal # Voids 1 # Bowel Movements 2 1 - Labs CBC & Chem 7: 01/02/24 05:38 01/02/24 05:38 Labs: Abnormal Lab Results - Last 24 Hours (Table) 01/01/24 01/02/24 01/02/24 Range/Units 20:36 05:38 05:38 WBC 16.6 H (3.8-10.6) k/uL Neutrophils # (Manual) 10.96 H (1.3-7.7) k/uL Monocytes # (Manual) 2.49 H (0-1.0) k/uL Eosinophils # (Manual) 1.00 H (0-0.7) k/uL Chloride 95 L (98-107) mmol/L Carbon Dioxide 37 H (22-30) mmol/L Creatinine 0.61 L (0.66-1.25) mg/dL POC Glucose (mg/dL) 125 H (70-110) mg/dL ALT 56 H (4-49) U/L 01/02/24 Range/Units 11:26 WBC (3.8-10.6) k/uL Neutrophils # (Manual) (1.3-7.7) k/uL Monocytes # (Manual) (0-1.0) k/uL Eosinophils # (Manual) (0-0.7) k/uL Chloride (98-107) mmol/L Carbon Dioxide (22-30) mmol/L Creatinine (0.66-1.25) mg/dL POC Glucose (mg/dL) 158 H (70-110) mg/dL ALT (4-49) U/L
--- NOTE | 2024-01-03 09:05 | P.DS ---
Providers Date of admission: 12/28/23 13:18 Expected date of discharge: 01/02/24 Attending physician: David Paniagua Consults: 12/28/23 13:18 Consult Physician Routine Consulting Provider: Peg Le Consult Reason/Comments: COPD exacerbation, pneumonia Do you want consulting provider notified?: Yes 12/28/23 21:19 Consult Physician Routine Consulting Provider: Rai Carcamo Consult Reason/Comments: pneumonia/infectious disease Do you want consulting provider notified?: Yes, Notify in am 12/29/23 09:38 Consult Physician Routine Consulting Provider: Scott Bee Consult Reason/Comments: elevated troponin Do you want consulting provider notified?: Yes Primary care physician: David Paniagua [facility] Course: Diagnosis on discharge: Sepsis evident by leukocytosis and fever. 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 Patient pulmonary services consulted Possible abdominal cellulitis. History of atrial fibrillation/atrial fluter maintained on Xarelto History of sleep apnea History of morbid obesity Ongoing nicotine dependence patient educated greater than 3 minutes on the importance of complete smoking cessation, nicotine patch ordered Hospital course: Chau Diallo, is a 48-year-old male patient who presented to the ER with concerns of shortness of breath. Patient has a past medical history of atrial fibrillation, asthma, blood disorder, heart failure, COPD, hypertension, pneumonia and morbid obesity. Initial chest x-ray completed showing focal airspace consolidation in the left midlung possibly representing acute pneumonia. Lab work revealing initial white blood cell of 38.7, lactic acid 2.1 increasing to 5.1. Initial troponin elevated at 0.053. Influenza RSV and COVID-19 all negative. Initial vitals temp 102.8, heart rate 106, respiratory rate 26, blood pressure 106/60 with a pulse ox of 95% on 2 L. At this time patient will be admitted patient started on IV antibiotics. Infectious disease and pulmonary services consulted. Will also consult cardiology services and repeat troponin level. Patient did receive multiple fluid boluses in the ER. Patient reports improvement. Patient denies chest pain or shortness of breath. Patient denies nausea vomiting or diarrhea. Patient denies any urinary burning or frequency. Will order urine blood and sputum cultures On 12/30/2023 patient was seen and examined on the medical floor he is alert and oriented x 3 in no apparent distress he feels better there is no fever or chills no headache or dizziness no chest pain no shortness of breath he has occasional cough no nausea or vomiting no abdominal pain no diarrhea and no urinary symptoms. His lower abdominal pannus is hard possibility of abscess was entertained abdomen ultrasound was ordered. On 12/31/2023 patient was seen and examined on the medical floor he is alert and oriented x 3 in no apparent distress there is no fever or chills no headache or dizziness no chest pain no shortness of breath no cough no nausea or vomiting no abdominal pain no diarrhea and no urinary symptoms. Patient has some induration in the lower abdominal fold, no evidence of abscess on ultrasound. At this time we will continue with current antibiotic, awaiting further recommendation from infectious disease On 01/01/2024 patient is alert and oriented 3. Patient eager to be DC'd home patient was cleared by pulmonary services but not cleared by infectious disease Patient remains on IV antibiotics vancomycin and Maxipime. current vital signs temp 98.2, heart rate 62, respiratory rate 16, blood pressure 110/62 with a pulse ox 92% on 2 L6. Patient denies chest pain or shortness breath. Patient denies nausea vomiting or diarrhea. Patient denies any urinary burning or frequency On 01/02/2024 patient is alert and oriented x 3. Patient will be DC'd home today on Avelox per ID recommendation. Patient had been cleared for discharge from pulmonary and cardiology services. Patient to follow-up with PCP and consulting providers for further management Plan - Discharge Summary Discharge Rx Participant: No New Discharge Prescriptions: New Nystatin 100,000 Unit/gm Powd [Mycostatin Powder] 1 applic TOPICAL BID 15 Days #60 each Moxifloxacin HCl [Avelox] 400 mg PO DAILY #7 tab Losartan [Cozaar] 12.5 mg PO DAILY 30 Days #30 tab Dapagliflozin Propanediol [Farxiga] 10 mg PO DAILY 30 Days #30 tab Continue Furosemide [Lasix] 40 mg PO BID Metoprolol Tartrate [Lopressor] 25 mg PO BID #60 tab Rivaroxaban [Xarelto] 20 mg PO W/SUPPER #30 tab Spironolactone [Aldactone] 25 mg PO DAILY HYDROcodone/APAP 7.5-325MG [[place] 7.5-325] 1 tab PO Q6H PRN PRN Reason: Pain Dextroamphetamine/Amphetamine [Adderall] 30 mg PO TID Tezepelumab-Ekko [Tezspire] 1 dose SQ Q30D Semaglutide [Ozempic] 0.5 mg SQ FR Ergocalciferol (Vitamin D2) [Drisdol (50,000 Iu)] 1,250 mcg PO Q7D Tamsulosin [Flomax] 0.4 mg PO HS dilTIAZem HCL [Cartia Xt] 120 mg PO DAILY Montelukast [Singulair] 10 mg PO HS Albuterol Inhaler [Ventolin Hfa Inhaler] 2 puff INHALATION RT-Q6H PRN PRN Reason: Shortness Of Breath Discharge Medication List Furosemide [Lasix] 40 mg PO BID 05/06/17 [History] Metoprolol Tartrate [Lopressor] 25 mg PO BID #60 tab 09/04/18 [Rx] Rivaroxaban [Xarelto] 20 mg PO W/SUPPER #30 tab 09/04/18 [Rx] Montelukast [Singulair] 10 mg PO HS 07/20/20 [History] Tamsulosin [Flomax] 0.4 mg PO HS 07/20/20 [History] dilTIAZem HCL [Cartia Xt] 120 mg PO DAILY 07/20/20 [History] Albuterol Inhaler [Ventolin Hfa Inhaler] 2 puff INHALATION RT-Q6H PRN 07/12/21 [History] Dextroamphetamine/Amphetamine [Adderall] 30 mg PO TID 12/28/23 [History] Ergocalciferol (Vitamin D2) [Drisdol (50,000 Iu)] 1,250 mcg PO Q7D 12/28/23 [History] HYDROcodone/APAP 7.5-325MG [[place] 7.5-325] 1 tab PO Q6H PRN 12/28/23 [History] Semaglutide [Ozempic] 0.5 mg SQ FR 12/28/23 [History] Spironolactone [Aldactone] 25 mg PO DAILY 12/28/23 [History] Tezepelumab-Ekko [Tezspire] 1 dose SQ Q30D 12/28/23 [History] Dapagliflozin Propanediol [Farxiga] 10 mg PO DAILY 30 Days #30 tab 01/02/24 [Rx] Losartan [Cozaar] 12.5 mg PO DAILY 30 Days #30 tab 01/02/24 [Rx] Moxifloxacin HCl [Avelox] 400 mg PO DAILY #7 tab 01/02/24 [Rx] Nystatin 100,000 Unit/gm Powd [Mycostatin Powder] 1 applic TOPICAL BID 15 Days #60 each 01/02/24 [Rx] Follow up Appointment(s)/Referral(s): Scott Bee MD [STAFF PHYSICIAN] - 01/17/24 2:15 pm David Paniagua MD [Primary Care Provider] - 1-2 days Patient Instructions/Handouts: Viral Pneumonia (DC) Discharge Disposition: HOME SELF-CARE
== END 2024-01-02 16:07 | disposition home or self-care (01) | DRG 871 ==
LOC: EC 11:19 → 3SCARD 13:18
PROVIDERS: ADMIT Internal Medicine; ATTEND Internal Medicine
DX: A41.9 Sepsis, unspecified organism (principal); I50.33 Acute on chronic diastolic (congestive) heart failure; J18.9 Pneumonia, unspecified organism; J96.01 Acute respiratory failure with hypoxia; E87.21 Acute metabolic acidosis; J44.0 Chronic obstructive pulmonary disease with (acute) lower respiratory infection; J44.1 Chronic obstructive pulmonary disease with (acute) exacerbation; Z68.44 Body mass index [BMI] 60.0-69.9, adult; I24.89 Other forms of acute ischemic heart disease; R65.20 Severe sepsis without septic shock; I27.20 Pulmonary hypertension, unspecified; I11.0 Hypertensive heart disease with heart failure; E66.01 Morbid (severe) obesity due to excess calories; E83.42 Hypomagnesemia; F17.210 Nicotine dependence, cigarettes, uncomplicated; F90.9 Attention-deficit hyperactivity disorder, unspecified type; G47.33 Obstructive sleep apnea (adult) (pediatric); I48.91 Unspecified atrial fibrillation; I89.0 Lymphedema, not elsewhere classified; M19.90 Unspecified osteoarthritis, unspecified site; Z79.01 Long term (current) use of anticoagulants; Z79.899 Other long term (current) drug therapy; Z79.85 Long-term (current) use of injectable non-insulin antidiabetic drugs; Z79.84 Long term (current) use of oral hypoglycemic drugs; Z88.2 Allergy status to sulfonamides; Z90.81 Acquired absence of spleen; Z82.49 Family history of ischemic heart disease and other diseases of the circulatory system
CPT/HCPCS: 36410; 36415; 36600; 71045; 76705; 76937; 80048; 80053; 80202; 81003; 82565; 82805; 83036; 83605; 83735; 83880; 84145; 84484; 85025; 85610; 85730; 87040; 87070; 87205; 87449; 87636; 93005; 93306; 94640; 94660; 94760; 96361; 96365; 96366; 96367; 96372; 96375; 99291